=== PATIENT | male | born 1980 | race Hispanic/Latino ===

== ENCOUNTER → 2018-05-04 | Outpatient (CLI) | payer OTHER ==
--- NOTE | 2018-05-04 12:41 | NUR ---
Bariatric Preop diet education: Printed materials provided on Nutrition Guidelines for Bariatric surgery. Printed materials reviewed in detail. Pt has been instructed to begin clear liquid diet 1 wk before surgery and to follow dietary guidelines post surgery. Pt with multiple questions on diet guidelines, protein supplements and vitamin supplements. All questions answered by BROCK. [facility]OCK contact information given to pt for any nutritional questions or concerns pt may have. Addendum: 05/04/18 at [address] Amended: Links added.
== END | disposition home or self-care (01) ==
LOC: DTH 09:07
PROVIDERS: ATTEND Surgery
DX: E66.01 Morbid (severe) obesity due to excess calories (principal)
CPT/HCPCS: 97802

== ENCOUNTER 2018-06-12 11:15 | Observation (INO) | payer OTHER ==
[~2018-06-12] VITALS: Ht 188 cm; Wt 142.2 kg
[2018-06-12 17:07] LABS: HEMOGLOBIN A1C 7.8 % (4.0-6.0)
[2018-06-12 17:10] VITALS: BP 126/81
[2018-06-12] MEDS ORDERED: FERS325 PO (17:26)
[2018-06-12] MEDS ORDERED: ICOS1CAP PO (17:26)
[2018-06-12] MEDS ORDERED: TORS10TA18 PO (17:26)
[2018-06-12] MEDS ORDERED: LISI40TA4 PO (17:26)
[2018-06-12] MEDS ORDERED: INSU100I15 SQ (17:26)
[2018-06-12] MEDS ORDERED: INSU100I24 SQ (17:26)
[2018-06-12] MEDS ORDERED: EMPA10TA PO (17:26)
[2018-06-12] MEDS ORDERED: LIRA0.6P2 SQ (17:26)
[2018-06-12] MEDS ORDERED: METO50TA18 PO (17:26)
[2018-06-13] VITALS (20 sets, daily range): BP systolic 121–144; BP diastolic 78–97
[2018-06-13] MEDS ORDERED: SODIUM CHLORIDE 0.9% 1000ML 1,000 ML IV ONE (06:55)
[2018-06-13] MEDS ORDERED: SUCCINYLCHOLINE 200MG/10ML SYR ONE (06:58)
[2018-06-13] MEDS ORDERED: LIDOCAINE PF 2% 5ML ABBOJECT ONE (06:58)
[2018-06-13] MEDS ORDERED: PROPOFOL 10 MG/ML 20ML VIAL IV ONE (06:58)
[2018-06-13] MEDS ORDERED: ROCURONIUM 10MG/1ML SYR 10 MG/ML ML ONE (06:59)
[2018-06-13] MEDS ORDERED: FENTANYL CITRATE PF 50 MCG/1 ML 2ML VIAL ONE ×2 (06:59→09:34)
[2018-06-13] MEDS ORDERED: GENTAMICIN SULFATE 80 MG/2 ML VIAL ONE (07:04)
[2018-06-13] MEDS ORDERED: LIDOCAINE HCL-MPF 0.5% 50ML VIAL IJ ONE (07:05)
[2018-06-13] MEDS ORDERED: CLINDAMYCIN PHOSPHATE 150 MG/ML 6ML VIAL ONE (07:05)
[2018-06-13] MEDS ORDERED: HEPARIN SODIUM 10000 UNIT/ML 1ML VIAL IJ ONE (07:06)
[2018-06-13] MEDS ORDERED: LIDOCAINE HCL MDV 0.5% 50ML VIAL IJ ONE (07:06)
[2018-06-13] MEDS ORDERED: BUPIVACAINE/PF 0.5% 30ML VIAL ONE (07:13)
[2018-06-13] MEDS ORDERED: BUPIVACAINE/EPI/PF 0.5% 30ML VIAL IJ ONE (07:16)
--- NOTE | 2018-06-13 07:17 | NUR ---
skin left foot dressing dry and intact, pt states has ulcer treated daily at home Addendum: 06/13/18 at 0721 by BAY RDZ RN Amended: Links added.
[2018-06-13] MEDS: CYANOCOBALAMIN (VITAMIN B-12) 1000 MCG/ML 1ML VIAL SQ SCH ×2 (07:26→12:28)
[2018-06-13] MEDS: HEPARIN SODIUM 5000UNIT/ML 1ML VIAL SQ SCH ×3 (07:27→12:42)
[2018-06-13] MEDS: METOPROLOL TARTRATE 50 MG TAB PO SCH ×3 (07:31→21:57)
[2018-06-13] MEDS: CEFOXITIN SODIUM 2 GM VIAL ONE ×2 (07:31→10:30)
[2018-06-13] MEDS ORDERED: METHYLENE BLUE 10 MG/ML AMP ONE (07:38)
--- NOTE | 2018-06-13 07:44 | NUR ---
teds/scd in place. abdominal area clipped for sx
[2018-06-13] MEDS ORDERED: CEFOXITIN SODIUM 2 GM VIAL IVP PRN (08:00)
[2018-06-13] MEDS ORDERED: WATER FOR INJECTION,STERILE 20 ML VIAL IJ PRN (08:00)
[2018-06-13] MEDS ORDERED: MIDAZOLAM HCL 1 MG/ML 2ML VIAL ONE (08:26)
[2018-06-13] MEDS ORDERED: GLYCOPYRROLATE 1 MG/5 ML SYRINGE ONE (10:18)
[2018-06-13] MEDS ORDERED: CEFOXITIN SODIUM 2 GM VIAL ONE (10:18)
[2018-06-13] MEDS ORDERED: NEOSTIGMINE 5MG/5ML SYR IV ONE (10:18)
[2018-06-13] MEDS ORDERED: FENTANYL CITRATE PF 50 MCG/1 ML 5ML AMP IV ONE (10:32)
[2018-06-13] MEDS ORDERED: ONDANSETRON HCL 4 MG/2 ML VIAL ONE ×2 (10:35→11:35)
[2018-06-13] MEDS ORDERED: MEPERIDINE-PF 25 MG/ML SYG ONE (11:26)
--- NOTE | 2018-06-13 11:35 | NUR ---
1128 - DEMEROL 25MG GIVEN SIVP FOR C/O GENERALIZED ABDOMINAL PAIN 1135 - ZOFRAN 4MG GIVEN FOR C/O NAUSEA PT REPORTS SOME RELIEF FROM PAIN AND NAUSEA, WILL CONTINUE TO MONITOR. Addendum: 06/13/18 at 1213 by MINERVA CORDOBA RN RN Amended: Links added.
--- NOTE | 2018-06-13 12:04 | NUR ---
POST SURGERY PATIENT RECEIVED FROM PACU VIA HOSPITAL BED. HE HAS BEEN ORIENTED TO ROOM AND USE OF CALL LIGHT. HE HAS 4 LARGE BAND-AIDS TO ABDOMEN WHICH ARE CLEAN AND DRY. PATIENT APPEARS COMFORTABLE AT THIS TIME. BED IS IN LOWEST POSITION AND LOCKED WITH ALL PERSONAL BELONGINGS WITHIN REACH.
[2018-06-13] MEDS ORDERED: ACETAMINOPHEN-CODEINE 300/30MG TAB PO PRN (12:45)
[2018-06-13] MEDS ORDERED: GLUCAGON 1MG KIT 1 MG ML IM PRN (12:45)
[2018-06-13] MEDS ORDERED: METOCLOPRAMIDE 10 MG/2 ML VIAL IV PRN (12:45)
[2018-06-13] MEDS ORDERED: DiphenhydrAMINE HCL 50 MG/ML VIAL IVP PRN (12:45)
[2018-06-13] MEDS ORDERED: NALOXONE HCL 0.4 MG/1 ML ML IVP PRN (12:45)
[2018-06-13] MEDS ORDERED: ONDANSETRON HCL 4 MG/2 ML 8 MG in SODIUM CHLORIDE 0.9% 50 ML IVP PRN (12:45)
[2018-06-13] MEDS ORDERED: PROMETHAZINE HCL 25 MG/ML 1ML AMPULE IM PRN (12:45)
[2018-06-13] MEDS ORDERED: HYDROMORPHONE PCA 10MG/50 ML ( 0.2 MG/ML ) IV PRN (12:45)
[2018-06-13] MEDS ORDERED: DEXTROSE 50%-WATER 50 ML DISP.SYRIN IV PRN (12:45)
[2018-06-13] MEDS ORDERED: DIPHENHYDRAMINE HCL 25 MG CAPSULE PO PRN (12:45)
[2018-06-13] MEDS ORDERED: ONDANSETRON HCL 4 MG/2 ML VIAL IVP PRN (12:45)
[2018-06-13] MEDS ORDERED: PHARMACY COMMUNICATION MISC SCH (16:30)
[2018-06-13] MEDS ORDERED: INSULIN R PO SS1 SQ SCH (16:30)
--- NOTE | 2018-06-13 18:37 | NUR ---
CM IA DONE, AAOX3, ENG SPKING PT IND OF ADLS AND RETURNING TO [facility], LIVES W SPOUSE, KIDS AND MOM NO DME NO HH NO PROVIDER SERVICES
--- NOTE | 2018-06-13 19:20 | NUR ---
WALK PT IS SEEN WALKING IN THE HALLWAY, TOLERATING ACTIVITY WELL. REPORT RECEIVED FROM OUTGOING SHIFT.
--- NOTE | 2018-06-13 22:00 | NUR ---
MEDS PT CONTINUES TO TAKE CLEAR LIQUID DIET 30CC EVERY 15 MINS, TOLERATING WELL. DUE MEDS GIVEN, TOLERATED WELL. PT ON CARE TECHNICIAN DILAUDID ON DEMAND AND POST OP PAINS UNDER CONTROL. KEPT RESTED AND COMFORTABLE IN BED. IS RE-ITERATED AND IS ABLE TO DO 1500 VOLUME. WILL MONITOR PT.
[2018-06-13] MEDS ORDERED: INSULIN HUMULIN R 100 UNIT/ML 3ML SQ SCH (22:30)
[2018-06-14] VITALS: BP 160/94
[2018-06-14] MEDS: HEPARIN SODIUM 5000UNIT/ML 1ML VIAL SQ SCH ×2 (00:24→10:58)
--- NOTE | 2018-06-14 02:00 | NUR ---
ROUNDS PT FAIRLY ASLEEP WITH RESPIRATIONS EVEN AND UNLABORED. NO NOTED DISTRESS. KEPT UNDISTURBED FOR NOW. WILL CONTINUE TO MONITOR. CALL LIGHT WITHIN REACH. WILL MONITOR PT.
[2018-06-14 04:00] VITALS: BP 137/83
--- NOTE | 2018-06-14 05:52 | NUR ---
ROUNDS PT RESTING WELL. NO CONCERNS VERBALIZED. KEPT COMFORTABLE AND RESTED. FOR MORE CARE.
[2018-06-14] MEDS: INSULIN HUMULIN R 100 UNIT/ML 3ML SQ SCH ×2 (06:00)
[2018-06-14] MEDS ORDERED: INSULIN LISPRO 100 UNIT/ML 3ML SQ SCH (07:30)
[2018-06-14 08:00] VITALS: BP 135/85
[2018-06-14] MEDS ORDERED: FERROUS SULFATE 325 MG TABLET.DR PO SCH (09:00)
[2018-06-14] MEDS ORDERED: Icosapent Ethyl (Vascepa) 1 GM PO SCH (09:00)
[2018-06-14] MEDS ORDERED: TORSEMIDE 20 MG TAB PO SCH (09:00)
[2018-06-14] MEDS ORDERED: INSULIN DEGLUDEC 12 UNIT SQ SCH (09:00)
[2018-06-14] MEDS ORDERED: LISINOPRIL 40 MG TABLET PO SCH (09:00)
[2018-06-14] MEDS ORDERED: Liraglutide (Victoza 3-Pak) 1.8 MG SQ SCH (09:00)
--- NOTE | 2018-06-14 09:00 | NUR ---
DR.A SEXTON CALLED. PATIENT STATUS UPDATE GIVEN TO MD. NEW ORDERS TO DISCHARGE ONCE TOLERATING PO DIET AND AMBULATING. ORDERS RECEIVED AND CARRIED OUT. Addendum: 06/14/18 at 1903 by AURY ALARCON RN RN Amended: Links added.
[2018-06-14] MEDS: METOPROLOL TARTRATE 50 MG TAB PO SCH (10:57)
--- NOTE | 2018-06-14 11:30 | NUR ---
RD Post-OP Follow-up Patient Post-Op Bariatric Sleeve procedure. Patient with questions regarding diet. RD provided follow-up information and Nutrition meal plan packet. Patient verbalized understanding. Patient encouraged to ask questions as they arise. RD to follow-up. Thank you.
[2018-06-14 12:00] VITALS: BP 148/100
[2018-06-14 16:00] VITALS: BP 147/98
--- NOTE | 2018-06-14 17:20 | NUR ---
DISCHARGE PATIENT GIVEN DISCHARGE INSTRUCTIONS AND EDUCATION, INCLUDING FOLLOW UP APPOINTMENTS AND BARIATRIC DIET. NO NEW MEDICATIONS PRESCRIBED. PATIENT VERBALIZED UNDERSTANDING OF ALL EDUCATION GIVEN VIA TEACH BACK. NO QUESTIONS OR CONCERNS VOICED AT THIS TIME. IV DISCONTINUED, CATHETER INTACT. NO SIGNS OF DISTRESS NOTED UPON DISCHARGE. PATIENT LEFT VIA WHEELCHAIR WITH SPOUSE AT SIDE TO PRIVATE CAR. ALL BELONGINGS TAKEN WITH. Addendum: 06/14/18 at 1900 by AURY ALARCON RN RN Amended: Links added.
== END 2018-06-14 17:35 | disposition home or self-care (01) ==
LOC: EDSTATUS 11:15 → DAHIP 06-13 06:17 → INTOOBSV 06-13 06:17 → 4CH 06-13 11:42
PROVIDERS: ADMIT Surgery; ATTEND Surgery
DX: E66.01 Morbid (severe) obesity due to excess calories (principal); E11.9 Type 2 diabetes mellitus without complications; E78.5 Hyperlipidemia, unspecified; M19.90 Unspecified osteoarthritis, unspecified site; I11.9 Hypertensive heart disease without heart failure; E78.00 Pure hypercholesterolemia, unspecified; Z87.891 Personal history of nicotine dependence; Z79.899 Other long term (current) drug therapy
CPT/HCPCS: 36415; 43775; 82607; 82948 ×7; 83036; 84597; 86850; 86900; 86901; 86922; 88307; 96365; 96372 ×2; A4218; A4510; A4606; A4649 ×8; G0168; G0378 ×36; J0330; J0694 ×2; J1170; J1580; J1644 ×4; J1815; J2001; J2175; J2250; J2405 ×2; J2704; J2710; J3010 ×3; J3420; J3490 ×3; J7030 ×2; J7120; Q9968

== ENCOUNTER → 2018-10-31 | Outpatient (CLI) | payer OTHER ==
[~2018-10-31] MED LIST: AEC81 PO; ATOR10 PO; FERS325 PO; LISI40TA4 PO
== END | disposition home or self-care (01) ==
LOC: RAH 12:04
PROVIDERS: ATTEND Urology
DX: R31.29 Other microscopic hematuria (principal)
CPT/HCPCS: 76770

== ENCOUNTER 2018-11-24 22:40 | Inpatient (IN) | payer OTHER | END 2018-12-01 13:05 | disposition home or self-care (01) | LOC: EDH 22:40 → EDHIP 11-25 00:47 → 3CH 11-25 01:46 | PROC: 0Y6M0ZF Detachment at Right Foot, Partial 5th Ray, Open Approach (ICD-10-PCS; principal; 2018-11-26 20:45) | PROC: 0QBN0ZZ Excision of Right Metatarsal, Open Approach (ICD-10-PCS; 2018-11-26 20:45) | DX: E11.621 Type 2 diabetes mellitus with foot ulcer (principal); L03.115 Cellulitis of right lower limb; M86.9 Osteomyelitis, unspecified; E11.52 Type 2 diabetes mellitus with diabetic peripheral angiopathy with gangrene; N17.9 Acute kidney failure, unspecified; L97.519 Non-pressure chronic ulcer of other part of right foot with unspecified severity; I10 Essential (primary) hypertension; D64.9 Anemia, unspecified; E86.0 Dehydration; E11.69 Type 2 diabetes mellitus with other specified complication; Z68.35 Body mass index [BMI] 35.0-35.9, adult; N18.9 Chronic kidney disease, unspecified; E11.22 Type 2 diabetes mellitus with diabetic chronic kidney disease; I12.9 Hypertensive chronic kidney disease with stage 1 through stage 4 chronic kidney disease, or unspecified chronic kidney disease; E11.610 Type 2 diabetes mellitus with diabetic neuropathic arthropathy; E66.01 Morbid (severe) obesity due to excess calories; E11.21 Type 2 diabetes mellitus with diabetic nephropathy ==

== ENCOUNTER → 2020-04-27 | Outpatient (CLI) | payer OTHER | END | disposition home or self-care (01) | LOC: RAH 11:01 | PROVIDERS: ATTEND Internal Medicine | DX: M19.011 Primary osteoarthritis, right shoulder (principal) | CPT/HCPCS: 73030 ==

== ENCOUNTER → 2020-09-02 | Outpatient (CLI) | payer OTHER ==
[~2020-09-02] MED LIST changes: -LISI40TA4 PO; +LISI40TA9 PO
== END | disposition home or self-care (01) ==
LOC: RAH 09:44
PROVIDERS: ATTEND Internal Medicine
DX: N18.30 Chronic kidney disease, stage 3 unspecified (principal); N32.89 Other specified disorders of bladder
CPT/HCPCS: 76770

== ENCOUNTER 2021-04-12 09:56 | Inpatient (IN) | payer OTHER ==
[~2021-04-12] VITALS: Ht 188 cm; Wt 107.8 kg
[2021-04-12 10:47] LABS: HEMATOCRIT 27.3 % (42-54); MEAN CORPUSCULAR HEMOGLOBIN 26.9 pg (27.0-33.0); MEAN CORPUSCULAR HGB CONC 31.1 g/dL (32.0-36.0); MEAN CORPUSCULAR VOLUME 86.4 fL (79-99); RED BLOOD CELL COUNT(AUTO) 3.16 MIL/uL (4.50-6.20); RED CELL DISTRIBUTION WIDTH 13.7 % (11.0-15.5); WHITE BLOOD COUNT (AUTO) 6.4 K/uL (4.8-10.8)
[2021-04-12 11:08] LABS: ALBUMIN 3.4 g/dL (3.5-5.0); BILIRUBIN,TOTAL 0.3 mg/dL (0.2-1.0); CREATININE 5.5 mg/dL (0.5-1.5); POTASSIUM 5.1 mmol/L (3.5-5.1); TOTAL PROTEIN, SERUM 8.4 g/dL (6.0-8.3)
[2021-04-12] MEDS ORDERED: ONDANSETRON 4MG INJ IVP PRN (15:00)
[2021-04-12] MEDS ORDERED: ACETAMINOPHEN 325 MG TAB PO PRN (15:00)
[2021-04-12] MEDS ORDERED: LIDOCAINE HCL 1% MDV 50ML VIAL ONE (15:12)
[2021-04-12] MEDS ORDERED: HEPARIN 1,000 UNIT VIAL ONE (15:12)
[2021-04-12] MEDS: INSULIN HUMULIN R 100 UNIT/ML 3ML SQ SCH ×2 (16:30→21:00)
[2021-04-12 16:44] LABS: INR 1.07 (0.85-1.15); PROTHROMBIN TIME 11.6 SEC (9.6-11.6)
[2021-04-12] MEDS: HYDRALAZINE 20MG/ML VIAL IV PRN (16:47)
[2021-04-12] MEDS ORDERED: AMLODIPINE 5 MG TAB ONE (17:32)
[2021-04-12] MEDS ORDERED: AMLODIPINE 5 MG TAB PO ONE (18:00)
[2021-04-12 20:00] VITALS: BP 137/89
[2021-04-12 22:30] VITALS: BP 163/97
[2021-04-13] VITALS (18 sets, daily range): BP systolic 141–176; BP diastolic 82–109
[2021-04-13 05:15] LABS: HEMATOCRIT 25.2 % (42-54); LYMPHOCYTES % (AUTO) 32.8 % (21.0-51.0); MEAN CORPUSCULAR HEMOGLOBIN 26.4 pg (27.0-33.0); MEAN CORPUSCULAR VOLUME 85.1 fL (79-99); MONOCYTES % (AUTO) 8.9 % (3.0-13.0); NEUTROPHILS % (AUTO) 54.1 % (40.0-77.0); PLATELET COUNT (AUTO) 249 K/uL (130-400); RED BLOOD CELL COUNT(AUTO) 2.96 MIL/uL (4.50-6.20); RED CELL DISTRIBUTION WIDTH 13.8 % (11.0-15.5); WHITE BLOOD COUNT (AUTO) 6.1 K/uL (4.8-10.8)
[2021-04-13 05:30] LABS: CREATININE 5.6 mg/dL (0.5-1.5); PHOSPHORUS 5.1 mg/dL (2.5-4.9)
[2021-04-13 06:39] LABS: % IRON SATURATION 20.1 % (30-44)
[2021-04-13] MEDS: INSULIN HUMULIN R 100 UNIT/ML 3ML SQ SCH ×4 (07:30→21:00)
[2021-04-13 09:12] LABS: HEMATOCRIT 25.7 % (42-54)
[2021-04-13 09:25] LABS: ALBUMIN 3.3 g/dL (3.5-5.0); CREATININE 5.6 mg/dL (0.5-1.5)
[2021-04-13 09:30] LABS: HEMOGLOBIN A1C 6.1 % (4.0-6.0)
[2021-04-13] MEDS: AMLODIPINE 5 MG TAB PO SCH (09:55)
[2021-04-13] MEDS ORDERED: HEPARIN 1,000 UNIT VIAL ONE (14:10)
[2021-04-13] MEDS ORDERED: LIDOCAINE HCL 1% MDV 50ML VIAL ONE (14:10)
[2021-04-14] VITALS (18 sets, daily range): BP systolic 104–151; BP diastolic 68–100
[2021-04-14] MEDS ORDERED: HYDROCODONE/ACETAMINOPHEN 5/325 MG TAB ONE (00:13)
[2021-04-14] MEDS: HYDRALAZINE 20MG/ML VIAL IV PRN (00:16)
[2021-04-14] MEDS ORDERED: HYDROCODONE/ACETAMINOPHEN 5/325 MG TAB PO ONE (00:30)
[2021-04-14] MEDS: INSULIN HUMULIN R 100 UNIT/ML 3ML SQ SCH ×4 (07:30→21:00)
[2021-04-14] MEDS ORDERED: LISINOPRIL 40 MG TABLET PO SCH (09:30)
[2021-04-14] MEDS: AMLODIPINE 5 MG TAB PO SCH (09:53)
[2021-04-14] MEDS ORDERED: COMPOUND IV MISC 1 EACH IVSOLN MISC PRN (12:30)
[2021-04-14 13:12] LABS: HEPATITIS B CORE IGM Negative (Negative); HEPATITIS Bs ANTIGEN SCREEN P Negative (Negative)
[2021-04-14 13:12] LABS: HEPATITIS Bs ANTIGEN SCREEN P Negative (Negative)
[2021-04-14] MEDS: EPOETIN ALFA-EPBX (ESRD) 10,000 UNIT/ML VIAL SQ SCH (22:07)
[2021-04-15] VITALS (20 sets, daily range): BP systolic 98–147; BP diastolic 57–78
[2021-04-15 05:10] LABS: MEAN CORPUSCULAR HEMOGLOBIN 26.3 pg (27.0-33.0); MEAN CORPUSCULAR HGB CONC 31.1 g/dL (32.0-36.0); MEAN CORPUSCULAR VOLUME 84.6 fL (79-99); RED BLOOD CELL COUNT(AUTO) 3.19 MIL/uL (4.50-6.20); RED CELL DISTRIBUTION WIDTH 13.6 % (11.0-15.5); WHITE BLOOD COUNT (AUTO) 7.2 K/uL (4.8-10.8)
[2021-04-15 05:28] LABS: CREATININE 5.2 mg/dL (0.5-1.5); POTASSIUM 4.4 mmol/L (3.5-5.1)
[2021-04-15] MEDS: INSULIN HUMULIN R 100 UNIT/ML 3ML SQ SCH ×4 (07:30→21:00)
[2021-04-15] MEDS: AMLODIPINE 5 MG TAB PO SCH (09:00)
[2021-04-15] MEDS: LISINOPRIL 40 MG TABLET PO SCH (09:00)
[2021-04-15] MEDS: IRON SUCROSE COMPLEX 100 MG in 0.9%NACL 50ML 50 ML IV SCH (09:33)
[2021-04-15] MEDS ORDERED: 0.9%NACL 1000ML 1,000 ML IV ONE (12:27)
[2021-04-15] MEDS ORDERED: BUPIVACAINE/PF 0.5% 30ML VIAL ONE (12:50)
[2021-04-15] MEDS ORDERED: LIDOCAINE HCL 1% 20 ML VIAL ONE (12:50)
[2021-04-15] MEDS ORDERED: MIDAZOLAM HCL 1 MG/ML 2ML VIAL ONE (13:24)
[2021-04-15] MEDS ORDERED: PROPOFOL 1000 MG/100 ML 100 ML IV ONE (13:31)
[2021-04-15] MEDS ORDERED: EPHEDRINE SULFATE 50 MG/ML AMPULE ONE (13:55)
[2021-04-15] MEDS ORDERED: FENTANYL CITRATE PF 50 MCG/1 ML 2ML VIAL ONE (15:34)
[2021-04-15] MEDS ORDERED: HYDROMORPHONE 0.5 MG SYG (0.5MG/0.5ML) IVP PRN (19:00)
[2021-04-15] MEDS ORDERED: MORPHINE 2 MG SYG IVP PRN (19:00)
[2021-04-16] VITALS (23 sets, daily range): BP systolic 94–128; BP diastolic 62–79
[2021-04-16 05:18] LABS: MEAN CORPUSCULAR HEMOGLOBIN 26.9 pg (27.0-33.0); MEAN CORPUSCULAR HGB CONC 31.1 g/dL (32.0-36.0); MEAN CORPUSCULAR VOLUME 86.5 fL (79-99); RED BLOOD CELL COUNT(AUTO) 3.12 MIL/uL (4.50-6.20); RED CELL DISTRIBUTION WIDTH 13.8 % (11.0-15.5); WHITE BLOOD COUNT (AUTO) 9.4 K/uL (4.8-10.8)
[2021-04-16 05:29] LABS: CREATININE 6.8 mg/dL (0.5-1.5); CRP QUANTITATIVE 7.9 mg/L (0.00-9.0); POTASSIUM 4.8 mmol/L (3.5-5.1)
[2021-04-16] MEDS: INSULIN HUMULIN R 100 UNIT/ML 3ML SQ SCH ×4 (07:30→21:00)
[2021-04-16] MEDS: LISINOPRIL 40 MG TABLET PO SCH (09:00)
[2021-04-16 09:30] LABS: INR 1.08 (0.85-1.15); PROTHROMBIN TIME 11.7 SEC (9.6-11.6)
[2021-04-16 09:32] LABS: PARTIAL THROMBOPLASTIN TIME 29.6 SEC (26.3-35.5)
[2021-04-16] MEDS: IRON SUCROSE COMPLEX 100 MG in 0.9%NACL 50ML 50 ML IV SCH (16:50)
[2021-04-16] MEDS: EPOETIN ALFA-EPBX (ESRD) 10,000 UNIT/ML VIAL SQ SCH (21:34)
[2021-04-17 03:41] LABS: HEMATOCRIT 26.6 % (42-54); MEAN CORPUSCULAR HEMOGLOBIN 27.1 pg (27.0-33.0); MEAN CORPUSCULAR HGB CONC 31.2 g/dL (32.0-36.0); MEAN CORPUSCULAR VOLUME 86.9 fL (79-99); RED BLOOD CELL COUNT(AUTO) 3.06 MIL/uL (4.50-6.20); RED CELL DISTRIBUTION WIDTH 13.6 % (11.0-15.5); WHITE BLOOD COUNT (AUTO) 9.5 K/uL (4.8-10.8)
[2021-04-17 04:02] VITALS: BP 109/69
[2021-04-17] MEDS: INSULIN HUMULIN R 100 UNIT/ML 3ML SQ SCH ×4 (06:22→22:27)
[2021-04-17 08:00] VITALS: BP 118/64
[2021-04-17] MEDS: LISINOPRIL 40 MG TABLET PO SCH (09:00)
[2021-04-17] MEDS: IRON SUCROSE COMPLEX 100 MG in 0.9%NACL 50ML 50 ML IV SCH (09:20)
[2021-04-17 12:00] VITALS: BP 108/67
[2021-04-17 16:00] VITALS: BP 128/69
[2021-04-17 20:00] VITALS: BP 125/66
[2021-04-18] VITALS: BP 126/73
[2021-04-18 03:47] LABS: HEMATOCRIT 23.6 % (42-54); MEAN CORPUSCULAR HEMOGLOBIN 27.1 pg (27.0-33.0); MEAN CORPUSCULAR HGB CONC 30.9 g/dL (32.0-36.0); MEAN CORPUSCULAR VOLUME 87.7 fL (79-99); RED BLOOD CELL COUNT(AUTO) 2.69 MIL/uL (4.50-6.20); RED CELL DISTRIBUTION WIDTH 13.7 % (11.0-15.5); WHITE BLOOD COUNT (AUTO) 9.7 K/uL (4.8-10.8)
[2021-04-18 04:00] VITALS: BP 124/69
[2021-04-18] MEDS: INSULIN HUMULIN R 100 UNIT/ML 3ML SQ SCH ×4 (06:15→21:36)
[2021-04-18 08:00] VITALS: BP 121/77
[2021-04-18] MEDS: LISINOPRIL 40 MG TABLET PO SCH (10:07)
[2021-04-18] MEDS: IRON SUCROSE COMPLEX 100 MG in 0.9%NACL 50ML 50 ML IV SCH (10:08)
[2021-04-18 12:00] VITALS: BP 101/66
[2021-04-18 16:00] VITALS: BP 139/76
[2021-04-18 20:00] VITALS: BP 143/79
[2021-04-19] VITALS (21 sets, daily range): BP systolic 100–135; BP diastolic 68–81
[2021-04-19 03:31] LABS: HEMATOCRIT 23.4 % (42-54); MEAN CORPUSCULAR HEMOGLOBIN 27.4 pg (27.0-33.0); MEAN CORPUSCULAR HGB CONC 32.1 g/dL (32.0-36.0); MEAN CORPUSCULAR VOLUME 85.4 fL (79-99); RED BLOOD CELL COUNT(AUTO) 2.74 MIL/uL (4.50-6.20); RED CELL DISTRIBUTION WIDTH 13.5 % (11.0-15.5); WHITE BLOOD COUNT (AUTO) 9.6 K/uL (4.8-10.8)
[2021-04-19 03:40] LABS: INR 1.08 (0.85-1.15); PROTHROMBIN TIME 11.7 SEC (9.6-11.6)
[2021-04-19 03:42] LABS: PARTIAL THROMBOPLASTIN TIME 31.3 SEC (26.3-35.5)
[2021-04-19 03:43] LABS: POTASSIUM 4.5 mmol/L (3.5-5.1)
[2021-04-19 03:46] LABS: CREATININE 8.1 mg/dL (0.5-1.5)
[2021-04-19] MEDS: INSULIN HUMULIN R 100 UNIT/ML 3ML SQ SCH ×4 (06:59→21:00)
[2021-04-19] MEDS: LISINOPRIL 40 MG TABLET PO SCH (09:00)
[2021-04-19] MEDS: HEPARIN 5,000 UNIT VIAL IJ SCH (11:10)
[2021-04-19] MEDS: IRON SUCROSE COMPLEX 100 MG in 0.9%NACL 50ML 50 ML IV SCH (12:52)
[2021-04-19] MEDS ORDERED: CEFAZOLIN SODIUM 1 GM VIAL IVP PRN (14:00)
[2021-04-19 18:59] LABS: HEMATOCRIT 25.6 % (42-54)
[2021-04-19] MEDS: EPOETIN ALFA-EPBX (ESRD) 10,000 UNIT/ML VIAL SQ SCH (21:32)
[2021-04-20] VITALS (27 sets, daily range): BP systolic 98–135; BP diastolic 59–97
[2021-04-20 05:13] LABS: BASOPHILS % (AUTO) 0.7 % (0.0-5.0); EOSINOPHILS % (AUTO) 2.3 % (0.0-8.0); HEMATOCRIT 24.9 % (42-54); LYMPHOCYTES % (AUTO) 24.1 % (21.0-51.0); MEAN CORPUSCULAR HEMOGLOBIN 26.9 pg (27.0-33.0); MEAN CORPUSCULAR HGB CONC 30.9 g/dL (32.0-36.0); MEAN CORPUSCULAR VOLUME 87.1 fL (79-99); MONOCYTES % (AUTO) 10.4 % (3.0-13.0); NEUTROPHILS % (AUTO) 61.9 % (40.0-77.0); PLATELET COUNT (AUTO) 222 K/uL (130-400); RED BLOOD CELL COUNT(AUTO) 2.86 MIL/uL (4.50-6.20); RED CELL DISTRIBUTION WIDTH 13.5 % (11.0-15.5); WHITE BLOOD COUNT (AUTO) 9.1 K/uL (4.8-10.8)
[2021-04-20 05:35] LABS: CREATININE 7.6 mg/dL (0.5-1.5); CRP QUANTITATIVE 163.5 mg/L (0.00-9.0)
[2021-04-20 05:40] LABS: % IRON SATURATION 14.8 % (30-44)
[2021-04-20] MEDS: INSULIN HUMULIN R 100 UNIT/ML 3ML SQ SCH ×4 (06:05→20:48)
[2021-04-20 07:12] LABS: ERYTHROCYTE SEDIMENTATION RATE 148 MM/HR (0-15)
[2021-04-20] MEDS ORDERED: CEFEPIME HCL 2 GM VIAL IVP SCH (08:00)
[2021-04-20] MEDS: LISINOPRIL 20 MG TABLET PO SCH (09:00)
[2021-04-20] MEDS: IRON SUCROSE COMPLEX 100 MG in 0.9%NACL 50ML 50 ML IV SCH (11:02)
[2021-04-20] MEDS ORDERED: CEFAZOLIN SODIUM 1 GM VIAL ONE (14:00)
[2021-04-20] MEDS ORDERED: MIDAZOLAM HCL 1 MG/ML 2ML VIAL ONE (16:11)
[2021-04-20] MEDS ORDERED: PROPOFOL 10 MG/ML 20ML VIAL IV ONE (16:11)
[2021-04-20] MEDS ORDERED: ROCURONIUM 10MG/1ML SYR 10 MG/ML ML ONE (16:11)
[2021-04-20] MEDS ORDERED: LIDOCAINE PF 100MG/5ML (2%) SYRINGE 5ML ONE (16:11)
[2021-04-20] MEDS ORDERED: FENTANYL CITRATE PF 50 MCG/1 ML 2ML VIAL ONE ×3 (16:12→18:03)
[2021-04-20] MEDS ORDERED: ONDANSETRON 4MG INJ ONE (16:57)
[2021-04-20] MEDS ORDERED: PHENYLEPHRINE HCL 10 MG/ML 1ML VIAL IV ONE ×2 (17:12→17:14)
[2021-04-20] MEDS ORDERED: TRAMADOL HCL 50 MG TABLET PO PRN ×2 (18:30)
[2021-04-20] MEDS ORDERED: MEPERIDINE-PF 25 MG/ML SYG ONE (18:48)
[2021-04-20] MEDS: SULFAMETHOX-TMP DS 800/160 TAB PO SCH (20:16)
[2021-04-21] VITALS (18 sets, daily range): BP systolic 105–146; BP diastolic 64–88
[2021-04-21 05:04] LABS: BASOPHILS % (AUTO) 0.5 % (0.0-5.0); EOSINOPHILS % (AUTO) 2.5 % (0.0-8.0); HEMATOCRIT 24.9 % (42-54); LYMPHOCYTES % (AUTO) 24.5 % (21.0-51.0); MEAN CORPUSCULAR HEMOGLOBIN 26.1 pg (27.0-33.0); MEAN CORPUSCULAR HGB CONC 30.1 g/dL (32.0-36.0); MEAN CORPUSCULAR VOLUME 86.8 fL (79-99); MONOCYTES % (AUTO) 10.3 % (3.0-13.0); NEUTROPHILS % (AUTO) 61.1 % (40.0-77.0); PLATELET COUNT (AUTO) 236 K/uL (130-400); RED BLOOD CELL COUNT(AUTO) 2.87 MIL/uL (4.50-6.20); RED CELL DISTRIBUTION WIDTH 13.6 % (11.0-15.5); WHITE BLOOD COUNT (AUTO) 8.6 K/uL (4.8-10.8)
[2021-04-21 05:18] LABS: POTASSIUM 4.8 mmol/L (3.5-5.1)
[2021-04-21 05:25] LABS: CREATININE 8.6 mg/dL (0.5-1.5)
[2021-04-21] MEDS: INSULIN HUMULIN R 100 UNIT/ML 3ML SQ SCH ×2 (06:15→11:30)
[2021-04-21] MEDS: HEPARIN 5,000 UNIT VIAL IJ SCH (12:01)
[2021-04-21] MEDS ORDERED: LISI20TA24 PO (12:53)
[2021-04-21] MEDS ORDERED: Sulfamethox-Tmp Ds 800/160 Tab PO (12:53)
[2021-04-21] MEDS: IRON SUCROSE COMPLEX 100 MG in 0.9%NACL 50ML 50 ML IV SCH (12:56)
[2021-04-21] MEDS: SULFAMETHOX-TMP DS 800/160 TAB PO SCH (13:01)
[2021-04-21] MEDS: LISINOPRIL 20 MG TABLET PO SCH (13:01)
== END 2021-04-21 15:50 | disposition home health service (06) | DRG 673 ==
LOC: EDH 09:56 → EDHIP 14:30 → 4DH 22:31
PROVIDERS: ADMIT Internal Medicine; ATTEND Internal Medicine
PROC: 5A1D70Z Performance of Urinary Filtration, Intermittent, Less than 6 Hours Per Day (ICD-10-PCS; 2021-04-13)
PROC: 0JH63XZ Insertion of Tunneled Vascular Access Device into Chest Subcutaneous Tissue and Fascia, Percutaneous Approach (ICD-10-PCS; 2021-04-13)
PROC: 02H633Z Insertion of Infusion Device into Right Atrium, Percutaneous Approach (ICD-10-PCS; 2021-04-13)
PROC: B5181ZA Fluoroscopy of Superior Vena Cava using Low Osmolar Contrast, Guidance (ICD-10-PCS; 2021-04-13)
PROC: B548ZZA Ultrasonography of Superior Vena Cava, Guidance (ICD-10-PCS; 2021-04-13)
PROC: 5A1D70Z Performance of Urinary Filtration, Intermittent, Less than 6 Hours Per Day (ICD-10-PCS; 2021-04-14)
PROC: 0Y6N0ZB Detachment at Left Foot, Partial 2nd Ray, Open Approach (ICD-10-PCS; 2021-04-15)
PROC: 0Y6W0Z0 Detachment at Left 4th Toe, Complete, Open Approach (ICD-10-PCS; 2021-04-15)
PROC: 5A1D70Z Performance of Urinary Filtration, Intermittent, Less than 6 Hours Per Day (ICD-10-PCS; 2021-04-16)
PROC: 0JBQ0ZZ Excision of Right Foot Subcutaneous Tissue and Fascia, Open Approach (ICD-10-PCS; 2021-04-17)
PROC: 5A1D70Z Performance of Urinary Filtration, Intermittent, Less than 6 Hours Per Day (ICD-10-PCS; 2021-04-19)
PROC: 03180ZD Bypass Left Brachial Artery to Upper Arm Vein, Open Approach (ICD-10-PCS; principal; 2021-04-20 17:29)
PROC: 5A1D70Z Performance of Urinary Filtration, Intermittent, Less than 6 Hours Per Day (ICD-10-PCS; 2021-04-21)
DX: I12.0 Hypertensive chronic kidney disease with stage 5 chronic kidney disease or end stage renal disease (principal); N18.6 End stage renal disease; M86.8X7 Other osteomyelitis, ankle and foot; Z16.24 Resistance to multiple antibiotics; L97.529 Non-pressure chronic ulcer of other part of left foot with unspecified severity; L97.519 Non-pressure chronic ulcer of other part of right foot with unspecified severity; E11.22 Type 2 diabetes mellitus with diabetic chronic kidney disease; E11.621 Type 2 diabetes mellitus with foot ulcer; E11.69 Type 2 diabetes mellitus with other specified complication; R53.81 Other malaise; D50.9 Iron deficiency anemia, unspecified; Z20.822 Contact with and (suspected) exposure to COVID-19; E11.610 Type 2 diabetes mellitus with diabetic neuropathic arthropathy; E87.5 Hyperkalemia; I16.0 Hypertensive urgency; S93.125A Dislocation of metatarsophalangeal joint of left lesser toe(s), initial encounter; Y93.89 Activity, other specified; Y99.8 Other external cause status; Z99.2 Dependence on renal dialysis; Z98.84 Bariatric surgery status; Z89.421 Acquired absence of other right toe(s); Z89.422 Acquired absence of other left toe(s); Z83.3 Family history of diabetes mellitus; Z82.3 Family history of stroke; Z82.49 Family history of ischemic heart disease and other diseases of the circulatory system
CPT/HCPCS: 36415; 36558; 73630; 73718; 77001; 80048; 80053; 80061; 80074; 82040; 82565; 82728; 82948; 83036; 83540; 83550; 84100; 84145; 84443; 84520; 85014; 85018; 85025; 85027; 85610; 85651; 85730; 86140; 86701; 86704; 86706; 86850; 86900; 86901; 86923; 87070; 87076; 87077; 87186; 87205; 87340; 87390; 87635; 90935; 93005; 93971; C1750; G0378; J0360; J0690; J1644; J1756; J1815; J2001; J2175; J2250; J2370; J2405; J2704; J3010; J3490; J7030; J7040

== ENCOUNTER 2022-04-12 11:31 | Inpatient (IN) | payer OTHER ==
[~2022-04-12] VITALS: Ht 188 cm; Wt 105.7 kg
[~2022-04-12 11:31] MED LIST changes: +LISI20TA24 PO; -LISI40TA9 PO; +Sulfamethox-Tmp Ds 800/160 Tab PO
[2022-04-12] MEDS ORDERED: 0.9%NACL 1000ML 1,000 ML IV ONE ×2 (13:00)
[2022-04-12] MEDS ORDERED: ACETAMINOPHEN 500 MG TABLET PO ONE (13:00)
[2022-04-12] MEDS ORDERED: ZOSYN 3.375GM +NS 50ML IV ONE (13:00)
[2022-04-12 13:16] LABS: BASOPHILS % (AUTO) 0.5 % (0.0-5.0); EOSINOPHILS % (AUTO) 0.1 % (0.0-8.0); MEAN CORPUSCULAR HEMOGLOBIN 29.3 pg (27.0-33.0); MEAN CORPUSCULAR HGB CONC 32.4 g/dL (32.0-36.0); MEAN CORPUSCULAR VOLUME 90.5 fL (79-99); MONOCYTES % (AUTO) 10.5 % (3.0-13.0); NEUTROPHILS % (AUTO) 80.6 % (40.0-77.0); PLATELET COUNT (AUTO) 228 K/uL (130-400); WHITE BLOOD COUNT (AUTO) 12.3 K/uL (4.8-10.8)
[2022-04-12] MEDS ORDERED: 0.9% NACL 500ML IV.SOLN 500 ML IV ONE (13:30)
[2022-04-12 14:14] LABS: CREATININE 6.3 mg/dL (0.5-1.5); POTASSIUM 3.8 mmol/L (3.5-5.1)
[2022-04-12 14:18] LABS: ALBUMIN 4.1 g/dL (3.5-5.0); TOTAL PROTEIN, SERUM 9.4 g/dL (6.0-8.3)
[2022-04-12 14:23] LABS: ERYTHROCYTE SEDIMENTATION RATE 71 MM/HR (0-15)
[2022-04-12] MEDS ORDERED: VANCOMYCIN PROTOCOL PER PHARMACY IV PRN (16:30)
[2022-04-12] MEDS ORDERED: ACETAMINOPHEN 325 MG TAB PO PRN (16:30)
[2022-04-12] MEDS ORDERED: ONDANSETRON 4MG INJ IV PRN (16:30)
[2022-04-12] MEDS ORDERED: VANCOMYCIN 1G VIAL IVPB ONE (16:30)
[2022-04-12] MEDS ORDERED: VANCOMYCIN 1G/250ML KIT 250 ML IV ONE (16:36)
[2022-04-12] MEDS: HEPARIN 5,000 UNIT VIAL SQ SCH (16:54)
[2022-04-12] MEDS: VANCOMYCIN 1.5 GM/250 ML BAG 250 ML IV SCH (16:56)
[2022-04-12] MEDS ORDERED: HEPARIN 5,000 UNIT VIAL SQ SCH (17:00)
[2022-04-12] MEDS ORDERED: ZOSYN 3.375GM +NS 50ML IV SCH (17:00)
[2022-04-12] MEDS ORDERED: COMPOUND IV REFRIGERATED 1 EACH IVSOLN MISC PRN (17:00)
[2022-04-12] MEDS: FAMOTIDINE 20MG TAB PO SCH (18:18)
[2022-04-12] MEDS: ZOSYN 3.375GM+NS 50ML 50 ML IV SCH (21:04)
[2022-04-12] MEDS: INSULIN HUMULIN R 100 UNIT/ML 3ML SQ SCH (21:05)
[2022-04-12] MEDS: HYDROMORPHONE 0.5 MG SYG (0.5MG/0.5ML) IVP PRN (21:26)
[2022-04-13] VITALS (16 sets, daily range): BP systolic 114–154; BP diastolic 54–98
[2022-04-13] MEDS: HEPARIN 5,000 UNIT VIAL SQ SCH ×2 (04:39→17:28)
[2022-04-13 04:51] LABS: BASOPHILS % (AUTO) 0.5 % (0.0-5.0); EOSINOPHILS % (AUTO) 0.2 % (0.0-8.0); HEMATOCRIT 32.9 % (42-54); LYMPHOCYTES % (AUTO) 10.6 % (21.0-51.0); MEAN CORPUSCULAR HEMOGLOBIN 29.5 pg (27.0-33.0); MEAN CORPUSCULAR HGB CONC 33.1 g/dL (32.0-36.0); MEAN CORPUSCULAR VOLUME 89.2 fL (79-99); MONOCYTES % (AUTO) 12.9 % (3.0-13.0); NEUTROPHILS % (AUTO) 75.2 % (40.0-77.0); PLATELET COUNT (AUTO) 207 K/uL (130-400); RED BLOOD CELL COUNT(AUTO) 3.69 MIL/uL (4.50-6.20); RED CELL DISTRIBUTION WIDTH 17.2 % (11.0-15.5); WHITE BLOOD COUNT (AUTO) 12.4 K/uL (4.8-10.8)
[2022-04-13 05:10] LABS: ALBUMIN 3.2 g/dL (3.5-5.0); CREATININE 7.1 mg/dL (0.5-1.5); POTASSIUM 4.1 mmol/L (3.5-5.1); TOTAL PROTEIN, SERUM 8.2 g/dL (6.0-8.3)
[2022-04-13] MEDS: ACETAMINOPHEN 325 MG TAB PO PRN ×3 (05:27→23:52)
[2022-04-13] MEDS: HYDROMORPHONE 0.5 MG SYG (0.5MG/0.5ML) IVP PRN ×4 (05:34→23:53)
[2022-04-13 05:42] LABS: APPEARANCE,URINE CLOUDY (CLEAR); BILIRUBIN,URINE NEGATIVE (NEGATIVE); COLOR,URINE YELLOW (YELLOW); GLUCOSE, URINE (UA) 30 mg/dL (NEGATIVE); KETONES,URINE NEGATIVE (NEGATIVE); LEUKOCYTE ESTERASE ,URINE NEGATIVE Leu/uL (NEGATIVE); NITRATE,URINE NEGATIVE (NEGATIVE); OCCULT BLOOD,URINE MODERATE (NEGATIVE); PH,URINE 5.5 (5.0-8.0); PROTEIN,URINE 200 mg/dL (NEGATIVE); UROBILINOGEN,URINE 0.2 mg/dL (0.2-1.0)
[2022-04-13 05:47] LABS: BACTERIA,URINE RARE /HPF (None Seen); RBC,URINE 26-50 /HPF (0-1); SQUAMOUS EPITHELIAL CELL,UR RARE /HPF (0-2)
[2022-04-13] MEDS: INSULIN HUMULIN R 100 UNIT/ML 3ML SQ SCH ×4 (06:18→23:57)
[2022-04-13] MEDS: FAMOTIDINE 20MG TAB PO SCH (09:51)
[2022-04-13] MEDS: ZOSYN 3.375GM+NS 50ML 50 ML IV SCH ×2 (09:51→21:00)
[2022-04-14] VITALS (26 sets, daily range): BP systolic 99–150; BP diastolic 52–86
[2022-04-14] MEDS: ACETAMINOPHEN 325 MG TAB PO PRN ×2 (03:55→21:54)
[2022-04-14] MEDS: HEPARIN 5,000 UNIT VIAL SQ SCH ×2 (03:56→16:30)
[2022-04-14 04:34] LABS: HEPATITIS B SURFACE ANTIGEN Non-Reactive (Nonreactive)
[2022-04-14 05:27] LABS: BASOPHILS % (AUTO) 0.4 % (0.0-5.0); EOSINOPHILS % (AUTO) 0.2 % (0.0-8.0); HEMATOCRIT 31.7 % (42-54); LYMPHOCYTES % (AUTO) 12.3 % (21.0-51.0); MEAN CORPUSCULAR HEMOGLOBIN 29.4 pg (27.0-33.0); MEAN CORPUSCULAR HGB CONC 32.5 g/dL (32.0-36.0); MEAN CORPUSCULAR VOLUME 90.6 fL (79-99); MONOCYTES % (AUTO) 10.3 % (3.0-13.0); NEUTROPHILS % (AUTO) 76.4 % (40.0-77.0); PLATELET COUNT (AUTO) 217 K/uL (130-400); WHITE BLOOD COUNT (AUTO) 11.2 K/uL (4.8-10.8)
[2022-04-14 05:50] LABS: CREATININE 6.4 mg/dL (0.5-1.5); MAGNESIUM 2.2 mg/dL (1.80-2.40); PHOSPHORUS 5.1 mg/dL (2.5-4.9); POTASSIUM 3.3 mmol/L (3.5-5.1); TOTAL PROTEIN, SERUM 8.5 g/dL (6.0-8.3)
[2022-04-14 06:30] LABS: CRP QUANTITATIVE 419.4 mg/L (0.00-9.0)
[2022-04-14] MEDS: INSULIN HUMULIN R 100 UNIT/ML 3ML SQ SCH ×4 (07:30→21:55)
[2022-04-14] MEDS ORDERED: BUPIVACAINE/PF 0.25% 10ML VIAL IJ ONE (09:42)
[2022-04-14] MEDS ORDERED: LIDOCAINE HCL 1% 20 ML VIAL ONE ×2 (09:42→11:05)
[2022-04-14] MEDS: ZOSYN 3.375GM+NS 50ML 50 ML IV SCH ×2 (10:53→21:54)
[2022-04-14] MEDS: FAMOTIDINE 20MG TAB PO SCH (10:54)
[2022-04-14] MEDS ORDERED: BUPIVACAINE/PF 0.5% 10ML VIAL ONE (11:05)
[2022-04-14] MEDS: HYDROMORPHONE 0.5 MG SYG (0.5MG/0.5ML) IVP PRN (11:31)
[2022-04-14] MEDS ORDERED: 0.9%NACL 1000ML 1,000 ML IV ONE (12:30)
[2022-04-14] MEDS ORDERED: PHARMACY COMMUNICATION MISC SCH (12:30)
[2022-04-14] MEDS ORDERED: 0.9% NACL 500ML IV.SOLN 500 ML IV ONE (13:01)
[2022-04-14] MEDS ORDERED: PROPOFOL 10 MG/ML 20ML VIAL IV ONE (13:32)
[2022-04-14] MEDS ORDERED: GLYCOPYRROLATE 1 MG/5 ML SYRINGE ONE ×2 (13:32→15:41)
[2022-04-14] MEDS ORDERED: ROCURONIUM 10MG/1ML SYR 10 MG/ML ML ONE (13:32)
[2022-04-14] MEDS ORDERED: FENTANYL CITRATE PF 50 MCG/1 ML 2ML VIAL ONE (13:59)
[2022-04-14] MEDS ORDERED: NEOSTIGMINE 5MG/5ML SYR IV ONE (15:41)
[2022-04-14] MEDS: VANCOMYCIN 1.5 GM/250 ML BAG 250 ML IV SCH (17:55)
[2022-04-14] MEDS: GENTAMICIN 120 MG IN 100ML NS 100 ML IV SCH (18:55)
[2022-04-14] MEDS: HYDROMORPHONE 1 MG INJ IVP PRN (21:54)
[2022-04-15] VITALS (23 sets, daily range): BP systolic 92–134; BP diastolic 44–90
[2022-04-15] MEDS: HYDROMORPHONE 1 MG INJ IVP PRN ×6 (01:04→22:16)
[2022-04-15] MEDS: HEPARIN 5,000 UNIT VIAL SQ SCH ×2 (04:12→17:00)
[2022-04-15] MEDS: ACETAMINOPHEN 325 MG TAB PO PRN ×2 (04:18→21:00)
[2022-04-15 05:12] LABS: BASOPHILS % (AUTO) 0.5 % (0.0-5.0); EOSINOPHILS % (AUTO) 0.4 % (0.0-8.0); HEMATOCRIT 29.3 % (42-54); LYMPHOCYTES % (AUTO) 12.4 % (21.0-51.0); MEAN CORPUSCULAR HGB CONC 32.4 g/dL (32.0-36.0); MEAN CORPUSCULAR VOLUME 89.3 fL (79-99); MONOCYTES % (AUTO) 10.2 % (3.0-13.0); NEUTROPHILS % (AUTO) 76.2 % (40.0-77.0); PLATELET COUNT (AUTO) 241 K/uL (130-400); RED BLOOD CELL COUNT(AUTO) 3.28 MIL/uL (4.50-6.20); RED CELL DISTRIBUTION WIDTH 16.8 % (11.0-15.5); WHITE BLOOD COUNT (AUTO) 9.9 K/uL (4.8-10.8)
[2022-04-15 05:35] LABS: ALBUMIN 2.5 g/dL (3.5-5.0); POTASSIUM 3.9 mmol/L (3.5-5.1); TOTAL PROTEIN, SERUM 7.9 g/dL (6.0-8.3)
[2022-04-15 05:36] LABS: CREATININE 8.5 mg/dL (0.5-1.5)
[2022-04-15] MEDS: INSULIN HUMULIN R 100 UNIT/ML 3ML SQ SCH ×4 (06:08→20:57)
[2022-04-15] MEDS: FAMOTIDINE 20MG TAB PO SCH (08:56)
[2022-04-15] MEDS: ZOSYN 3.375GM+NS 50ML 50 ML IV SCH ×2 (08:56→20:53)
[2022-04-15] MEDS: EPOETIN ALFA-EPBX (NON-ESRD) 10,000 UNIT/ML VIAL SQ SCH (12:37)
[2022-04-15 17:35] LABS: PROTHROMBIN TIME 10.9 SEC (9.6-11.6)
[2022-04-15 17:36] LABS: PARTIAL THROMBOPLASTIN TIME 30.5 SEC (26.3-35.5)
[2022-04-15] MEDS: INSULIN GLARGINE 100 UNITS/ML 10 ML VIAL SQ SCH (20:58)
[2022-04-16 00:20] VITALS: BP 101/55
[2022-04-16 04:00] VITALS: BP 99/50
[2022-04-16] MEDS: HEPARIN 5,000 UNIT VIAL SQ SCH ×2 (04:19→17:04)
[2022-04-16] MEDS: HYDROMORPHONE 1 MG INJ IVP PRN ×3 (06:28→21:16)
[2022-04-16 06:31] LABS: BASOPHILS % (AUTO) 0.6 % (0.0-5.0); EOSINOPHILS % (AUTO) 1.7 % (0.0-8.0); HEMATOCRIT 29.9 % (42-54); LYMPHOCYTES % (AUTO) 19.4 % (21.0-51.0); MEAN CORPUSCULAR HEMOGLOBIN 29.3 pg (27.0-33.0); MEAN CORPUSCULAR HGB CONC 33.1 g/dL (32.0-36.0); MEAN CORPUSCULAR VOLUME 88.5 fL (79-99); MONOCYTES % (AUTO) 11.4 % (3.0-13.0); NEUTROPHILS % (AUTO) 66.4 % (40.0-77.0); PLATELET COUNT (AUTO) 275 K/uL (130-400); RED BLOOD CELL COUNT(AUTO) 3.38 MIL/uL (4.50-6.20); RED CELL DISTRIBUTION WIDTH 16.7 % (11.0-15.5); WHITE BLOOD COUNT (AUTO) 8.3 K/uL (4.8-10.8)
[2022-04-16] MEDS: INSULIN HUMULIN R 100 UNIT/ML 3ML SQ SCH ×4 (06:33→21:18)
[2022-04-16 07:12] LABS: ALBUMIN 2.7 g/dL (3.5-5.0); POTASSIUM 3.9 mmol/L (3.5-5.1); TOTAL PROTEIN, SERUM 8.7 g/dL (6.0-8.3)
[2022-04-16 07:56] LABS: CREATININE 8.1 mg/dL (0.5-1.5)
[2022-04-16 08:00] VITALS: BP 95/51
[2022-04-16] MEDS: FAMOTIDINE 20MG TAB PO SCH (08:36)
[2022-04-16] MEDS: ZOSYN 3.375GM+NS 50ML 50 ML IV SCH ×2 (08:36→21:15)
[2022-04-16] MEDS: GENTAMICIN 120 MG IN 100ML NS 100 ML IV SCH (08:37)
[2022-04-16 11:51] VITALS: BP 107/63
[2022-04-16 15:26] VITALS: BP 145/84
[2022-04-16] MEDS: VANCOMYCIN 1.5 GM/250 ML BAG 250 ML IV SCH (17:02)
[2022-04-16 20:00] VITALS: BP 158/88
[2022-04-16] MEDS: 0.9%NACL 10ML VIAL IV SCH (21:15)
[2022-04-16] MEDS: INSULIN GLARGINE 100 UNITS/ML 10 ML VIAL SQ SCH (21:17)
[2022-04-17] VITALS (7 sets, daily range): BP systolic 108–153; BP diastolic 64–86
[2022-04-17] MEDS: HEPARIN 5,000 UNIT VIAL SQ SCH ×2 (04:23→16:25)
[2022-04-17] MEDS: INSULIN HUMULIN R 100 UNIT/ML 3ML SQ SCH ×4 (05:06→21:09)
[2022-04-17] MEDS: HYDROMORPHONE 1 MG INJ IVP PRN ×3 (05:12→23:02)
[2022-04-17] MEDS: FAMOTIDINE 20MG TAB PO SCH (07:50)
[2022-04-17] MEDS: ZOSYN 3.375GM+NS 50ML 50 ML IV SCH ×2 (07:50→21:04)
[2022-04-17] MEDS: 0.9%NACL 10ML VIAL IV SCH ×2 (07:50→21:10)
[2022-04-17] MEDS: INSULIN GLARGINE 100 UNITS/ML 10 ML VIAL SQ SCH (21:07)
[2022-04-18] VITALS (17 sets, daily range): BP systolic 100–151; BP diastolic 53–94
[2022-04-18 04:50] LABS: BASOPHILS % (AUTO) 0.7 % (0.0-5.0); EOSINOPHILS % (AUTO) 2.9 % (0.0-8.0); HEMATOCRIT 26.1 % (42-54); LYMPHOCYTES % (AUTO) 23.7 % (21.0-51.0); MEAN CORPUSCULAR HEMOGLOBIN 28.9 pg (27.0-33.0); MEAN CORPUSCULAR VOLUME 87.6 fL (79-99); MONOCYTES % (AUTO) 8.9 % (3.0-13.0); NEUTROPHILS % (AUTO) 63.1 % (40.0-77.0); PLATELET COUNT (AUTO) 293 K/uL (130-400); RED BLOOD CELL COUNT(AUTO) 2.98 MIL/uL (4.50-6.20); RED CELL DISTRIBUTION WIDTH 16.2 % (11.0-15.5); WHITE BLOOD COUNT (AUTO) 7.6 K/uL (4.8-10.8)
[2022-04-18] MEDS: HEPARIN 5,000 UNIT VIAL SQ SCH ×2 (05:08→16:43)
[2022-04-18 05:23] LABS: ALBUMIN 2.3 g/dL (3.5-5.0); MAGNESIUM 2.7 mg/dL (1.80-2.40); POTASSIUM 3.4 mmol/L (3.5-5.1)
[2022-04-18 05:48] LABS: CRP QUANTITATIVE 230.5 mg/L (0.00-9.0)
[2022-04-18] MEDS: INSULIN HUMULIN R 100 UNIT/ML 3ML SQ SCH ×4 (06:14→21:00)
[2022-04-18] MEDS: 0.9%NACL 10ML VIAL IV SCH ×2 (09:20→23:02)
[2022-04-18] MEDS: FAMOTIDINE 20MG TAB PO SCH (09:20)
[2022-04-18] MEDS: ZOSYN 3.375GM+NS 50ML 50 ML IV SCH ×2 (09:20→23:00)
[2022-04-18] MEDS: GENTAMICIN 120 MG IN 100ML NS 100 ML IV SCH (09:23)
[2022-04-18] MEDS: EPOETIN ALFA-EPBX (NON-ESRD) 10,000 UNIT/ML VIAL SQ SCH (09:24)
[2022-04-18] MEDS ORDERED: GUAIFENESIN-DM 200/20 MG 10 ML PO SCH (09:30)
[2022-04-18] MEDS: HYDROMORPHONE 1 MG INJ IVP PRN ×3 (10:13→23:03)
[2022-04-18] MEDS ORDERED: VANCOMYCIN 1.25 GM/250 ML BAG 250 ML IV SCH (17:00)
[2022-04-18] MEDS: GUAIFENESIN-DM 200/20 MG 10 ML PO PRN ×2 (17:09→23:00)
[2022-04-18] MEDS: INSULIN GLARGINE 100 UNITS/ML 10 ML VIAL SQ SCH (23:01)
[2022-04-19] MEDS: HYDROMORPHONE 1 MG INJ IVP PRN ×3 (04:13→20:42)
[2022-04-19] MEDS: HEPARIN 5,000 UNIT VIAL SQ SCH ×2 (04:15→17:39)
[2022-04-19 04:29] VITALS: BP 91/54
[2022-04-19] MEDS: INSULIN HUMULIN R 100 UNIT/ML 3ML SQ SCH ×4 (05:46→20:32)
[2022-04-19 06:01] LABS: BASOPHILS % (AUTO) 0.7 % (0.0-5.0); EOSINOPHILS % (AUTO) 3.3 % (0.0-8.0); HEMATOCRIT 27.3 % (42-54); LYMPHOCYTES % (AUTO) 19.6 % (21.0-51.0); MEAN CORPUSCULAR HEMOGLOBIN 29.2 pg (27.0-33.0); MEAN CORPUSCULAR HGB CONC 34.4 g/dL (32.0-36.0); MEAN CORPUSCULAR VOLUME 84.8 fL (79-99); MONOCYTES % (AUTO) 8.4 % (3.0-13.0); NEUTROPHILS % (AUTO) 67.1 % (40.0-77.0); PLATELET COUNT (AUTO) 348 K/uL (130-400); RED BLOOD CELL COUNT(AUTO) 3.22 MIL/uL (4.50-6.20); RED CELL DISTRIBUTION WIDTH 16.3 % (11.0-15.5); WHITE BLOOD COUNT (AUTO) 8.2 K/uL (4.8-10.8)
[2022-04-19 06:16] LABS: ALBUMIN 2.5 g/dL (3.5-5.0); MAGNESIUM 2.6 mg/dL (1.80-2.40); POTASSIUM 3.6 mmol/L (3.5-5.1); TOTAL PROTEIN, SERUM 8.4 g/dL (6.0-8.3)
[2022-04-19 06:33] LABS: CREATININE 10.5 mg/dL (0.5-1.5)
[2022-04-19 08:00] VITALS: BP 147/69
[2022-04-19] MEDS: ZOSYN 3.375GM+NS 50ML 50 ML IV SCH (09:56)
[2022-04-19] MEDS: FAMOTIDINE 20MG TAB PO SCH (09:56)
[2022-04-19] MEDS: 0.9%NACL 10ML VIAL IV SCH ×2 (09:56→20:41)
[2022-04-19] MEDS: GUAIFENESIN-DM 200/20 MG 10 ML PO PRN ×2 (10:50→20:41)
[2022-04-19 11:59] VITALS: BP 120/71
[2022-04-19 16:00] VITALS: BP 122/58
[2022-04-19 20:29] VITALS: BP 102/60
[2022-04-19] MEDS: INSULIN GLARGINE 100 UNITS/ML 10 ML VIAL SQ SCH (20:50)
[2022-04-20] VITALS (22 sets, daily range): BP systolic 96–145; BP diastolic 51–90
[2022-04-20] MEDS ORDERED: GLUCAGON 1MG KIT 1 MG ML IM PRN (03:30)
[2022-04-20] MEDS ORDERED: DEXTROSE 50%-WATER 50 ML DISP.SYRIN IV PRN (03:30)
[2022-04-20 03:39] LABS: BASOPHILS % (AUTO) 0.6 % (0.0-5.0); EOSINOPHILS % (AUTO) 2.1 % (0.0-8.0); HEMATOCRIT 26.4 % (42-54); LYMPHOCYTES % (AUTO) 17.6 % (21.0-51.0); MEAN CORPUSCULAR HEMOGLOBIN 28.6 pg (27.0-33.0); MEAN CORPUSCULAR HGB CONC 33.7 g/dL (32.0-36.0); MEAN CORPUSCULAR VOLUME 84.9 fL (79-99); MONOCYTES % (AUTO) 7.6 % (3.0-13.0); PLATELET COUNT (AUTO) 390 K/uL (130-400); RED BLOOD CELL COUNT(AUTO) 3.11 MIL/uL (4.50-6.20); RED CELL DISTRIBUTION WIDTH 16.1 % (11.0-15.5); WHITE BLOOD COUNT (AUTO) 8.3 K/uL (4.8-10.8)
[2022-04-20] MEDS: HEPARIN 5,000 UNIT VIAL SQ SCH ×2 (03:44→16:02)
[2022-04-20] MEDS: HYDROMORPHONE 1 MG INJ IVP PRN ×2 (03:46→22:15)
[2022-04-20 04:00] LABS: ALBUMIN 2.4 g/dL (3.5-5.0); MAGNESIUM 2.4 mg/dL (1.80-2.40); TOTAL PROTEIN, SERUM 8.3 g/dL (6.0-8.3)
[2022-04-20 04:03] LABS: POTASSIUM 2.8 mmol/L (3.5-5.1)
[2022-04-20 04:04] LABS: CREATININE 11.9 mg/dL (0.5-1.5)
[2022-04-20] MEDS ORDERED: KCL 20 MEQ ERTAB PO ONE (05:00)
[2022-04-20] MEDS: INSULIN HUMULIN R 100 UNIT/ML 3ML SQ SCH ×4 (05:50→20:08)
[2022-04-20] MEDS: FAMOTIDINE 20MG TAB PO SCH ×2 (09:00→15:41)
[2022-04-20] MEDS: 0.9%NACL 10ML VIAL IV SCH ×2 (09:00→20:07)
[2022-04-20] MEDS: GENTAMICIN 120 MG IN 100ML NS 100 ML IV SCH ×2 (09:00→15:40)
[2022-04-20] MEDS: EPOETIN ALFA-EPBX (NON-ESRD) 10,000 UNIT/ML VIAL SQ SCH ×2 (09:30→15:40)
[2022-04-20] MEDS: ACETAMINOPHEN 325 MG TAB PO PRN (15:50)
[2022-04-20] MEDS: VANCOMYCIN 1.25 GM/250 ML BAG 250 ML IV SCH (16:25)
[2022-04-20] MEDS ORDERED: ALTEPLASE 2MG VIAL 2 MG/VIAL VIAL IVCATH SCH (19:30)
[2022-04-21 04:00] VITALS: BP 117/82
[2022-04-21] MEDS: HEPARIN 5,000 UNIT VIAL SQ SCH ×2 (04:09→16:39)
[2022-04-21] MEDS: INSULIN HUMULIN R 100 UNIT/ML 3ML SQ SCH ×3 (06:50→16:40)
[2022-04-21 07:00] VITALS: BP 97/55
[2022-04-21] MEDS: 0.9%NACL 10ML VIAL IV SCH (09:10)
[2022-04-21] MEDS: FAMOTIDINE 20MG TAB PO SCH (09:11)
[2022-04-21] MEDS: HYDROMORPHONE 1 MG INJ IVP PRN (09:29)
[2022-04-21 11:00] VITALS: BP 112/62
[2022-04-21 15:00] VITALS: BP 107/55
[2022-04-21] MEDS: VANCOMYCIN 1.25 GM/250 ML BAG 250 ML IV SCH (15:18)
[2022-04-21 20:00] VITALS: BP 109/69
== END 2022-04-21 21:33 | DRG 853 ==
LOC: EDH 11:31 → EDHIP 16:16 → 3AH 22:35
PROVIDERS: ADMIT Hospitalist; ATTEND Hospitalist
PROC: 5A1D70Z Performance of Urinary Filtration, Intermittent, Less than 6 Hours Per Day (ICD-10-PCS; 2022-04-13)
PROC: 0Y6V0Z0 Detachment at Right 4th Toe, Complete, Open Approach (ICD-10-PCS; 2022-04-14)
PROC: 0Y6T0Z0 Detachment at Right 3rd Toe, Complete, Open Approach (ICD-10-PCS; 2022-04-14)
PROC: 0QBN0ZZ Excision of Right Metatarsal, Open Approach (ICD-10-PCS; 2022-04-14)
PROC: 0LBV0ZZ Excision of Right Foot Tendon, Open Approach (ICD-10-PCS; 2022-04-14)
PROC: 0Y6R0Z0 Detachment at Right 2nd Toe, Complete, Open Approach (ICD-10-PCS; principal; 2022-04-14 13:33)
PROC: 5A1D70Z Performance of Urinary Filtration, Intermittent, Less than 6 Hours Per Day (ICD-10-PCS; 2022-04-15)
PROC: 5A1D70Z Performance of Urinary Filtration, Intermittent, Less than 6 Hours Per Day (ICD-10-PCS; 2022-04-18)
PROC: 5A1D70Z Performance of Urinary Filtration, Intermittent, Less than 6 Hours Per Day (ICD-10-PCS; 2022-04-20)
DX: A41.02 Sepsis due to Methicillin resistant Staphylococcus aureus (principal); N18.6 End stage renal disease; E87.1 Hypo-osmolality and hyponatremia; I12.0 Hypertensive chronic kidney disease with stage 5 chronic kidney disease or end stage renal disease; L02.415 Cutaneous abscess of right lower limb; I50.30 Unspecified diastolic (congestive) heart failure; M86.8X7 Other osteomyelitis, ankle and foot; L03.90 Cellulitis, unspecified; Z20.822 Contact with and (suspected) exposure to COVID-19; E11.22 Type 2 diabetes mellitus with diabetic chronic kidney disease; E11.621 Type 2 diabetes mellitus with foot ulcer; L97.519 Non-pressure chronic ulcer of other part of right foot with unspecified severity; E66.01 Morbid (severe) obesity due to excess calories; E11.69 Type 2 diabetes mellitus with other specified complication; F43.10 Post-traumatic stress disorder, unspecified; D64.9 Anemia, unspecified; E11.610 Type 2 diabetes mellitus with diabetic neuropathic arthropathy; E11.65 Type 2 diabetes mellitus with hyperglycemia; E78.00 Pure hypercholesterolemia, unspecified; L97.529 Non-pressure chronic ulcer of other part of left foot with unspecified severity; Z76.82 Awaiting organ transplant status; Z86.15 Personal history of latent tuberculosis infection; Z86.14 Personal history of Methicillin resistant Staphylococcus aureus infection; Z82.49 Family history of ischemic heart disease and other diseases of the circulatory system; Z99.2 Dependence on renal dialysis; Z83.3 Family history of diabetes mellitus; Z68.29 Body mass index [BMI] 29.0-29.9, adult
CPT/HCPCS: 36415; 73610; 73630; 73718; 73721; 78315; 80053; 80170; 80202; 81001; 82728; 82948; 83605; 83615; 83690; 83735; 84100; 84145; 85025; 85610; 85651; 85730; 86140; 86704; 86706; 87040; 87070; 87076; 87077; 87186; 87205; 87340; 87635; 87804; 90935; 93306; 93926; 96365; 96375; 97039; A9503; C1894; C9803; G0378; J1170; J1580; J1644; J1815; J2543; J2704; J2710; J2997; J3010; J3370; J3490; J7030; J7040

== ENCOUNTER 2022-08-13 21:05 | Emergency (ER) | payer OTHER ==
[~2022-08-13] VITALS: Ht 188 cm; Wt 108.9 kg
[~2022-08-13 21:05] MED LIST changes: +BUDE10.2 IH; +FLUT16H NASAL; +INS7030 SQ; -LISI20TA24 PO; +SUCR500T PO; -Sulfamethox-Tmp Ds 800/160 Tab PO; +[UNRECOGNIZED DRUG - OTHER] PO
[2022-08-13 21:55] LABS: BASOPHILS % (AUTO) 0.4 % (0.0-5.0); EOSINOPHILS % (AUTO) 0.2 % (0.0-8.0); HEMATOCRIT 39.6 % (42-54); LYMPHOCYTES % (AUTO) 14.9 % (21.0-51.0); MEAN CORPUSCULAR HEMOGLOBIN 28.5 pg (27.0-33.0); MEAN CORPUSCULAR HGB CONC 32.6 g/dL (32.0-36.0); MEAN CORPUSCULAR VOLUME 87.4 fL (79-99); MONOCYTES % (AUTO) 6.8 % (3.0-13.0); NEUTROPHILS % (AUTO) 77.5 % (40.0-77.0); PLATELET COUNT (AUTO) 247 K/uL (130-400); RED BLOOD CELL COUNT(AUTO) 4.53 MIL/uL (4.50-6.20); RED CELL DISTRIBUTION WIDTH 15.7 % (11.0-15.5); WHITE BLOOD COUNT (AUTO) 13.1 K/uL (4.8-10.8)
[2022-08-13] MEDS ORDERED: ACETAMINOPHEN 325 MG TAB ONE (22:10)
[2022-08-13 22:27] LABS: ALBUMIN 4.2 g/dL (3.5-5.0)
[2022-08-13] MEDS ORDERED: ACETAMINOPHEN 325 MG TAB PO ONE (22:30)
[2022-08-13 22:31] LABS: TOTAL PROTEIN, SERUM 9.1 g/dL (6.0-8.3)
[2022-08-13 22:38] LABS: CREATININE 8.5 mg/dL (0.5-1.5)
[2022-08-13 22:58] LABS: APPEARANCE,URINE CLEAR (CLEAR); BILIRUBIN,URINE NEGATIVE (NEGATIVE); COLOR,URINE YELLOW (YELLOW); GLUCOSE, URINE (UA) NEGATIVE (NEGATIVE); KETONES,URINE 5 mg/dL (NEGATIVE); LEUKOCYTE ESTERASE ,URINE NEGATIVE Leu/uL (NEGATIVE); NITRATE,URINE NEGATIVE (NEGATIVE); OCCULT BLOOD,URINE MODERATE (NEGATIVE); PROTEIN,URINE 100 mg/dL (NEGATIVE); UROBILINOGEN,URINE 0.2 mg/dL (0.2-1.0)
[2022-08-13 23:05] LABS: MUCUS,URINE Rare LPF (None Seen)
[2022-08-13 23:10] LABS: BACTERIA,URINE None Seen /HPF (None Seen)
[2022-08-14 01:33] VITALS: BP 107/65
== END 2022-08-14 02:13 | disposition home or self-care (01) ==
LOC: EDH 21:05
DX: B34.9 Viral infection, unspecified (principal); R50.9 Fever, unspecified; I12.0 Hypertensive chronic kidney disease with stage 5 chronic kidney disease or end stage renal disease; E11.22 Type 2 diabetes mellitus with diabetic chronic kidney disease; N18.6 End stage renal disease; Z20.822 Contact with and (suspected) exposure to COVID-19; Z79.82 Long term (current) use of aspirin; Z79.899 Other long term (current) drug therapy; Z98.890 Other specified postprocedural states
CPT/HCPCS: 99285; 87635; 80053; 85025; 87040 ×2; 87804 ×2; 83605 ×2; 81001; 36415 ×2; 93005; 71045; C9803

== ENCOUNTER → 2022-10-19 | Outpatient (CLI) | payer OTHER ==
[2022-10-19 12:33] LABS: CREATININE 3.6 mg/dL (0.5-1.5); POTASSIUM 3.4 mmol/L (3.5-5.1)
== END | disposition home or self-care (01) ==
LOC: LAB 10:10
PROVIDERS: ATTEND Student in an Organized Health Care Education/Training Program
DX: I35.8 Other nonrheumatic aortic valve disorders (principal)
CPT/HCPCS: 36415; 80048

== ENCOUNTER → 2022-10-31 | Outpatient (CLI) | payer OTHER ==
[~2022-10-31] MED LIST changes: +IOHEXOL 350 MG/ML 100ML INFUS..BTL IV ONE; +METOPROLOL TARTRATE 1 MG/ML 5ML VIAL IV ONE
== END | disposition home or self-care (01) ==
LOC: RAH 10:13
PROVIDERS: ATTEND Student in an Organized Health Care Education/Training Program
DX: R07.9 Chest pain, unspecified (principal); K44.9 Diaphragmatic hernia without obstruction or gangrene; M47.815 Spondylosis without myelopathy or radiculopathy, thoracolumbar region
CPT/HCPCS: 75574; J3490; Q9967

== ENCOUNTER 2022-11-07 19:16 | Emergency (ER) | payer OTHER ==
[~2022-11-07] VITALS: Ht 188 cm; Wt 110.7 kg
[~2022-11-07 19:16] MED LIST changes: -IOHEXOL 350 MG/ML 100ML INFUS..BTL IV ONE; -METOPROLOL TARTRATE 1 MG/ML 5ML VIAL IV ONE
[2022-11-08 01:22] VITALS: BP 124/74; PULSE 84; RESP 18; O2SAT 99
== END 2022-11-08 01:25 | disposition home or self-care (01) ==
LOC: EDH 19:16
DX: M79.602 Pain in left arm (principal); I12.9 Hypertensive chronic kidney disease with stage 1 through stage 4 chronic kidney disease, or unspecified chronic kidney disease; E11.22 Type 2 diabetes mellitus with diabetic chronic kidney disease; N18.9 Chronic kidney disease, unspecified; Z99.2 Dependence on renal dialysis; Z79.899 Other long term (current) drug therapy; Z90.89 Acquired absence of other organs
CPT/HCPCS: 93005; 93971

== ENCOUNTER 2022-12-20 10:59 | Day surgery (SDC) | payer OTHER ==
[2022-12-19 13:51] VITALS: BP 139/85; PULSE 90; RESP 18
[2022-12-19 13:59] LABS: BASOPHILS # (AUTO) 0.07 K/uL (0.00-0.20); BASOPHILS % (AUTO) 1.1 % (0.0-5.0); EOSINOPHILS # (AUTO) 0.14 K/uL (0.00-0.70); EOSINOPHILS % (AUTO) 2.1 % (0.0-8.0); HEMATOCRIT 37.2 % (42-54); IMMATURE GRANULOCYTE ABSOLUTE 0.02 K/uL (0-1); LYMPHOCYTES # (AUTO) 2.2 K/uL (1.0-4.8); LYMPHOCYTES % (AUTO) 33.6 % (21.0-51.0); MEAN CORPUSCULAR HEMOGLOBIN 29.1 pg (27.0-33.0); MEAN CORPUSCULAR HGB CONC 33.6 g/dL (32.0-36.0); MEAN CORPUSCULAR VOLUME 86.5 fL (79-99); MONOCYTES # (AUTO) 0.4 K/uL (0.1-1.0); MONOCYTES % (AUTO) 6.1 % (3.0-13.0); NEUTROPHILS # (AUTO) 3.8 K/uL (1.8-7.7); NEUTROPHILS % (AUTO) 56.8 % (40.0-77.0); PLATELET COUNT (AUTO) 256 K/uL (130-400); RED CELL DISTRIBUTION WIDTH 14.5 % (11.0-15.5); WHITE BLOOD COUNT (AUTO) 6.6 K/uL (4.8-10.8)
[2022-12-19 14:10] LABS: INR 0.96 (0.85-1.15); PROTHROMBIN TIME 11.2 SEC (9.6-11.6)
[2022-12-19 14:11] LABS: PARTIAL THROMBOPLASTIN TIME 29.4 SEC (26.3-35.5)
[2022-12-19 14:21] LABS: APPEARANCE,URINE CLEAR (CLEAR); BILIRUBIN,URINE NEGATIVE (NEGATIVE); COLOR,URINE LIGHT-YELLOW (YELLOW); GLUCOSE, URINE (UA) NEGATIVE (NEGATIVE); KETONES,URINE NEGATIVE (NEGATIVE); LEUKOCYTE ESTERASE ,URINE NEGATIVE Leu/uL (NEGATIVE); NITRATE,URINE NEGATIVE (NEGATIVE); PROTEIN,URINE 300 mg/dL (NEGATIVE); UROBILINOGEN,URINE 0.2 mg/dL (0.2-1.0)
[2022-12-19 14:23] LABS: CREATININE 3.4 mg/dL (0.5-1.5)
[2022-12-19 14:29] LABS: ADD UA MICROSCOPIC YES
[2022-12-19 14:31] LABS: BACTERIA,URINE RARE /HPF (None Seen); SQUAMOUS EPITHELIAL CELL,UR RARE /HPF (0-2); WBC,URINE 0-1 /HPF (0-1)
[2022-12-19 14:43] LABS: B-TYPE NATRIURETIC PEPTIDE 114 pg/mL (0-100)
[2022-12-20] VITALS (10 sets, daily range): BP systolic 105–175; BP diastolic 63–114; PULSE 77–90; RESP 13–16
[~2022-12-20] VITALS: Ht 188 cm; Wt 108.2 kg
[~2022-12-20 10:59] MED LIST changes: -FERS325 PO
[2022-12-20] MEDS ORDERED: 0.9%NACL 1000ML 1,000 ML IV ONE (11:44)
[2022-12-20] MEDS ORDERED: SEMA0.258 SQ (13:07)
[2022-12-20] MEDS ORDERED: LIDOCAINE HCL 400MG/20ML VIAL ONE (16:22)
[2022-12-20] MEDS ORDERED: MIDAZOLAM HCL 1 MG/ML 2ML VIAL ONE (16:22)
[2022-12-20] MEDS ORDERED: IOHEXOL 350 MG/ML 100ML INFUS..BTL IV ONE (16:22)
[2022-12-20] MEDS ORDERED: VERAPAMIL HCL 2.5 MG/ML VIAL ONE (16:22)
[2022-12-20] MEDS ORDERED: FENTANYL CITRATE PF 50 MCG/1 ML 2ML VIAL ONE (16:22)
[2022-12-20] MEDS ORDERED: HEPARIN 10,000 UNIT/10ML (1,000 UNIT/ML) VIAL ONE (16:22)
[2022-12-20] MEDS ORDERED: GLUCAGON 1MG KIT 1 MG ML IM PRN (17:30)
[2022-12-20] MEDS ORDERED: DEXTROSE 50%-WATER 50 ML DISP.SYRIN IV PRN (17:30)
== END 2022-12-20 20:03 | disposition home or self-care (01) ==
LOC: DAH 10:59
PROVIDERS: ATTEND Student in an Organized Health Care Education/Training Program
DX: I25.10 Atherosclerotic heart disease of native coronary artery without angina pectoris (principal); I12.0 Hypertensive chronic kidney disease with stage 5 chronic kidney disease or end stage renal disease; N18.6 End stage renal disease; E78.5 Hyperlipidemia, unspecified; I35.1 Nonrheumatic aortic (valve) insufficiency; Z79.4 Long term (current) use of insulin; Z79.82 Long term (current) use of aspirin; Z79.01 Long term (current) use of anticoagulants; Z79.899 Other long term (current) drug therapy; Z82.49 Family history of ischemic heart disease and other diseases of the circulatory system; Z99.2 Dependence on renal dialysis; Z98.890 Other specified postprocedural states; Z90.49 Acquired absence of other specified parts of digestive tract; Z83.3 Family history of diabetes mellitus
CPT/HCPCS: 80048; 83880; 85025; 85610; 85730; 81001; 36415; 71045; 93005; 93458; 82948 ×3; C1769; C1894; A4649; J3010; J3490 ×2; J7030; J1644 ×2; J2250; Q9967; A4215; A4222; A4221; A4663; A4216; A4606; Q9965; A4223 ×3; 99156; 99157

== ENCOUNTER → 2023-09-20 | Outpatient (CLI) | payer OTHER ==
[~2023-09-20] MED LIST changes: +AMOX-426 PO; +METH-811 PO; +SEMA0.258 SQ
== END | disposition home or self-care (01) ==
LOC: RAH 10:31
PROVIDERS: ATTEND Internal Medicine
DX: S91.101D Unspecified open wound of right great toe without damage to nail, subsequent encounter (principal); M19.071 Primary osteoarthritis, right ankle and foot; L03.90 Cellulitis, unspecified; M79.604 Pain in right leg; L03.115 Cellulitis of right lower limb; M79.89 Other specified soft tissue disorders; X58.XXXD Exposure to other specified factors, subsequent encounter
CPT/HCPCS: 73610; 73630

== ENCOUNTER 2024-03-13 20:37 | Inpatient (IN) | payer OTHER ==
[~2024-03-13] VITALS: Ht 188 cm; Wt 100.7 kg
[~2024-03-13 20:37] MED LIST changes: -AMOX-426 PO; -INS7030 SQ; -METH-811 PO
--- NOTE | 2024-03-13 21:01 | EKG ---
[facility] Test Date: 2024-03-13 Test Time: 20:55:27 Pat Name: BRODY SHI Department: [facility] Room: ED Gender: M Director Retirement: [id number] : 1980 Requested By: NASIR MORELAND Order Number: [id number] Reading MD: Ankur Levy Measurements Intervals [place] Rate: 114 P: 30 [place]: 142 QRS: 84 QRSD: 93 T: -7 QT: 333 QTc: 458 Interpretive Statements Sinus tachycardia Compared to ECG 09/22/2023 11:14:56 Sinus rhythm no longer present Electronically Signed On 03-14-2024 14:05:09 GAS SCRUBBER OPERATOR by Ankur Levy Please click the below link to view image of tracing.
[2024-03-13 21:23] LABS: BASOPHILS # (AUTO) 0.06 K/uL (0.00-0.20); BASOPHILS % (AUTO) 0.5 % (0.0-5.0); EOSINOPHILS # (AUTO) 0.05 K/uL (0.00-0.70); EOSINOPHILS % (AUTO) 0.4 % (0.0-8.0); HEMATOCRIT 35.2 % (42-54); IMMATURE GRANULOCYTE ABSOLUTE 0.05 K/uL (0-1); MEAN CORPUSCULAR HEMOGLOBIN 29.9 pg (27.0-33.0); MEAN CORPUSCULAR HGB CONC 32.1 g/dL (32.0-36.0); MEAN CORPUSCULAR VOLUME 93.1 fL (79-99); MONOCYTES # (AUTO) 1.1 K/uL (0.1-1.0); MONOCYTES % (AUTO) 9.3 % (3.0-13.0); NEUTROPHILS % (AUTO) 81.4 % (40.0-77.0); PLATELET COUNT (AUTO) 228 K/uL (130-400); RED BLOOD CELL COUNT(AUTO) 3.78 MIL/uL (4.50-6.20); WHITE BLOOD COUNT (AUTO) 12.3 K/uL (4.8-10.8)
--- NOTE | 2024-03-13 21:30 | NUR ---
ASSUMED PT CARE AT THIS TIME
--- NOTE | 2024-03-13 21:52 | HMCIMG ---
ANKLE 2VWS RT CLINICAL HISTORY: Cellulitis\osteomyelitis COMPARISON: 09/20/2023 TECHNIQUE: AP lateral and oblique images were obtained. FINDINGS: There is stable bony remodeling of the mid foot. There is no identified acute fracture subluxation dislocation. There is also osteotomy of the second through fifth digits. There is no obvious periosteal reaction or bony lysis to suggest osteomyelitis. IMPRESSION: There are no bony findings to suggest osteomyelitis
[2024-03-13 21:53] LABS: CREATININE 4.8 mg/dL (0.5-1.3); POTASSIUM 3.9 mmol/L (3.5-5.1)
--- NOTE | 2024-03-13 21:59 | HMCIMG ---
FOOT COMP 3+VWS RT CLINICAL HISTORY: Cellulitis rule out osteomyelitis COMPARISON: 09/20/2023 TECHNIQUE: AP lateral and oblique images were obtained. FINDINGS: There is extensive bony lysis of the first distal phalanx with soft tissue edema most consistent with underlying osteomyelitis. Again demonstrated is osteotomy of the second through fourth digits. IMPRESSION: First digit osteomyelitis
[2024-03-13] MEDS: acetaMINOPHEN 500 MG TABLET PO ONE (22:05)
[2024-03-13] MEDS: ZOSYN 3.375GM+NS 50ML 50 ML IVPB STA (22:05)
--- NOTE | 2024-03-13 22:20 | HP ---
History of Present Illness Reason for Visit: leg pain Referring MD: Dr. Ganga Blanc History of Present Illness Mr. Dorsey is a 43-year-old male that was seen and examined today on 03/14/2024. Patient is a good historian and personal health. Patient reports that he came to the emergency department with a chief complaint of right lower extremity pain. Onset was yesterday. Location is to right ankle and right foot. Duration is on and off. Character is described as burning. Symptoms are aggravated with walking and weight-bearing. There was no allev iating factors. Patient denies any associated shortness of breath or chest pain. Today in the emergency department WBCs 12.3, left shift neutrophils 81.4%, BUN 37, creatinine 4.8, glucose 287 mg/dL. Right foot x-ray shows 1st digit osteomyelitis. Emergency room physician recommended that patient be admitted with a diagnosis of right foot cellulitis. Additionally patient arrive d with a temperature of 100.8, heart rate 120, WBCs 12.3, suspected source of infection being right foot osteomyelitis meeting clinical sepsis criteria. Past Medical History Patient History: Cardiovascular disease FATHER Completed stroke BROTHER, Onset:Unknown Diabetes mellitus MOTHER, Onset:Unknown FATHER, Onset:Unknown BROTHER, Onset:Unknown Hypertension MOTHER, Onset:Unknown FATHER, Onset:Unknown BROTHER, Onset:Unknown Sudden BROTHER Unknown ADDITIONAL PAST MEDICAL HISTORY: [Diabetes mellitius type2, hypertension, ESRD on HD MWF (Dr. Tammi Valles) ] SOCIAL HISTORY: [Negative for smoking, alcohol use, drug use. Patient lives with his Julia Back. Patient is typically independent of his ADLs. Patient denies difficulty pain is bills. Patient has good access to health care through his insurance. 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 SURGICAL HISTORY: [Amputation of right foot 2nd, 3rd, 4th, 5th rays, amputation of left foot 2nd, 3rd, 4th, 5th ray, appendectomy, right hand tendon repair, right eye retinal surgery, gastric sleeve] Review of Systems General: No Fever, No Chills, No Night Sweats, No Fatigue, No Malaise, No Appetite, No Other HEENT: No Head Aches, No Visual Changes, No Eye Pain, No Ear Pain, No Dysphasia, No Sinus Congestion, No Post Nasal Drip, No Sore Throat, No Other Pulmonary: No Dyspnea, No Cough, No Pleuritic Chest Pain, No Other Cardiovascular: No: Chest Pain, Palpitations, Orthopnea, Paroxysmal Noc. Dyspnea, Edema, Lt Headedness, Other Gastrointestinal: No: Nausea, Vomiting, Abdominal Pain, Diarrhea, Constipation, Melena, Hematochezia, Other Genitourinary: No Dysuria, No Frequency, No Incontinence, No Hematuria, No Retention, No Other Musculoskeletal: leg pain; No: other, neck pain, shoulder pain, arm pain, back pain, hand pain, foot pain Skin: No Urticaria, No Rash, No Other Neurological: No: Weakness, Numbness, Incoordination, Change in speech, Confusion, Seizures, Other Allergies: Coded Allergies: No Known Allergies (Verified Allergy, Unknown, 06/12/18) Scheduled Aspirin (Aspirin 81 Mg Ectab), 81 MG PO DAILY, (Reported) Atorvastatin Calcium (Lipitor), 20 MG PO HS, (Reported) Budesonide/Formoterol Fumarate (Symbicort 160-4.5 Mcg Inhaler), 1 PUFF IH BID, (Reported) Fluticasone Propionate (Flonase Nasal [place]), 1 SPRAY NASAL DAILY, (Reported) Semaglutide (Ozempic), 0.25 MG SQ QWEEK, (Reported) Sucroferric Oxyhydroxide (Velphoro), 1,000 MG PO TIDMEALS, (Reported) [Nephrovite Rx], 1 TAB PO DAILY, (Reported) Exam Vital Signs Vital Signs Date Time Temp Pulse Resp B/P (MAP) Pulse Ox O2 Delivery O2 Flow Rate FiO2 03/13/24 22:07 100.9 112 18 135/76 99 Room Air* 0 21 General Appearance: Alert, Oriented X3, Cooperative, No acute distress HEENT: Atraumatic, EOMI, Mucous membr. moist/pink Respiratory: Clear to auscultation, Normal air movement, NL respiratory effort Cardiovascular: Regular rate, Regular rhythm, Normal S1, Normal S2 Abdominal: Normal bowel sounds, Soft, No tenderness Extremities: No edema, Other (Amputations to left foot 2nd, 3rd, 4th, 5th ray, amputations to right foot 2nd, 3rd, 4th, 5th ray) Skin: Other (Hyperpigmentation to right ankle, callus/wound present to right f oot 1st ray plantar aspect) Neuro: Normal speech, Strength at 5/5 X4 ext, Sensation intact, Cranial nerves 3-12 NL Psych/Mental Status: Mental status NL, Mood NL, Thoughts/Content NL Assessment/Plan ASSESSMENT: [ Sepsis, POA Osteomyelitis right foot 1st ray, POA Right ankle cellulitis, POA Leukocytosis, POA Uncontrolled Diabetes mellitius type2, POA ESRD on HD Right foot great toe plantar aspect wound Hypertension] PLAN: [ Admit patient to PCU as inpatient status. Place patient on telemetry monitoring. Sepsis, osteomyelitis, leukocytosis, cellulitis, right foot 1st ray wound: Patient will be followed by his squirt machine operator, Dr. Hanson Consult infectious disease service, Dr. Multani Empiric antibiotic therapy with vancomycin and Zosyn Check wound culture, follow up with the results Check blood culture, follow up with the results As-needed Tylenol for fever Check procalcitonin, follow up with the results Decided against fluid resuscitation due to patient's known history of ESRD, lactic acid was unremarkable Diabetes mellitus type 2: Check hemoglobin A1c in a.m. Glucometer checks a.c. and HS 1800 ADA diet Humulin R sliding scale 1. ESRD on HD: Consult patient's financial assistance advisor, Dr. Geovanny Valles for evaluation and recommendations Fluid restriction 1500 mL daily Weight patient daily Monitor intake and output Hypertension: Consider resuming home medications once they have been reconciled. For now, Hydralazine 10 mg IV every 4 hours for systolic blood pressure greater than 160 mmHg GI prophylaxis, Protonix 40 mg by mouth once daily. DVT prophylaxis, heparin 5000 units subcutaneously twice daily. ADVANCED CARE PLANNING 1. Which of the following were discussed? Hospice Care - Yes Therapeutic options - Yes Advance Directives - Yes- patient states he does not have any advance directives in place at this time, however his Julia Back can make decisions for him if he becomes unable. Other discussions - patient wishes to remain a full code at this time 2. Discussed with who? Patient 3. Voluntary nature of this service was explained to the patient? Yes 4. Amount of time spent - __ 16 minutes 5. Reviewed by Physician? (if this service was performed by NPP) Yes This document was generated in part using voice recognition software, occasional wrong word or sound alike substitutions may have occurred due to the inherent limitations of voice recognition software. Read the chart carefully and recognize using context, where the substitutions have occurred. Although every effort was made to edit the content, accessibility lift technician and typing errors may occur ATTESTATION BY PHYSICIAN I have seen and examined the patient. I reviewed the documentation, medical decision making, and treatment plan as noted by the mid-level provider above. I agree with the findings and plan of care. LISANDRA LAGOS [facility] Mar 13, 2024 22:20
[2024-03-13] MEDS: VANCOMYCIN 1G/250ML KIT 250 ML IV ONE (22:22)
[2024-03-13] MEDS ORDERED: ondanSETRON 4MG INJ IV PRN (23:00)
[2024-03-13] MEDS ORDERED: morPHINE 2 MG SYG IVP PRN (23:00)
[2024-03-13] MEDS ORDERED: hydrALAZine 20MG/ML VIAL IV PRN (23:00)
[2024-03-13] MEDS ORDERED: VANCOMYCIN PROTOCOL PER PHARMACY IV SCH (23:00)
--- NOTE | 2024-03-13 23:00 | NUR ---
REPORT GIVEN TO LISANDRA MARTINEZ
[2024-03-13 23:50] VITALS: O2SAT 96
[2024-03-14] VITALS (26 sets, daily range): BP systolic 100–145; BP diastolic 60–88; PULSE 77–105; RESP 17–20; TEMP 97.6–100.2; O2SAT 100
--- NOTE | 2024-03-14 00:32 | ERN ---
ED Note History of Present Illness Stated Complaint: SEPSIS, RIGHT FOOT CELLULITIS, RIGHT FOOT 1ST DIGI Chief Complaint: Fever Time Seen by MD: 20:42 Time Seen by Midlevel: 20:42 Dictation: The patient is a 43-year-old male with a history of ESRD Wednesdays, diabetes, appendectomy, multiple toe amputations who presents to the emergency department with complaints of right ankle pain and swelling, redness, chills and fever onset yesterday. Patient denies taking any current anti biotics. Reports sees Dr. Hanson materials planning analyst. No other complaints reported. Allergies: Coded Allergies: No Known Allergies (Verified Allergy, Unknown, 06/12/18) Home Meds Reported Medications Semaglutide (Ozempic) 0.25 Mg/0.368 Ml Pen.injctr, 0.25 MG SQ QWEEK 12/20/22 Sucroferric Oxyhydroxide (Velphoro) 500 Mg Tab.chew, 1000 MG PO TIDMEALS, TAB.CHEW 07/14/22 Fluticasone Propionate (Flonase Nasal [place]) 50 Mcg/[place], 1 SPRAY NASAL DAILY, SPRAY 07/14/22 [Nephrovite Rx] No Conflict Check, 1 TAB PO DAILY 07/14/22 Budesonide/Formoterol Fumarate (Symbicort 160-4.5 Mcg Inhaler) 10.2 Gm Hfa.aer.ad, 1 PUFF IH BID 07/14/22 Aspirin (ASPIRIN 81 MG ECTAB) 81 Mg Ectab, 81 MG PO DAILY, TAB.EC 08/08/18 Atorvastatin Calcium (LIPITOR) 20 Mg Tab, 20 MG PO HS, TAB 08/08/18 Past Medical History Past Medical History: Diabetes-Type II, Renal Failure Additional Past Medical Hx: OSTEOMYLITIS Surgical History: Appendectomy Surgical History Other: AMPUTATIONS BILATERAL TOES, GASTRIC SLEEVE RN Note Reviewed/Agreed w/PFSH: Yes Review of System Dictation Constitutional: Negative for weight loss positive for fever, chills Eyes: Negative for injury, pain,redness, and discharge ENT: Negative for injury,pain or swelling Cardiovascular: Negative for chest pain, palpitations, and edema Respiratory: Negative for shortness of breath, cough, and wheezing, Abdomen/GI: Negative for abdominal pain, nausea, vomiting, diarrhea, and constipation Back: Negative for injury and pain : Negative for injury, bleeding and discharge MS/Extremity: Negative for injury and deformity positive for right ankle pain and swelling Skin: Negative for rash, and discoloration, positive for right toe diabetic ulcer Neuro: Negative for headache, weakness, numbness, tingling, and seizure Psych: Negative for suicide ideation, homicidal ideation, and hallucinations Initial Vital Sign VS Vital Signs Date Time Temp Pulse Resp B/P (MAP) Pulse Ox O2 Delivery O2 Flow Rate FiO2 03/13/24 20:40 100.8 120 18 153/88 98 Room Air 0 03/13/24 22:07 21 Physical Exam Dictation Vital Signs reviewed General Appearance: Alert, oriented x 3, no acute distress, well developed, nourished. Head and Face: non-traumatic. Eyes: PERRL, pink conjunctivas, eyelid no trauma, anterior chamber with arcus senilis. Ears: Pinnas intact and no signs of trauma or erythema ear canals clear and no discharge TM no erythema Nose: No discharge, no bleeding. Oropharynx: Mouth normal, tongue pink. pharynx clear,no erythema, tonsils no exudates, no abscesses noted, mucous membrane moist Neck: Supple, non-tender, no thyromegaly, no masses, no JVD, no bruits Breast:Deferred Chest:No tenderness, no crepitus, no paradoxical movement, no retractions Lungs:Clear, well-ventilated, symmetric, no rales, no wheezing, no rhonchi, no stridor, good breath sounds bilaterally Heart: Regular rate, regular rhythm, no murmur, no gallops Vascular: no peripheral edema, Abdomen: Soft, positive bowel sounds, nondistended, no guarding, nontender, no rebound, no masses no hepatomegaly, no splenomegaly, no Quigley's sign, no hernias. Rectal: Deferred Genital: Deferred Neurological: Normal speech, motor function intact, sensory function intact Musculoskeletal: Neck nontender, full range of motion, back nontender, full range of motion, Extremities: nontender, full range of motion , right ankle swelling Skin: Color pink, dry, no turgor, no rash, no lacerations, no abrasions, no contusions. Small1 cm diabetic ulcer to right great toe, purulent drainage, erythema to right foot and ankle with warmth to touch Lymphatic: Deferred Results (Laboratory/Radiology) Laboratory/Radiology Laboratory Tests Test 03/13/24 21:06 White Blood Count 12.3 K/uL (4.8-10.8) H Red Blood Count 3.78 MIL/uL (4.50-6.20) L Hemoglobin 11.3 g/dL (14.0-18.0) L Hematocrit 35.2 % (42-54) L Mean Corpuscular Volume 93.1 fL (79-99) Mean Corpuscular Hemoglobin 29.9 pg (27.0-33.0) Mean Corpuscular Hemoglobin Concent 32.1 g/dL (32.0-36.0) Red Cell Distribution Width 14.0 % (11.0-15.5) Platelet Count 228 K/uL (130-400) Mean Platelet Volume 9.4 fL (7.5-10.5) Immature Granulocyte % (Auto) 0.4 % (0-1) Neutrophils (%) (Auto) 81.4 % (40.0-77.0) H Lymphocytes (%) (Auto) 8.0 % (21.0-51.0) L Monocytes (%) (Auto) 9.3 % (3.0-13.0) Eosinophils (%) (Auto) 0.4 % (0.0-8.0) Basophils (%) (Auto) 0.5 % (0.0-5.0) Neutrophils # (Auto) 10.0 K/uL (1.8-7.7) H Lymphocytes # (Auto) 1.0 K/uL (1.0-4.8) Monocytes # (Auto) 1.1 K/uL (0.1-1.0) H Eosinophils # (Auto) 0.05 K/uL (0.00-0.70) Basophils # (Auto) 0.06 K/uL (0.00-0.20) Absolute Immature Granulocyte (auto 0.05 K/uL (0-1) Nucleated Red Blood Cells 0.0 % (0.0-0.19) White Cell Morphology Comment See comments Erythrocyte Sedimentation Rate 56 MM/HR (0-15) H Sodium Level 137 mmol/L (136-145) Potassium Level 3.9 mmol/L (3.5-5.1) Chloride Level 98 mmol/L (101-111) L Carbon Dioxide Level 32 mmol/L (21-32) Blood Urea Nitrogen 37 mg/dL (7-18) H Creatinine 4.8 mg/dL (0.5-1.3) H Glomerular Filtration Rate Calc 15 mL/min (>90) Random Glucose 297 mg/dL (70-105) H Lactic Acid Level 1.5 mmol/L (0.8-2.5) Total Calcium 8.0 mg/dL (8.5-10.1) L Total Creatine Kinase 79 U/L (21-232) # Troponin I High Sensitivity 4 ng/L (4-75) B-Type Natriuretic Peptide 120 pg/mL (0-100) H Procalcitonin 0.97 ng/mL (0.05-0.5) H REASON: Cellulitis rule out osteomyelitis ORDERING PHYSICIAN: MATA BOLAÑOS MARKETING OPERATIONS ASSISTANT PROCEDURE: FT 3VW RT - FOOT COMP 3+VWS RT FOOT COMP 3+VWS RT CLINICAL HISTORY: Cellulitis rule out osteomyelitis COMPARISON: 09/20/2023 TECHNIQUE: AP lateral and oblique images were obtained. FINDINGS: There is extensive bony lysis of the first distal phalanx with soft tissue edema most consistent with underlying osteomyelitis. Again demonstrated is osteotomy of the second through fourth digits. IMPRESSION: First digit osteomyelitis REASON: Cellulitis rule out osteomyelitis ORDERING PHYSICIAN: MATA BOLAÑOS MARKETING OPERATIONS ASSISTANT PROCEDURE: [id number] - ANKLE 2VWS RT ANKLE 2VWS RT CLINICAL HISTORY: Cellulitis\osteomyelitis COMPARISON: 09/20/2023 TECHNIQUE: AP lateral and oblique images were obtained. FINDINGS: There is stable bony remodeling of the mid foot. There is no identified acute fracture subluxation dislocation. There is also osteotomy of the second through fifth digits. There is no obvious periosteal reaction or bony lysis to suggest osteomyelitis. IMPRESSION: There are no bony findings to suggest osteomyelitis Labs Reviewed?: Yes EKG: (+) rhythm (Sinus tachycardia), (+) AR (12) EKG Comment: EKG 03/13/20242054 ventricular rate 114, regular rate and rhythm, sinus tachycardia, no STEMI. ED Course ED Course Orders Procedure Category Date Status Time Iv Insertion CPOE 03/13/24 Transmitted 20:48 Pulse Ox(Continuous) RT 03/13/24 Transmitted 20:48 Vital Signs Per CPOE 03/13/24 Transmitted Routine 20:48 12 Lead Ekg Tracing- EKG 03/13/24 Complete Technical 20:48 Cbc With Differential LAB 03/13/24 Complete 20:48 Blood Cult ZHANNA 03/13/24 In Process 20:48 Culture Urine ZHANNA 03/13/24 Logged 20:48 Creatine Kinase, Total LAB 03/13/24 Complete 20:48 Troponin I High LAB 03/13/24 Complete Sensitivity 20:48 Lactic Acid LAB 03/13/24 Complete 20:48 Basic Metabolic Panel LAB 03/13/24 Complete 20:48 Erythrocyte LAB 03/13/24 Complete Sedimentation Rate 20:55 Procalcitonin LAB 03/13/24 Complete 20:55 Foot Comp 3+Vws Rt RAD 03/13/24 Resulted 20:55 Ankle 2vws Rt RAD 03/13/24 Resulted 20:55 Zosyn 3.375gm+Ns 50ml PHA 03/13/24 Complete (Zosyn 3.375gm+Ns 20:55 Vancomycin 1g/250ml PHA 03/13/24 Complete Kit (Vancomycin 1g/2 21:00 Aerobic Culture ZHANNA 03/13/24 In Process 20:55 Anaerobic Culture ZHANNA 03/13/24 In Process 20:55 Acetaminophen 500mg PHA 03/13/24 Complete Tab (Tylenol 500mg T 21:00 Admit Orders ADM 03/13/24 Transmitted 22:18 Oxygen By Nc/Pulse Ox CPOE 03/13/24 Transmitted 22:18 Telemetry Monitoring CPOE 03/13/24 Transmitted 22:18 Vital Signs(Adult CPOE 03/13/24 Transmitted Hospitalist) 22:18 Nurse To Enter Home CPOE 03/13/24 Transmitted Medication 22:18 Daily Weights CPOE 03/13/24 Transmitted 22:18 I&O Q Shift CPOE 03/13/24 Transmitted 22:18 Daily Fluid Intake CPOE 03/13/24 Transmitted Restriction 22:18 Condition: CPOE 03/13/24 Transmitted 22:18 Activity: Ad Mirta CPOE 03/13/24 Transmitted 22:18 B-Type Natriuretic LAB 03/13/24 Complete Peptide 22:19 Initiate LIBAN 03/13/24 In Process Hyperglycemia Protoco 22:36 Insulin Regular, PHA 03/14/24 In Process Human 3ml (Humulin R 07:30 Hemoglobin A1c LAB 03/14/24 In Process 04:00 Wound Mgt Consult CONPHYSVC 03/14/24 Transmitted Eval & Treat 08:00 Infectious Disease CONPHYSVC 03/14/24 Transmitted Consult 08:00 Consistent Carb DIET 03/14/24 Transmitted Breakfast Basic Metabolic Panel LAB 03/14/24 In Process 04:00 Cbc With Differential LAB 03/14/24 In Process 04:00 Phosphorus LAB 03/14/24 In Process 04:00 Magnesium LAB 03/14/24 In Process 04:00 Urinalysis Profile LAB 03/13/24 Logged 22:36 Nephrology Consult CONPHYSVC 03/14/24 Transmitted 08:00 Acetaminophen 325 Tab PHA 03/13/24 In Process (Tylenol 325mg Tab 23:00 Heparin 5,000 Unit PHA 03/14/24 In Process Vial (Heparin 5,000 U 09:00 Hydralazine 20mg Inj PHA 03/13/24 In Process (Apresoline 20mg In 23:00 Ondansetron 4mg Inj PHA 03/13/24 In Process (Zofran 4mg Inj) 23:00 Pantoprazole 40mg Tab PHA 03/14/24 In Process (Protonix 40mg Tab 09:00 Vancomycin Protocol PHA 03/13/24 In Process (Vancomycin Protocol 23:00 Zosyn 3.375gm+Ns 50ml PHA 03/14/24 In Process (Zosyn 3.375gm+Ns 08:30 Morphine 2mg Syg PHA 03/13/24 In Process (Morphine 2mg Syg) 23:00 Vancomycin 750mg PHA 03/15/24 In Process (Vancomycin 750mg) 16:00 Vancomycin Trough LAB 03/20/24 Verified 05:00 Current Medications Medications (Trade) Dose Ordered Sig/Leonel Route PRN Reason Start Time Stop Time Status Last Admin Dose Admin Acetaminophen (TYLenol 500MG TAB) 1,000 mg ONCE ONCE PO 03/13/24 21:00 03/13/24 21:10 DC 03/13/24 22:05 Piperacillin Sod/ Tazobactam Sod 50 ml @ 200 mls/hr STAT STAT IVPB 03/13/24 20:55 03/13/24 21:10 DC 03/13/24 22:05 Vancomycin HCl 250 ml @ 125 mls/hr ONCE ONCE IV 03/13/24 21:00 03/13/24 22:59 DC 03/13/24 22:22 Vital Signs Date Time Temp Pulse Resp B/P (MAP) Pulse Ox O2 Delivery O2 Flow Rate FiO2 03/13/24 22:07 100.9 112 18 135/76 99 Room Air* 0 21 03/13/24 22:05 100.9 03/13/24 20:40 100.8 120 18 153/88 98 Room Air 0 Medical Decision Making MDM MDM: The patient is a 43-year-old male with a history of ESRD Wednesdays, diabetes, appendectomy, multiple toe amputations who presents to the emergency department with complaints of right ankle pain and swelling, redness, chills and fever onset yesterday. Patient denies taking any current antibiotics. Reports sees Dr. Hanson materials planning analyst. No other complaints reported. CBC showed leukocytosis, normocytic anemia, chemistry showed mild hypochloremia, normal potassium, elevated blood sugar, a gap of seven, elevated procalcitonin, x-ray consistent with right toe osteomyelitis. Patient will be admitted for further management. Differential diagnosis: Sepsis, osteomyelitis, cellulitis, electrolyte imbalance Comorbidities: ESRD on dialysis, diabetes, appendectomy, diabetic ulcer Tests considered and not ordered secondary to shared decision making include: none Previous outside records reviewed: none Risk of complication and/or morbidity or mortality of patient management: The patient meets criteria for admission. Need for emergency major/minor surgery: No There are no social concerns with this patient. I independently interpreted the tests I ordered (labs, urinalysis, etc.). I discussed the case with the hospitalist for admission. Salty VILLAFANA who accepts admission , I discussed the case with the following specialists: none. Historian: pateint. I independently interpreted imaging studies and EKGs that I ordered (US, CT, XR, EKG, etc.). External chart review: none. Medical management and examination interpretation discussions were had by me with other qualified healthcare professionals as indicated for the patient's care. DX & DISP Disposition: Inpatient Decision to Admit Date: Mar 13, 2024 Decision to Admit Time: 22:18 Departure Impression: Primary Impression: Toe osteomyelitis, right Additional Impressions: Sepsis, ESRD on dialysis, Anemia, Cellulitis of right foot, Diabetic ulcer of toe, Uncontrolled diabetes mellitus with hyperglycemia, Elevated procalcitonin Condition: Stable Referrals: KATHERYN LOVELACE MD (PCP) I have reviewed the case, and I agree with, Diagnosis and Plan MATA BOLAÑOS MARKETING OPERATIONS ASSISTANT Mar 14, 2024 00:32
[2024-03-14 07:22] LABS: BASOPHILS # (AUTO) 0.05 K/uL (0.00-0.20); BASOPHILS % (AUTO) 0.4 % (0.0-5.0); EOSINOPHILS # (AUTO) 0.04 K/uL (0.00-0.70); EOSINOPHILS % (AUTO) 0.4 % (0.0-8.0); HEMATOCRIT 29.9 % (42-54); IMMATURE GRANULOCYTE ABSOLUTE 0.03 K/uL (0-1); LYMPHOCYTES # (AUTO) 1.5 K/uL (1.0-4.8); LYMPHOCYTES % (AUTO) 13.8 % (21.0-51.0); MEAN CORPUSCULAR HEMOGLOBIN 30.2 pg (27.0-33.0); MEAN CORPUSCULAR HGB CONC 33.4 g/dL (32.0-36.0); MEAN CORPUSCULAR VOLUME 90.3 fL (79-99); MONOCYTES # (AUTO) 1.3 K/uL (0.1-1.0); MONOCYTES % (AUTO) 11.6 % (3.0-13.0); NEUTROPHILS # (AUTO) 8.2 K/uL (1.8-7.7); NEUTROPHILS % (AUTO) 73.5 % (40.0-77.0); PLATELET COUNT (AUTO) 182 K/uL (130-400); RED BLOOD CELL COUNT(AUTO) 3.31 MIL/uL (4.50-6.20); RED CELL DISTRIBUTION WIDTH 14.1 % (11.0-15.5); WHITE BLOOD COUNT (AUTO) 11.1 K/uL (4.8-10.8)
--- NOTE | 2024-03-14 07:29 | CONS ---
HISTORY OF PRESENT ILLNESS: The patient is a 43-year-old diabetic Latin-[place] male well known to me from previous encounters. I previously performed a partial great toe amputation on the patient on the right. He presented today with an ulcer to the plantar aspect of the right great toe surgical site amputation stump with an ulcer, abscess, cellulitis, possible osteomyelitis. He presented with white count of 12.4. He has an H and H of 11.3 and 35.2, platelets 226, BUN 37, creatinine 4.8. He has end-stage renal disease, he currently receives hemodialysis. He has a T-max of 100.0 today. He is currently receiving IV vancomycin and currently receiving IV Zosyn. The patient had an x-ray, which shows soft tissue swelling to the amputation stump of his right great toe. He had removal of the distal phalanx. He has evidence of osteomyelitis to the distal tip of the proximal phalanx of that right great toe radiographically. He has an MRI that is pending. The patient has end-stage renal disease, hemodialysis Monday, Monday and Fridays. PAST SURGICAL HISTORY: Appendectomy by multiple bilateral foot amputation surgeries, gastric sleeve. ALLERGIES: He has no known drug allergies. REVIEW OF SYSTEMS: He is having chills and fevers, pain to the right foot, swelling to the right foot, drainage to the right foot amputation stump. PHYSICAL EXAMINATION: He has palpable pedal pulses, decreased protective sensation. Ulcer to the plantar aspect of the right great toe, tracks approximately 30 mm, there is expressible creamy yellow purulence. He has no wounds to the left foot. He has multiple amputations of his second through the fifth rays bilaterally. ASSESSMENT AND PLAN: Ulcer abscess, cellulitis, strong suspicion for osteomyelitis to the right great toe. PLAN: I will make the patient n.p.o. after breakfast today. I will order an MRI to evaluate the patient for osteomyelitis. I packed the wound open with single strip of iodoform Nu Gauze for drainage. I feel the patient may require a revisional amputation of that right foot. TID: [id number] RECEIPT: [id number]
[2024-03-14] MEDS: INSULIN humuLIN R 100 UNIT/ML 3ML SQ SCH (07:30)
[2024-03-14 07:37] LABS: CREATININE 5.6 mg/dL (0.5-1.3); MAGNESIUM 2.1 mg/dL (1.80-2.40); PHOSPHORUS 4.8 mg/dL (2.5-4.9); POTASSIUM 4.4 mmol/L (3.5-5.1)
[2024-03-14 07:45] LABS: HEMOGLOBIN A1C 5.6 % (4.0-6.0)
--- NOTE | 2024-03-14 08:53 | NUR ---
DR SMALL NEPHROLOGY CONSULT AT BEDSIDE
--- NOTE | 2024-03-14 09:04 | PN ---
[facility] PROGRESS NOTE Date of Service: Mar 14, 2024 Time of Service: 08:53 SUBJECTIVE: [ ] admission Date: 03/13/24 PCP: chief complaint: Right lower extremity pain: ER Workup: surgical site amputation stump with an ulcer, abscess, cellulitis, possible osteomyelitis. This is a 43-year-old male that presents in ED with chief complaints of right lower extremity pain. Was admitted on 02/21/2024 with surgical site amputation top with stump ulcer abscess cellulitis and osteomyelitis to the 1st digit as per x-ray. Dr. Hanson was consulted appreciate his input he order a MRI to evaluate the patient for osteomyelitis. Possible surgical intervention today. Patient may require a revisional amputation of the right foot. 03/14/24 patient is seen and examined earlier reviewed chart. Patient remains in ED patient's continues with pain but is now controlled with pain medication waiting for MRI results. Patient denied chest pain or shortness for breath REVIEW OF SYSTEMS CONSTITUTIONAL: Denies fevers, chills, or night sweats. No unintentional weight loss reported. NEUROLOGICAL: Denies headache, amaurosis fugax, motor weakness, sensory deficit, vertigo/spinning sensation, gait abnormalities, or tremors. ENT: No hearing loss, otalgia, otorrhea, rhinitis, rhinorrhea, hoarseness, or sore throat. CARDIOVASCULAR: Denies any exertional angina, dyspnea on exertion, orthopnea, paroxysmal nocturnal dyspnea, palpitations, life-threatening arrhythmias, claudication. PULMONARY: Denies any shortness of breath, cough, phlegm/sputum, hemoptysis, pleuritic chest pain. SLEEP: Denies morning headaches, daytime somnolence or napping. Denies difficulty falling asleep, staying asleep, waking from sleep. Denies knowledge of snoring. GASTROINTESTINAL: Denies any type of dysphagia to either liquids or solids. Denies nausea, vomiting, pyrosis, early satiety, abdominal pain, diarrhea, constipation, or changes in stool consistency or caliber. Denies coffee-ground emesis, hematemesis, hematochezia, or melanotic stools. GENITOURINARY: Denies frequency, urgency, nocturia, hematuria or incontinence (Storage/Irritative symptoms.) Low urinary stream, straining to void, urinary intermittency or hesitancy, splitting of the voiding stream, terminal dribbling. ENDOCRINOLOGIC: Denies polyuria, polydipsia, polyphagia or heat/cold intolerances. HEMATOLOGIC: Denies thrombophilia/previous clots, or coagulopathy/bleeding disorders. ONCOLOGIC: Denies personal history of malignancy. DERMATOLOGIC: Denies rashes or pruritus. PSYCHIATRIC: Denies any suicidal or homicidal ideation. Denies hallucinations. PHYSICAL EXAM GENERAL APPEARANCE: The patient is awake, alert, and oriented, in no acute cardiopulmonary distress. NEUROLOGICAL: Cranial nerves II-XII grossly intact. Motor is 5/5 in bilateral upper and lower extremities proximal to distal. No sensory deficits. HEENT: Face is symmetric. Pupils are equal and reactive. Extraocular movements are intact. NECK: Supple. No JVD. No thyromegaly. No submental, submandibular, pre- /postauricular, occipital or supraclavicular lymphadenopathy. CHEST: Normal chest expansion. No Telemetry. LUNGS: Absence of any rales, rhonchi or any wheezing. CARDIOVASCULAR: Regular. S1 and S2 normal. No appreciable rubs, murmurs or gallops. ABDOMEN: Soft, nontender, and nondistended. There is no rebound, voluntary guarding, or rigidity. : Deferred. No Herrera. EXTREMITIES: Non-edematous and not cyanotic. No clubbing. Good capillary refill. SKIN: No skin breakdown. Vital Signs (last 8hr) Date Time Temp Pulse Resp B/P (MAP) Pulse Ox O2 Delivery O2 Flow Rate FiO2 03/14/24 07:29 99.0 77 18 126/79 99 Room Air* 0 21 03/14/24 04:00 99.0 86 18 100/67 98 Room Air LABS: Laboratory: Test 03/14/24 07:33 03/14/24 07:13 03/13/24 21:06 Range/Units Whole Blood Glucose 118 H 70-110 MG/DL White Blood Count 11.1 H 4.8-10.8 K/uL Red Blood Count 3.31 L 4.50-6.20 MIL/uL Hemoglobin 10.0 L 14.0-18.0 g/dL Hematocrit 29.9 L 42-54 % Mean Corpuscular Volume 90.3 79-99 fL Mean Corpuscular Hemoglobin 30.2 27.0-33.0 pg Mean Corpuscular Hemoglobin Concent 33.4 32.0-36.0 g/dL Red Cell Distribution Width 14.1 11.0-15.5 % Platelet Count 182 130-400 K/uL Mean Platelet Volume 8.9 7.5-10.5 fL Immature Granulocyte % (Auto) 0.3 0-1 % Neutrophils (%) (Auto) 73.5 40.0-77.0 % Lymphocytes (%) (Auto) 13.8 L 21.0-51.0 % Monocytes (%) (Auto) 11.6 3.0-13.0 % Eosinophils (%) (Auto) 0.4 0.0-8.0 % Basophils (%) (Auto) 0.4 0.0-5.0 % Neutrophils # (Auto) 8.2 H 1.8-7.7 K/uL Lymphocytes # (Auto) 1.5 1.0-4.8 K/uL Monocytes # (Auto) 1.3 H 0.1-1.0 K/uL Eosinophils # (Auto) 0.04 0.00-0.70 K/uL Basophils # (Auto) 0.05 0.00-0.20 K/uL Absolute Immature Granulocyte (auto 0.03 0-1 K/uL Nucleated Red Blood Cells 0.0 0.0-0.19 % Sodium Level 140 136-145 mmol/L Potassium Level 4.4 3.5-5.1 mmol/L Chloride Level 102 101-111 mmol/L Carbon Dioxide Level 31 21-32 mmol/L Blood Urea Nitrogen 43 H 7-18 mg/dL Creatinine 5.6 H 0.5-1.3 mg/dL Glomerular Filtration Rate Calc 12 >90 mL/min Random Glucose 117 #H 70-105 mg/dL Hemoglobin A1c 5.6 4.0-6.0 % Estimated Average Glucose (eAG) 114 70-126 mg/dL Total Calcium 8.1 L 8.5-10.1 mg/dL Phosphorus Level 4.8 2.5-4.9 mg/dL Magnesium Level 2.10 1.80-2.40 mg/dL White Cell Morphology Comment See comments Erythrocyte Sedimentation Rate 56 H 0-15 MM/HR Lactic Acid Level 1.5 0.8-2.5 mmol/L Total Creatine Kinase 79 # 21-232 U/L Troponin I High Sensitivity 4 4-75 ng/L B-Type Natriuretic Peptide 120 H 0-100 pg/mL Procalcitonin 0.97 H 0.05-0.5 ng/mL Current Medications Medications (Trade) Dose Ordered Sig/Leonel Route PRN Reason Start Time Stop Time Status Last Admin Dose Admin Acetaminophen (TYLenol 325MG TAB) 650 mg Q6H PRN PO TEMPERATURE GREATER THAN 101.5 03/13/24 23:00 04/12/24 22:59 Heparin Sodium (Porcine) (HEParin 5,000 UNIT VIAL) 5,000 unit BID SQ 03/14/24 09:00 04/13/24 08:59 Hydralazine HCl (APRESOLine 20MG INJ) 10 mg Q6H PRN IV For:SBP above 160;DBP above 90 03/13/24 23:00 04/12/24 22:59 Insulin Human Regular (humuLIN R 100 UNIT/ML 3ML) INSULIN SLIDING SCAL... ACHS SQ 03/14/24 07:30 04/13/24 07:29 Morphine Sulfate (morPHINE 2MG SYG) 2 mg Q4H PRN IVP SEVERE PAIN (7-10) 03/13/24 23:00 03/20/24 22:59 Ondansetron HCl (zoFRAN 4MG INJ) 4 mg Q6H PRN IV NAUSEA/VOMITING 03/13/24 23:00 04/12/24 22:59 Pantoprazole Sodium (PROTonix 40MG TAB) 40 mg DAILY PO 03/14/24 09:00 04/13/24 08:59 Piperacillin Sod/ Tazobactam Sod 50 ml @ 200 mls/hr STAT STAT IVPB 03/13/24 20:55 03/13/24 21:10 DC 03/13/24 22:05 200 MLS/HR Piperacillin Sod/ Tazobactam Sod (Zosyn 3.375gm+NS 50ml) 3.375 gm Q12H IV 03/14/24 08:30 03/24/24 08:29 Vancomycin HCl (Vancomycin 750mg) 750 mg [id number][DIALYSIS] IVPB 03/15/24 16:00 03/25/24 15:59 Vancomycin HCl (Vancomycin Protocol) 1 each AD IV 03/13/24 23:00 03/27/24 22:59 DIAGNOSTICS / RADIOLOGY: [ ] ASSESSMENT: Sepsis POA Ulcer abscess, cellulitis, strong suspicion for osteomyelitis to the right great toe. POA DM uncontrolled type End-stage renal disease on hemodialysis Acute anemia on chronic renal failure Hypertension Severe protein calorie malnutrition. POA PLAN: [ ] admit to surgical floor remain in ED senior product consultant: Manufacturing Cost Estimator DR Hanson MRI pending r/o osteomyelitis ABT's; continue with [employer] [facility] will bring in ID for abt's stewardship NWB will cont with local wound care as directed by DR Hanson cont with 3x dialysis avoid NSAIDS strict I/O and daily weights. home medication pending to be reviewed by RN ATTESTATION BY PHYSICIAN I have seen and examined the patient. I reviewed the documentation, medical decision making, and treatment plan as noted by the resident provider above. I agree with the findings and plan of care. Abhilash Estes MD, ELIZABETH NP Mar 14, 2024 09:04
[2024-03-14] MEDS: ZOSYN 3.375GM +NS 50ML IV SCH (09:29)
[2024-03-14] MEDS: HEParin 5,000 UNIT VIAL SQ SCH (09:30)
[2024-03-14] MEDS: PANTOPrazole 40 MG TAB DR PO SCH (09:30)
--- NOTE | 2024-03-14 10:05 | NUR ---
DR AUGUSTE AT BEDSIDE WITH PT NO NEW ORDERS AT THIS TIME
--- NOTE | 2024-03-14 11:58 | HMCIMG ---
MR FOOT RIGHT WO REASON: right foot osteomyelitis COMPARISON: None TECHNIQUE: Routine MR imaging protocol was performed. FINDINGS: There is marked soft tissue swelling of the first toe. Gas bubbles in the soft tissues consistent with gas forming infection. There is a poorly defined a fluid collection in the swelling, surrounding the stump of the first proximal phalanx, the collection measures 1 cm in thickness and 2.5 cm anteroposterior. There is surgical absence of the distal phalanx of the first toe as well as the distal portion of the proximal phalanx. There is mildly increased signal intensity present diffusely through the remaining portion of the distal proximal phalanx of first toe, consistent with early osteomyelitis. There is been transmetatarsal dictation of the second through fifth toes. Metatarsophalangeal joints appear unremarkable. There is no osseous marrow edema to suggest vasculitis. There are no focal fluid collections proximal portion of the foot. IMPRESSION: 1. Severe soft tissue swelling of the first toe, there is focal fluid collection surrounding the tip of the proximal phalanx, this is consistent with abscess measuring 1 cm x 2.5 cm 2. Diffuse osseous marrow edema in the distal portion of the proximal phalanx of the first toe consistent with osteomyelitis.
--- NOTE | 2024-03-14 12:03 | NUR ---
Home health vs. SNF Pt lives with spouse Rosie Back [phone] and children. PCP is Ganga Blanc MD and also pt of Dr Hanson. Pt states he is disabled and has wheelchair, crutches, running water, and electricity. Addendum: 03/14/24 at 1219 by LOIDA PATTERSON RN CM Amended: Links added.
--- NOTE | 2024-03-14 12:54 | CONS ---
REFERRING PHYSICIAN: Reece Navarrete MD REASON FOR CONSULTATION: Nonhealing right foot, ESRD. HISTORY OF PRESENT ILLNESS: A 43-year-old male with a history of diabetes mellitus and hypertension. He has a history of known vascular disease, status post foot surgery in the past. The patient presented to the hospital with complaints of pain to the right foot. The patient's initial x-ray revealed possible osteomyelitis. The patient was seen by Podiatry. He is scheduled for MRI of the foot later today. He does receive dialysis on a Monday, Monday, Monday schedule. He is being seen for all the above. PAST MEDICAL HISTORY: Diabetes mellitus, hypertension, ESRD, vascular disease. PAST SURGICAL HISTORY: Foot surgery, AV access. SOCIAL HISTORY: He lives independently. There is no active tobacco use. FAMILY HISTORY: No renal disease in the family. ALLERGIES: There are no allergies. MEDICATIONS: Noted. REVIEW OF SYSTEMS: GENERAL: The patient is feeling weak and tired. HEENT: No change in vision. No change in hearing. CARDIOVASCULAR: There is no current chest pain or palpitations. PULMONARY: No shortness of breath. GASTROINTESTINAL: He is tolerating diet. MUSCULOSKELETAL: As described above. NEUROLOGIC: No seizures or focal deficits. PSYCHIATRIC: No history of hallucinations or psychosis. ENDOCRINE: Diabetes mellitus. No history of thyroid disease. HEME: History of anemia. No history of malignancy. PHYSICAL EXAMINATION: VITAL SIGNS: Blood pressure 126/79, pulse in the 70s, T-max is 100.9 degrees Fahrenheit. GENERAL: He is a chronically ill male, much older than appearing. HEENT: Head is atraumatic. Pupils equal, roving to light. Oropharynx is without exudate. Nares clear. NECK: There is no JVP. There is no thyromegaly, no mass. CARDIOVASCULAR: Regular. There is no S3, S4 gallop. LUNGS: Coarse with equal thoracic movement. ABDOMEN: Soft, nondistended, nontender. EXTREMITIES: Reveal no clubbing, no cyanosis. The wounds are all noted. NEUROLOGIC: He is awake. He is alert. He is oriented. SKIN: Reveals no rash or nodules. BACK: There is no CVA tenderness, no back deformities. LABORATORY DATA: Sodium 140, potassium 4.4, BUN 43, creatinine is 5.6. Hemoglobin 10, hematocrit 29, white count 11,000. The x-ray is consistent with osteomyelitis. IMPRESSION: * Osteomyelitis. * Vascular disease. * Diabetes mellitus. * Hypertension. * End-stage renal disease. PLAN: The patient will continue with the dialysis 3 times per week. The patient has been started on broad-spectrum IV antibiotics, which have been adjusted for his renal failure. The patient is scheduled for MRI later today. The patient is being seen by Podiatry. All labs can be repeated in the morning. The patient will continue with his phosphate binders while in the hospital as well as erythropoietin injection for the anemia. We will continue to follow closely and make further recommendations accordingly. TID: [id number] RECEIPT: [id number]
[2024-03-14] MEDS: metoCLOPRAmide 10 MG/2 ML VIAL IVP ONE (14:22)
[2024-03-14] MEDS ORDERED: proPOFol 10 MG/ML 20ML VIAL IV ONE ×2 (14:26→15:14)
[2024-03-14] MEDS ORDERED: MIDAZOLAM HCL 1 MG/ML 2ML VIAL ONE (14:26)
[2024-03-14] MEDS ORDERED: FENTanyl CITRate PF 50 MCG/1 ML 2ML VIAL ONE ×2 (14:26→14:50)
--- NOTE | 2024-03-14 14:28 | NUR ---
PT AOX4 TAKEN TO OR BY DAWNA MARTINEZ
[2024-03-14] MEDS ORDERED: LIDOCAINE HCL 1% 20 ML VIAL ONE (14:45)
[2024-03-14] MEDS ORDERED: BUPIvacaine/PF 0.5% 30ML VIAL ONE (14:45)
[2024-03-14] MEDS ORDERED: ondanSETRON 4MG INJ ONE (14:50)
[2024-03-14] MEDS: LIDOCAINE HCL 1% 20 ML VIAL MISC ONE (14:59)
--- NOTE | 2024-03-14 16:41 | OP ---
DATE OF PROCEDURE: 03/14/2024 SURGEON: Haris Hanson MD TOLL BRIDGE OPERATOR: None. PREOPERATIVE DIAGNOSES: Ulcer abscess, osteomyelitis, right foot first toe. POSTOPERATIVE DIAGNOSES: Ulcer abscess, osteomyelitis, right foot first toe. PROCEDURES: Debridement of skin, subcutaneous tissues, musculature and bone with transfer of the extensor hallucis longus tendon and flexor hallucis longus tendon. ANESTHESIA: Local with monitored anesthesia care and IV sedation. INJECTABLES: 30 mL 50:50 mix 1% lidocaine plain and 0.5% Marcaine plain. PATHOLOGY: Deep soft tissue aerobic and anaerobic culture, sensitivity and Gram stain. Deep soft tissue for aerobic and anaerobic culture, sensitivity and Gram stain. Bone for histopathology to rule out osteomyelitis from the proximal phalanx of the right great toe. MATERIALS: 2-0 Vicryl, 2-0 nylon, 2-0 Ethibond, Betadine Adaptic, Betadine 4 x 4's, dry 4 x 4's, ABDs, Kerlix, and Min. The patient tolerated the anesthesia and procedure well and left the operating room in stable condition. INDICATIONS FOR SURGERY: The patient is a very pleasant 43-year-old diabetic, Latin-Tristanian male, previously had a distal phalanx amputation of his right great toe. He presented with ulceration with abscess to the stump of the amputation stump of his distal phalanx of the right great toe. MRI showed osteomyelitis of distal half of the proximal phalanx and a consolidated abscess distally. At this point, it was deemed necessary to take the patient to surgery for debridement of skin, soft tissue and removal of infected tissue and removal of bone transfer the extensor hallucis longus tendon to flexor hallucis longus tendon of the right foot. DESCRIPTION OF PROCEDURE: The patient was brought into the operating room, placed on the operating room table in usual supine position. After induction of monitored anesthesia care, local block was given 30 mL 50:50 mix 1% lidocaine plain and 0.5% Marcaine plain. The patient was then prepped, draped and scrubbed in the usual sterile manner. The right foot was elevated. Tourniquet not inflated during the surgical procedure. A linear elliptical incision was made encompassing the plantar ulceration of the stump of the right great toe. The incision was deepened down through the skin and subcutaneous tissues. The elliptical skin wedge was removed. Liquefaction and hemorrhagic necrosis of the subcutaneous tissues were excised and sent for culture, sensitivity and Gram stain. The extensor tendon and the flexor tendon to the great toe were retracted proximally for later transfer. Using an oscillating saw, the distal two-thirds of the proximal phalanx were resected. Proximal wafer of bone was sent for histopathology to rule out osteomyelitis. Wound was copiously flushed with the Pulsavac irrigation. Hemostasis obtained with use of the Bovie and 2-0 Vicryl ties. The extensor hallucis longus tendon was reapproximated to the flexor hallucis longus tendon. They were trimmed, they were anastomosed. They were transferred using 2-0 Ethibond using a [place]-type stitch. The wound was again copiously flushed with the Pulsavac lavage, subcutaneous tissues were closed with 2-0 Vicryl horizontal mattress suture. Skin was closed with simple interrupted horizontal mattress and one running 6 cm interlocking 2-0 nylon stitch. A quarter-inch [place] drain was placed exiting distally and proximally for drainage. A dressing of Betadine Adaptic, Betadine 4 x 4's, dry 4 x 4's, ABDs, Kerlix and Min bandage was applied. The patient tolerated the anesthesia and procedure well and left the operating room in stable condition. TID: [id number] RECEIPT: [id number]
--- NOTE | 2024-03-14 17:40 | NUR ---
RECEIVED PATIENT FROM OPERATING ROOM. PATIENT IS ALERT, ORIENTED IN PERSON, TIME AND PLACE. NO SIGNS OF RESPIRATORY DISTRESS. BOWEL SOUNDS PRESENT IN ALL FOUR ABDOMINAL QUADRANTS. DORSALIS PEDIS PRESENT ON BOTH FEET, WEAK. RIGHT FOOT WRAPPED WITH KERLIX. DRESSING IS TO NOT BE CHANGED ; ONLY CHANGED BY DR. WADDELL. PATIENT VERBALIZED NO PAIN AT THE MOMENT. DISCUSSED PLAN OF CARE, PAIN MANAGEMENT, MEDICATIONS AND DIET RESTRICTIONS. PATIENT VERBALIZED UNDERSTANDING. PIV TO 18G TO RIGHT FOREARM. SALINE LOCK.
[2024-03-15] VITALS (21 sets, daily range): BP systolic 121–167; BP diastolic 74–98; PULSE 59–98; RESP 16–20; TEMP 97.9–100.5; O2SAT 100
--- NOTE | 2024-03-15 02:52 | CONS ---
INFECTIOUS DISEASE CONSULTATION NOTE DATE OF SERVICE: 03/14/2024 REQUESTING PHYSICIAN: Salty Zepeda NP REASON FOR CONSULTATION: Sepsis and right foot osteomyelitis. HISTORY OF PRESENT ILLNESS: The patient is a 43-year-old male with history of hypertension, obesity, dyslipidemia, ESRD, who presented to the hospital with fever, right foot pain, swelling and redness. The patient noticed increasing pain, redness to the right great toe. The patient's symptoms started two days prior to presentation. He came to the emergency room, and was found to have possible sepsis. The patient's temperature was 101. The patient was found with elevated procalcitonin and WBC of 11.1. X-ray of the right foot has been done showing right great toe osteomyelitis. The patient has been started on vancomycin and Zosyn. PAST MEDICAL HISTORY: * Hypertension. * Obesity. * Dyslipidemia. * End-stage renal disease. * Right foot osteomyelitis. * Left foot osteomyelitis. PAST SURGICAL HISTORY: * Right second, third, fourth and fifth toe amputation. * Left second, third, fourth and fifth toe amputation. * AV fistula surgery. * Appendectomy. * Gastric sleeve surgery. ____ ALLERGIES: * ZOSYN. * VANCOMYCIN. * TYLENOL. * PROTONIX. * INSULIN. SOCIAL HISTORY: Lives with . No alcohol, tobacco or illicit drug use. FAMILY HISTORY: Positive for diabetes mellitus. REVIEW OF SYSTEMS: CONSTITUTIONAL: Positive for fever and chills. No weight loss or night sweats. EYES: No eye pain. No photophobia or diplopia. HENT: No sore throat. No rhinorrhea or earache. NECK: No neck pain or neck swelling. RESPIRATORY: No cough. No hemoptysis or pleuritic pain. CARDIOVASCULAR: No chest pain. No palpitations or orthopnea. GASTROINTESTINAL: Denied nausea, vomiting or abdominal pain. GENITOURINARY: No dysuria, urgency or urinary frequency. CENTRAL NERVOUS SYSTEM: No headache, dyspnea or slurred speech. PSYCHIATRY: No depression. No suicidal ideation. MUSCULOSKELETAL: Positive for right great toe pain and ulcer. PHYSICAL EXAMINATION: GENERAL: Young male, awake. VITAL SIGNS: Temperature 99.0, pulse 77, respiratory rate 18, BP 126/79. EYES: No icterus. Pupils are equal and reactive. HENT: No oral thrush. Moist oral mucosa. NECK: Supple. No JVD or thyromegaly. LUNGS: Good air entry. No rales. No rhonchi. CARDIOVASCULAR: S1, S2 regular. No murmur heard. ABDOMEN: Obese. Soft. Nontender. Bowel sound is present. CENTRAL NERVOUS SYSTEM: Awake, alert, oriented x 3. No focal deficits. SKIN: No rashes. No itchiness. LYMPHATIC: There is right inguinal lymphadenopathy. BACK: No deformity. No pressure ulcer. EXTREMITIES: There is swelling with abscess involving the right great toe. There is purulent drainage. LABORATORY DATA: Sodium 137, potassium 4.7, BUN 53, creatinine 5.5. WBC 12.2, hemoglobin 9.8, platelet 153. Blood culture, no growth for one day. Procalcitonin was positive 0.97. RADIOLOGY: X-ray of the right foot with right great toe osteomyelitis. ASSESSMENT: A 43-year-old male presenting with fever. CURRENT PROBLEMS: * Sepsis. * Right great toe abscess and osteomyelitis. * Diabetic foot ulcer. * End-stage renal disease, on dialysis. * Leukocytosis. * Obesity. PLAN: * Continue wound care. * Continue pain management. * Continue Zosyn. * Continue vancomycin. * Continue DVT prophylaxis. * Continue dialysis. * Monitor electrolytes. * The patient will be followed up closely. Thank you for allowing me to participate in the care of this patient. TID: [id number] RECEIPT: [id number]
[2024-03-15] MEDS: acetaMINOPHEN 325 MG TAB PO PRN (03:59)
[2024-03-15 04:50] LABS: BASOPHILS # (AUTO) 0.05 K/uL (0.00-0.20); BASOPHILS % (AUTO) 0.6 % (0.0-5.0); EOSINOPHILS # (AUTO) 0.07 K/uL (0.00-0.70); EOSINOPHILS % (AUTO) 0.8 % (0.0-8.0); HEMATOCRIT 31.1 % (42-54); IMMATURE GRANULOCYTE ABSOLUTE 0.03 K/uL (0-1); LYMPHOCYTES # (AUTO) 1.4 K/uL (1.0-4.8); LYMPHOCYTES % (AUTO) 17.1 % (21.0-51.0); MEAN CORPUSCULAR HEMOGLOBIN 29.6 pg (27.0-33.0); MEAN CORPUSCULAR HGB CONC 32.2 g/dL (32.0-36.0); MONOCYTES # (AUTO) 0.8 K/uL (0.1-1.0); NEUTROPHILS # (AUTO) 6.1 K/uL (1.8-7.7); NEUTROPHILS % (AUTO) 72.1 % (40.0-77.0); PLATELET COUNT (AUTO) 196 K/uL (130-400); RED BLOOD CELL COUNT(AUTO) 3.38 MIL/uL (4.50-6.20); RED CELL DISTRIBUTION WIDTH 13.8 % (11.0-15.5); WHITE BLOOD COUNT (AUTO) 8.4 K/uL (4.8-10.8)
[2024-03-15 05:30] LABS: ALBUMIN 3.1 g/dL (3.5-5.0); BILIRUBIN,TOTAL 0.6 mg/dL (0.2-1.0); CREATININE 6.3 mg/dL (0.5-1.3); MAGNESIUM 2.2 mg/dL (1.80-2.40); POTASSIUM 4.3 mmol/L (3.5-5.1); TOTAL PROTEIN, SERUM 7.3 g/dL (6.0-8.3)
--- NOTE | 2024-03-15 06:55 | PN ---
SUBJECTIVE: The patient is a very pleasant 43-year-old diabetic, Latin-[place]icarag[place] male status post now 1 day revisional debridement of infected diabetic ulcer with osteomyelitis to the proximal phalanx of his right great toe with tendon repair. The patient is currently afebrile. White count 8.4, H and H 10 and 31.1, neutrophils 72.1, glucose 96, albumin 3.1. Wound cultures, blood cultures pending. The patient is without any complaints of pain. REVIEW OF SYSTEMS: CONSTITUTIONAL: No chills, no fevers, no night sweats, no nausea, no vomiting, no diarrhea. HEENT: No problems with his eyes, ears, nose or throat. CARDIOVASCULAR: Having no current chest pain. RESPIRATORY: No shortness of breath. GENITOURINARY: No dysuria. GASTROINTESTINAL: No dysphagia. ENDOCRINE: Diabetes. PSYCHIATRIC: Denied any depression. MUSCULOSKELETAL: Bunions and hammertoe deformities. INTEGUMENT: His incision site is well coapted to the first ray surgical site on the right. VITAL SIGNS: Show a T-max of 100.6, pulse 98, respiration 20, blood pressure 141/76. The patient is currently receiving IV vancomycin and IV Zosyn. OBJECTIVE: On examination today shows he has palpable pedal pulses. No ulcers on the left, incision site well coapted to the first ray surgical site on the right. ASSESSMENT: Status post debridement of skin, subcutaneous tissues, tendon, musculature, removal of portion of the proximal phalanx of the right great toe, tendon repair of the right foot. PLAN: We will continue with Betadine dressings, offloading measures, IV antibiotics. Await the results of his intraoperative culture sensitivities and bone pathology. TID: [id number] RECEIPT: [id number]
--- NOTE | 2024-03-15 09:11 | PN ---
DIALYSIS NOTE SUBJECTIVE: The patient is seen and evaluated on hemodialysis, prescription noted. OBJECTIVE: VITAL SIGNS: Blood pressure 135/74. CARDIOVASCULAR: Regular. LUNGS: Coarse. IMPRESSION: End-stage renal disease. PLAN: The patient is status post debridement of the wound. The patient remains on the IV antibiotics. The patient's workup is ongoing per Podiatry. TID: [id number] RECEIPT: [id number]
--- NOTE | 2024-03-15 09:45 | PN ---
[facility] PROGRESS NOTE Date of Service: Mar 15, 2024 Time of Service: 09:44 SUBJECTIVE: [ ] admission Date: 03/13/24 PCP: chief complaint: Right lower extremity pain: ER Workup: surgical site amputation stump with an ulcer, abscess, cellulitis, possible osteomyelitis. This is a 43-year-old male that presents in ED with chief complaints of right lower extremity pain. Was admitted on 02/21/2024 with surgical site amputation top with stump ulcer abscess cellulitis and osteomyelitis to the 1st digit as per x-ray. Dr. Hanson was consulted appreciate his input he order a MRI to evaluate the patient for osteomyelitis. Possible surgical intervention today. Patient may require a revisional amputation of the right foot. 03/14/24 patient is seen and examined earlier reviewed chart. Patient remains in ED patient's continues with pain but is now controlled with pain medication waiting for MRI results. Patient denied chest pain or shortness for breath 03/15/24 patient underwent I/D debridement yesterday per Dr Hanson, intraoperative cultures were collected. in process . REVIEW OF SYSTEMS CONSTITUTIONAL: Denies fevers, chills, or night sweats. No unintentional weight loss reported. NEUROLOGICAL: Denies headache, amaurosis fugax, motor weakness, sensory deficit, vertigo/spinning sensation, gait abnormalities, or tremors. ENT: No hearing loss, otalgia, otorrhea, rhinitis, rhinorrhea, hoarseness, or sore throat. CARDIOVASCULAR: Denies any exertional angina, dyspnea on exertion, orthopnea, paroxysmal nocturnal dyspnea, palpitations, life-threatening arrhythmias, claudication. PULMONARY: Denies any shortness of breath, cough, phlegm/sputum, hemoptysis, pleuritic chest pain. SLEEP: Denies morning headaches, daytime somnolence or napping. Denies difficulty falling asleep, staying asleep, waking from sleep. Denies knowledge of snoring. GASTROINTESTINAL: Denies any type of dysphagia to either liquids or solids. Denies nausea, vomiting, pyrosis, early satiety, abdominal pain, diarrhea, constipation, or changes in stool consistency or caliber. Denies coffee-ground emesis, hematemesis, hematochezia, or melanotic stools. GENITOURINARY: Denies frequency, urgency, nocturia, hematuria or incontinence (Storage/Irritative symptoms.) Low urinary stream, straining to void, urinary intermittency or hesitancy, splitting of the voiding stream, terminal dribbling. ENDOCRINOLOGIC: Denies polyuria, polydipsia, polyphagia or heat/cold intolerances. HEMATOLOGIC: Denies thrombophilia/previous clots, or coagulopathy/bleeding disorders. ONCOLOGIC: Denies personal history of malignancy. DERMATOLOGIC: Denies rashes or pruritus. PSYCHIATRIC: Denies any suicidal or homicidal ideation. Denies hallucinations. PHYSICAL EXAM GENERAL APPEARANCE: The patient is awake, alert, and oriented, in no acute cardiopulmonary distress. NEUROLOGICAL: Cranial nerves II-XII grossly intact. Motor is 5/5 in bilateral upper and lower extremities proximal to distal. No sensory deficits. HEENT: Face is symmetric. Pupils are equal and reactive. Extraocular movements are intact. NECK: Supple. No JVD. No thyromegaly. No submental, submandibular, pre-/pos tauricular, occipital or supraclavicular lymphadenopathy. CHEST: Normal chest expansion. No Telemetry. LUNGS: Absence of any rales, rhonchi or any wheezing. CARDIOVASCULAR: Regular. S1 and S2 normal. No appreciable rubs, murmurs or gallops. ABDOMEN: Soft, nontender, and nondistended. There is no rebound, voluntary guarding, or rigidity. : Deferred. No Herrera. EXTREMITIES: Non-edematous and not cyanotic. No clubbing. Good capillary refill. SKIN: No skin breakdown. Vital Signs (last 8hr) Date Time Temp Pulse Resp B/P (MAP) Pulse Ox O2 Delivery O2 Flow Rate FiO2 03/15/24 08:00 98.6 93 18 135/74 98 Room Air 03/15/24 04:00 100.6 98 20 141/76 96 Room Air LABS: Laboratory: Test 03/15/24 05:21 03/15/24 04:20 03/14/24 07:13 03/13/24 21:06 Range/Units Whole Blood Glucose 96 70-110 MG/DL White Blood Count 8.4 4.8-10.8 K/uL Red Blood Count 3.38 L 4.50-6.20 MIL/uL Hemoglobin 10.0 L 14.0-18.0 g/dL Hematocrit 31.1 L 42-54 % Mean Corpuscular Volume 92.0 79-99 fL Mean Corpuscular Hemoglobin 29.6 27.0-33.0 pg Mean Corpuscular Hemoglobin Concent 32.2 32.0-36.0 g/dL Red Cell Distribution Width 13.8 11.0-15.5 % Platelet Count 196 130-400 K/uL Mean Platelet Volume 9.5 7.5-10.5 fL Immature Granulocyte % (Auto) 0.4 0-1 % Neutrophils (%) (Auto) 72.1 40.0-77.0 % Lymphocytes (%) (Auto) 17.1 L 21.0-51.0 % Monocytes (%) (Auto) 9.0 3.0-13.0 % Eosinophils (%) (Auto) 0.8 0.0-8.0 % Basophils (%) (Auto) 0.6 0.0-5.0 % Neutrophils # (Auto) 6.1 1.8-7.7 K/uL Lymphocytes # (Auto) 1.4 1.0-4.8 K/uL Monocytes # (Auto) 0.8 0.1-1.0 K/uL Eosinophils # (Auto) 0.07 0.00-0.70 K/uL Basophils # (Auto) 0.05 0.00-0.20 K/uL Absolute Immature Granulocyte (auto 0.03 0-1 K/uL Nucleated Red Blood Cells 0.0 0.0-0.19 % Sodium Level 143 136-145 mmol/L Potassium Level 4.3 3.5-5.1 mmol/L Chloride Level 104 101-111 mmol/L Carbon Dioxide Level 27 21-32 mmol/L Blood Urea Nitrogen 56 H 7-18 mg/dL Creatinine 6.3 H 0.5-1.3 mg/dL Glomerular Filtration Rate Calc 11 >90 mL/min Random Glucose 99 70-105 mg/dL Total Calcium 8.3 L 8.5-10.1 mg/dL Magnesium Level 2.20 1.80-2.40 mg/dL Total Bilirubin 0.6 0.2-1.0 mg/dL Aspartate Amino Transf (AST/SGOT) 12 10-37 U/L Alanine Aminotransferase (ALT/SGPT) 17 12-78 U/L Alkaline Phosphatase 84 50-136 U/L Total Protein 7.3 6.0-8.3 g/dL Albumin 3.1 L 3.5-5.0 g/dL Hemoglobin A1c 5.6 4.0-6.0 % Estimated Average Glucose (eAG) 114 70-126 mg/dL Phosphorus Level 4.8 2.5-4.9 mg/dL White Cell Morphology Comment See comments Erythrocyte Sedimentation Rate 56 H 0-15 MM/HR Lactic Acid Level 1.5 0.8-2.5 mmol/L Total Creatine Kinase 79 # 21-232 U/L Troponin I High Sensitivity 4 4-75 ng/L B-Type Natriuretic Peptide 120 H 0-100 pg/mL Procalcitonin 0.97 H 0.05-0.5 ng/mL Current Medications Medications (Trade) Dose Ordered Sig/Leonel Route PRN Reason Start Time Stop Time Status Last Admin Dose Admin Acetaminophen (TYLenol 325MG TAB) 650 mg Q6H PRN PO TEMPERATURE GREATER THAN 101.5 03/13/24 23:00 04/12/24 22:59 03/15/24 03:59 650 MG Epoetin Gaudencio-epbx (Retacrit) 10,000 unit QMOWEFR[DIALYSIS] SQ 03/15/24 16:00 04/14/24 15:59 Heparin Sodium (Porcine) (HEParin 5,000 UNIT VIAL) 5,000 unit BID SQ 03/14/24 09:00 04/13/24 08:59 03/14/24 21:04 5,000 UNIT Hydralazine HCl (APRESOLine 20MG INJ) 10 mg Q6H PRN IV For:SBP above 160;DBP above 90 03/13/24 23:00 04/12/24 22:59 Insulin Human Regular (humuLIN R 100 UNIT/ML 3ML) INSULIN SLIDING SCAL... ACHS SQ 03/14/24 07:30 04/13/24 07:29 Morphine Sulfate (morPHINE 2MG SYG) 2 mg Q4H PRN IVP SEVERE PAIN (7-10) 03/13/24 23:00 03/20/24 22:59 Ondansetron HCl (zoFRAN 4MG INJ) 4 mg Q6H PRN IV NAUSEA/VOMITING 03/13/24 23:00 04/12/24 22:59 Pantoprazole Sodium (PROTonix 40MG TAB) 40 mg DAILY PO 03/14/24 09:00 04/13/24 08:59 03/14/24 09:30 40 MG Piperacillin Sod/ Tazobactam Sod 50 ml @ 200 mls/hr STAT STAT IVPB 03/13/24 20:55 03/13/24 21:10 DC 03/13/24 22:05 200 MLS/HR Piperacillin Sod/ Tazobactam Sod (Zosyn 3.375gm+NS 50ml) 3.375 gm Q12H IV 03/14/24 08:30 03/24/24 08:29 03/14/24 20:51 3.375 GM Sevelamer HCl (RENAgel 800 MG TAB) 800 mg TIDMEALS PO 03/15/24 12:00 04/14/24 11:59 Vancomycin HCl (Vancomycin 750mg) 750 mg QMOWEFR[DIALYSIS] IVPB 03/15/24 16:00 03/25/24 15:59 Vancomycin HCl (Vancomycin Protocol) 1 each AD IV 03/13/24 23:00 03/27/24 22:59 DIAGNOSTICS / RADIOLOGY: [ ] ASSESSMENT: Sepsis POA Ulcer abscess, cellulitis, strong suspicion for osteomyelitis to the right great toe. POA s/p Debridement of skin, subcutaneous tissues, musculature and bone with transfer of the extensor hallucis longus tendon and flexor hallucis longus tendon. First toe with Osteomyelitis evidence by MRI POA DM uncontrolled type End-stage renal disease on hemodialysis Acute anemia on chronic renal failure Hypertension Severe protein calorie malnutrition. POA PLAN: [ ] admit to surgical floor remain in ED assessment consultant: Health And Safety Instructor DR Hanson MRI pending r/o osteomyelitis ABT's; continue with Broad spectrum IV Vancoycmin and Zosyn ; ID following NWB will cont with local wound care as directed by DR Hanson cont with 3x dialysis avoid NSAIDS strict I/O and daily weights. ac/hs monitoring with SSri coverage goal to keep blood sugar < 200 supplements for wound healing.; Vitamin C, and Vitamin B complex home medication: need update by RN DVT/GI ppx all questions answered case discussed with attending DR Franklyn Strong. ATTESTATION BY PHYSICIAN I have seen and examined the patient. I reviewed the documentation, medical de cision making, and treatment plan as noted by the resident provider above. I agree with the findings and plan of care. Abhilash Estes MD, ELIZABETH NP Mar 15, 2024 09:44
[2024-03-15] MEDS: sevELAMer HCL 800 MG TABLET PO SCH (13:37)
[2024-03-15] MEDS: VANCOMYCIN 750MG VIAL IVPB SCH (17:09)
[2024-03-15] MEDS: 0.9%NACL 1000ML 1,000 ML IV SCH (20:35)
[2024-03-15] MEDS: ASCORBIC ACID 500 MG TAB PO SCH (21:09)
[2024-03-15] MEDS: EPOETIN ALFA-EPBX (NON-ESRD) 10,000 UNIT/ML VIAL SQ SCH (21:13)
--- NOTE | 2024-03-15 21:32 | PN ---
INFECTIOUS DISEASE PROGRESS NOTE Date of Service: Mar 15, 2024 SUBJECTIVE: This is a 43-year-old male patient who was seen and examined at bedside in room 427. Patient is awake, alert and oriented x3. Patient is status post debridement of skin and removal of portion of the right great toe proximal phalanx on 03/14/2024. Patient had a low-grade fever of 100.6 earlier this morning at 0400. The WBC has trended down to 8.4.. The preliminary wound cultures from the right great toe is growing Gram-positive cocci in clusters, Staphylococcus aureus. Patient continues on vancomycin and Zosyn IV. Patient is scheduled to be dialyzed today. We will continue to follow patient's care. PHYSICAL EXAM EYES: Anicteric. Pupils equal and reactive. HENT: No oral thrush seen, moist Oral mucosa NECK: Supple, no JVD or thyromegaly. LUNGS: Good air entry. No rales, no rhonchi. CARDIOVASCULAR: S1, S2 regular. No murmur heard. ABDOMEN: Soft, non tender, bowel sounds present, no organomegaly CENTRAL NERVOUS SYSTEM: Awake, alert, oriented x 3. No focal deficits. SKIN: No rashes, no swelling. Right 1st toe diabetic ulcer with abscess, status post debridement. LYMPHATICS: No peripheral lymphadenopathy MUSCULOSKELETAL: No joint swelling, erythema or tenderness. EXTREMITIES: No cyanosis or clubbing BACK: No deformity, no pressure ulcer. GENITOURINARY: No dysuria or hematuria Vital Sign (Last 12 Hours) 03/15/24 03/15/24 03/15/24 03/15/24 12:00 16:00 17:30 17:45 Temp 98.8 98.4 97.9 97.9 Pulse 89 59 95 89 Resp 16 18 16 16 B/P (MAP) 121/76 145/86 159/98 166/85 Pulse Ox 98 99 O2 Delivery Room Air Room Air Room Air Room Air 03/15/24 03/15/24 03/15/24 03/15/24 18:00 18:15 18:30 18:45 Pulse 87 89 89 87 Resp 16 16 16 16 B/P (MAP) 162/98 153/83 163/88 148/74 O2 Delivery Room Air Room Air Room Air Room Air 03/15/24 03/15/24 03/15/24 03/15/24 19:00 19:15 19:30 19:45 Pulse 91 87 84 88 Resp 16 16 16 16 B/P (MAP) 167/88 145/81 152/82 160/95 O2 Delivery Room Air Room Air Room Air Room Air 03/15/24 03/15/24 03/15/24 03/15/24 20:00 20:12 20:15 20:30 Temp 98.2 Pulse 86 87 86 88 Resp 16 20 16 16 B/P (MAP) 160/88 145/81 156/83 151/90 Pulse Ox 96 O2 Delivery Room Air Room Air Room Air Room Air 03/15/24 03/15/24 20:35 20:45 Temp 97.9 97.9 Pulse 80 82 Resp 16 16 B/P (MAP) 164/80 149/88 O2 Delivery Room Air Room Air LABS: Laboratory: Test 03/15/24 19:21 03/15/24 04:20 03/14/24 07:13 Range/Units Whole Blood Glucose 156 #H 70-110 MG/DL White Blood Count 8.4 4.8-10.8 K/uL Red Blood Count 3.38 L 4.50-6.20 MIL/uL Hemoglobin 10.0 L 14.0-18.0 g/dL Hematocrit 31.1 L 42-54 % Mean Corpuscular Volume 92.0 79-99 fL Mean Corpuscular Hemoglobin 29.6 27.0-33.0 pg Mean Corpuscular Hemoglobin Concent 32.2 32.0-36.0 g/dL Red Cell Distribution Width 13.8 11.0-15.5 % Platelet Count 196 130-400 K/uL Mean Platelet Volume 9.5 7.5-10.5 fL Immature Granulocyte % (Auto) 0.4 0-1 % Neutrophils (%) (Auto) 72.1 40.0-77.0 % Lymphocytes (%) (Auto) 17.1 L 21.0-51.0 % Monocytes (%) (Auto) 9.0 3.0-13.0 % Eosinophils (%) (Auto) 0.8 0.0-8.0 % Basophils (%) (Auto) 0.6 0.0-5.0 % Neutrophils # (Auto) 6.1 1.8-7.7 K/uL Lymphocytes # (Auto) 1.4 1.0-4.8 K/uL Monocytes # (Auto) 0.8 0.1-1.0 K/uL Eosinophils # (Auto) 0.07 0.00-0.70 K/uL Basophils # (Auto) 0.05 0.00-0.20 K/uL Absolute Immature Granulocyte (auto 0.03 0-1 K/uL Nucleated Red Blood Cells 0.0 0.0-0.19 % Sodium Level 143 136-145 mmol/L Potassium Level 4.3 3.5-5.1 mmol/L Chloride Level 104 101-111 mmol/L Carbon Dioxide Level 27 21-32 mmol/L Blood Urea Nitrogen 56 H 7-18 mg/dL Creatinine 6.3 H 0.5-1.3 mg/dL Glomerular Filtration Rate Calc 11 >90 mL/min Random Glucose 99 70-105 mg/dL Total Calcium 8.3 L 8.5-10.1 mg/dL Magnesium Level 2.20 1.80-2.40 mg/dL Total Bilirubin 0.6 0.2-1.0 mg/dL Aspartate Amino Transf (AST/SGOT) 12 10-37 U/L Alanine Aminotransferase (ALT/SGPT) 17 12-78 U/L Alkaline Phosphatase 84 50-136 U/L Total Protein 7.3 6.0-8.3 g/dL Albumin 3.1 L 3.5-5.0 g/dL Hemoglobin A1c 5.6 4.0-6.0 % Estimated Average Glucose (eAG) 114 70-126 mg/dL Phosphorus Level 4.8 2.5-4.9 mg/dL ASSESSMENT: Right 1st toe osteomyelitis, status post removal of portion of the right great toe proximal phalanx on 03/14/2024. Right 1st toe diabetic ulcer with abscess, status post debridement on 03/14/2024. . Right foot cellulitis. Leukocytosis. Diabetes mellitus. End-stage renal disease, dialysis. PLAN: Continue vancomycin per pharmacy protocol. Continue Zosyn IV. Continue GI prophylaxis. Continue pain management. Continue wound care. Continue dialysis as recommended by rn school. Continue monitoring glucose levels. We will follow up on the wound cultures. This case was reviewed and discussed with my supervising physician and the above assessment and plan was formulated and agreed upon. ATTESTATION BY PHYSICIAN I have seen and examined the patient. I reviewed the documentation, medical decision making, and treatment plan as noted by the mid-level provider above. I agree with the findings and plan of care. BUDDY AUGUSTE MD, MIRTA [facility] Mar 15, 2024 21:32
[2024-03-16] VITALS (7 sets, daily range): BP systolic 118–128; BP diastolic 76–84; PULSE 75–90; RESP 16–20; TEMP 97.9–98.8; O2SAT 98–100
--- NOTE | 2024-03-16 03:00 | NUR ---
DIALYSIS DONE, 3.3 LITER REMOVED, VITAL SIGNS STABLE, WILL CONT TO MONITOR
[2024-03-16 05:41] LABS: BASOPHILS # (AUTO) 0.05 K/uL (0.00-0.20); BASOPHILS % (AUTO) 0.7 % (0.0-5.0); EOSINOPHILS % (AUTO) 2.9 % (0.0-8.0); HEMATOCRIT 30.4 % (42-54); IMMATURE GRANULOCYTE ABSOLUTE 0.03 K/uL (0-1); LYMPHOCYTES % (AUTO) 28.1 % (21.0-51.0); MEAN CORPUSCULAR HEMOGLOBIN 29.6 pg (27.0-33.0); MEAN CORPUSCULAR HGB CONC 32.6 g/dL (32.0-36.0); MONOCYTES # (AUTO) 0.6 K/uL (0.1-1.0); MONOCYTES % (AUTO) 8.4 % (3.0-13.0); NEUTROPHILS # (AUTO) 4.1 K/uL (1.8-7.7); NEUTROPHILS % (AUTO) 59.5 % (40.0-77.0); PLATELET COUNT (AUTO) 217 K/uL (130-400); RED BLOOD CELL COUNT(AUTO) 3.34 MIL/uL (4.50-6.20); RED CELL DISTRIBUTION WIDTH 13.7 % (11.0-15.5); WHITE BLOOD COUNT (AUTO) 6.9 K/uL (4.8-10.8)
[2024-03-16 06:10] LABS: ALBUMIN 3.1 g/dL (3.5-5.0); BILIRUBIN,TOTAL 0.6 mg/dL (0.2-1.0); CREATININE 5.3 mg/dL (0.5-1.3); MAGNESIUM 2.1 mg/dL (1.80-2.40); POTASSIUM 3.9 mmol/L (3.5-5.1); TOTAL PROTEIN, SERUM 7.7 g/dL (6.0-8.3)
--- NOTE | 2024-03-16 08:17 | PN ---
[facility] PROGRESS NOTE Date of Service: Mar 16, 2024 Time of Service: 08:11 SUBJECTIVE: [ ] admission Date: 03/13/24 PCP: chief complaint: Right lower extremity pain: ER Workup: surgical site amputation stump with an ulcer, abscess, cellulitis, possible osteomyelitis. This is a 43-year-old male that presents in ED with chief complaints of right lower extremity pain. Was admitted on 02/21/2024 with surgical site amputation top with stump ulcer abscess cellulitis and osteomyelitis to the 1st digit as per x-ray. Dr. Hanson was consulted appreciate his input he order a MRI to evaluate the patient for osteomyelitis. Possible surgical intervention today. Patient may require a revisional amputation of the right foot. 03/14/24 patient is seen and examined earlier reviewed chart. Patient remains in ED patient's continues with pain but is now controlled with pain medication waiting for MRI results. Patient denied chest pain or shortness for breath 03/15/24 patient underwent I/D debridement yesterday per Dr Hanson, intraoperative cultures were collected. in process . 03/16/24 patient seen and examined , reviewed chart: wound cultures positive for MRSA and Providencia Rettgeri cont with IV antibiotis ID following afebrile. the patient reports no acute events overnight. REVIEW OF SYSTEMS CONSTITUTIONAL: Denies fevers, chills, or night sweats. No unintentional weight loss reported. NEUROLOGICAL: Denies headache, amaurosis fugax, motor weakness, sensory deficit, vertigo/spinning sensation, gait abnormalities, or tremors. ENT: No hearing loss, otalgia, otorrhea, rhinitis, rhinorrhea, hoarseness, or sore throat. CARDIOVASCULAR: Denies any exertional angina, dyspnea on exertion, orthopnea, paroxysmal nocturnal dyspnea, palpitations, life-threatening arrhythmias, claudication. PULMONARY: Denies any shortness of breath, cough, phlegm/sputum, hemoptysis, pleuritic chest pain. SLEEP: Denies morning headaches, daytime somnolence or napping. Denies difficulty falling asleep, staying asleep, waking from sleep. Denies knowledge of snoring. GASTROINTESTINAL: Denies any type of dysphagia to either liquids or solids. Denies nausea, vomiting, pyrosis, early satiety, abdominal pain, diarrhea, constipation, or changes in stool consistency or caliber. Denies coffee-ground emesis, hematemesis, hematochezia, or melanotic stools. GENITOURINARY: Denies frequency, urgency, nocturia, hematuria or incontinence (Storage/Irritative symptoms.) Low urinary stream, straining to void, urinary intermittency or hesitancy, splitting of the voiding stream, terminal dribbling. ENDOCRINOLOGIC: Denies polyuria, polydipsia, polyphagia or heat/cold intoleranc es. HEMATOLOGIC: Denies thrombophilia/previous clots, or coagulopathy/bleeding disorders. ONCOLOGIC: Denies personal history of malignancy. DERMATOLOGIC: Denies rashes or pruritus. PSYCHIATRIC: Denies any suicidal or homicidal ideation. Denies hallucinations. PHYSICAL EXAM GENERAL APPEARANCE: The patient is awake, alert, and oriented, in no acute cardiopulmonary distress. NEUROLOGICAL: Cranial nerves II-XII grossly intact. Motor is 5/5 in bilateral upper and lower extremities proximal to distal. No sensory deficits. HEENT: Face is symmetric. Pupils are equal and reactive. Extraocular movements are intact. NECK: Supple. No JVD. No thyromegaly. No submental, submandibular, pre- /postauricular, occipital or supraclavicular lymphadenopathy. CHEST: Normal chest expansion. No Telemetry. LUNGS: Absence of any rales, rhonchi or any wheezing. CARDIOVASCULAR: Regular. S1 and S2 normal. No appreciable rubs, murmurs or gallops. ABDOMEN: Soft, nontender, and nondistended. There is no rebound, voluntary guarding, or rigidity. : Deferred. No Herrera. EXTREMITIES: Non-edematous and not cyanotic. No clubbing. Good capillary refill. SKIN: No skin breakdown. Vital Signs (last 8hr) Date Time Temp Pulse Resp B/P (MAP) Pulse Ox O2 Delivery O2 Flow Rate FiO2 03/16/24 04:31 98.2 87 18 126/76 97 Room Air LABS: Laboratory: Test 03/16/24 05:58 03/16/24 05:01 Range/Units Whole Blood Glucose 96 70-110 MG/DL White Blood Count 6.9 4.8-10.8 K/uL Red Blood Count 3.34 L 4.50-6.20 MIL/uL Hemoglobin 9.9 L 14.0-18.0 g/dL Hematocrit 30.4 L 42-54 % Mean Corpuscular Volume 91.0 79-99 fL Mean Corpuscular Hemoglobin 29.6 27.0-33.0 pg Mean Corpuscular Hemoglobin Concent 32.6 32.0-36.0 g/dL Red Cell Distribution Width 13.7 11.0-15.5 % Platelet Count 217 130-400 K/uL Mean Platelet Volume 9.6 7.5-10.5 fL Immature Granulocyte % (Auto) 0.4 0-1 % Neutrophils (%) (Auto) 59.5 40.0-77.0 % Lymphocytes (%) (Auto) 28.1 21.0-51.0 % Monocytes (%) (Auto) 8.4 3.0-13.0 % Eosinophils (%) (Auto) 2.9 0.0-8.0 % Basophils (%) (Auto) 0.7 0.0-5.0 % Neutrophils # (Auto) 4.1 1.8-7.7 K/uL Lymphocytes # (Auto) 2.0 1.0-4.8 K/uL Monocytes # (Auto) 0.6 0.1-1.0 K/uL Eosinophils # (Auto) 0.20 0.00-0.70 K/uL Basophils # (Auto) 0.05 0.00-0.20 K/uL Absolute Immature Granulocyte (auto 0.03 0-1 K/uL Nucleated Red Blood Cells 0.0 0.0-0.19 % Sodium Level 140 136-145 mmol/L Potassium Level 3.9 3.5-5.1 mmol/L Chloride Level 100 L 101-111 mmol/L Carbon Dioxide Level 30 21-32 mmol/L Blood Urea Nitrogen 41 H 7-18 mg/dL Creatinine 5.3 H 0.5-1.3 mg/dL Glomerular Filtration Rate Calc 13 >90 mL/min Random Glucose 92 70-105 mg/dL Total Calcium 8.4 L 8.5-10.1 mg/dL Magnesium Level 2.10 1.80-2.40 mg/dL Total Bilirubin 0.6 0.2-1.0 mg/dL Aspartate Amino Transf (AST/SGOT) 14 10-37 U/L Alanine Aminotransferase (ALT/SGPT) 15 12-78 U/L Alkaline Phosphatase 82 50-136 U/L C-Reactive Protein, Quantitative 152.60 H 0.5-3.0 mg/L Total Protein 7.7 6.0-8.3 g/dL Albumin 3.1 L 3.5-5.0 g/dL Procalcitonin 5.39 H 0.05-0.5 ng/mL Current Medications Medications (Trade) Dose Ordered Sig/Leonel Route PRN Reason Start Time Stop Time Status Last Admin Dose Admin Acetaminophen (TYLenol 325MG TAB) 650 mg Q6H PRN PO TEMPERATURE GREATER THAN 101.5 03/13/24 23:00 04/12/24 22:59 03/15/24 03:59 650 MG Ascorbic Acid (Vitamin C 500mg Tab) 500 mg BID PO 03/15/24 21:00 04/14/24 20:59 03/15/24 21:09 500 MG Epoetin Gaudencio-epbx (Retacrit) 10,000 unit QMOWEFR[DIALYSIS] SQ 03/15/24 16:00 04/14/24 15:59 03/15/24 21:13 10,000 UNIT Heparin Sodium (Porcine) (HEParin 5,000 UNIT VIAL) 5,000 unit BID SQ 03/14/24 09:00 04/13/24 08:59 03/15/24 21:10 5,000 UNIT Hydralazine HCl (APRESOLine 20MG INJ) 10 mg Q6H PRN IV For:SBP above 160;DBP above 90 03/13/24 23:00 04/12/24 22:59 Insulin Human Regular (humuLIN R 100 UNIT/ML 3ML) INSULIN SLIDING SCAL... ACHS SQ 03/14/24 07:30 04/13/24 07:29 Morphine Sulfate (morPHINE 2MG SYG) 2 mg Q4H PRN IVP SEVERE PAIN (7-10) 03/13/24 23:00 03/20/24 22:59 Ondansetron HCl (zoFRAN 4MG INJ) 4 mg Q6H PRN IV NAUSEA/VOMITING 03/13/24 23:00 04/12/24 22:59 Pantoprazole Sodium (PROTonix 40MG TAB) 40 mg DAILY PO 03/14/24 09:00 04/13/24 08:59 03/15/24 09:57 40 MG Piperacillin Sod/ Tazobactam Sod 50 ml @ 200 mls/hr STAT STAT IVPB 03/13/24 20:55 03/13/24 21:10 DC 03/13/24 22:05 200 MLS/HR Piperacillin Sod/ Tazobactam Sod (Zosyn 3.375gm+NS 50ml) 3.375 gm Q12H IV 03/14/24 08:30 03/24/24 08:29 03/15/24 21:09 3.375 GM Sevelamer HCl (RENAgel 800 MG TAB) 800 mg TIDMEALS PO 03/15/24 12:00 04/14/24 11:59 03/15/24 17:09 800 MG Sodium Chloride 1,000 ml @ 0 mls/hr ONCE IV 03/15/24 18:30 03/16/24 18:29 03/15/24 20:35 1,000 MLS/HR Vancomycin HCl (Vancomycin 750mg) 750 mg QMOWEFR[DIALYSIS] IVPB 03/15/24 16:00 03/25/24 15:59 03/15/24 17:09 750 MG Vancomycin HCl (Vancomycin Protocol) 1 each AD IV 03/13/24 23:00 03/27/24 22:59 Vitamin B Complex (Vitamin B-12) 1,000 mcg DAILY PO 03/16/24 09:00 04/15/24 08:59 DIAGNOSTICS / RADIOLOGY: [ ] ASSESSMENT: Sepsis POA Ulcer abscess, cellulitis, strong suspicion for osteomyelitis to the right great toe. POA s/p Debridement of skin, subcutaneous tissues, musculature and bone with transfer of the extensor hallucis longus tendon and flexor hallucis longus tendon. First toe with Osteomyelitis evidence by MRI POA DM uncontrolled type End-stage renal disease on hemodialysis Acute anemia on chronic renal failure Hypertension Severe protein calorie malnutrition. POA PLAN: [ ] admit to surgical floor remain in ED decorating consultant: Furniture Mechanic DR Hanson MRI noted + for osteo ABT's; continue with Broad spectrum IV Vancomycin and Zosyn ; ID following dressing changes by DR Hanson ambulate with surgical shoe right foot full weig htbearing. cont with 3x dialysis education teacher following avoid NSAIDS strict I/O and daily weights. ac/hs monitoring with SSri coverage goal to keep blood sugar < 200 supplements for wound healing.; Vitamin C, and Vitamin B complex home medication: need update by RN DVT/GI ppx all questions answered case discussed with attending DR Bhadriraju S. ATTESTATION BY PHYSICIAN I have seen and examined the patient. I reviewed the documentation, medical decision making, and treatment plan as noted by the resident provider above. I agree with the findings and plan of care. Abhilash Estes MD, ELIZABETH NP Mar 16, 2024 08:17
[2024-03-16] MEDS: CYANOCOBALAMIN (VITAMIN B-12) 1,000 MCG TABLET PO SCH (08:22)
--- NOTE | 2024-03-16 08:47 | PN ---
SUBJECTIVE: The patient is a 43-year-old diabetic, male, seen on date of service 03/16/2024. Afebrile, 6.9, H and H 9.9 and 30.4, platelets 217, neutrophils 59.5. BUN 41, creatinine 5.3, albumin 3.1. The patient is currently receiving IV vancomycin and IV Zosyn. Blood cultures: No growth x 48 hours. Wound cultures: 1+ gram-negative rods, 1+ gram-positive cocci, Staph aureus. Bone pathology is pending. REVIEW OF SYSTEMS: CONSTITUTIONAL: No chills, no fevers, no night sweats, no nausea or vomiting, no diarrhea. HEENT: No problems with his eyes, ears, nose, or throat. CARDIOVASCULAR: Having no current chest pain. RESPIRATORY: No shortness of breath. GENITOURINARY: End-stage renal disease, currently receiving hemodialysis. GASTROINTESTINAL: No dysphagia. ENDOCRINE: Diabetes. PSYCHIATRIC: Denied any depression. MUSCULOSKELETAL: Bunions bilaterally, amputations of the second through the fifth rays bilaterally. EXTREMITIES: On examination today, he has palpable pedal pulses. He has an incision site that is well coapted to the first ray surgical site on the left, no ulcers on the right. ASSESSMENT: Status post debridement of skin, subcutaneous tissues, tendon, muscle. Removal of portion of the proximal phalanx of the right great toe, tendon repair to the right foot. PLAN: We will continue with Betadine dressings, offloading measures, IV antibiotics, awaiting the results of the intraoperative culture, sensitivities and bone pathology. TID: [id number] RECEIPT: [id number]
[2024-03-16 13:01] LABS: HEPATITIS B CORE AB TOTAL Non-Reactive (Nonreactive); HEPATITIS B SURFACE ANTIBODY Negative (Reactive); HEPATITIS B SURFACE ANTIGEN Non-Reactive (Nonreactive)
--- NOTE | 2024-03-16 14:46 | PN ---
INFECTIOUS DISEASE PROGRESS NOTE Date of Service: Mar 16, 2024 SUBJECTIVE: This is a 43-year-old male patient who was seen and examined at bedside in room 427. Patient is awake, alert and oriented x3. Patient is status post debridement of skin and removal of portion of the right great toe proximal phalanx on 03/14/2024. [place] drain in place and sutures intact. The aerobic wound cultures came back positive for Providencia rettgeri and Staphylococcus aureus. No fever for the past24 hours, temperature is 97.9. Patient continues on vancomycin and Zosyn IV. Patient was dialyzed yesterday and 3.3 L removed. We will continue to follow patient's care. PHYSICAL EXAM EYES: Anicteric. Pupils equal and reactive. HENT: No oral thrush seen, moist Oral mucosa NECK: Supple, no JVD or thyromegaly. LUNGS: Good air entry. No rales, no rhonchi. CARDIOVASCULAR: S1, S2 regular. No murmur heard. ABDOMEN: Soft, non tender, bowel sounds present, no organomegaly. CENTRAL NERVOUS SYSTEM: Awake, alert, oriented x 3. SKIN: No rashes, no swelling. Right 1st toe diabetic ulcer with abscess, status post debridement. 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 LYMPHATICS: No peripheral lymphadenopathy MUSCULOSKELETAL: No joint swelling, erythema or tenderness. EXTREMITIES: No cyanosis or clubbing. BACK: No deformity, no pressure ulcer. GENITOURINARY: No dysuria or hematuria. Vital Sign (Last 12 Hours) 03/16/24 03/16/24 03/16/24 04:31 08:11 12:00 Temp 98.2 98.8 97.9 Pulse 87 85 86 Resp 18 18 16 B/P (MAP) 126/76 120/80 119/78 Pulse Ox 97 98 98 O2 Delivery Room Air Room Air Room Air Intake & Output (last 24hrs) 03/15/24 03/15/24 03/16/24 15:00 23:00 07:00 Intake Total 300 ml Output Total 3300 ml Balance 300 ml -3300 ml LABS: Laboratory: Test 03/16/24 11:18 03/16/24 05:01 03/15/24 18:24 Range/Units Whole Blood Glucose 105 70-110 MG/DL White Blood Count 6.9 4.8-10.8 K/uL Red Blood Count 3.34 L 4.50-6.20 MIL/uL Hemoglobin 9.9 L 14.0-18.0 g/dL Hematocrit 30.4 L 42-54 % Mean Corpuscular Volume 91.0 79-99 fL Mean Corpuscular Hemoglobin 29.6 27.0-33.0 pg Mean Corpuscular Hemoglobin Concent 32.6 32.0-36.0 g/dL Red Cell Distribution Width 13.7 11.0-15.5 % Platelet Count 217 130-400 K/uL Mean Platelet Volume 9.6 7.5-10.5 fL Immature Granulocyte % (Auto) 0.4 0-1 % Neutrophils (%) (Auto) 59.5 40.0-77.0 % Lymphocytes (%) (Auto) 28.1 21.0-51.0 % Monocytes (%) (Auto) 8.4 3.0-13.0 % Eosinophils (%) (Auto) 2.9 0.0-8.0 % Basophils (%) (Auto) 0.7 0.0-5.0 % Neutrophils # (Auto) 4.1 1.8-7.7 K/uL Lymphocytes # (Auto) 2.0 1.0-4.8 K/uL Monocytes # (Auto) 0.6 0.1-1.0 K/uL Eosinophils # (Auto) 0.20 0.00-0.70 K/uL Basophils # (Auto) 0.05 0.00-0.20 K/uL Absolute Immature Granulocyte (auto 0.03 0-1 K/uL Nucleated Red Blood Cells 0.0 0.0-0.19 % Sodium Level 140 136-145 mmol/L Potassium Level 3.9 3.5-5.1 mmol/L Chloride Level 100 L 101-111 mmol/L Carbon Dioxide Level 30 21-32 mmol/L Blood Urea Nitrogen 41 H 7-18 mg/dL Creatinine 5.3 H 0.5-1.3 mg/dL Glomerular Filtration Rate Calc 13 >90 mL/min Random Glucose 92 70-105 mg/dL Total Calcium 8.4 L 8.5-10.1 mg/dL Magnesium Level 2.10 1.80-2.40 mg/dL Total Bilirubin 0.6 0.2-1.0 mg/dL Aspartate Amino Transf (AST/SGOT) 14 10-37 U/L Alanine Aminotransferase (ALT/SGPT) 15 12-78 U/L Alkaline Phosphatase 82 50-136 U/L C-Reactive Protein, Quantitative 152.60 H 0.5-3.0 mg/L Total Protein 7.7 6.0-8.3 g/dL Albumin 3.1 L 3.5-5.0 g/dL Procalcitonin 5.39 H 0.05-0.5 ng/mL Hepatitis B Surface Antigen. Non-Reactive Nonreactive Hepatitis B Surface Antibody. Negative L Reactive Hepatitis B Core Total Antibody. Non-Reactive Nonreactive ASSESSMENT: Right 1st toe diabetic ulcer with osteomyelitis, status post debridement and removal of portion of the right great toe proximal phalanx on 03/14/2024. Right 1st toe diabetic ulcer infection with Providencia rettgeri and Staphylococcus aureus. Right foot cellulitis. Leukocytosis. Diabetes mellitus. End-stage renal disease, dialysis. PLAN: Continue vancomycin per pharmacy protocol. Continue Zosyn IV. Continue GI prophylaxis. Continue pain management. Continue wound care. Continue dialysis as recommended by safety deposit supervisor. Continue monitoring glucose levels. We will follow up on the wound cultures. This case was reviewed and discussed with my supervising physician and the above assessment and plan was formulated and agreed upon. ATTESTATION BY PHYSICIAN I have seen and examined the patient. I reviewed the documentation, medical decision making, and treatment plan as noted by the mid-level provider above. I agree with the findings and plan of care. BUDDY AUGUSTE MD, MIRTA L [facility] Mar 16, 2024 14:46
--- NOTE | 2024-03-16 14:48 | PN ---
FOLLOWUP NOTE SUBJECTIVE: A 43-year-old male who has diabetes mellitus and hypertension. The patient with a history of known vascular disease. The patient admitted to the hospital, nonhealing wound to the foot. The patient did undergo debridement of the foot with Podiatry. The patient remains on broad-spectrum IV antibiotics and the patient is being seen as a followup visit for all of the above. REVIEW OF SYSTEMS: GENERAL: He is feeling somewhat improved. HEENT: No change in vision. No change in hearing. CARDIOVASCULAR: There is no current chest pain or palpitations. PULMONARY: No shortness of breath. GASTROINTESTINAL: He is tolerating diet. MUSCULOSKELETAL: As described above. PHYSICAL EXAMINATION: VITAL SIGNS: Blood pressure 120/80, pulse 80s. GENERAL: He is a chronically ill male, older than appearing. HEENT: Head is atraumatic. Pupils are equal, roving to light. Oropharynx is without exudate. Nares are clear. NECK: There is no JVP. There is no thyromegaly, no mass. CARDIOVASCULAR: Regular. There is no S3, S4 gallop. LUNGS: Coarse with equal thoracic movement. ABDOMEN: Soft, nondistended, nontender. EXTREMITIES: There is no clubbing, no cyanosis. NEUROLOGICAL: He is awake. He is alert. LABORATORY DATA: Sodium 140, potassium 3.9, BUN 41, creatinine is 5. Hemoglobin 9.9, hematocrit 30. IMPRESSION: 1. Nonhealing wound, status post debridement. 2. Diabetes mellitus. 3. Hypertension. 4. End-stage renal disease. PLAN: The patient remains on the broad-spectrum IV antibiotics. The patient continues with erythropoietin injections for the anemia. He remains on his phosphate binders. We are waiting final culture results. Once the patient is discharged, the patient will follow up at the dialysis unit. TID: [id number] RECEIPT: [id number]
[2024-03-17] VITALS: BP 132/83; PULSE 85; RESP 16; TEMP 98.4
[2024-03-17 04:00] VITALS: BP 117/69; PULSE 84; RESP 16; TEMP 98.3
[2024-03-17 05:51] LABS: BASOPHILS # (AUTO) 0.07 K/uL (0.00-0.20); EOSINOPHILS # (AUTO) 0.27 K/uL (0.00-0.70); HEMATOCRIT 32.8 % (42-54); IMMATURE GRANULOCYTE ABSOLUTE 0.03 K/uL (0-1); LYMPHOCYTES # (AUTO) 2.2 K/uL (1.0-4.8); LYMPHOCYTES % (AUTO) 32.9 % (21.0-51.0); MEAN CORPUSCULAR HEMOGLOBIN 29.7 pg (27.0-33.0); MEAN CORPUSCULAR HGB CONC 32.3 g/dL (32.0-36.0); MEAN CORPUSCULAR VOLUME 91.9 fL (79-99); MONOCYTES # (AUTO) 0.6 K/uL (0.1-1.0); MONOCYTES % (AUTO) 9.3 % (3.0-13.0); NEUTROPHILS # (AUTO) 3.5 K/uL (1.8-7.7); NEUTROPHILS % (AUTO) 52.4 % (40.0-77.0); PLATELET COUNT (AUTO) 268 K/uL (130-400); RED BLOOD CELL COUNT(AUTO) 3.57 MIL/uL (4.50-6.20); RED CELL DISTRIBUTION WIDTH 13.4 % (11.0-15.5); WHITE BLOOD COUNT (AUTO) 6.7 K/uL (4.8-10.8)
[2024-03-17 06:37] LABS: ALBUMIN 3.1 g/dL (3.5-5.0); BILIRUBIN,TOTAL 0.5 mg/dL (0.2-1.0); CREATININE 6.7 mg/dL (0.5-1.3); MAGNESIUM 2.4 mg/dL (1.80-2.40); POTASSIUM 5.2 mmol/L (3.5-5.1)
[2024-03-17 06:58] LABS: TOTAL PROTEIN, SERUM 7.8 g/dL (6.0-8.3)
[2024-03-17 08:00] VITALS: BP 126/80; PULSE 81; RESP 16; TEMP 97.9; O2SAT 98
[2024-03-17 12:00] VITALS: BP 137/86; PULSE 89; RESP 18; TEMP 98.4
--- NOTE | 2024-03-17 12:38 | PN ---
SUBJECTIVE: A 43-year-old male with a history of diabetes mellitus and hypertension. The patient with a history of underlying vascular disease, initially presented with underlying abscess of the foot. The patient did undergo I and D of the wound and the patient is being seen for all of the above. He remains on his dialysis 3 times per week. The patient is being seen as a followup visit. REVIEW OF SYSTEMS: GENERAL: The patient is feeling weak and tired. HEENT: No change in vision. No change in hearing. CARDIOVASCULAR: There is no current chest pain or palpitations. PULMONARY: There is no shortness of breath. GASTROINTESTINAL: The patient is tolerating diet. MUSCULOSKELETAL: As described above. PHYSICAL EXAMINATION: VITAL SIGNS: Blood pressure is 126/80, pulse in the 80s. GENERAL: Chronically ill male, much older than appearing. HEENT: Head is atraumatic. Pupils equal, roving to light. Oropharynx is without exudate. Nares clear. NECK: There is no JVP. There is no thyromegaly, no mass. CARDIOVASCULAR: Regular. There is no S3, S4 gallop. LUNGS: Coarse with equal thoracic movement. ABDOMEN: Soft, nondistended, nontender. EXTREMITIES: The wounds are all noted. NEUROLOGIC: He is awake. He is alert. LABORATORY DATA: Hemoglobin 10, hematocrit 32, white cell count 6000. IMPRESSION: * Nonhealing wounds, status post debridement. * Diabetes mellitus. * Hypertension. * End-stage renal disease. PLAN: The patient will continue with the dialysis on a Monday, Monday, Monday schedule. The patient remains on the IV antibiotics. We will continue to monitor the chemistry closely. Once the patient is discharged, the patient will follow up at the dialysis unit. TID: [id number] RECEIPT: [id number]
[2024-03-17 13:21] LABS: INR 0.97 (0.85-1.15); PROTHROMBIN TIME 10.9 SEC (9.6-11.6)
[2024-03-17 13:22] LABS: PARTIAL THROMBOPLASTIN TIME 27.3 SEC (26.3-35.5)
--- NOTE | 2024-03-17 14:22 | PN ---
INFECTIOUS DISEASE PROGRESS NOTE Date of Service: Mar 17, 2024 SUBJECTIVE: This is a 43-year-old male patient who was seen and examined at bedside in room 427. Patient is awake, alert and oriented x3. Patient is status post debridement of skin and removal of portion of the right great toe proximal phalanx on 03/14/2024. We will place PICC line and have case monitor evaluate for referral to [facility] for outpatient IV antibiotic. No fever, temperature 97.9. Patient continues on vancomycin and Zosyn IV. We will continue to follow patient's care. PHYSICAL EXAM EYES: Anicteric. Pupils equal and reactive. HENT: No oral thrush seen, moist Oral mucosa NECK: Supple, no JVD or thyromegaly. LUNGS: Good air entry. No rales, no rhonchi. CARDIOVASCULAR: S1, S2 regular. No murmur heard. ABDOMEN: Soft, non tender, bowel sounds present, no organomegaly. CENTRAL NERVOUS SYSTEM: Awake, alert, oriented x 3. SKIN: No rashes, no swelling. Right 1st toe diabetic ulcer with abscess, status post debridement. 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 LYMPHATICS: No peripheral lymphadenopathy MUSCULOSKELETAL: No joint swelling, erythema or tenderness. EXTREMITIES: No cyanosis or clubbing. BACK: No deformity, no pressure ulcer. GENITOURINARY: No dysuria or hematuria. Vital Sign (Last 12 Hours) 03/17/24 03/17/24 03/17/24 04:00 08:00 12:00 Temp 98.2 97.9 98.4 Pulse 84 81 89 Resp 16 16 18 B/P (MAP) 117/69 126/80 137/86 Pulse Ox 94 98 98 O2 Delivery Room Air Nasal Cannula Room Air FiO2 21 Intake & Output (last 24hrs) 03/16/24 03/16/24 03/17/24 15:00 23:00 07:00 Intake Total 800 ml 50.0 ml Output Total 400 ml Balance 400 ml 50.0 ml LABS: Laboratory: Test 03/17/24 12:55 03/17/24 12:24 03/17/24 04:44 03/16/24 05:01 Range/Units Prothrombin Time 10.9 9.6-11.6 SEC Prothromb Time International Ratio 0.97 0.85-1.15 Activated Partial Thromboplast Time 27.3 26.3-35.5 SEC Whole Blood Glucose 164 #H 70-110 MG/DL White Blood Count 6.7 4.8-10.8 K/uL Red Blood Count 3.57 L 4.50-6.20 MIL/uL Hemoglobin 10.6 L 14.0-18.0 g/dL Hematocrit 32.8 L 42-54 % Mean Corpuscular Volume 91.9 79-99 fL Mean Corpuscular Hemoglobin 29.7 27.0-33.0 pg Mean Corpuscular Hemoglobin Concent 32.3 32.0-36.0 g/dL Red Cell Distribution Width 13.4 11.0-15.5 % Platelet Count 268 130-400 K/uL Mean Platelet Volume 9.6 7.5-10.5 fL Immature Granulocyte % (Auto) 0.4 0-1 % Neutrophils (%) (Auto) 52.4 40.0-77.0 % Lymphocytes (%) (Auto) 32.9 21.0-51.0 % Monocytes (%) (Auto) 9.3 3.0-13.0 % Eosinophils (%) (Auto) 4.0 0.0-8.0 % Basophils (%) (Auto) 1.0 0.0-5.0 % Neutrophils # (Auto) 3.5 1.8-7.7 K/uL Lymphocytes # (Auto) 2.2 1.0-4.8 K/uL Monocytes # (Auto) 0.6 0.1-1.0 K/uL Eosinophils # (Auto) 0.27 0.00-0.70 K/uL Basophils # (Auto) 0.07 0.00-0.20 K/uL Absolute Immature Granulocyte (auto 0.03 0-1 K/uL Nucleated Red Blood Cells 0.0 0.0-0.19 % Sodium Level 138 136-145 mmol/L Potassium Level 5.2 H 3.5-5.1 mmol/L Chloride Level 101 101-111 mmol/L Carbon Dioxide Level 30 21-32 mmol/L Blood Urea Nitrogen 58 H 7-18 mg/dL Creatinine 6.7 H 0.5-1.3 mg/dL Glomerular Filtration Rate Calc 10 >90 mL/min Random Glucose 87 70-105 mg/dL Total Calcium 9.0 8.5-10.1 mg/dL Magnesium Level 2.40 1.80-2.40 mg/dL Total Bilirubin 0.5 0.2-1.0 mg/dL Aspartate Amino Transf (AST/SGOT) 12 10-37 U/L Alanine Aminotransferase (ALT/SGPT) 16 12-78 U/L Alkaline Phosphatase 79 50-136 U/L Total Protein 7.8 6.0-8.3 g/dL Albumin 3.1 L 3.5-5.0 g/dL C-Reactive Protein, Quantitative 152.60 H 0.5-3.0 mg/L Procalcitonin 5.39 H 0.05-0.5 ng/mL Test 03/15/24 18:24 Range/Units Hepatitis B Surface Antigen. Non-Reactive Nonreactive Hepatitis B Surface Antibody. Negative L Reactive Hepatitis B Core Total Antibody. Non-Reactive Nonreactive ASSESSMENT: Right 1st toe diabetic ulcer with osteomyelitis, status post debridement and removal of portion of the right great toe proximal phalanx on 03/14/2024. Right 1st toe diabetic ulcer infection with Providencia rettgeri and Staphylococcus aureus. Right foot cellulitis. Leukocytosis. Diabetes mellitus. End-stage renal disease, dialysis. PLAN: Place PICC line. Case management to evaluate for referral to [facility] for outpatient IV antibiotic. Continue vancomycin per pharmacy protocol. Continue Zosyn IV. Continue GI prophylaxis. Continue pain management. Continue wound care. Continue dialysis as recommended by director of special events. Continue monitoring glucose levels. This case was reviewed and discussed with my supervising physician and the above assessment and plan was formulated and agreed upon. ATTESTATION BY PHYSICIAN I have seen and examined the patient. I reviewed the documentation, medical decision making, and treatment plan as noted by the mid-level provider above. I agree with the findings and plan of care. BUDDY AUGUSTE MD, MIRTA L DBA Mar 17, 2024 14:22
--- NOTE | 2024-03-17 15:00 | NUR ---
PATIENT INFORMED OF NEW PICC LINE ORDERS PATIENT IN AGREEMENT.
--- NOTE | 2024-03-17 15:46 | PN ---
[facility] PROGRESS NOTE Date of Service: Mar 17, 2024 Time of Service: 15:45 SUBJECTIVE: [ ] admission Date: 03/13/24 PCP: chief complaint: Right lower extremity pain: ER Workup: surgical site amputation stump with an ulcer, abscess, cellulitis, possible osteomyelitis. This is a 43-year-old male that presents in ED with chief complaints of right lower extremity pain. Was admitted on 02/21/2024 with surgical site amputation top with stump ulcer abscess cellulitis and osteomyelitis to the 1st digit as per x-ray. Dr. Hanson was consulted appreciate his input he order a MRI to evaluate the patient for osteomyelitis. Possible surgical intervention today. Patient may require a revisional amputation of the right foot. 03/14/24 patient is seen and examined earlier reviewed chart. Patient remains in ED patient's continues with pain but is now controlled with pain medication waiting for MRI results. Patient denied chest pain or shortness for breath 03/15/24 patient underwent I/D debridement yesterday per Dr Hanson, intraoperative cultures were collected. in process . 03/16/24 patient seen and examined , reviewed chart: wound cultures positive for MRSA and Providencia Rettgeri cont with IV antibiotis ID following afebrile. the patient reports no acute events overnight. 03/17/24 patient was seen earlier; patient waiting for PICC line will need alf IV antibiotics: outpatient abt's REVIEW OF SYSTEMS CONSTITUTIONAL: Denies fevers, chills, or night sweats. No unintentional weight loss reported. NEUROLOGICAL: Denies headache, amaurosis fugax, motor weakness, sensory deficit, vertigo/spinning sensation, gait abnormalities, or tremors. ENT: No hearing loss, otalgia, otorrhea, rhinitis, rhinorrhea, hoarseness, or sore throat. CARDIOVASCULAR: Denies any exertional angina, dyspnea on exertion, orthopnea, paroxysmal nocturnal dyspnea, palpitations, life-threatening arrhythmias, cl audication. PULMONARY: Denies any shortness of breath, cough, phlegm/sputum, hemoptysis, pleuritic chest pain. SLEEP: Denies morning headaches, daytime somnolence or napping. Denies difficulty falling asleep, staying asleep, waking from sleep. Denies knowledge of snoring. GASTROINTESTINAL: Denies any type of dysphagia to either liquids or solids. Denies nausea, vomiting, pyrosis, early satiety, abdominal pain, diarrhea, const ipation, or changes in stool consistency or caliber. Denies coffee-ground emesis, hematemesis, hematochezia, or melanotic stools. GENITOURINARY: Denies frequency, urgency, nocturia, hematuria or incontinence (Storage/Irritative symptoms.) Low urinary stream, straining to void, urinary intermittency or hesitancy, splitting of the voiding stream, terminal dribbling. ENDOCRINOLOGIC: Denies polyuria, polydipsia, polyphagia or heat/cold intolerances. HEMATOLOGIC: Denies thrombophilia/previous clots, or coagulopathy/bleeding disorders. ONCOLOGIC: Denies personal history of malignancy. DERMATOLOGIC: Denies rashes or pruritus. PSYCHIATRIC: Denies any suicidal or homicidal ideation. Denies hallucinations. PHYSICAL EXAM GENERAL APPEARANCE: The patient is awake, alert, and oriented, in no acute cardiopulmonary distress. NEUROLOGICAL: Cranial nerves II-XII grossly intact. Motor is 5/5 in bilateral upper and lower extremities proximal to distal. No sensory deficits. HEENT: Face is symmetric. Pupils are equal and reactive. Extraocular movements are intact. NECK: Supple. No JVD. No thyromegaly. No submental, submandibular, pre- /postauricular, occipital or supraclavicular lymphadenopathy. CHEST: Normal chest expansion. No Telemetry. LUNGS: Absence of any rales, rhonchi or any wheezing. CARDIOVASCULAR: Regular. S1 and S2 normal. No appreciable rubs, murmurs or gallops. ABDOMEN: Soft, nontender, and nondistended. There is no rebound, voluntary guarding, or rigidity. : Deferred. No Herrera. EXTREMITIES: Non-edematous and not cyanotic. No clubbing. Good capillary refill. SKIN: No skin breakdown. Vital Signs (last 8hr) Date Time Temp Pulse Resp B/P (MAP) Pulse Ox O2 Delivery O2 Flow Rate FiO2 03/17/24 12:00 98.4 89 18 137/86 98 Room Air 03/17/24 08:00 97.9 81 16 126/80 98 Nasal Cannula LABS: Laboratory: Test 03/17/24 12:55 03/17/24 12:24 03/17/24 04:44 03/16/24 05:01 Range/Units Prothrombin Time 10.9 9.6-11.6 SEC Prothromb Time International Ratio 0.97 0.85-1.15 Activated Partial Thromboplast Time 27.3 26.3-35.5 SEC Whole Blood Glucose 164 #H 70-110 MG/DL White Blood Count 6.7 4.8-10.8 K/uL Red Blood Count 3.57 L 4.50-6.20 MIL/uL Hemoglobin 10.6 L 14.0-18.0 g/dL Hematocrit 32.8 L 42-54 % Mean Corpuscular Volume 91.9 79-99 fL Mean Corpuscular Hemoglobin 29.7 27.0-33.0 pg Mean Corpuscular Hemoglobin Concent 32.3 32.0-36.0 g/dL Red Cell Distribution Width 13.4 11.0-15.5 % Platelet Count 268 130-400 K/uL Mean Platelet Volume 9.6 7.5-10.5 fL Immature Granulocyte % (Auto) 0.4 0-1 % Neutrophils (%) (Auto) 52.4 40.0-77.0 % Lymphocytes (%) (Auto) 32.9 21.0-51.0 % Monocytes (%) (Auto) 9.3 3.0-13.0 % Eosinophils (%) (Auto) 4.0 0.0-8.0 % Basophils (%) (Auto) 1.0 0.0-5.0 % Neutrophils # (Auto) 3.5 1.8-7.7 K/uL Lymphocytes # (Auto) 2.2 1.0-4.8 K/uL Monocytes # (Auto) 0.6 0.1-1.0 K/uL Eosinophils # (Auto) 0.27 0.00-0.70 K/uL Basophils # (Auto) 0.07 0.00-0.20 K/uL Absolute Immature Granulocyte (auto 0.03 0-1 K/uL Nucleated Red Blood Cells 0.0 0.0-0.19 % Sodium Level 138 136-145 mmol/L Potassium Level 5.2 H 3.5-5.1 mmol/L Chloride Level 101 101-111 mmol/L Carbon Dioxide Level 30 21-32 mmol/L Blood Urea Nitrogen 58 H 7-18 mg/dL Creatinine 6.7 H 0.5-1.3 mg/dL Glomerular Filtration Rate Calc 10 >90 mL/min Random Glucose 87 70-105 mg/dL Total Calcium 9.0 8.5-10.1 mg/dL Magnesium Level 2.40 1.80-2.40 mg/dL Total Bilirubin 0.5 0.2-1.0 mg/dL Aspartate Amino Transf (AST/SGOT) 12 10-37 U/L Alanine Aminotransferase (ALT/SGPT) 16 12-78 U/L Alkaline Phosphatase 79 50-136 U/L Total Protein 7.8 6.0-8.3 g/dL Albumin 3.1 L 3.5-5.0 g/dL C-Reactive Protein, Quantitative 152.60 H 0.5-3.0 mg/L Procalcitonin 5.39 H 0.05-0.5 ng/mL Test 03/15/24 18:24 Range/Units Hepatitis B Surface Antigen. Non-Reactive Nonreactive Hepatitis B Surface Antibody. Negative L Reactive Hepatitis B Core Total Antibody. Non-Reactive Nonreactive Current Medications Medications (Trade) Dose Ordered Sig/Leonel Route PRN Reason Start Time Stop Time Status Last Admin Dose Admin Acetaminophen (TYLenol 325MG TAB) 650 mg Q6H PRN PO TEMPERATURE GREATER THAN 101.5 03/13/24 23:00 04/12/24 22:59 03/15/24 03:59 650 MG Ascorbic Acid (Vitamin C 500mg Tab) 500 mg BID PO 03/15/24 21:00 04/14/24 20:59 03/17/24 08:24 500 MG Epoetin Gaudencio-epbx (Retacrit) 10,000 unit QMOWEFR[DIALYSIS] SQ 03/15/24 16:00 04/14/24 15:59 03/15/24 21:13 10,000 UNIT Heparin Sodium (Porcine) (HEParin 5,000 UNIT VIAL) 5,000 unit BID SQ 03/14/24 09:00 04/13/24 08:59 03/17/24 08:25 5,000 UNIT Hydralazine HCl (APRESOLine 20MG INJ) 10 mg Q6H PRN IV For:SBP above 160;DBP above 90 03/13/24 23:00 04/12/24 22:59 Insulin Human Regular (humuLIN R 100 UNIT/ML 3ML) INSULIN SLIDING SCAL... ACHS SQ 03/14/24 07:30 04/13/24 07:29 Morphine Sulfate (morPHINE 2MG SYG) 2 mg Q4H PRN IVP SEVERE PAIN (7-10) 03/13/24 23:00 03/20/24 22:59 Ondansetron HCl (zoFRAN 4MG INJ) 4 mg Q6H PRN IV NAUSEA/VOMITING 03/13/24 23:00 04/12/24 22:59 Pantoprazole Sodium (PROTonix 40MG TAB) 40 mg DAILY PO 03/14/24 09:00 04/13/24 08:59 03/17/24 08:24 40 MG Piperacillin Sod/ Tazobactam Sod 50 ml @ 200 mls/hr STAT STAT IVPB 03/13/24 20:55 03/13/24 21:10 DC 03/13/24 22:05 200 MLS/HR Piperacillin Sod/ Tazobactam Sod (Zosyn 3.375gm+NS 50ml) 3.375 gm Q12H IV 03/14/24 08:30 03/24/24 08:29 03/17/24 08:24 3.375 GM Sevelamer HCl (RENAgel 800 MG TAB) 800 mg TIDMEALS PO 03/15/24 12:00 04/14/24 11:59 03/17/24 12:32 800 MG Sodium Chloride 1,000 ml @ 0 mls/hr ONCE IV 03/15/24 18:30 03/16/24 18:29 DC 03/15/24 20:35 1,000 MLS/HR Vancomycin HCl (Vancomycin 750mg) 750 mg QMOWEFR[DIALYSIS] IVPB 03/15/24 16:00 03/25/24 15:59 03/15/24 17:09 750 MG Vancomycin HCl (Vancomycin Protocol) 1 each AD IV 03/13/24 23:00 03/27/24 22:59 Vitamin B Complex (Vitamin B-12) 1,000 mcg DAILY PO 03/16/24 09:00 04/15/24 08:59 03/17/24 08:24 1,000 MCG DIAGNOSTICS / RADIOLOGY: [ ] ASSESSMENT: Sepsis POA Ulcer abscess, cellulitis, strong suspicion for osteomyelitis to the right great toe. POA s/p Debridement of skin, subcutaneous tissues, musculature and bone with transfer of the extensor hallucis longus tendon and flexor hallucis longus tendon. First toe with Osteomyelitis evidence by MRI POA DM uncontrolled type End-stage renal disease on hemodialysis Acute anemia on chronic renal failure Hypertension Severe protein calorie malnutrition. 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 ac/hs monitoring with SSri coverage goal to keep blood sugar < 200 supplements for wound healing.; Vitamin C, and Vitamin B complex home medication: need update by RN DVT/GI ppx Picc line case management; discharged planning all questions answered case discussed with attending DR Estes ATTESTATION BY PHYSICIAN I have seen and examined the patient. I reviewed the documentation, medical decision making, and treatment plan as noted by the mid-level provider above. I agree with the findings and plan of care. Yissel Estes MD, ELIZABETH NP Mar 17, 2024 15:46
[2024-03-17 16:00] VITALS: BP 136/73; PULSE 85; RESP 18; TEMP 98.6
[2024-03-17 20:00] VITALS: BP 152/82; PULSE 88; RESP 18; TEMP 97.6; O2SAT 99
[2024-03-18] VITALS (21 sets, daily range): BP systolic 125–173; BP diastolic 57–98; PULSE 78–98; RESP 16–20; TEMP 97.2–98.7; O2SAT 100
--- NOTE | 2024-03-18 04:34 | NUR ---
PICC LINE INSERTION 5FR 2 LUMEN PICC LINE INSERTED TO RIGHT UPPER ARM BASILIC VEIN USING STERILE TECHNIQUE. ULTRASOUND GUIDED USING MST. INTERNAL CATHETER LENGTH: 42CM. EXTERNAL CATHETER LENGTH: 0CM. (+) VPS BULLSEYE AND CHEST XRAY OBTAINED. PLEASE REPORT RESULTS TO MD FOR ORDERS TO OKAY TO USE PICC LINE PICC LINE CARE: -PERFORM HAND HYGIENE, WEAR GLOVES, SCRUB THE HUB FOR 15 SECONDS BEFORE EVERY ACCESS. -FLUSH BOTH LUMENS WITH 10ML NS FLUSH EVERY 12 HOURS IF LINE IS NOT IN USE AND CLAMP AFTER EVERY ACCESS -CHANGE DRESSING, STATLOCK, AND PORT CAPS USING STERILE TECHNIQUE EVERY 7 DAYS AND PRN IF SOILED OR PEELING OFF.
--- NOTE | 2024-03-18 06:09 | PN ---
SUBJECTIVE: The patient is a very pleasant 43-year-old diabetic, Latin-Croatian male, followed up for a revisional debridement of the proximal phalanx of his left great toe. The patient has cultures, Staph aureus. The Staph aureus is non-MRSA. The patient remains afebrile and his white count is within normal and his blood cultures are showing no growth x 3 days. He has currently been receiving the IV vancomycin and the IV Zosyn.patient concerned of new ulcer bottom left great toe REVIEW OF SYSTEMS: CONSTITUTIONAL: No chills. No fever. No night sweats. No nausea, vomiting. No diarrhea. HEENT: No problems with his eyes, ears, nose or throat. CARDIOVASCULAR: Having no current chest pain. RESPIRATORY: No shortness of breath. GENITOURINARY: No dysuria. GASTROINTESTINAL: No dysphagia. GENITOURINARY: He has end-stage renal disease, currently receiving hemodialysis. PSYCHIATRIC: Denied any depression. MUSCULOSKELETAL: Bunions and hammertoes, amputation of the second through fifth rays bilaterally. INTEGUMENT: He has palpable pedal pulses. Incision site well coapted to the first ray surgical site on the left. ulcer plantar left grea toe 8x5x1 mm ASSESSMENT: Status post debridement of skin, subcutaneous tissue, tendon, muscle and removal of portion of the proximal phalanx, right great toe with tendon repair on the right, cultures Staph aureus and Prevotella rettgeri. ulcer left great toe without signs of infection prsent PLAN: We will continue with Betadine dressings. Continue with antibiotics per Infectious Disease. Continue to offload estevez feet with wheelchair. From my standpoint, the patient will be discharged, follow up as an outpatient when okay with other services..medihoney dressings daily to left great toe ulcer TID: [id number] RECE[facility]: [id number] [facility]
--- NOTE | 2024-03-18 06:16 | PN ---
SUBJECTIVE: The patient is a very pleasant 43-year-old diabetic, Latin-Ecuad[place] male who is remaining afebrile with a T-max of 98.1; pulse 82, respirations 17, blood pressure 162/72. White count 6.7 and H and H 10.6 and 32.8. Blood sugar 90. The patient is currently receiving IV vancomycin and IV Zosyn. The patient has had cultures, Staph aureus and Providencia Rettgeri. Blood cultures, no growth 4 days. The patient is being scheduled for outpatient IV antibiotics per infectious disease. The patient is currently waiting for a PICC line placement. REVIEW OF SYSTEMS: CONSTITUTIONAL: No chills, no fevers, no night sweats, no nausea, vomiting, no diarrhea. HEENT: No problems with his eyes, ears, nose or throat. CARDIOVASCULAR: The patient is having no current chest pain. GENITOURINARY: No dysuria. GASTROINTESTINAL: No dysphagia. ENDOCRINE: Diabetes. PSYCHIATRIC: No depression. MUSCULOSKELETAL: Bunions and hammertoe deformities. Amputation of the second through fifth rays bilaterally. INTEGUMENT: He has an incision site that is well coapted to the first ray on the left. He has developed a new ulcer to the plantar aspect of the right great toe. It is now 5 mm x 8 mm x 1 mm. ASSESSMENT: New onset ulcer to the plantar aspect of the right great toe. Incision site well coapted to the left great toe. ASSESSMENT: Status post debridement of the subcutaneous tissues, tendon, muscle and removal of portion of the proximal phalanx of the right great toe with tendon repair of the right foot, ulceration to the plantar aspect of the left great toe, 8 mm x 5 mm x 1 mm. PLAN: We will continue with Betadine dressings on the right. We will start the patient on Medihoney dressings to the left great toe. The patient will be nonweightbearing status. Awaiting PICC line placement for outpatient antibiotic therapy. TID: [id number] RECEIPT: [id number]
--- NOTE | 2024-03-18 06:23 | PN ---
SUBJECTIVE: The patient is a very pleasant 43-year-old diabetic, Latin-Indian male, seen on date of service 03/17/2024. He has a concern of new ulcer he has developed now to the plantar aspect of the left great toe, I performed debridement of skin, subcutaneous tissues and bone of the proximal phalanx of the right great toe with tendon repair and primary wound closure. His cultures have grown back Providencia Rettgeri and Staph aureus, receiving vancomycin and Zosyn. Plan is outpatient IV antibiotics with infectious disease. REVIEW OF SYSTEMS: CONSTITUTIONAL: No chills, no fevers, no night sweats, no nausea, vomiting, no diarrhea. HEENT: No problems with eyes, ears, nose or throat. CARDIOVASCULAR: Having no current chest pain. RESPIRATORY: No shortness of breath. GENITOURINARY: End-stage renal disease, currently receiving hemodialysis on Monday, Monday, Monday. GASTROINTESTINAL: No dysphagia. ENDOCRINE: Diabetes. PSYCHIATRIC: Denies any depression. MUSCULOSKELETAL: He has no bunions. He has no hammertoes to his feet. Amputation of the second through fifth rays bilaterally. INTEGUMENT: He has an incision site coapted well to the surgical site, right first ray. He has an ulcer to plantar aspect left great toe, 8 mm x 5 mm x 1 mm. ASSESSMENT: Ulcer sub-hallux on the left, 8 x 5 x 1 mm without clinical signs of infection. Incision site well coapted to the right first ray surgical site. PLAN: Betadine dressings on the right, Medihoney dressings on the left, offloading measures, IV antibiotics, currently the vancomycin and the Zosyn. Awaiting PICC line placement for IV antibiotic therapy as an outpatient. TID: [id number] RECEIPT: [id number]
--- NOTE | 2024-03-18 08:42 | PN ---
[facility] PROGRESS NOTE Date of Service: Mar 18, 2024 Time of Service: 08:40 SUBJECTIVE: [ ] admission Date: 03/13/24 PCP: chief complaint: Right lower extremity pain: ER Workup: surgical site amputation stump with an ulcer, abscess, cellulitis, possible osteomyelitis. This is a 43-year-old male that presents in ED with chief complaints of right lower extremity pain. Was admitted on 02/21/2024 with surgical site amputation top with stump ulcer abscess cellulitis and osteomyelitis to the 1st digit as per x-ray. Dr. Hanson was consulted appreciate his input he order a MRI to evaluate the patient for osteomyelitis. Possible surgical intervention today. Patient may require a revisional amputation of the right foot. 03/14/24 patient is seen and examined earlier reviewed chart. Patient remains in ED patient's continues with pain but is now controlled with pain medication waiting for MRI results. Patient denied chest pain or shortness for breath 03/15/24 patient underwent I/D debridement yesterday per Dr Hanson, intraoperative cultures were collected. in process . 03/16/24 patient seen and examined , reviewed chart: wound cultures positive for MRSA and Providencia Rettgeri cont with IV antibiotis ID following afebrile. the patient reports no acute events overnight. 03/17/24 patient was seen earlier; patient waiting for PICC line will need long-term IV antibiotics: outpatient abt's 03/18/24 patient seen and examined with DR Arrington: reviewed chart. Picc line was placed today earlier, case management to [facility] will need long-term IV therapy as directed by ID. The patient offers no new complaints. REVIEW OF SYSTEMS CONSTITUTIONAL: Denies fevers, chills, or night sweats. No unintentional weight loss reported. NEUROLOGICAL: Denies headache, amaurosis fugax, motor weakness, sensory deficit, vertigo/spinning sensation, gait abnormalities, or tremors. ENT: No hearing loss, otalgia, otorrhea, rhinitis, rhinorrhea, hoarseness, or sore throat. CARDIOVASCULAR: Denies any exertional angina, dyspnea on exertion, orthopnea, paroxysmal nocturnal dyspnea, palpitations, life-threatening arrhythmias, claudi cation. PULMONARY: Denies any shortness of breath, cough, phlegm/sputum, hemoptysis, pleuritic chest pain. SLEEP: Denies morning headaches, daytime somnolence or napping. Denies difficulty falling asleep, staying asleep, waking from sleep. Denies knowledge of snoring. GASTROINTESTINAL: Denies any type of dysphagia to either liquids or solids. Denies nausea, vomiting, pyrosis, early satiety, abdominal pain, diarrhea, constipation, or changes in stool consistency or caliber. Denies coffee-ground emesis, hematemesis, hematochezia, or melanotic stools. GENITOURINARY: Denies frequency, urgency, nocturia, hematuria or incontinence (Storage/Irritative symptoms.) Low urinary stream, straining to void, urinary intermittency or hesitancy, splitting of the voiding stream, terminal dribbling. ENDOCRINOLOGIC: Denies polyuria, polydipsia, polyphagia or heat/cold intolerances. HEMATOLOGIC: Denies thrombophilia/previous clots, or coagulopathy/bleeding disorders. ONCOLOGIC: Denies personal history of malignancy. DERMATOLOGIC: Denies rashes or pruritus. PSYCHIATRIC: Denies any suicidal or homicidal ideation. Denies hallucinations. PHYSICAL EXAM GENERAL APPEARANCE: The patient is awake, alert, and oriented, in no acute cardiopulmonary distress. NEUROLOGICAL: Cranial nerves II-XII grossly intact. Motor is 5/5 in bilateral upper and lower extremities proximal to distal. No sensory deficits. HEENT: Face is symmetric. Pupils are equal and reactive. Extraocular movements are intact. NECK: Supple. No JVD. No thyromegaly. No submental, submandibular, pre- /postauricular, occipital or supraclavicular lymphadenopathy. CHEST: Normal chest expansion. No Telemetry. LUNGS: Absence of any rales, rhonchi or any wheezing. CARDIOVASCULAR: Regular. S1 and S2 normal. No appreciable rubs, murmurs or gallops. ABDOMEN: Soft, nontender, and nondistended. There is no rebound, voluntary guarding, or rigidity. : Deferred. No Herrera. EXTREMITIES: Non-edematous and not cyanotic. No clubbing. Good capillary refill. SKIN: No skin breakdown. Vital Signs (last 8hr) Date Time Temp Pulse Resp B/P (MAP) Pulse Ox O2 Delivery O2 Flow Rate FiO2 03/18/24 04:00 98.1 82 17 162/72 99 Room Air 21 LABS: Laboratory: Test 03/18/24 05:18 03/17/24 12:55 03/17/24 04:44 Range/Units Whole Blood Glucose 90 # 70-110 MG/DL Prothrombin Time 10.9 9.6-11.6 SEC Prothromb Time International Ratio 0.97 0.85-1.15 Activated Partial Thromboplast Time 27.3 26.3-35.5 SEC White Blood Count 6.7 4.8-10.8 K/uL Red Blood Count 3.57 L 4.50-6.20 MIL/uL Hemoglobin 10.6 L 14.0-18.0 g/dL Hematocrit 32.8 L 42-54 % Mean Corpuscular Volume 91.9 79-99 fL Mean Corpuscular Hemoglobin 29.7 27.0-33.0 pg Mean Corpuscular Hemoglobin Concent 32.3 32.0-36.0 g/dL Red Cell Distribution Width 13.4 11.0-15.5 % Platelet Count 268 130-400 K/uL Mean Platelet Volume 9.6 7.5-10.5 fL Immature Granulocyte % (Auto) 0.4 0-1 % Neutrophils (%) (Auto) 52.4 40.0-77.0 % Lymphocytes (%) (Auto) 32.9 21.0-51.0 % Monocytes (%) (Auto) 9.3 3.0-13.0 % Eosinophils (%) (Auto) 4.0 0.0-8.0 % Basophils (%) (Auto) 1.0 0.0-5.0 % Neutrophils # (Auto) 3.5 1.8-7.7 K/uL Lymphocytes # (Auto) 2.2 1.0-4.8 K/uL Monocytes # (Auto) 0.6 0.1-1.0 K/uL Eosinophils # (Auto) 0.27 0.00-0.70 K/uL Basophils # (Auto) 0.07 0.00-0.20 K/uL Absolute Immature Granulocyte (auto 0.03 0-1 K/uL Nucleated Red Blood Cells 0.0 0.0-0.19 % Sodium Level 138 136-145 mmol/L Potassium Level 5.2 H 3.5-5.1 mmol/L Chloride Level 101 101-111 mmol/L Carbon Dioxide Level 30 21-32 mmol/L Blood Urea Nitrogen 58 H 7-18 mg/dL Creatinine 6.7 H 0.5-1.3 mg/dL Glomerular Filtration Rate Calc 10 >90 mL/min Random Glucose 87 70-105 mg/dL Total Calcium 9.0 8.5-10.1 mg/dL Magnesium Level 2.40 1.80-2.40 mg/dL Total Bilirubin 0.5 0.2-1.0 mg/dL Aspartate Amino Transf (AST/SGOT) 12 10-37 U/L Alanine Aminotransferase (ALT/SGPT) 16 12-78 U/L Alkaline Phosphatase 79 50-136 U/L Total Protein 7.8 6.0-8.3 g/dL Albumin 3.1 L 3.5-5.0 g/dL Current Medications Medications (Trade) Dose Ordered Sig/Leonel Route PRN Reason Start Time Stop Time Status Last Admin Dose Admin Acetaminophen (TYLenol 325MG TAB) 650 mg Q6H PRN PO TEMPERATURE GREATER THAN 101.5 03/13/24 23:00 04/12/24 22:59 03/15/24 03:59 650 MG Ascorbic Acid (Vitamin C 500mg Tab) 500 mg BID PO 03/15/24 21:00 04/14/24 20:59 03/17/24 20:28 500 MG Epoetin Gaudencio-epbx (Retacrit) 10,000 unit QMOWEFR[DIALYSIS] SQ 03/15/24 16:00 04/14/24 15:59 03/15/24 21:13 10,000 UNIT Heparin Sodium (Porcine) (HEParin 5,000 UNIT VIAL) 5,000 unit BID SQ 03/14/24 09:00 04/13/24 08:59 03/17/24 20:28 5,000 UNIT Hydralazine HCl (APRESOLine 20MG INJ) 10 mg Q6H PRN IV For:SBP above 160;DBP above 90 03/13/24 23:00 04/12/24 22:59 Insulin Human Regular (humuLIN R 100 UNIT/ML 3ML) INSULIN SLIDING SCAL... ACHS SQ 03/14/24 07:30 04/13/24 07:29 03/17/24 20:26 4 UNIT Morphine Sulfate (morPHINE 2MG SYG) 2 mg Q4H PRN IVP SEVERE PAIN (7-10) 03/13/24 23:00 03/20/24 22:59 Ondansetron HCl (zoFRAN 4MG INJ) 4 mg Q6H PRN IV NAUSEA/VOMITING 03/13/24 23:00 04/12/24 22:59 Pantoprazole Sodium (PROTonix 40MG TAB) 40 mg DAILY PO 03/14/24 09:00 04/13/24 08:59 03/17/24 08:24 40 MG Piperacillin Sod/ Tazobactam Sod 50 ml @ 200 mls/hr STAT STAT IVPB 03/13/24 20:55 03/13/24 21:10 DC 03/13/24 22:05 200 MLS/HR Piperacillin Sod/ Tazobactam Sod (Zosyn 3.375gm+NS 50ml) 3.375 gm Q12H IV 03/14/24 08:30 03/24/24 08:29 03/17/24 20:24 3.375 GM Sevelamer HCl (RENAgel 800 MG TAB) 800 mg TIDMEALS PO 03/15/24 12:00 04/14/24 11:59 03/17/24 17:29 800 MG Sodium Chloride 1,000 ml @ 0 mls/hr ONCE IV 03/15/24 18:30 03/16/24 18:29 DC 03/15/24 20:35 1,000 MLS/HR Vancomycin HCl (Vancomycin 750mg) 750 mg QMOWEFR[DIALYSIS] IVPB 03/15/24 16:00 03/25/24 15:59 03/15/24 17:09 750 MG Vancomycin HCl (Vancomycin Protocol) 1 each AD IV 03/13/24 23:00 03/27/24 22:59 Vitamin B Complex (Vitamin B-12) 1,000 mcg DAILY PO 03/16/24 09:00 04/15/24 08:59 03/17/24 08:24 1,000 MCG DIAGNOSTICS / RADIOLOGY: [ ] ASSESSMENT: Sepsis POA Ulcer abscess, cellulitis, strong suspicion for osteomyelitis to the right great toe. POA s/p Debridement of skin, subcutaneous tissues, musculature and bone with transfer of the extensor hallucis longus tendon and flexor hallucis longus tendon. First toe with Osteomyelitis evidence by MRI POA DM uncontrolled type End-stage renal disease on hemodialysis Acute anemia on chronic renal failure Hypertension Severe protein calorie malnutrition. POA PLAN: [ ] admit to surgical floor remain in ED internal control consultant: Dental Appliance Mechanic DR Hanson MRI noted + for osteo ABT's; continue with Broad spectrum IV Vancomycin and Zosyn ; ID following dressing changes by DR Hanson ambulate with surgical shoe right foot full weightbearing. cont with 3x dialysis loan services professional following avoid NSAIDS strict I/O and daily weights. ac/hs monitoring with SSri coverage goal to keep blood sugar < 200 supplements for wound healing.; Vitamin C, and Vitamin B complex home medication: need update by RN DVT/GI ppx Picc line placed for parking lot spotter IV antibiotics case management; discharged planning all questions answered case discussed with attending DR Arrington ATTESTATION BY PHYSICIAN I have seen and examined the patient. I reviewed the documentation, medical decision making, and treatment plan as noted by the mid-level provider above. I agree with the findings and plan of care. BERNIE ARRINGTON MD, ELIZABETH NP Mar 18, 2024 08:42
--- NOTE | 2024-03-18 09:08 | HMCIMG ---
CHEST 1VW HISTORY: PICC line placement COMPARISON: 09/27/2023 FINDINGS: A frontal projection of the chest was obtained. No acute pulmonary infiltrates is seen. The heart is normal in size. Right venous catheter is seen with distal tip in the superior vena cava. No evidence of aortic calcification is seen. IMPRESSION: 1. No acute pulmonary infiltrate is seen.
[2024-03-18] MEDS: 0.9%NACL 1000ML 1,000 ML IV SCH (09:33)
--- NOTE | 2024-03-18 12:32 | PN ---
DIALYSIS NOTE SUBJECTIVE: The patient is seen and evaluated, on hemodialysis, prescription noted. OBJECTIVE: VITAL SIGNS: Blood pressure 125/88. CARDIOVASCULAR: Regular. LUNGS: Coarse. IMPRESSION: End-stage renal disease. PLAN: The patient is status post PICC line placement. The patient is being set up for outpatient IV antibiotics. Once the patient is discharged, the patient can follow up at the dialysis unit. TID: [id number] RECEIPT: [id number]
[2024-03-18] MEDS: ZOSYN 3.375GM +NS 50ML IV SCH (13:01)
--- NOTE | 2024-03-18 13:23 | NUR ---
CM NOTE MET WITH PT AND DISCUSSED orders for [facility] infusion unit, and pt states he is familiar with them and is in agreement for referral . has someone who can take him and also he can drive himself. referral sent to [facility]. states prefers around 915am or so. pt goes to dialysis earlier shift. pending approval.
--- NOTE | 2024-03-18 17:01 | NUR ---
cm note spoke to mil at [facility] and states pt is approved for [place] and has appt for 03/19/24 at 11am. updated primary nurse. and updated pt and gave appt info and adress. verbalizes understanding.
--- NOTE | 2024-03-18 20:25 | NUR ---
DISCHARGE PATIENT AWAKE AND ALERT X4. VOICES ALL NEEDS. IN GOOD SPIRITS. PICC LINE PATENT, DRESSING DRY AND INTACT. PATIENT LEFT VIA WHEELCHAIR TO PRIVATE CAR. NO COMPLAINTS OF PAIN VOICED. NO SIGNS OF DISTRESS NOTED UPON DISCHARGE. ALL BELONGINGS TAKEN WITH. Addendum: 03/18/24 at 2124 by AURY ALARCON RN RN Amended: Links added.
--- NOTE | 2024-03-18 21:51 | PN ---
INFECTIOUS DISEASE PROGRESS NOTE Date of Service: Mar 18, 2024 SUBJECTIVE: This is a 43-year-old male patient who was seen and examined at bedside in room 427. Patient is awake, alert and oriented x3. Patient is status post debridement of skin and removal of portion of the right great toe proximal phalanx on 03/14/2024. PICC line has been placed. Patient is pending approval to [facility] for outpatient IV antibiotic and we will discharge once approved. No fever, temperature 97.2. Patient continues on vancomycin and Zosyn IV. PHYSICAL EXAM EYES: Anicteric. Pupils equal and reactive. HENT: No oral thrush seen, moist Oral mucosa NECK: Supple, no JVD or thyromegaly. LUNGS: Good air entry. No rales, no rhonchi. CARDIOVASCULAR: S1, S2 regular. No murmur heard. ABDOMEN: Soft, non tender, bowel sounds present, no organomegaly. CENTRAL NERVOUS SYSTEM: Awake, alert, oriented x 3. SKIN: No rashes, no swelling. Right 1st toe diabetic ulcer with abscess, status post debridement. 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 LYMPHATICS: No peripheral lymphadenopathy MUSCULOSKELETAL: No joint swelling, erythema or tenderness. EXTREMITIES: No cyanosis or clubbing. BACK: No deformity, no pressure ulcer. GENITOURINARY: No dysuria or hematuria. Vital Sign (Last 12 Hours) 03/18/24 03/18/24 03/18/24 03/18/24 10:00 10:15 10:30 10:45 Pulse 78 91 81 81 Resp 16 16 16 16 B/P (MAP) 154/89 173/75 153/88 153/86 O2 Delivery Room Air Room Air Room Air Room Air 03/18/24 03/18/24 03/18/24 03/18/24 11:00 11:15 11:30 11:45 Pulse 82 92 89 94 Resp 16 16 16 16 B/P (MAP) 148/89 125/88 156/89 139/82 O2 Delivery Room Air Room Air Room Air Room Air 03/18/24 03/18/24 03/18/24 03/18/24 11:57 12:00 12:15 12:30 Temp 98.4 97.2 97.2 Pulse 92 96 98 95 Resp 20 16 16 16 B/P (MAP) 125/88 143/98 126/85 162/97 Pulse Ox 100 O2 Delivery Room Air Room Air Room Air Room Air FiO2 21 03/18/24 15:35 Temp 98.4 Pulse 93 Resp 20 B/P (MAP) 151/83 Pulse Ox 100 O2 Delivery Room Air FiO2 21 Intake & Output (last 24hrs) 03/17/24 03/17/24 03/18/24 15:00 23:00 07:00 Intake Total 50.0 ml Balance 50.0 ml LABS: Laboratory: Test 03/18/24 16:39 03/17/24 12:55 03/17/24 04:44 Range/Units Whole Blood Glucose 147 H 70-110 MG/DL Prothrombin Time 10.9 9.6-11.6 SEC Prothromb Time International Ratio 0.97 0.85-1.15 Activated Partial Thromboplast Time 27.3 26.3-35.5 SEC White Blood Count 6.7 4.8-10.8 K/uL Red Blood Count 3.57 L 4.50-6.20 MIL/uL Hemoglobin 10.6 L 14.0-18.0 g/dL Hematocrit 32.8 L 42-54 % Mean Corpuscular Volume 91.9 79-99 fL Mean Corpuscular Hemoglobin 29.7 27.0-33.0 pg Mean Corpuscular Hemoglobin Concent 32.3 32.0-36.0 g/dL Red Cell Distribution Width 13.4 11.0-15.5 % Platelet Count 268 130-400 K/uL Mean Platelet Volume 9.6 7.5-10.5 fL Immature Granulocyte % (Auto) 0.4 0-1 % Neutrophils (%) (Auto) 52.4 40.0-77.0 % Lymphocytes (%) (Auto) 32.9 21.0-51.0 % Monocytes (%) (Auto) 9.3 3.0-13.0 % Eosinophils (%) (Auto) 4.0 0.0-8.0 % Basophils (%) (Auto) 1.0 0.0-5.0 % Neutrophils # (Auto) 3.5 1.8-7.7 K/uL Lymphocytes # (Auto) 2.2 1.0-4.8 K/uL Monocytes # (Auto) 0.6 0.1-1.0 K/uL Eosinophils # (Auto) 0.27 0.00-0.70 K/uL Basophils # (Auto) 0.07 0.00-0.20 K/uL Absolute Immature Granulocyte (auto 0.03 0-1 K/uL Nucleated Red Blood Cells 0.0 0.0-0.19 % Sodium Level 138 136-145 mmol/L Potassium Level 5.2 H 3.5-5.1 mmol/L Chloride Level 101 101-111 mmol/L Carbon Dioxide Level 30 21-32 mmol/L Blood Urea Nitrogen 58 H 7-18 mg/dL Creatinine 6.7 H 0.5-1.3 mg/dL Glomerular Filtration Rate Calc 10 >90 mL/min Random Glucose 87 70-105 mg/dL Total Calcium 9.0 8.5-10.1 mg/dL Magnesium Level 2.40 1.80-2.40 mg/dL Total Bilirubin 0.5 0.2-1.0 mg/dL Aspartate Amino Transf (AST/SGOT) 12 10-37 U/L Alanine Aminotransferase (ALT/SGPT) 16 12-78 U/L Alkaline Phosphatase 79 50-136 U/L Total Protein 7.8 6.0-8.3 g/dL Albumin 3.1 L 3.5-5.0 g/dL ASSESSMENT: Right 1st toe diabetic ulcer with osteomyelitis, status post debridement and removal of portion of the right great toe proximal phalanx on 03/14/2024. Right 1st toe diabetic ulcer infection with Providencia rettgeri and Staphylococcus aureus. Right foot cellulitis. Leukocytosis. Diabetes mellitus. End-stage renal disease, dialysis. PLAN: PICC line was placed. Patient has been referred to [facility] for outpatient IV antibiotic and we will discharge once approved. Continue vancomycin per pharmacy protocol. Continue Zosyn IV. This case was reviewed and discussed with my supervising physician and the above assessment and plan was formulated and agreed upon. ATTESTATION BY PHYSICIAN I have seen and examined the patient. I reviewed the documentation, medical deci pino making, and treatment plan as noted by the mid-level provider above. I agree with the findings and plan of care. BUDDY AUGUSTE MD, [facility] Mar 18, 2024 21:51
--- NOTE | 2024-03-19 07:58 | DS ---
Discharge Summary Hospital Course Summary: Late Entry date of service 03/18/2024 Java User Interface Developer(s): This is a 43-year-old male that presents in ED with chief complaints of right lower extremity pain. Was admitted on 02/21/2024 with surgical site amputation top with stump ulcer abscess cellulitis and osteomyelitis to the 1st digit as per x-ray. Dr. Hanson was consulted appreciate his input he order a MRI to evaluate the patient for osteomyelitis. Possible surgical intervention today. Patient may require a revisional amputation of the right foot. During the course of stay patient was followed by operations business partner underwent surgery Debridement of skin, subcutaneous tissues, musculature and bone with transfer of the extensor hallucis longus tendon and flexor hallucis longus tendon. Patient has osteomyelitis infectious Disease was consulted patient will need long-term IV antibiotics. Patient will be receiving his antibiotics out patient [facility] as directed by ID. Patient will follow-up with Dr. Hanson one-week for wound care. He will continue with dialysis3 times a week U/S renal gum remover's we will continue to follow outpatient setting. Procedure(s): DATE OF PROCEDURE: 03/14/2024 SURGEON: Haris Hanson MD FRETTED INSTRUMENT REPAIRER: None. PREOPERATIVE DIAGNOSES: Ulcer abscess, osteomyelitis, right foot first toe. POSTOPERATIVE DIAGNOSES: Ulcer abscess, osteomyelitis, right foot first toe. PROCEDURES: Debridement of skin, subcutaneous tissues, musculature and bone with transfer of the extensor hallucis longus tendon and flexor hallucis longus tendon. ANESTHESIA: Local with monitored anesthesia care and IV sedation. INJECTABLES: 30 mL 50:50 mix 1% lidocaine plain and 0.5% Marcaine plain. PATHOLOGY: Deep soft tissue aerobic and anaerobic culture, sensitivity and Gram stain. Deep soft tissue for aerobic and anaerobic culture, sensitivity and Gram stain. Bone for histopathology to rule out osteomyelitis from the proximal phalanx of the right great toe. MATERIALS: 2-0 Vicryl, 2-0 nylon, 2-0 Ethibond, Betadine Adaptic, Betadine 4 x 4's, dry 4 x 4's, ABDs, Kerlix, and Min. The patient tolerated the anesthesia and procedure well and left the operating room in stable condition. INDICATIONS FOR SURGERY: The patient is a very pleasant 43-year-old diabetic, Latin-Albanian male, previously had a distal phalanx amputation of his right great toe. He presented with ulceration with abscess to the stump of the amputation stump of his distal phalanx of the right great toe. MRI showed osteomyelitis of distal half of the proximal phalanx and a consolidated abscess distally. At this point, it was deemed necessary to take the patient to surgery for debridement of skin, soft tissue and removal of infected tissue and removal of bone transfer the extensor hallucis longus tendon to flexor hallucis longus tendon of the right foot. DESCRIPTION OF PROCEDURE: The patient was brought into the operating room, placed on the operating room table in usual supine position. After induction of monitored anesthesia care, local block was given 30 mL 50:50 mix 1% lidocaine plain and 0.5% Marcaine plain. The patient was then prepped, draped and scrubbed in the usual sterile manner. The right foot was elevated. Tourniquet not inflated during the surgical procedure. A linear elliptical incision was made encompassing the plantar ulceration of the stump of the right great toe. The incision was deepened down through the skin and subcutaneous tissues. The elliptical skin wedge was removed. Liquefaction and hemorrhagic necrosis of the subcutaneous tissues were excised and sent for culture, sensitivity and Gram stain. The extensor tendon and the flexor tendon to the great toe were retracted proximally for later transfer. Using an oscillating saw, the distal two-thirds of the proximal phalanx were resected. Proximal wafer of bone was sent for histopathology to rule out osteomyelitis. Wound was copiously flushed with the Pulsavac irrigation. Hemostasis obtained with use of the Bovie and 2-0 Vicryl ties. The extensor hallucis longus tendon was reapproximated to the flexor hallucis longus tendon. They were trimmed, they were anastomosed. They were transferred using 2-0 Ethibond using a Dover-type stitch. The wound was again copiously flushed with the Pulsavac lavage, subcutaneous tissues were closed with 2-0 Vicryl horizontal mattress suture. Skin was closed with simple interrupted horizontal mattress and one running 6 cm interlocking 2-0 nylon stitch. A quarter-inch Saxon drain was placed exiting distally and proximally for drainage. A dressing of Betadine Adaptic, Betadine 4 x 4's, dry 4 x 4's, ABDs, Kerlix and Min bandage was applied. The patient tolerated the anesthesia and procedure well and left the operating room in stable condition. TID: [id number] RECEIPT: [id number] Electronically Signed by: HARIS HANSON DPM105/17/23 [id number] Electronically Co-Signed by: Assessment/Plan: discharged dx Sepsis POA Ulcer abscess, cellulitis, strong suspicion for osteomyelitis to the right great toe. POA s/p Debridement of skin, subcutaneous tissues, musculature and bone with transfer of the extensor hallucis longus tendon and flexor hallucis longus tendon. First toe with Osteomyelitis evidence by MRI POA DM uncontrolled type End-stage renal disease on hemodialysis Acute anemia on chronic renal failure Hypertension Severe protein calorie malnutrition. POA PLAN: [ ] ADMISSION DATE: 03/13/24 DISCHARGE DATE: 03/18/24 DISPOSITION: HOME: [facility] [place] CONDITION: stable CONSULTANT ELECTRONICS(S): Care Specialist, Infectious Disease FOLLOW UP APPOINTMENT(S): Dr Hanson 1 wk PCP: Dr Yin 2-3 days PROCEDURES: Debridement of skin, subcutaneous tissues, musculature and bone w ith transfer of the extensor hallucis longus tendon and flexor hallucis longus tendon. IMAGING (S) report attached to summary : MICROBIOLOGY: report attached to summary; ACTIVITY: ab claudia ambulate with surgical shoe right foot full weightbearing. HOME MEDICATIONS reviewed remain the same CHANGES ON HOME MEDICATIONS none NEW MEDICATIONS antibiotics IV as directed TEACHING: PICC Line Care; Emergency instructions: The patient was instructed to present to the nearest Emergency Department or call 911 should their symptoms return or worsen. Home Medications: Reported Medications Semaglutide (Ozempic) 0.25 Mg/0.368 Ml Pen.injctr, 0.25 MG SQ QWEEK 12/20/22 Sucroferric Oxyhydroxide (Velphoro) 500 Mg Tab.chew, 1000 MG PO TIDMEALS, TAB.CHEW 07/14/22 Fluticasone Propionate (Flonase Nasal [place]) 50 Mcg/[place], 1 SPRAY NASAL DAILY, SPRAY 07/14/22 [Nephrovite Rx] No Conflict Check, 1 TAB PO DAILY 07/14/22 Budesonide/Formoterol Fumarate (Symbicort 160-4.5 Mcg Inhaler) 10.2 Gm Hfa.aer.ad, 1 PUFF IH BID 07/14/22 Aspirin (ASPIRIN 81 MG ECTAB) 81 Mg Ectab, 81 MG PO DAILY, TAB.EC 08/08/18 Atorvastatin Calcium (LIPITOR) 20 Mg Tab, 20 MG PO HS, TAB 08/08/18 Continued Medications: Aspirin (Aspirin 81 Mg Ectab) 81 Mg Ectab 81 MG PO DAILY, TAB.EC Atorvastatin Calcium (Lipitor) 20 Mg Tab 20 MG PO HS, TAB Budesonide/Formoterol Fumarate (Symbicort 160-4.5 Mcg Inhaler) 10.2 Gm Hfa.aer.ad 1 PUFF IH BID Fluticasone Propionate (Flonase Nasal [place]) 50 Mcg/[place] 1 SPRAY NASAL DAILY, SPRAY [Nephrovite Rx] () 1 TAB PO DAILY Semaglutide (Ozempic) 0.25 Mg/0.368 Ml Pen.injctr 0.25 MG SQ QWEEK Sucroferric Oxyhydroxide (Velphoro) 500 Mg Tab.chew 1000 MG PO TIDMEALS, TAB.CHEW Time spent arranging discharge: 31-60 minutes ATTESTATION BY PHYSICIAN I have seen and examined the patient. I reviewed the documentation, medical decision making, and treatment plan as noted by the mid-level provider above. I agree with the findings and plan of care. BERNIE ARRINGTON MD, ELIZABETH NP Mar 19, 2024 07:58
== END 2024-03-18 20:28 | disposition home or self-care (01) | DRG 853 ==
LOC: EDH 20:37 → EDHIP 22:18 → 4DH 03-14 17:40
PROVIDERS: ADMIT Internal Medicine; ATTEND Internal Medicine
PROC: 0QBQ0ZZ Excision of Right Toe Phalanx, Open Approach (ICD-10-PCS; principal; 2024-03-14 14:55)
PROC: 02HV33Z Insertion of Infusion Device into Superior Vena Cava, Percutaneous Approach (ICD-10-PCS; 2024-03-18)
DX: A41.9 Sepsis, unspecified organism (principal); E43 Unspecified severe protein-calorie malnutrition; N18.6 End stage renal disease; M86.9 Osteomyelitis, unspecified; L02.611 Cutaneous abscess of right foot; I12.0 Hypertensive chronic kidney disease with stage 5 chronic kidney disease or end stage renal disease; L03.115 Cellulitis of right lower limb; L97.518 Non-pressure chronic ulcer of other part of right foot with other specified severity; T87.43 Infection of amputation stump, right lower extremity; E11.69 Type 2 diabetes mellitus with other specified complication; E11.22 Type 2 diabetes mellitus with diabetic chronic kidney disease; E11.621 Type 2 diabetes mellitus with foot ulcer; E66.9 Obesity, unspecified; D63.1 Anemia in chronic kidney disease; E78.5 Hyperlipidemia, unspecified; B96.89 Other specified bacterial agents as the cause of diseases classified elsewhere; B95.62 Methicillin resistant Staphylococcus aureus infection as the cause of diseases classified elsewhere; I25.10 Atherosclerotic heart disease of native coronary artery without angina pectoris; E87.8 Other disorders of electrolyte and fluid balance, not elsewhere classified; E11.65 Type 2 diabetes mellitus with hyperglycemia; Z99.2 Dependence on renal dialysis; Z68.28 Body mass index [BMI] 28.0-28.9, adult; Z86.73 Personal history of transient ischemic attack (TIA), and cerebral infarction without residual deficits; Z83.3 Family history of diabetes mellitus; Z79.82 Long term (current) use of aspirin; Z79.51 Long term (current) use of inhaled steroids; Z51.5 Encounter for palliative care; Z79.899 Other long term (current) drug therapy
CPT/HCPCS: 36415; 71045; 73600; 73630; 73718; 80048; 80053; 82550; 82948; 83036; 83605; 83735; 83880; 84100; 84145; 84484; 85025; 85610; 85651; 85730; 86140; 86704; 86706; 87040; 87070; 87076; 87086; 87186; 87205; 87340; 90935; 93005; 96372; 96375; 99285; G0378; J1644; J1815; J2250; J2405; J2543; J2704; J2765; J3010; J3370; A4216; A4649; A6445; J0665; J3490; Q5106

== ENCOUNTER 2024-05-21 13:56 | Inpatient (IN) | payer OTHER ==
[~2024-05-21] VITALS: Ht 185.4 cm; Wt 95.2 kg
[2024-05-21 14:42] LABS: BASOPHILS # (AUTO) 0.05 K/uL (0.00-0.20); BASOPHILS % (AUTO) 0.4 % (0.0-5.0); HEMATOCRIT 37.5 % (42-54); IMMATURE GRANULOCYTE ABSOLUTE 0.04 K/uL (0-1); LYMPHOCYTES # (AUTO) 1.1 K/uL (1.0-4.8); LYMPHOCYTES % (AUTO) 8.7 % (21.0-51.0); MEAN CORPUSCULAR HGB CONC 33.1 g/dL (32.0-36.0); MEAN CORPUSCULAR VOLUME 90.6 fL (79-99); MONOCYTES # (AUTO) 1.1 K/uL (0.1-1.0); MONOCYTES % (AUTO) 8.9 % (3.0-13.0); NEUTROPHILS # (AUTO) 10.2 K/uL (1.8-7.7); NEUTROPHILS % (AUTO) 81.7 % (40.0-77.0); PLATELET COUNT (AUTO) 259 K/uL (130-400); RED BLOOD CELL COUNT(AUTO) 4.14 MIL/uL (4.50-6.20); RED CELL DISTRIBUTION WIDTH 14.6 % (11.0-15.5); WHITE BLOOD COUNT (AUTO) 12.5 K/uL (4.8-10.8)
--- NOTE | 2024-05-21 14:57 | EKG ---
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
[2024-05-21 15:11] LABS: POTASSIUM 4.3 mmol/L (3.5-5.1)
[2024-05-21 15:32] LABS: BILIRUBIN,DIRECT 0.1 mg/dL (0.0-0.3); BILIRUBIN,TOTAL 0.8 mg/dL (0.2-1.0)
[2024-05-21 15:33] LABS: ALBUMIN 3.9 g/dL (3.5-5.0); TOTAL PROTEIN, SERUM 8.6 g/dL (6.0-8.3)
[2024-05-21 15:39] LABS: APPEARANCE,URINE CLEAR (CLEAR); BILIRUBIN,URINE NEGATIVE (NEGATIVE); COLOR,URINE LIGHT-YELLOW (YELLOW); GLUCOSE, URINE (UA) NEGATIVE (NEGATIVE); KETONES,URINE NEGATIVE (NEGATIVE); LEUKOCYTE ESTERASE ,URINE NEGATIVE Leu/uL (NEGATIVE); NITRATE,URINE NEGATIVE (NEGATIVE); OCCULT BLOOD,URINE SMALL (NEGATIVE); PROTEIN,URINE 600 mg/dL (NEGATIVE); UROBILINOGEN,URINE 0.2 mg/dL (0.2-1.0)
[2024-05-21 15:53] LABS: ADD UA MICROSCOPIC YES
[2024-05-21 15:59] LABS: WBC,URINE 0-1 /HPF (0-1)
--- NOTE | 2024-05-21 16:06 | NUR ---
PLACED IN [facility] NOW.
--- NOTE | 2024-05-21 16:09 | HMCIMG ---
CHEST 1VW REASON: fever COMPARISON: 03/18/2024 FINDINGS: Single view of the chest was obtained. Lungs are clear. Heart size is normal. There is no pulmonary vascular congestion. Mediastinum and bony thorax appear unremarkable. IMPRESSION: 1. Normal single view chest x-ray.
--- NOTE | 2024-05-21 16:10 | HMCIMG ---
FOOT COMP 3+VWS LT REASON: fever TECHNIQUE: 3 views were obtained. FINDINGS: There is been previous septation of the first toe at the level of the distal aspect of the proximal metatarsal. There is been transmetatarsal amputation of the second through fifth toes. There is marked soft tissue swelling of the first toe. There is no x-ray evidence of osteomyelitis in the remaining proximal phalanx. IMPRESSION: 1. Previous septations. 2. Soft tissue swelling first toe, no x-ray evidence of osteomyelitis.
--- NOTE | 2024-05-21 16:36 | ERN ---
ED Note History of Present Illness Stated Complaint: FEVER,MULTIPLE COMPLAINTS Chief Complaint: Wound Check Dictation: 44-year-old male with a history of DM and ESRD on dialysis presents to the ED for evaluation of worsening left foot wound. Patient reports fever, chills, but denies any other associated symptoms at this time. Patient states his wound is being treated by and just finished a round of antibiotics, but states symptoms have been worsening. Allergies: Coded Allergies: No Known Allergies (Verified Allergy, Unknown, 06/12/18) Home Meds Reported Medications Semaglutide (Ozempic) 0.25 Mg/0.368 Ml Pen.injctr, 0.25 MG SQ QWEEK 12/20/22 Sucroferric Oxyhydroxide (Velphoro) 500 Mg Tab.chew, 1000 MG PO TIDMEALS, T AB.CHEW 07/14/22 Fluticasone Propionate (Flonase Nasal [place]) 50 Mcg/[place], 1 SPRAY NASAL DAILY, SPRAY 07/14/22 [Nephrovite Rx] No Conflict Check, 1 TAB PO DAILY 07/14/22 Budesonide/Formoterol Fumarate (Symbicort 160-4.5 Mcg Inhaler) 10.2 Gm Hfa.aer.ad, 1 PUFF IH BID 07/14/22 Aspirin (ASPIRIN 81 MG ECTAB) 81 Mg Ectab, 81 MG PO DAILY, TAB.EC 08/08/18 Atorvastatin Calcium (LIPITOR) 20 Mg Tab, 20 MG PO HS, TAB 08/08/18 Past Medical History Past Medical History: Diabetes-Type II, Renal Failure Additional Past Medical Hx: OSTEOMYLITIS Surgical History: Appendectomy, None Surgical History Other: MULTIPLE TOE AMPUTATION, RIGHT EYE, Review of System Dictation Constitutional: Positive for fever and chills Eyes: Negative for injury, pain,redness, and discharge ENT: Negative for injury,pain or swelling Cardiovascular: Negative for chest pain, palpitations, and edema Respiratory: Negative for shortness of breath, cough, and wheezing, Abdomen/GI: Negative for abdominal pain, nausea, vomiting, diarrhea, and constipation Back: Negative for injury and pain : Negative for injury, bleeding and discharge MS/Extremity: Positive for left foot wound Negative for injury and deformity Skin: Negative for rash, and discoloration Neuro: Negative for headache, weakness, numbness, tingling, and seizure Psych: Negative for suicide ideation, homicidal ideation, and hallucinations Initial Vital Sign VS Vital Signs Date Time Temp Pulse Resp B/P (MAP) Pulse Ox O2 Delivery O2 Flow Rate FiO2 05/21/24 14:07 101.5 133 20 154/88 98 Room Air 0 05/21/24 17:23 21 Physical Exam Dictation General: awake, alert, NAD Head/Face: Normocephalic, atraumatic Eyes: PERRL, EOMI, vision at baseline ENT: oral cavity clear, TMs clear, no signs of infection Neck: Trachea midline, supple, no nuchal rigidity Cardiovascular: Tachycardic No MRGs, no JVD Respiratory: CTAB, no respiratory distress, No rales or wheezes Abdomen: Soft, non-tender, non-distended, normal bowel sounds, no guarding or rebound. Skin: Warm, dry, normal turgor, no rash MS/Extremity: Pulses equal, transmetatarsal amputation of the left foot 2nd through the 5th toes, great toe swelling and erythema Neuro: COAx4, GCS 15, strength 5/5, CN 2-12 intact, normal cerebellar exam, norm al gait, Psych: Normal behavior, mood, and affect normal Results (Laboratory/Radiology) Laboratory/Radiology Laboratory Tests Test 05/21/24 13:13 05/21/24 14:29 Urine Color LIGHT-YELLOW (YELLOW) Urine Appearance CLEAR (CLEAR) Urine pH 8.0 (5.0-8.0) Urine Specific [place] 1.011 (1.001-1.031) Urine Protein 600 mg/dL (NEGATIVE) H Urine Glucose (UA) NEGATIVE mg/dL (NEGATIVE) Urine Ketones NEGATIVE mg/dL (NEGATIVE) Urine Occult Blood SMALL (NEGATIVE) H Urine Nitrate NEGATIVE (NEGATIVE) Urine Bilirubin NEGATIVE mg/dL (NEGATIVE) Urine Urobilinogen 0.2 mg/dL (0.2-1.0) Urine Leukocyte Esterase NEGATIVE Myra/uL Urine RBC 11-25 /HPF (0-1) H Urine WBC 0-1 /HPF (0-1) Urine Bacteria None /HPF (None Seen) Total Bilirubin 0.8 mg/dL (0.2-1.0) Direct Bilirubin 0.1 mg/dL (0.0-0.3) Aspartate Amino Transf (AST/SGOT) 48 U/L (10-37) H Alanine Aminotransferase (ALT/SGPT) 83 U/L (12-78) H Alkaline Phosphatase 144 U/L (50-136) H Total Protein 8.6 g/dL (6.0-8.3) H Albumin 3.9 g/dL (3.5-5.0) White Blood Count 12.5 K/uL (4.8-10.8) H Red Blood Count 4.14 MIL/uL (4.50-6.20) L Hemoglobin 12.4 g/dL (14.0-18.0) L Hematocrit 37.5 % (42-54) L Mean Corpuscular Volume 90.6 fL (79-99) Mean Corpuscular Hemoglobin 30.0 pg (27.0-33.0) Mean Corpuscular Hemoglobin Concent 33.1 g/dL (32.0-36.0) Red Cell Distribution Width 14.6 % (11.0-15.5) Platelet Count 259 K/uL (130-400) Mean Platelet Volume 8.8 fL (7.5-10.5) Immature Granulocyte % (Auto) 0.3 % (0-1) Neutrophils (%) (Auto) 81.7 % (40.0-77.0) H Lymphocytes (%) (Auto) 8.7 % (21.0-51.0) L Monocytes (%) (Auto) 8.9 % (3.0-13.0) Eosinophils (%) (Auto) 0.0 % (0.0-8.0) Basophils (%) (Auto) 0.4 % (0.0-5.0) Neutrophils # (Auto) 10.2 K/uL (1.8-7.7) H Lymphocytes # (Auto) 1.1 K/uL (1.0-4.8) Monocytes # (Auto) 1.1 K/uL (0.1-1.0) H Eosinophils # (Auto) 0.00 K/uL (0.00-0.70) Basophils # (Auto) 0.05 K/uL (0.00-0.20) Absolute Immature Granulocyte (auto 0.04 K/uL (0-1) Nucleated Red Blood Cells 0.0 % (0.0-0.19) White Cell Morphology Comment See comments Sodium Level 137 mmol/L (136-145) Potassium Level 4.3 mmol/L (3.5-5.1) Chloride Level 100 mmol/L (101-111) L Carbon Dioxide Level 30 mmol/L (21-32) Blood Urea Nitrogen 39 mg/dL (7-18) H Creatinine 6.0 mg/dL (0.5-1.3) H Glomerular Filtration Rate Calc 11 mL/min (>90) Random Glucose 132 mg/dL (70-105) H Lactic Acid Level 2.0 mmol/L (0.8-2.5) Total Calcium 8.3 mg/dL (8.5-10.1) L Total Creatine Kinase 57 U/L (21-232) # Troponin I High Sensitivity 6 ng/L (4-75) Labs Reviewed?: Yes EKG Comment: EKG 05/21/2024 time 2:15 p.m. ventricular rate 129, MA 146, QRS D 91, QT 294. Sinus tachycardia, low voltage extremity leads. No STEMI X-RAY Comment: REASON: fever ORDERING PHYSICIAN: MARIVEL BARBA MD PROCEDURE: FT 3VW LT - FOOT COMP 3+VWS LT FOOT COMP 3+VWS LT REASON: fever TECHNIQUE: 3 views were obtained. FINDINGS: There is been previous septation of the first toe at the level of the distal aspect of the proximal metatarsal. There is been transmetatarsal amputation of the second through fifth toes. There is marked soft tissue swelling of the first toe. There is no x-ray evidence of osteomyelitis in the remaining proximal phalanx. IMPRESSION: 1. Previous septations. 2. Soft tissue swelling first toe, no x-ray evidence of osteomyelitis. DICTATED BY: VIRGINIA HARTMAN MD DATE: 05/21/24 1607 ED Course ED Course Orders Procedure Category Date Status Time Iv Insertion CPOE 05/21/24 Transmitted 14:06 Pulse Ox(Continuous) RT 05/21/24 Transmitted 14:06 Vital Signs Per CPOE 05/21/24 Transmitted Routine 14:06 12 Lead Ekg Tracing- EKG 05/21/24 Complete Technical 14:06 Cbc With Differential LAB 05/21/24 Complete 14:06 Blood Cult ZHANNA 05/21/24 In Process 14:06 Urinalysis Profile LAB 05/21/24 Complete 14:06 Culture Urine ZHANNA 05/21/24 In Process 14:06 Creatine Kinase, Total LAB 05/21/24 Complete 14:06 Troponin I High LAB 05/21/24 Complete Sensitivity 14:06 Lactic Acid LAB 05/21/24 Complete 14:06 Basic Metabolic Panel LAB 05/21/24 Complete 14:06 12 Lead Ekg Tracing- EKG 05/21/24 Logged Technical 14:57 Hepatic Function Panel LAB 05/21/24 Complete 14:57 Chest 1vw RAD 05/21/24 Resulted 14:57 Foot Comp 3+Vws Lt RAD 05/21/24 Resulted 14:57 Zosyn 3.375gm+Ns 50ml PHA 05/21/24 Complete (Zosyn 3.375gm+Ns 15:00 Acetaminophen 325 Tab PHA 05/21/24 Complete (Tylenol 325mg Tab 17:30 Current Medications Medications (Trade) Dose Ordered Sig/Leonel Route PRN Reason Start Time Stop Time Status Last Admin Dose Admin Acetaminophen (TYLenol 325MG TAB) 650 mg ONCE ONCE PO 05/21/24 17:30 05/21/24 17:31 DC 05/21/24 17:23 Piperacillin Sod/ Tazobactam Sod (Zosyn 3.375gm+NS 50ml) 3.375 gm ONCE ONCE IV 05/21/24 15:00 05/21/24 15:01 DC 05/21/24 17:01 Vital Signs Date Time Temp Pulse Resp B/P (MAP) Pulse Ox O2 Delivery O2 Flow Rate FiO2 05/21/24 17:23 129 16 125/70 98 Room Air* 0 21 05/21/24 14:07 101.5 133 20 154/88 98 Room Air 0 Medical Decision Making MDM MDM: Differential diagnosis: Osteomyelitis, left foot cellulitis, ESRD 1816- Hospitalist consult, accepts patient for admission Rationale: Tests considered and ordered secondary to shared decision making include: labs, ECG and radiology Risk of complication and/or morbidity or mortality of patient management: None Medications-Per medication reconciliation Need for hospitalization: Patient does meet criteria for hospitalization. Need for emergency major/minor surgery: No There are no social concerns with this patient. Patient's prior external medical records from other ER visits were reviewed by me as indicated. Prior testing and results from previous visits were reviewed. Prior tests were taken into account with medical decision making and resource utilization, independent historian/historians were used to obtain complete medical history. I independently interpreted the test that were performed, results were reviewed by me and considered findings on radiology if ordered. Medical management and examination interpretation discussions were had by me with other qualified healthcare professionals as indicated for the patient's care. DX & DISP Disposition: Inpatient Decision to Admit Date: May 21, 2024 Decision to Admit Time: 18:19 Departure Impression: Primary Impression: Cellulitis of left foot Additional Impressions: Osteomyelitis, ESRD (end stage renal disease) Condition: Stable Referrals: KATHERYN LOVELACE MD (PCP) MARIVEL BARBA MD May 21, 2024 16:36
[2024-05-21] MEDS: ZOSYN 3.375GM +NS 50ML IV ONE (17:01)
[2024-05-21] MEDS: acetaMINOPHEN 325 MG TAB PO ONE (17:23)
--- NOTE | 2024-05-21 18:34 | HP ---
History of Present Illness Reason for Visit: wound Referring MD: Dr. Ganga Blanc History of Present Illness Mr. Dorsey is a 44-year-old male that was seen and examined today on 05/21/2024. Patient is a good historian of personal health Today in the emergency department WBCs 12.5, left shift neutrophils 81.7%, BUN 39, creatinine 6.0, GFR 11, lactic acid 2.0, urinalysis unremarkable, chest x- ray unremarkable, left foot x-ray shows previous septations, soft tissue swelling. Emergency room physician recommended that patient be admitted with a diagnosis of left foot cellulitis. Additionally patient arrived with a temperature of 101.5, heart rate 133, an identified source of infection being left foot meeting clinical sepsis criteria. Past Medical History Patient History: Cardiovascular disease FATHER Completed stroke BROTHER, Onset:Unknown Diabetes mellitus MOTHER, Onset:Unknown FATHER, Onset:Unknown BROTHER, Onset:Unknown Hypertension MOTHER, Onset:Unknown FATHER, Onset:Unknown BROTHER, Onset:Unknown Sudden BROTHER Unknown ADDITIONAL PAST MEDICAL HISTORY: [Diabetes mellitius type2, hypertension, ESRD on HD MWF (Dr. Tammi Valles) ] SOCIAL HISTORY: [Negative for smoking, alcohol use, drug use. Patient lives with his Julia Back. Patient is typically independent of his ADLs. Patient denies difficulty pain is bills. Patient has good access to [facility] care through his insurance. 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 SURGICAL HISTORY: [Amputation of right foot 2nd, 3rd, 4th, 5th rays, amputation of left foot 2nd, 3rd, 4th, 5th ray, appendectomy, right hand tendon repair, right eye retinal surgery, gastric sleeve] Review of Systems General: No Fever, No Chills, No Night Sweats, No Fatigue, No Malaise, No Appetite, No Other HEENT: No Head Aches, No Visual Changes, No Eye Pain, No Ear Pain, No Dysphasia, No Sinus Congestion, No Post Nasal Drip, No Sore Throat, No Other Pulmonary: No Dyspnea, No Cough, No Pleuritic Chest Pain, No Other Cardiovascular: No: Chest Pain, Palpitations, Orthopnea, Paroxysmal Noc. Dyspnea, Edema, Lt Headedness, Other Gastrointestinal: No: Nausea, Vomiting, Abdominal Pain, Diarrhea, Constipation, Melena, Hematochezia, Other Genitourinary: No Dysuria, No Frequency, No Incontinence, No Hematuria, No Retention, No Other Musculoskeletal: foot pain; No: other, neck pain, shoulder pain, arm pain, back pain, hand pain, leg pain Skin: No Urticaria, No Rash, No Other Neurological: No: Weakness, Numbness, Incoordination, Change in speech, Confusion, Seizures, Other Allergies: Coded Allergies: No Known Allergies (Verified Allergy, Unknown, 06/12/18) Scheduled Aspirin (Aspirin 81 Mg Ectab), 81 MG PO DAILY, (Reported) Atorvastatin Calcium (Lipitor), 20 MG PO HS, (Reported) Budesonide/Formoterol Fumarate (Symbicort 160-4.5 Mcg Inhaler), 1 PUFF IH BID, (Reported) Fluticasone Propionate (Flonase Nasal D[place]ott), 1 SPRAY NASAL DAILY, (Reported) Semaglutide (Ozempic), 0.25 MG SQ QWEEK, (Reported) Sucroferric Oxyhydroxide (Velphoro), 1,000 MG PO TIDMEALS, (Reported) [Nephrovite Rx], 1 TAB PO DAILY, (Reported) Exam Vital Signs Vital Signs Date Time Temp Pulse Resp B/P (MAP) Pulse Ox O2 Delivery O2 Flow Rate FiO2 05/21/24 17:23 129 16 125/70 98 Room Air* 0 21 05/21/24 14:07 101.5 General Appearance: Alert, Oriented X3, Cooperative, No acute distress HEENT: Atraumatic, EOMI Respiratory: Clear to auscultation, Normal air movement, NL respiratory effort Cardiovascular: Regular rate, Regular rhythm, Normal S1, Normal S2 Abdominal: Normal bowel sounds, Soft, No tenderness Extremities: No edema, Other Skin: Other (Left foot 1st ray plantar aspect wound) Neuro: Normal gait, Normal speech, Strength at 5/5 X4 ext, Sensation intact, Cranial nerves 3-12 NL Psych/Mental Status: Mental status NL, Mood NL, Thoughts/Content NL Assessment/Plan ASSESSMENT: [ Sepsis, POA Cellulitis left foot, POA Left foot wound, POA Leukocytosis Hyperlactatemia Diabetes mellitius type2 Hypertension ESRD on HD] PLAN: [ Admit patient to medical floor as inpatient status. Consult Podiatry Service, Dr. Hanson for evaluation and recommendations Consult patient's elevator constructor supervisor, Dr. Valles Consult infectious disease service, Dr. Multani for evaluation and recommendations Check BNP if less than 500 consider administering fluid resuscitation lactated Ringer's 30 mL/kg over over 6 hours, stop for any shortness of breath, jugular vein distnetion, or pedal edema Empiric antibiotic therapy with vancomycin and Zosyn Obtain wound cultures from left foot, follow up with the results Check procalcitonin, follow up with the results Repeat lactic acid in a.m. Check blood culture, follow up with the results Check hemoglobin A1c in a.m. Glucometer checks a.c. and HS 1800 ADA diet Humulin R sliding scale Monitor intake and output every shift Weight patient daily 1500 mL daily fluid restriction Renally dose all medications when possible Avoid nephrotoxic agents when possible Consider resuming home medications once they are reconciled For now, Hydralazine 10 mg IV every 4 hours for systolic blood pressure greater than 160 mmHg GI prophylaxis, Protonix DVT prophylaxis, heparin ADVANCED CARE PLANNING 1. Which of the following were discussed? Hospice Care - Yes Therapeutic options - Yes Advance Directives - Yes- patient states he does not have any advance directives in place at this time, however his Julia Back can make decisions for him if he becomes unable. Other discussions - patient wishes to remain a full code at this time 2. Discussed with who? Patient 3. Voluntary nature of this service was explained to the patient? Yes 4. Amount of time spent - __ 19 minutes 5. Reviewed by Physician? (if this service was performed by NPP) Yes This document was generated in part using voice recognition software, occasional wrong word or sound alike substitutions may have occurred due to the inherent limitations of voice recognition software. Read the chart carefully and recognize using context, where the substitutions have occurred. Although every effort was made to edit the content, web developer programmer and typing errors may occur ATTESTATION BY PHYSICIAN I have seen and examined the patient. I reviewed the documentation, medical decision making, and treatment plan as noted by the mid-level provider above. I agree with the findings and plan of care. LISANDRA LAGOS [facility] May 21, 2024 18:34
--- NOTE | 2024-05-21 18:38 | NUR ---
TRANSFERRED TO ER 04
[2024-05-21] MEDS ORDERED: acetaMINOPHEN 325 MG TAB PO PRN (19:30)
[2024-05-21] MEDS ORDERED: VANCOMYCIN PROTOCOL PER PHARMACY IV SCH (19:30)
[2024-05-21] MEDS ORDERED: ondanSETRON 4MG INJ IV PRN (19:30)
[2024-05-21] MEDS ORDERED: morPHINE 4 MG SYG IVP PRN (19:30)
[2024-05-21] MEDS: INSULIN humuLIN R 100 UNIT/ML 3ML SQ SCH (21:00)
[2024-05-21] MEDS: VANCOMYCIN 1.75 GM/250 ML BAG 250 ML IV ONE (22:15)
[2024-05-21] MEDS: HEParin 5,000 UNIT VIAL SQ SCH (22:16)
[2024-05-21 23:00] VITALS: BP 150/86; PULSE 95; RESP 18; TEMP 98.8
[2024-05-22] VITALS (22 sets, daily range): BP systolic 120–141; BP diastolic 73–85; PULSE 88–95; RESP 12–18; TEMP 97.9–99.2; O2SAT 98
[2024-05-22] MEDS: ZOSYN 3.375GM +NS 50ML IV SCH (05:13)
[2024-05-22 05:17] LABS: BASOPHILS # (AUTO) 0.05 K/uL (0.00-0.20); BASOPHILS % (AUTO) 0.4 % (0.0-5.0); EOSINOPHILS # (AUTO) 0.01 K/uL (0.00-0.70); EOSINOPHILS % (AUTO) 0.1 % (0.0-8.0); HEMATOCRIT 31.9 % (42-54); IMMATURE GRANULOCYTE ABSOLUTE 0.04 K/uL (0-1); LYMPHOCYTES % (AUTO) 16.9 % (21.0-51.0); MEAN CORPUSCULAR HEMOGLOBIN 29.6 pg (27.0-33.0); MEAN CORPUSCULAR HGB CONC 32.6 g/dL (32.0-36.0); MEAN CORPUSCULAR VOLUME 90.9 fL (79-99); MONOCYTES # (AUTO) 1.3 K/uL (0.1-1.0); MONOCYTES % (AUTO) 11.1 % (3.0-13.0); NEUTROPHILS # (AUTO) 8.2 K/uL (1.8-7.7); NEUTROPHILS % (AUTO) 71.2 % (40.0-77.0); PLATELET COUNT (AUTO) 206 K/uL (130-400); RED BLOOD CELL COUNT(AUTO) 3.51 MIL/uL (4.50-6.20); RED CELL DISTRIBUTION WIDTH 14.6 % (11.0-15.5); WHITE BLOOD COUNT (AUTO) 11.6 K/uL (4.8-10.8)
[2024-05-22 05:28] LABS: ALBUMIN 3.1 g/dL (3.5-5.0); BILIRUBIN,TOTAL 0.7 mg/dL (0.2-1.0); CREATININE 6.7 mg/dL (0.5-1.3); MAGNESIUM 2.2 mg/dL (1.80-2.40); PHOSPHORUS 4.5 mg/dL (2.5-4.9); POTASSIUM 4.4 mmol/L (3.5-5.1); TOTAL PROTEIN, SERUM 7.3 g/dL (6.0-8.3)
[2024-05-22 05:41] LABS: HEMOGLOBIN A1C 6.3 % (4.0-6.0)
--- NOTE | 2024-05-22 07:50 | CONS ---
HISTORY OF PRESENT ILLNESS: The patient is a very pleasant 44-year-old diabetic, Latin-Lith[place] male who I was asked to see regarding an ulceration to the left great toe. The patient is well known to me. He has had previous amputations of the partial second through fifth rays bilaterally. He has also had great toe amputations of bilateral feet. He presented with a concern of fevers, generalized body weakness, lethargy. He has presented with white count of 12.5, it is decreased now to 11.6. He is on IV Zosyn. He is scheduled for hemodialysis today. He receives hemodialysis Monday, Monday, and Fridays. He was admitted with sepsis. He was started on Zosyn. He had blood cultures. I took wound cultures today at bedside. He has a family history of cardiovascular disease, stroke, hypertension, sudden . He has diabetes type 2, hypertension, end-stage renal disease, receives hemodialysis Monday, Monday and Monday with Dr. Valles and Dr. Dodd. SOCIAL HISTORY: The patient does not smoke, drink or use any drugs. He is , has 5 children, all boys. PAST SURGICAL HISTORY: He had surgery for foot amputations of second through fifth rays, both great toes have been amputated. He has had appendectomy, right hand tendon repair, right eye retinal surgery, gastric sleeve. CURRENT REVIEW OF SYSTEMS: CONSTITUTIONAL: He relates subjective chills as of yesterday, they have resolved as of today. He relates fevers, no chills, no night sweats, no nausea, vomiting, no diarrhea. HEENT: No problems with eyes, ears, nose or throat. He has had a surgery for his right eye. GENITOURINARY: End-stage renal disease, currently receiving hemodialysis. GASTROINTESTINAL: No dysphagia. ENDOCRINE: Diabetes. PSYCHIATRIC: Denied any depression. MUSCULOSKELETAL: He has amputation of second through fifth rays. He has amputation of both great toes, partial. INTEGUMENT: He has an ulcer to the plantar aspect of the left great toe. Mild edema to the left great toe. He has no ulcers to the right foot. PHYSICAL EXAMINATION: Palpable pedal pulses, absent protective sensation to his feet bilaterally. Well-healed surgery sites on the right second through fifth ray and right great toe amputation site on the left. He has well-healed surgical sites second through fifth rays. He has a well-healed first toe amputation. He has an ulcer to plantar aspect of left great toe, it is 10 mm x 10 mm x 1-2 mm. There is serosanguineous drainage. No purulences. There is edema to the left great toe. There is mild erythema to the left great toe. His ankle joint range of motion is within normal limits. First metatarsophalangeal joint neck range of motion is decreased bilaterally. DIAGNOSTIC DATA: X-rays reviewed showed soft tissue swelling first ray area of the left foot. No osseous destructive changes. No gas in the soft tissue. ASSESSMENT: Sepsis, leukocytosis, cellulitis, left foot wound, end-stage renal disease, currently receiving hemodialysis; hypertension, diabetes. PLAN: I cultured the wound today and applied a Betadine ointment dressings to the left great toe. The patient will continue with IV vancomycin and IV Zosyn. I will order an MRI of the left foot to evaluate the patient for first toe osteomyelitis. He will remain nonweightbearing status. We will continue to follow the patient closely while in-house. TID: [id number] RECEIPT: [id number]
--- NOTE | 2024-05-22 08:13 | CONS ---
REASON FOR CONSULTATION: Renal failure. HISTORY OF PRESENT ILLNESS: The patient has foot wound. This patient has Monday, Monday and Monday dialysis. The patient came with left foot wound with septation. The patient has left foot cellulitis, possible osteomyelitis and sepsis with elevated WBC count and slightly elevated lactic acid. He has a history of noncompliance. He has a history of diabetes, hyperlipidemia, hypertension, anemia and multiple other comorbidities. No other associated finding. No other aggravating or relieving factors. We have been consulted for patient with renal failure and other comorbidities present. PAST MEDICAL HISTORY: Hypertension, diabetes, end-stage renal disease, anemia, hyperlipidemia, foot osteomyelitis. PAST SURGICAL HISTORY: Toe amputations, AV fistula, appendicectomy, gastric sleeve. ALLERGIES: The patient has no known drug allergies. MEDICATIONS: Noted. REVIEW OF SYSTEMS: CONSTITUTIONAL: Has low-grade fever. No chills or rigors. HEENT: With no headache, oral ulcers, sore throat or difficulty swallowing. RESPIRATORY: Has no cough, expectoration, hemoptysis or pleuritic pain. CARDIOVASCULAR: Has shortness of breath. No orthopnea or PND. GASTROINTESTINAL: Negative for nausea, vomiting or diarrhea reported. GENITOURINARY: Negative for dysuria or hematuria. DERMATOLOGICAL: No rashes, pruritus or skin lesion. ENDOCRINE: No polyuria, polydipsia or polyphagia. PSYCHIATRIC: Negative for anxiety, depression or hallucination. LYMPHATIC AND HEMATOPOIETIC: No bleeding tendencies noted in lymph node areas. NEUROLOGIC: No seizure or syncope. All the other systemic review is unchanged. MUSCULOSKELETAL: With no joint swelling, redness or inflammation of any joint. PHYSICAL EXAMINATION: GENERAL: Pale, no other distress or deformities, lying in bed. VITAL SIGNS: Blood pressure is 118/70, pulse is 123, respiratory rate is 16, temperature up to 101.5. HEENT: Head is atraumatic, normocephalic. Pupils are round and reactive. Sclerae are anicteric. Conjunctivae not pale. Oral mucosa is not dry. NECK: Supple. No masses or bruits. Thyroid is palpable. Neck has no bruits. CHEST: Shows equal thoracic percussion note being resonant in all areas. CARDIAC: Regular rhythm, no rub, no S3, S4. No parasternal heave. ABDOMEN: With no guarding or tenderness. Bowel sounds are normoactive. No free fluid. EXTREMITIES: With no edema. No cyanosis or clubbing. BACK: No tenderness or back deformities. NEUROLOGIC: The patient is awake, alert, nonfocal. No cranial nerve palsies. LABORATORY DATA: We have reviewed his labs with a white cell count high up to 12,500; hemoglobin 12.4. Imaging studies are reviewed. BUN is 39, creatinine 6. The patient has pending cultures. Imaging studies reviewed in the x-ray, foot x-ray shows septation. Chest x-ray slightly increased marking, personally reviewed the both. Old records reviewed. PROBLEMS: * This patient is septic from left foot wound. * The patient has underlying type 2 diabetes. * Underlying peripheral vascular disease. * Underlying hypertension. * Underlying mild anemia. * Multiple allergies reported. * Elevated lactic acid level. Wounds in the foot, diabetes, hypertension, anemia, end-stage renal disease, on dialysis. PLAN: * The patient is critically ill, being admitted. * Will need IV antibiotics. * The patient can be given IV Dilaudid for pain 0.5 q. 6 hours. * Patient will get dialysis on schedule. * Follow up by Podiatry. * Dilaudid can be given 0.5 IV q. 6 hours. * The patient will have blood pressure maintained, Levophed may be needed if blood pressure drops. * The patient will get broad-spectrum antibiotic per sensitivity to be modified. * The patient will get Zosyn. The patient will get vancomycin and Zosyn, can be given DVT and GI prophylaxis, one Nephro-Denzel daily. All the labs and x-rays were personally reviewed. We have ordered the followup labs and x-rays. We have discussed with other team physicians. Previous external records were reviewed in detail. We have reviewed the dialysis records and we have discussed with other team physician. We will continue monitoring. The patient's condition is critical and guarded. I thank you for this patient and for letting me to participate in the care of this patient. TID: [id number] RECEIPT: [id number]
--- NOTE | 2024-05-22 10:26 | HMCIMG ---
MR FOOT LEFT WO REASON: left great toe osteomyelitis COMPARISON: X-ray of 05/21/2024 TECHNIQUE: Routine imaging protocol was performed in the sagittal, axial and coronal plane with T1, proton density, T2 and gradient recalled sequences. FINDINGS: There is been amputation of the distal phalanx of first toe. There is a large fluid collection in the deep soft tissues of the first toe, distal to and inferior to the remaining proximal phalanx, findings are compatible with abscess. This collection measures 4 cm proximal to distal inferior to the proximal phalanx. The collection extends to 3 cm superior to inferior. There is normal osseous marrow signal in the remaining proximal phalanx, there is no evidence of osteomyelitis. There is been transmetatarsal amputation of the remaining toes, the metatarsal remnants appear unremarkable. There are no other focal fluid collections. IMPRESSION: 1. Large fluid collection in the deep soft tissues of the first toe consistent with abscess as described above. 2. No evidence of osteomyelitis in the proximal phalanx of the left first toe, the distal phalanx is surgically absent.
[2024-05-22] MEDS ORDERED: morPHINE 2 MG SYG IVP PRN (12:00)
[2024-05-22] MEDS: 0.9%NACL 1000ML 1,000 ML IV SCH (12:00)
--- NOTE | 2024-05-22 12:31 | PN ---
[facility] PROGRESS NOTE Date of Service: May 22, 2024 Time of Service: 12:[address] Rodas SUBJECTIVE: [ 05/21 Mr. Dorsey is a 44-year-old male that was seen and examined today on 05/21/2024. Patient is a good historian of personal health Today in the emergency department WBCs 12.5, left shift neutrophils 81.7%, BUN 39, creatinine 6.0, GFR 11, lactic acid 2.0, urinalysis unremarkable, chest x- ray unremarkable, left foot x-ray shows previous septations, soft tissue swelling. Emergency room physician recommended that patient be admitted with a diagnosis of left foot cellulitis. Additionally patient arrived with a temper ature of 101.5, heart rate 133, an identified source of infection being left foot meeting clinical sepsis criteria. 05/22 patient was seen by nurse practitioner and physician during rounding in room 317. Patient was evaluated by Dr. Hanson and was culture the wound today and applied Betadine ointment dressing to the left great toe. Patient we will continue to be on vancomycin and Zosyn. Patient also underwent MRI of the left foot as requested by Dr. Hanson for possible osteomyelitis and results showed large fluid collection abscess 1st toe but no osteomyelitis. Patient was also evaluated by pulp and paper tester for ESRD on dialysis. We are pending further recommendations regarding antibiotics from ID.] REVIEW OF SYSTEMS CONSTITUTIONAL: Denies fevers, chills, or night sweats. No unintentional weight loss reported. NEUROLOGICAL: Denies headache, amaurosis fugax, motor weakness, sensory deficit, vertigo/spinning sensation, gait abnormalities, or tremors. ENT: No hearing loss, otalgia, otorrhea, rhinitis, rhinorrhea, hoarseness, or sore throat. CARDIOVASCULAR: Denies any exertional angina, dyspnea on exertion, orthopnea, paroxysmal nocturnal dyspnea, palpitations, life-threatening arrhythmias, claudication. PULMONARY: Denies any shortness of breath, cough, phlegm/sputum, hemoptysis, pleuritic chest pain. SLEEP: Denies morning headaches, daytime somnolence or napping. Denies difficulty falling asleep, staying asleep, waking from sleep. Denies knowledge of snoring. GASTROINTESTINAL: Denies any type of dysphagia to either liquids or solids. Denies nausea, vomiting, pyrosis, early satiety, abdominal pain, diarrhea, constipation, or changes in stool consistency or caliber. Denies coffee-ground emesis, hematemesis, hematochezia, or melanotic stools. GENITOURINARY: Denies frequency, urgency, nocturia, hematuria or incontinence (Storage/Irritative symptoms.) Low urinary stream, straining to void, urinary intermittency or hesitancy, splitting of the voiding stream, terminal dribbling. ENDOCRINOLOGIC: Denies polyuria, polydipsia, polyphagia or heat/cold intolerances. HEMATOLOGIC: Denies thrombophilia/previous clots, or coagulopathy/bleeding disorders. ONCOLOGIC: Denies personal history of malignancy. DERMATOLOGIC: Denies rashes or pruritus. Left great toe wound PSYCHIATRIC: Denies any suicidal or homicidal ideation. Denies hallucinations. PHYSICAL EXAM GENERAL APPEARANCE: The patient is awake, alert, and oriented, in no acute cardiopulmonary distress. NEUROLOGICAL: Cranial nerves II-XII grossly intact. Motor is 5/5 in bilateral upper and lower extremities proximal to distal. No sensory deficits. HEENT: Face is symmetric. Pupils are equal and reactive. Extraocular movements are intact. NECK: Supple. No JVD. No thyromegaly. No submental, submandibular, pre- /postauricular, occipital or supraclavicular lymphadenopathy. CHEST: Normal chest expansion. No Telemetry. LUNGS: Absence of any rales, rhonchi or any wheezing. CARDIOVASCULAR: Regular. S1 and S2 normal. No appreciable rubs, murmurs or gallops. ABDOMEN: Soft, nontender, and nondistended. There is no rebound, voluntary guarding, or rigidity. : Deferred. No Herrera. EXTREMITIES: Non-edematous and not cyanotic. No clubbing. Good capillary refill. Left great toe wound SKIN: No skin breakdown. Vital Signs (last 8hr) Date Time Temp Pulse Resp B/P (MAP) Pulse Ox O2 Delivery O2 Flow Rate FiO2 05/22/24 12:00 98.2 88 18 122/76 97 Room Air 21 05/22/24 08:09 98 Room Air* 0 21 05/22/24 08:00 99.0 92 18 127/74 98 Room Air LABS: Laboratory: Test 05/22/24 11:15 05/22/24 04:59 05/21/24 14:29 05/21/24 13:13 Range/Units Whole Blood Glucose 101 70-110 MG/DL White Blood Count 11.6 H 4.8-10.8 K/uL Red Blood Count 3.51 L 4.50-6.20 MIL/uL Hemoglobin 10.4 L 14.0-18.0 g/dL Hematocrit 31.9 L 42-54 % Mean Corpuscular Volume 90.9 79-99 fL Mean Corpuscular Hemoglobin 29.6 27.0-33.0 pg Mean Corpuscular Hemoglobin Concent 32.6 32.0-36.0 g/dL Red Cell Distribution Width 14.6 11.0-15.5 % Platelet Count 206 130-400 K/uL Mean Platelet Volume 8.8 7.5-10.5 fL Immature Granulocyte % (Auto) 0.3 0-1 % Neutrophils (%) (Auto) 71.2 40.0-77.0 % Lymphocytes (%) (Auto) 16.9 L 21.0-51.0 % Monocytes (%) (Auto) 11.1 3.0-13.0 % Eosinophils (%) (Auto) 0.1 0.0-8.0 % Basophils (%) (Auto) 0.4 0.0-5.0 % Neutrophils # (Auto) 8.2 H 1.8-7.7 K/uL Lymphocytes # (Auto) 2.0 1.0-4.8 K/uL Monocytes # (Auto) 1.3 H 0.1-1.0 K/uL Eosinophils # (Auto) 0.01 0.00-0.70 K/uL Basophils # (Auto) 0.05 0.00-0.20 K/uL Absolute Immature Granulocyte (auto 0.04 0-1 K/uL Nucleated Red Blood Cells 0.0 0.0-0.19 % Sodium Level 139 136-145 mmol/L Potassium Level 4.4 3.5-5.1 mmol/L Chloride Level 102 101-111 mmol/L Carbon Dioxide Level 31 21-32 mmol/L Blood Urea Nitrogen 55 H 7-18 mg/dL Creatinine 6.7 H 0.5-1.3 mg/dL Glomerular Filtration Rate Calc 10 >90 mL/min Random Glucose 99 70-105 mg/dL Hemoglobin A1c 6.3 H 4.0-6.0 % Estimated Average Glucose (eAG) 134 H 70-126 mg/dL Lactic Acid Level 1.1 0.8-2.5 mmol/L Total Calcium 8.1 L 8.5-10.1 mg/dL Phosphorus Level 4.5 2.5-4.9 mg/dL Magnesium Level 2.20 1.80-2.40 mg/dL Total Bilirubin 0.7 0.2-1.0 mg/dL Aspartate Amino Transf (AST/SGOT) 29 10-37 U/L Alanine Aminotransferase (ALT/SGPT) 58 # 12-78 U/L Alkaline Phosphatase 105 # 50-136 U/L Total Protein 7.3 6.0-8.3 g/dL Albumin 3.1 #L 3.5-5.0 g/dL White Cell Morphology Comment See comments Total Creatine Kinase 57 # 21-232 U/L Troponin I High Sensitivity 6 4-75 ng/L B-Type Natriuretic Peptide 74 0-100 pg/mL Procalcitonin 0.89 H 0.05-0.5 ng/mL Urine Color LIGHT-YELLOW YELLOW Urine Appearance CLEAR CLEAR Urine pH 8.0 5.0-8.0 Urine Specific [place] 1.011 1.001-1.031 Urine Protein 600 H NEGATIVE mg/dL Urine Glucose (UA) NEGATIVE NEGATIVE mg/dL Urine Ketones NEGATIVE NEGATIVE mg/dL Urine Occult Blood SMALL H NEGATIVE Urine Nitrate NEGATIVE NEGATIVE Urine Bilirubin NEGATIVE NEGATIVE mg/dL Urine Urobilinogen 0.2 0.2-1.0 mg/dL Urine Leukocyte Esterase NEGATIVE NEGATIVE Myra/uL Urine RBC 11-25 H 0-1 /HPF Urine WBC 0-1 0-1 /HPF Urine Bacteria None None Seen /HPF Direct Bilirubin 0.1 0.0-0.3 mg/dL Current Medications Medications (Trade) Dose Ordered Sig/Leonel Route PRN Reason Start Time Stop Time Status Last Admin Dose Admin Acetaminophen (TYLenol 325MG TAB) 650 mg Q6H PRN PO TEMPERATURE GREATER THAN 101.5 05/21/24 19:30 06/20/24 19:29 Heparin Sodium (Porcine) (HEParin 5,000 UNIT VIAL) 5,000 unit BID SQ 05/21/24 21:00 06/20/24 20:59 05/22/24 08:09 5,000 UNIT Hydralazine HCl (APRESOLine 20MG INJ) 10 mg Q6H PRN IV For:SBP above 160;DBP above 90 05/21/24 19:30 06/20/24 19:29 Insulin Human Regular (humuLIN R 100 UNIT/ML 3ML) INSULIN SLIDING SCAL... ACHS SQ 05/21/24 21:00 06/20/24 20:59 Morphine Sulfate (morPHINE 2MG SYG) 2 mg Q4H PRN IVP SEVERE PAIN (7-10) 05/22/24 12:00 05/28/24 19:29 Morphine Sulfate (morPHINE 4MG SYG) 2 mg Q4H PRN IVP SEVERE PAIN (7-10) 05/21/24 19:30 05/22/24 11:55 DC Ondansetron HCl (zoFRAN 4MG INJ) 4 mg Q6H PRN IV NAUSEA/VOMITING 05/21/24 19:30 06/20/24 19:29 Piperacillin Sod/ Tazobactam Sod (Zosyn 3.375gm+NS 50ml) 3.375 gm Q12H IV 05/22/24 05:00 06/01/24 04:59 05/22/24 05:13 3.375 GM Sodium Chloride 1,000 ml @ 0 mls/hr ONCE IV 05/22/24 12:00 06/21/24 11:59 Vancomycin HCl (Vancomycin 750mg) 750 mg QMOWEFR[DIALYSIS] IVPB 05/22/24 16:00 06/01/24 15:59 Vancomycin HCl (Vancomycin Protocol) 1 each AD IV 05/21/24 19:30 06/04/24 19:29 DIAGNOSTICS / RADIOLOGY: [ ] ASSESSMENT: [ Acute Sepsis, POA Cellulitis left foot, POA Left foot open wound, POA Leukocytosis POA Uncontrolled diabetes mellitus type 2 with hyperglycemia A1c 6.3 POA Uncontrolled hypertension POA CKD, ESRD on HD Multifactorial anemia POA] PLAN: [ Pending further recommendations/plan of Dr. Hanson ESRD dialysis continues per pulp and paper tester IV antibiotics per ID. Continue vancomycin and Zosyn at this moment. Heparin prophylaxis MRI left foot large fluid collection abscess 1st toe no osteomyelitis Foot x-ray soft tissue swelling possible osteomyelitis Urine culture pending Wound culture pending Blood culture pending ] ATTESTATION BY PHYSICIAN I have seen and examined the patient. I reviewed the documentation, medical decision making, and treatment plan as noted by the mid-level provider above. I agree with the findings and plan of care. Geovanny Rodas IV, MD, KATARZYNA B APRN May 22, 2024 12:30
--- NOTE | 2024-05-22 13:30 | NUR ---
DCP Pt awake, alert, oriented x3 lives with spouse Rosie Back [phone]. Pt has a cane, wheelchair, and receives HD at [facility] [address] shift[address] Hanson for wound care and in the past has had home health with [facility]. Pt also previously was at [facility] for IV Abx, Veranda, and out patient IV with [facility]. For DC plan pt would like to go home with [facility] if needed. Addendum: 05/22/24 at 1335 by LOIDA PATTERSON RN CM Amended: Links added.
[2024-05-22] MEDS: VANCOMYCIN 750MG VIAL IVPB SCH (16:24)
--- NOTE | 2024-05-22 19:48 | NUR ---
CARDIOLOGY CONSULT SPOKE WITH DR. LIM REGARDING NEW CONSULT FOR PATIENT. PER MD, WILL SEE PATIENT FIRST THING IN THE MORNING. PENDING VISIT FROM DR. LIM.
--- NOTE | 2024-05-22 19:54 | NUR ---
RECEIVED CALL FROM CT REGARDING ORDER FOR CT ABDOMEN WITH RUNOFF. PER CT, ORDER SHOULD BE DISCONTINUED UNTIL DR. LIM CAN CONFIRM THAT THE ORDER IS NECESSARY. WILL DISCONTINUE CT ORDER AND WILL WAIT FOR DR. LIM TO CLARIFY IN AM.
--- NOTE | 2024-05-22 20:03 | PN ---
DIALYSIS NOTE SUBJECTIVE: The patient was seen and evaluated on hemodialysis, prescription noted. OBJECTIVE: VITAL SIGNS: Blood pressure 127/74. CARDIOVASCULAR: Regular. LUNGS: Coarse. IMPRESSION: End-stage renal disease. PLAN: The patient will continue with maximal ultrafiltration as blood pressure allows. TID: [id number] RECEIPT: [id number]
[2024-05-23] VITALS (23 sets, daily range): BP systolic 104–157; BP diastolic 61–91; PULSE 80–93; RESP 15–20; TEMP 98–98.4; O2SAT 97
--- NOTE | 2024-05-23 03:25 | CONS ---
INFECTIOUS DISEASE CONSULTATION DATE OF SERVICE: 05/22/2024 REQUESTING PHYSICIAN: Salty Zepeda NP REASON FOR CONSULTATION: Sepsis and left foot abscess. HISTORY OF PRESENT ILLNESS: A 44-year-old male with ESRD, hypertension, diabetes mellitus, who presented to the hospital with fever and left great toe swelling. His symptoms started suddenly with high-grade fever. No history of trauma or fall. T-max in the Emergency Room was 101.5. The patient had MRI done, which showed large fluid collection to the right great toe distal phalanx area. Blood culture so far shows no growth. The patient has been started on vancomycin and Zosyn. The patient actually was in my clinic about a week ago ____ antibiotic for the right foot osteomyelitis. PAST MEDICAL HISTORY: * Hypertension. * Obesity. * Dyslipidemia. * ESRD, on dialysis. * Right foot osteomyelitis. * Left foot osteomyelitis. * Diabetes mellitus. PAST SURGICAL HISTORY: * Right second, third, fourth and fifth toe amputation. * Left second, third, fourth and fifth toe amputation. * AV fistula surgery. * Appendectomy. * Gastric sleeve surgery. ALLERGIES: No known drug allergy. CURRENT MEDICATIONS: Reviewed. SOCIAL HISTORY: No alcohol, tobacco or illicit drug use. FAMILY HISTORY: Positive for diabetes mellitus. REVIEW OF SYSTEMS: CONSTITUTIONAL: Positive for fever, no weight loss or night sweats. EYES: No eye pain, no photophobia or diplopia. HENT: No sore throat, no rhinorrhea or earache. NECK: No neck pain, no neck swelling. RESPIRATORY: No cough, no hemoptysis or pleuritic pain. CARDIOVASCULAR: No chest pain, no palpitation or orthopnea. GASTROINTESTINAL: Denied nausea, vomiting, or abdominal pain. GENITOURINARY: The patient is on dialysis. CENTRAL NERVOUS SYSTEM: No headache, dizziness, or slurred. PSYCHIATRY: No depression. No suicidal ideation. EXTREMITIES: Positive for left great toe swelling. PHYSICAL EXAMINATION: VITAL SIGNS: Temperature 98.2, pulse 60, respiratory rate 18, BP 122/76. EYES: No icterus. Pupils are equal and reactive. HENT: No oral thrush seen. Moist oral mucosa. NECK: Supple, no JVD or thyromegaly. LUNGS: Good air entry. No rales, no rhonchi. CARDIOVASCULAR: S1, S2 regular. No murmur heard. ABDOMEN: Obese, soft, nontender. Bowel sounds are present. CENTRAL NERVOUS SYSTEM: Awake, alert, oriented x 3. No focal deficits. SKIN: No rashes, no itchiness. LYMPHATIC: There is bilateral inguinal lymphadenopathy. BACK: No deformity, no pressure ulcer. EXTREMITIES: Ulcer involving plantar aspect of the left great toe joints involving the distal phalanx of the left great toe. LABORATORY DATA: Sodium 139, potassium 4.4, BUN 55, creatinine 6.7. WBC 11.0, hemoglobin 10.4, platelets 206. Blood culture, no growth for one day. RADIOLOGY: MRI of the left foot shows fluid collection involving the left great toe. ASSESSMENT: A 44-year-old male presenting with fever and chills. Current problems include: * Sepsis. * Left great toe abscess. * Diabetic foot ulcer. * End-stage renal disease, on dialysis. * Morbid obesity. * Debility. PLAN: * Continue vancomycin. * Continue Zosyn. * Continue wound care. * Continue pain management. * The patient will need surgical intervention, incision and drainage of abscess. * Continue nutritional support. * Monitor electrolytes. * The patient will follow up closely. Thank you for allowing me to participate in the care of this patient. TID: [id number] RECEIPT: [id number]
[2024-05-23 04:25] LABS: HEPATITIS B CORE AB TOTAL Non-Reactive (Nonreactive); HEPATITIS B SURFACE ANTIBODY Negative (Reactive); HEPATITIS B SURFACE ANTIGEN Non-Reactive (Nonreactive); HEPATITIS C ANTIBODY Non-Reactive (Nonreactive)
[2024-05-23 05:44] LABS: BASOPHILS # (AUTO) 0.05 K/uL (0.00-0.20); BASOPHILS % (AUTO) 0.6 % (0.0-5.0); EOSINOPHILS # (AUTO) 0.08 K/uL (0.00-0.70); EOSINOPHILS % (AUTO) 0.9 % (0.0-8.0); HEMATOCRIT 33.6 % (42-54); IMMATURE GRANULOCYTE ABSOLUTE 0.03 K/uL (0-1); LYMPHOCYTES # (AUTO) 1.7 K/uL (1.0-4.8); LYMPHOCYTES % (AUTO) 18.9 % (21.0-51.0); MEAN CORPUSCULAR HEMOGLOBIN 29.8 pg (27.0-33.0); MEAN CORPUSCULAR HGB CONC 32.7 g/dL (32.0-36.0); MEAN CORPUSCULAR VOLUME 91.1 fL (79-99); MONOCYTES # (AUTO) 0.9 K/uL (0.1-1.0); MONOCYTES % (AUTO) 9.8 % (3.0-13.0); NEUTROPHILS # (AUTO) 6.1 K/uL (1.8-7.7); NEUTROPHILS % (AUTO) 69.5 % (40.0-77.0); PLATELET COUNT (AUTO) 223 K/uL (130-400); RED BLOOD CELL COUNT(AUTO) 3.69 MIL/uL (4.50-6.20); RED CELL DISTRIBUTION WIDTH 14.5 % (11.0-15.5); WHITE BLOOD COUNT (AUTO) 8.8 K/uL (4.8-10.8)
[2024-05-23 06:10] LABS: BILIRUBIN,TOTAL 0.6 mg/dL (0.2-1.0); CREATININE 5.8 mg/dL (0.5-1.3); MAGNESIUM 2.2 mg/dL (1.80-2.40); PHOSPHORUS 5.5 mg/dL (2.5-4.9); POTASSIUM 4.1 mmol/L (3.5-5.1); TOTAL PROTEIN, SERUM 7.7 g/dL (6.0-8.3)
--- NOTE | 2024-05-23 06:43 | PN ---
SUBJECTIVE: The patient is a very pleasant 44-year-old diabetic, [place] male followed up for an infected diabetic ulcer to his left first ray area. He is currently afebrile at 98.2, pulse 89, respirations 20, blood pressure 117/76. He has a white count that is 8.8. He has an H and H of 11 and 33.6. The patient had an MRI of the left foot. Results of the MRI were negative for osteomyelitis. There was noted to be a large fluid collection deep soft tissue of the first toe consistent with abscess, it measuring 4 x 3 cm. There was no evidence of osteomyelitis to the remaining proximal phalanx of the left first ray and the distal phalanx was noted to be surgically absent from a previous surgical intervention. The patient is currently receiving IV vancomycin and IV Zosyn. He has end-stage renal disease, currently receives hemodialysis Monday, Monday, and Fridays. He has a hemoglobin A1c of 6.3. REVIEW OF SYSTEMS: CONSTITUTIONAL: No chills, no fevers, no night sweats, no nausea, vomiting, no diarrhea. Pain to the left great toe. HEENT: No problems with his eyes, ears, nose or throat. CARDIOVASCULAR: No chest pain. RESPIRATORY: No shortness of breath. GENITOURINARY: End-stage renal disease, receives hemodialysis Monday, Monday and Monday. PSYCHIATRIC: Denied any depression. MUSCULOSKELETAL: He has had previous ray amputations 2 through 5 bilaterally. INTEGUMENT: He has an ulceration to the plantar aspect of the left great toe, it is measuring approximately 12 x 12 x 1-2 mm. There is no expressible purulence. There is edema, erythema, and cellulitis to the toe. PHYSICAL EXAMINATION: His examination today shows palpable pedal pulses, absent protective sensation. Healed first partial toe amputation on the right, ulcer to the plantar amputation stump of the great toe on the left, edema, erythema, and cellulitis. ASSESSMENT: Infected left great toe amputation stump with MRI suggesting abscess. The patient is receiving vancomycin and Zosyn. The patient is currently afebrile and his white count is within normal limits. PLAN: I discussed the condition with the patient. My Plan is to take the patient to surgery today for debridement of an infected ulcer, abscess to the right great toe. We consented the patient for cutting the skin, soft tissue and bone with removal of infected tissue to the left great toe with local anesthesia with monitored anesthesia care. The patient had the opportunity to ask questions, all questions were answered. No guarantees for healing were given. Plan on doing surgery today. We will make him n.p.o. starting now. We will get a serum potassium level on this patient. I will discuss timing of the surgery with the surgical department. I reviewed the surgery with the patient, the risks, benefits, and the postoperative course. The patient will be n.p.o. starting now. TID: [id number] RECEIPT: [id number]
--- NOTE | 2024-05-23 08:23 | CONS ---
[facility] CARDIOLOGY CONSULTATION NOTE Date Patient Seen: May 23, 2024 Time of Visit: 08:10 Reason for Consultation: [PAD ] History of Present Illness: [ 44-year-old male with a past medical history of hypertension, ESRD on HD ( M-W-F) , diabetic foot ulcer s/p bilateral TMA, hyperlipidemia, h/o subacute endocarditis (s/p IV abx) who presented to [facility] for LLE great toe ulcer. . The patient came with left foot wound which he states began aprox 1 week prior. Pt was admitted where MRI revealed soft tissue abscess with no evidence of osteomyelitis. Pt was being assessed in Cardiology clinic and was pending Abd Aortogram with b/l LE run off. He was now admitted with left foot cellulitis and was started on broad spectrum IV abx. Cardiology was consulted to assess for PAD. Past Medical History: [Refer to chart ] Past Surgical History: [Refer to HPI ] Family History: [Refer to HPI ] Social History: [Refer to HPI ] Habits: [Never] smoker. [Denies] alcohol consumption. [Denies] illicit drug use Review of Systems: A review of 12 point systems was negative set per HPI . Physical Examination: GENERAL: [No acute distress.] HEAD: [Normal with no signs of head trauma.] EYES: [PERRLA, EOMI, conjunctiva and sclera normal.] ENT: [Hearing grossly intact, normal oropharynx.] NECK: [Supple without JVD. There is no tenderness, lymphadenopathy, or masses. No thyromegaly. Normal carotid upstrokes without bruits.] LUNGS: [Clear breath sounds bilaterally. No wheezes, or rhonchi.] HEART: [Normal rate and rhythm. Normal S1 and S2 without murmurs, gallop or rub.] VASC: [Peripheral pulses diminished in the LE bilaterally.] ABD: [Bowel sounds normal, soft, nontender, no masses, no organomegaly. No audible bruits.] : [Not examined] LYMPH: [No lymphadenopathy noted.] EXT: [He has an ulceration to the plantar aspect of the left great toe, it is measuring approximately 12 x 12 x 1-2 mm. ] SKIN: [No rashes or lesions noted.] NEURO: [Awake, alert, and oriented x3. No focal sensory or strength deficits noted.] Vital Signs (last 8hr) Date Time Temp Pulse Resp B/P (MAP) Pulse Ox O2 Delivery O2 Flow Rate FiO2 05/23/24 03:33 98.2 89 20 117/76 98 Room Air Laboratory: [ ] Hematology Labs: Test 05/23/24 05:26 05/21/24 14:29 Range/Units White Blood Count 8.8 4.8-10.8 K/uL Red Blood Count 3.69 L 4.50-6.20 MIL/uL Hemoglobin 11.0 L 14.0-18.0 g/dL Hematocrit 33.6 L 42-54 % Mean Corpuscular Volume 91.1 79-99 fL Mean Corpuscular Hemoglobin 29.8 27.0-33.0 pg Mean Corpuscular Hemoglobin Concent 32.7 32.0-36.0 g/dL Red Cell Distribution Width 14.5 11.0-15.5 % Platelet Count 223 130-400 K/uL Mean Platelet Volume 9.0 7.5-10.5 fL Immature Granulocyte % (Auto) 0.3 0-1 % Neutrophils (%) (Auto) 69.5 40.0-77.0 % Lymphocytes (%) (Auto) 18.9 L 21.0-51.0 % Monocytes (%) (Auto) 9.8 3.0-13.0 % Eosinophils (%) (Auto) 0.9 0.0-8.0 % Basophils (%) (Auto) 0.6 0.0-5.0 % Neutrophils # (Auto) 6.1 1.8-7.7 K/uL Lymphocytes # (Auto) 1.7 1.0-4.8 K/uL Monocytes # (Auto) 0.9 0.1-1.0 K/uL Eosinophils # (Auto) 0.08 0.00-0.70 K/uL Basophils # (Auto) 0.05 0.00-0.20 K/uL Absolute Immature Granulocyte (auto 0.03 0-1 K/uL Nucleated Red Blood Cells 0.0 0.0-0.19 % White Cell Morphology Comment See comments Chemistry Labs: Test 05/23/24 06:35 05/23/24 05:26 05/22/24 19:18 05/22/24 04:59 Range/Units Potassium Level 4.2 3.5-5.1 mmol/L Sodium Level 139 136-145 mmol/L Chloride Level 100 L 101-111 mmol/L Carbon Dioxide Level 28 21-32 mmol/L Blood Urea Nitrogen 51 H 7-18 mg/dL Creatinine 5.8 H 0.5-1.3 mg/dL Glomerular Filtration Rate Calc 12 >90 mL/min Random Glucose 107 H 70-105 mg/dL Total Calcium 8.6 8.5-10.1 mg/dL Phosphorus Level 5.5 H 2.5-4.9 mg/dL Magnesium Level 2.20 1.80-2.40 mg/dL Total Bilirubin 0.6 0.2-1.0 mg/dL Aspartate Amino Transf (AST/SGOT) 30 10-37 U/L Alanine Aminotransferase (ALT/SGPT) 47 12-78 U/L Alkaline Phosphatase 103 50-136 U/L Total Protein 7.7 6.0-8.3 g/dL Albumin 3.0 L 3.5-5.0 g/dL Whole Blood Glucose 132 H 70-110 MG/DL Hemoglobin A1c 6.3 H 4.0-6.0 % Estimated Average Glucose (eAG) 134 H 70-126 mg/dL Lactic Acid Level 1.1 0.8-2.5 mmol/L Test 05/21/24 14:29 05/21/24 13:13 Range/Units Total Creatine Kinase 57 # 21-232 U/L Troponin I High Sensitivity 6 4-75 ng/L B-Type Natriuretic Peptide 74 0-100 pg/mL Procalcitonin 0.89 H 0.05-0.5 ng/mL Direct Bilirubin 0.1 0.0-0.3 mg/dL Diagnostics / Radiology: [Copy/Paste Echos/Imaging Report here] Assessment: [Left foot wound , possible osteomyelitis and sepsis Type 2 Diabetes mellitus PAD Hypertension ] Plan: [# PAD The patient was endorsing ongoing claudication suspicious for PAD] He presented to ED with left toe ulcer and sepsis and was started on broad spectrum IV abx and Podiatry has been following Foot MRI Large fluid collection in the deep soft tissues of the first toe consistent with abscess as described above. No evidence of osteomyelitis in the proximal phalanx of the left first toe We will order Abdominal CT with lower extremity runoff to further assess his anatomy. Continue IV antibiotics and wound care. Pt is pending possible I&D Thank you for this consult cardiology will continue to follow along Sameer Conroy MD ATTESTATION BY PHYSICIAN I have seen and examined the patient, reviewed the above documentation, participated in medical decision making, made necessary modifications, and agree with the treatment plan as documented by my mid-level provider above. MD RAPHAEL Waite JAMES R MD May 23, 2024 08:23
--- NOTE | 2024-05-23 09:30 | NUR ---
CT ON HOLD WAITING ON UPDATE FROM NURSE. VERIFY ORDERS, CONSENT, DIALYSIS DATE NEEDED, GFR 12
--- NOTE | 2024-05-23 11:30 | NUR ---
BLOOD GLUCOSE 97. NO INSULIN COVERAGE NEEDED AT THIS TIME.
--- NOTE | 2024-05-23 12:38 | PN ---
[facility] PROGRESS NOTE Date of Service: May 23, 2024 Time of Service: 12:[address] Rodas SUBJECTIVE: [ 05/21 Mr. Dorsey is a 44-year-old male that was seen and examined today on 05/21/2024. Patient is a good historian of personal health Today in the emergency department WBCs 12.5, left shift neutrophils 81.7%, BUN 39, creatinine 6.0, GFR 11, lactic acid 2.0, urinalysis unremarkable, chest x- ray unremarkable, left foot x-ray shows previous septations, soft tissue swelling. Emergency room physician recommended that patient be admitted with a diagnosis of left foot cellulitis. Additionally patient arrived with a temper ature of 101.5, heart rate 133, an identified source of infection being left foot meeting clinical sepsis criteria. 05/22 patient was seen by nurse practitioner and physician during rounding in room 317. Patient was evaluated by Dr. Hanson and was culture the wound today and applied Betadine ointment dressing to the left great toe. Patient we will continue to be on vancomycin and Zosyn. Patient also underwent MRI of the left foot as requested by Dr. Hanson for possible osteomyelitis and results showed large fluid collection abscess 1st toe but no osteomyelitis. Patient was also evaluated by process improvement consultant for ESRD on dialysis. We are pending further recommendations regarding antibiotics from ID. 05/23 patient was seen by nurse practitioner physician during rounding in room 317. Patient is pending debridement of infected ulcer, removal of the abscess and possible scraping of the bone by Dr. Bello today 05/23/2024. Patient was also evaluated by the endoscopy technician and is pending CT abdomen runoff. Final urine culture negative. Wound culture is growing Streptococcus Pyogenes group A. I aerobic and anaerobic culture still is preliminary. We are still pending final blood culture. Patient continues to be on vancomycin and Zosyn at this moment. We will continue to monitor patient. A.m. labs.] REVIEW OF SYSTEMS CONSTITUTIONAL: Denies fevers, chills, or night sweats. No unintentional weight loss reported. NEUROLOGICAL: Denies headache, amaurosis fugax, motor weakness, sensory deficit, vertigo/spinning sensation, gait abnormalities, or tremors. ENT: No hearing loss, otalgia, otorrhea, rhinitis, rhinorrhea, hoarseness, or sore throat. CARDIOVASCULAR: Denies any exertional angina, dyspnea on exertion, orthopnea, paroxysmal nocturnal dyspnea, palpitations, life-threatening arrhythmias, claudication. PULMONARY: Denies any shortness of breath, cough, phlegm/sputum, hemoptysis, pleuritic chest pain. SLEEP: Denies morning headaches, daytime somnolence or napping. Denies difficulty falling asleep, staying asleep, waking from sleep. Denies knowledge of snoring. GASTROINTESTINAL: Denies any type of dysphagia to either liquids or solids. Denies nausea, vomiting, pyrosis, early satiety, abdominal pain, diarrhea, constipation, or changes in stool consistency or caliber. Denies coffee-ground emesis, hematemesis, hematochezia, or melanotic stools. GENITOURINARY: Denies frequency, urgency, nocturia, hematuria or incontinence (Storage/Irritative symptoms.) Low urinary stream, straining to void, urinary intermittency or hesitancy, splitting of the voiding stream, terminal dribbling. ENDOCRINOLOGIC: Denies polyuria, polydipsia, polyphagia or heat/cold intolerances. HEMATOLOGIC: Denies thrombophilia/previous clots, or coagulopathy/bleeding disorders. ONCOLOGIC: Denies personal history of malignancy. DERMATOLOGIC: Denies rashes or pruritus. Left great toe wound PSYCHIATRIC: Denies any suicidal or homicidal ideation. Denies hallucinations. PHYSICAL EXAM GENERAL APPEARANCE: The patient is awake, alert, and oriented, in no acute cardiopulmonary distress. NEUROLOGICAL: Cranial nerves II-XII grossly intact. Motor is 5/5 in bilateral upper and lower extremities proximal to distal. No sensory deficits. HEENT: Face is symmetric. Pupils are equal and reactive. Extraocular movements are intact. NECK: Supple. No JVD. No thyromegaly. No submental, submandibular, pre- /postauricular, occipital or supraclavicular lymphadenopathy. CHEST: Normal chest expansion. No Telemetry. LUNGS: Absence of any rales, rhonchi or any wheezing. CARDIOVASCULAR: Regular. S1 and S2 normal. No appreciable rubs, murmurs or gallops. ABDOMEN: Soft, nontender, and nondistended. There is no rebound, voluntary guarding, or rigidity. : Deferred. No Herrera. EXTREMITIES: Non-edematous and not cyanotic. No clubbing. Good capillary refill. Left great toe wound SKIN: No skin breakdown. Vital Signs (last 8hr) Date Time Temp Pulse Resp B/P (MAP) Pulse Ox O2 Delivery O2 Flow Rate FiO2 05/23/24 12:00 98.2 87 18 131/79 99 Room Air 21 05/23/24 08:00 98.2 89 18 122/75 98 Room Air 21 LABS: Laboratory: Test 05/23/24 10:56 05/23/24 06:35 05/23/24 05:26 05/22/24 14:24 Range/Units Whole Blood Glucose 97 70-110 MG/DL Potassium Level 4.2 3.5-5.1 mmol/L White Blood Count 8.8 4.8-10.8 K/uL Red Blood Count 3.69 L 4.50-6.20 MIL/uL Hemoglobin 11.0 L 14.0-18.0 g/dL Hematocrit 33.6 L 42-54 % Mean Corpuscular Volume 91.1 79-99 fL Mean Corpuscular Hemoglobin 29.8 27.0-33.0 pg Mean Corpuscular Hemoglobin Concent 32.7 32.0-36.0 g/dL Red Cell Distribution Width 14.5 11.0-15.5 % Platelet Count 223 130-400 K/uL Mean Platelet Volume 9.0 7.5-10.5 fL Immature Granulocyte % (Auto) 0.3 0-1 % Neutrophils (%) (Auto) 69.5 40.0-77.0 % Lymphocytes (%) (Auto) 18.9 L 21.0-51.0 % Monocytes (%) (Auto) 9.8 3.0-13.0 % Eosinophils (%) (Auto) 0.9 0.0-8.0 % Basophils (%) (Auto) 0.6 0.0-5.0 % Neutrophils # (Auto) 6.1 1.8-7.7 K/uL Lymphocytes # (Auto) 1.7 1.0-4.8 K/uL Monocytes # (Auto) 0.9 0.1-1.0 K/uL Eosinophils # (Auto) 0.08 0.00-0.70 K/uL Basophils # (Auto) 0.05 0.00-0.20 K/uL Absolute Immature Granulocyte (auto 0.03 0-1 K/uL Nucleated Red Blood Cells 0.0 0.0-0.19 % Sodium Level 139 136-145 mmol/L Chloride Level 100 L 101-111 mmol/L Carbon Dioxide Level 28 21-32 mmol/L Blood Urea Nitrogen 51 H 7-18 mg/dL Creatinine 5.8 H 0.5-1.3 mg/dL Glomerular Filtration Rate Calc 12 >90 mL/min Random Glucose 107 H 70-105 mg/dL Total Calcium 8.6 8.5-10.1 mg/dL Phosphorus Level 5.5 H 2.5-4.9 mg/dL Magnesium Level 2.20 1.80-2.40 mg/dL Total Bilirubin 0.6 0.2-1.0 mg/dL Aspartate Amino Transf (AST/SGOT) 30 10-37 U/L Alanine Aminotransferase (ALT/SGPT) 47 12-78 U/L Alkaline Phosphatase 103 50-136 U/L Total Protein 7.7 6.0-8.3 g/dL Albumin 3.0 L 3.5-5.0 g/dL Hepatitis B Surface Antigen. Non-Reactive Nonreactive Hepatitis B Surface Antibody. Negative L Reactive Hepatitis B Core Total Antibody. Non-Reactive Nonreactive Hepatitis C Antibody Non-Reactive Nonreactive Test 05/22/24 04:59 05/21/24 14:29 05/21/24 13:13 Range/Units Hemoglobin A1c 6.3 H 4.0-6.0 % Estimated Average Glucose (eAG) 134 H 70-126 mg/dL Lactic Acid Level 1.1 0.8-2.5 mmol/L White Cell Morphology Comment See comments Total Creatine Kinase 57 # 21-232 U/L Troponin I High Sensitivity 6 4-75 ng/L B-Type Natriuretic Peptide 74 0-100 pg/mL Procalcitonin 0.89 H 0.05-0.5 ng/mL Urine Color LIGHT-YELLOW YELLOW Urine Appearance CLEAR CLEAR Urine pH 8.0 5.0-8.0 Urine Specific [place] 1.011 1.001-1.031 Urine Protein 600 H NEGATIVE mg/dL Urine Glucose (UA) NEGATIVE NEGATIVE mg/dL Urine Ketones NEGATIVE NEGATIVE mg/dL Urine Occult Blood SMALL H NEGATIVE Urine Nitrate NEGATIVE NEGATIVE Urine Bilirubin NEGATIVE NEGATIVE mg/dL Urine Urobilinogen 0.2 0.2-1.0 mg/dL Urine Leukocyte Esterase NEGATIVE NEGATIVE Myra/uL Urine RBC 11-25 H 0-1 /HPF Urine WBC 0-1 0-1 /HPF Urine Bacteria None None Seen /HPF Direct Bilirubin 0.1 0.0-0.3 mg/dL Current Medications Medications (Trade) Dose Ordered Sig/Leonel Route PRN Reason Start Time Stop Time Status Last Admin Dose Admin Acetaminophen (TYLenol 325MG TAB) 650 mg Q6H PRN PO TEMPERATURE GREATER THAN 101.5 05/21/24 19:30 06/20/24 19:29 Heparin Sodium (Porcine) (HEParin 5,000 UNIT VIAL) 5,000 unit BID SQ 05/21/24 21:00 06/20/24 20:59 05/22/24 20:49 5,000 UNIT Home Med (Home Medication) Sucroferric Oxyhydroxide (Velpho... TIDMEALS PO 05/23/24 17:00 06/22/24 16:59 Hydralazine HCl (APRESOLine 20MG INJ) 10 mg Q6H PRN IV For:SBP above 160;DBP above 90 05/21/24 19:30 06/20/24 19:29 Insulin Human Regular (humuLIN R 100 UNIT/ML 3ML) INSULIN SLIDING SCAL... ACHS SQ 05/21/24 21:00 06/20/24 20:59 Morphine Sulfate (morPHINE 2MG SYG) 2 mg Q4H PRN IVP SEVERE PAIN (7-10) 05/22/24 12:00 05/28/24 19:29 Morphine Sulfate (morPHINE 4MG SYG) 2 mg Q4H PRN IVP SEVERE PAIN (7-10) 05/21/24 19:30 05/22/24 11:55 DC Ondansetron HCl (zoFRAN 4MG INJ) 4 mg Q6H PRN IV NAUSEA/VOMITING 05/21/24 19:30 06/20/24 19:29 Piperacillin Sod/ Tazobactam Sod (Zosyn 3.375gm+NS 50ml) 3.375 gm Q12H IV 05/22/24 05:00 06/01/24 04:59 05/23/24 05:06 3.375 GM Sodium Chloride 1,000 ml @ 0 mls/hr ONCE IV 05/22/24 12:00 06/21/24 11:59 Vancomycin HCl (Vancomycin 750mg) 750 mg QMOWEFR[DIALYSIS] IVPB 05/22/24 16:00 06/01/24 15:59 05/22/24 16:24 750 MG Vancomycin HCl (Vancomycin Protocol) 1 each AD IV 05/21/24 19:30 06/04/24 19:29 DIAGNOSTICS / RADIOLOGY: [ ] ASSESSMENT: [ Acute Sepsis, POA Cellulitis left foot, POA Left foot open wound, POA Wound culture Streptococcus Pyogenes Group A Leukocytosis POA Uncontrolled diabetes mellitus type 2 with hyperglycemia A1c 6.3 POA Uncontrolled hypertension POA CKD, ESRD on HD Multifactorial anemia POA] PLAN: [Patient pending debridement of infected ulcer, removal of abscess, scribing bone by Dr. Hanson today 05/23/2024 ESRD dialysis continues per process improvement consultant IV antibiotics per ID. Continue vancomycin and Zosyn at this moment. Heparin prophylaxis MRI left foot large fluid collection abscess 1st toe no osteomyelitis Foot x-ray soft tissue swelling possible osteomyelitis Urine culture pending Wound culture Streptococcus Pyogenes Group A Blood culture pending ] ATTESTATION BY PHYSICIAN I have seen and examined the patient. I reviewed the documentation, medical decision making, and treatment plan as noted by the mid-level provider above. I agree with the findings and plan of care. Geovanny Rodas IV, MD, KATARZYNA B CREDIT ASSOCIATE May 23, 2024 12:38
[2024-05-23] MEDS ORDERED: proPOFol 10 MG/ML 20ML VIAL IV ONE ×2 (12:55→14:50)
[2024-05-23] MEDS ORDERED: FENTanyl CITRate PF 50 MCG/1 ML 2ML VIAL ONE (12:55)
[2024-05-23] MEDS ORDERED: MIDAZOLAM HCL 1 MG/ML 2ML VIAL ONE (12:55)
[2024-05-23] MEDS ORDERED: BUPIvacaine/PF 0.5% 30ML VIAL ONE (14:39)
[2024-05-23] MEDS ORDERED: LIDOCAINE HCL 400MG/20ML VIAL ONE (14:39)
[2024-05-23] MEDS: BUPIvacaine/PF 0.5% 30ML VIAL INJ ONE (14:43)
--- NOTE | 2024-05-23 16:15 | NUR ---
Post op Patient back in room from PACU, no complaints of pain or s/sx distress. Advanced diet and orders entered per Dr. Hanson for pt and diet.
--- NOTE | 2024-05-23 16:20 | NUR ---
MRS. GIL SNUFF BOX FINISHER NURSE ASSESSED PATIENT POST SURGERY DUE TO ME BEING ATTENDING A RAPID RESPONSE. PATIENT ALERT, ORIENTED IN PERSON, TIME AND PLACE. NO SIGNS OF RESPIRATORY DISTRESS NOTED. VITAL SIGNS BETWEEN NORMAL STANDARD PARAMETERS. POST OP VITAL SIGNS TAKEN AND MONITORED PER HOSPITAL REGULATIONS AND PROTOCOL.
--- NOTE | 2024-05-23 16:30 | NUR ---
BLOOD GLUCOSE 80. NO INSULIN COVERAGE NEEDED AT THIS TIME.
[2024-05-23] MEDS: Sucroferric Oxyhydroxide (Velphoro) 1,000 MG PO SCH (17:00)
--- NOTE | 2024-05-23 17:00 | NUR ---
Assumed care of patient. Patient aox4, on post op vital sign monitoring. No complaints of pain. No s/sx distress.
--- NOTE | 2024-05-23 17:02 | OP ---
DATE OF PROCEDURE: 05/23/2024 SURGEON: Haris Hanson MD MANAGER POWER: None. PREOPERATIVE DIAGNOSES: Infected diabetic left great toe ulcer with abscess. MRI negative for osteomyelitis. POSTOPERATIVE DIAGNOSES: Infected diabetic left great toe ulcer with abscess. MRI negative for osteomyelitis. PROCEDURE: Debridement of skin, subcutaneous tissues, and tendon, left foot plantar great toe. ANESTHESIA: Local with monitored anesthesia care and intravenous sedation. INJECTABLES: 30 mL of 50:50 mix of 1% lidocaine plain and 0.5% Marcaine plain. CULTURES: Deep soft tissue, aerobic and anaerobic culture, sensitivity and Gram stain. MATERIALS: Quarter-inch Jay drain, Betadine Adaptic, Betadine 4 x 4's, dry 4 x 4's, ABDs, Kerlix, and Min. DISPOSITION: The patient tolerated anesthesia and procedure well and left the operating room in stable condition. Capillary refill intact to bilateral great toes. INDICATIONS FOR SURGERY: The patient is a very pleasant 44-year-old diabetic, male who has presented with an ulcer, abscess, cellulitis to the left great toe, previously had an amputation of digits 2 through 5 bilaterally that have healed. The patient had an MRI, which is positive for abscess and negative for osteomyelitis to the left great toe. At this point, it was deemed necessary to take the patient to Surgery for incision, drainage, and debridement of infected tissue, skin, subcutaneous tissues, tendon to the left foot. DESCRIPTION OF PROCEDURE: The patient was brought into the operating room, placed on the operating room table in usual supine position. After induction of monitored anesthesia care, local block was given with 30 mL of 50:50 mix of 1% lidocaine plain and 0.5% Marcaine plain. The patient was then prepped, draped, and scrubbed in the usual sterile manner. Left foot was evaluated. There were found to be 2 plantar ulcerations to the toe; one 12 x 12 x 1 mm and one adjacent 3 x 3 x 1 mm. A linear oblique elliptical incision was made in the plantar aspect of the left great toe 6 cm in length encompassing the plantar ulceration. The incision was deepened down to skin and subcutaneous tissues. There was noted to be extensive liquefaction as well as hemorrhagic necrosis of the subcutaneous tissues in the area, and then with the use of a 15 scalpel, a forceps, and a rongeur, I performed a sharp excisional debridement. I debrided slough and fibrin, necrotic fibrin, dysvascular-appearing skin and subcutaneous tissue, and tendon in an area that measured 6 x 2 cm for a total area of sharp excisional debridement of 12 cm2. I debrided skin, subcutaneous tissues, tendon down to and including the level of the tendon, plantar aspect of the left great toe. It was an extensive sharp debridement with a 15 scalpel blade, forceps, and a rongeur. Wound margins were inspected and there was found to be no exposed bone. No further liquefaction or hemorrhagic necrosis of the subcutaneous tissues. Wound was copiously flushed with the Pulsavac lavage. Hemostasis obtained with use of the Bovie. Wound closed with 2-0 nylon horizontal running continuous stitch, and the subcutaneous tissues were closed with 2-0 Vicryl horizontal mattress sutures. A dressing of Betadine Adaptic, Betadine 4 x 4's, dry 4 x 4's, ABDs, Kerlix, and an Min bandage was applied. A 15 cm [place] drain was placed in the incision site for drainage. The patient left the operating room in stable condition, tolerated the anesthesia and procedure well, had no complications. TID: [id number] RECEIPT: [id number]
--- NOTE | 2024-05-23 22:52 | PN ---
INFECTIOUS DISEASE PROGRESS NOTE Date of Service: May 23, 2024 SUBJECTIVE: Patient was seen and examined at bedside in room 317. Patient is awake, alert and oriented x 3. No fever this morning, temperature is 98.2 and the WBC trended down to 8.8. During rounding today patient was scheduled for an I&D of the left foot ulcer with abscess. The left foot wound cultures growing Streptococcus pyogenes group A. We will continue vancomycin and Zosyn. Patient was dialyzed yesterday and 1.9 L was removed. We will continue to monitor patient. PHYSICAL EXAM EYES: Anicteric. Pupils equal and reactive. HENT: No oral thrush seen, moist Oral mucosa NECK: Supple, no JVD or thyromegaly. LUNGS: Good air entry. No rales, no rhonchi. CARDIOVASCULAR: S1, S2 regular. No murmur heard. ABDOMEN: Soft, non tender, bowel sounds present, no organomegaly CENTRAL NERVOUS SYSTEM: Awake, alert, oriented x 3. No focal deficits. SKIN: No rashes, no swelling. LYMPHATICS: No peripheral lymphadenopathy MUSCULOSKELETAL: No joint swelling, erythema or tenderness. EXTREMITIES: No cyanosis or clubbing BACK: No deformity, no pressure ulcer. GENITOURINARY: No dysuria or hematuria Vital Sign (Last 12 Hours) 05/23/24 05/23/24 05/23/24 05/23/24 12:00 15:35 15:40 15:45 Temp 98.2 98.1 Pulse 87 91 90 89 Resp 18 15 20 16 B/P (MAP) 131/79 104/71 106/74 117/73 Pulse Ox 99 95 96 96 O2 Delivery Room Air Room Air Room Air Room Air FiO2 21 05/23/24 05/23/24 05/23/24 05/23/24 15:50 15:55 16:00 16:05 Temp 98.4 Pulse 86 88 84 85 Resp 18 20 16 15 B/P (MAP) 116/72 119/77 119/77 119/77 Pulse Ox 96 95 96 96 O2 Delivery Room Air Room Air Room Air Room Air 05/23/24 05/23/24 05/23/24 05/23/24 16:11 16:26 16:41 16:56 Temp 98.1 Pulse 87 80 85 86 Resp 18 B/P (MAP) 120/65 131/61 130/78 141/91 Pulse Ox 93 90 98 96 O2 Delivery Room Air Room Air Room Air Room Air FiO2 21 21 21 21 05/23/24 05/23/24 05/23/24 05/23/24 17:11 17:41 18:11 19:11 Temp 98.2 Pulse 86 86 83 92 Resp 16 B/P (MAP) 132/72 141/91 157/80 132/63 Pulse Ox 99 98 97 97 O2 Delivery Room Air Room Air Room Air Room Air FiO2 21 21 05/23/24 20:29 Pulse Ox 97 O2 Delivery Room Air* O2 Flow Rate 0 FiO2 21 Intake & Output (last 24hrs) 05/22/24 05/22/24 05/23/24 15:00 23:00 07:00 Intake Total 1500 ml 340 ml Output Total 1900 ml Balance -400 ml 340 ml LABS: Laboratory: Test 05/23/24 19:10 05/23/24 06:35 05/23/24 05:26 05/22/24 14:24 Range/Units Whole Blood Glucose 161 #H 70-110 MG/DL Potassium Level 4.2 3.5-5.1 mmol/L White Blood Count 8.8 4.8-10.8 K/uL Red Blood Count 3.69 L 4.50-6.20 MIL/uL Hemoglobin 11.0 L 14.0-18.0 g/dL Hematocrit 33.6 L 42-54 % Mean Corpuscular Volume 91.1 79-99 fL Mean Corpuscular Hemoglobin 29.8 27.0-33.0 pg Mean Corpuscular Hemoglobin Concent 32.7 32.0-36.0 g/dL Red Cell Distribution Width 14.5 11.0-15.5 % Platelet Count 223 130-400 K/uL Mean Platelet Volume 9.0 7.5-10.5 fL Immature Granulocyte % (Auto) 0.3 0-1 % Neutrophils (%) (Auto) 69.5 40.0-77.0 % Lymphocytes (%) (Auto) 18.9 L 21.0-51.0 % Monocytes (%) (Auto) 9.8 3.0-13.0 % Eosinophils (%) (Auto) 0.9 0.0-8.0 % Basophils (%) (Auto) 0.6 0.0-5.0 % Neutrophils # (Auto) 6.1 1.8-7.7 K/uL Lymphocytes # (Auto) 1.7 1.0-4.8 K/uL Monocytes # (Auto) 0.9 0.1-1.0 K/uL Eosinophils # (Auto) 0.08 0.00-0.70 K/uL Basophils # (Auto) 0.05 0.00-0.20 K/uL Absolute Immature Granulocyte (auto 0.03 0-1 K/uL Nucleated Red Blood Cells 0.0 0.0-0.19 % Sodium Level 139 136-145 mmol/L Chloride Level 100 L 101-111 mmol/L Carbon Dioxide Level 28 21-32 mmol/L Blood Urea Nitrogen 51 H 7-18 mg/dL Creatinine 5.8 H 0.5-1.3 mg/dL Glomerular Filtration Rate Calc 12 >90 mL/min Random Glucose 107 H 70-105 mg/dL Total Calcium 8.6 8.5-10.1 mg/dL Phosphorus Level 5.5 H 2.5-4.9 mg/dL Magnesium Level 2.20 1.80-2.40 mg/dL Total Bilirubin 0.6 0.2-1.0 mg/dL Aspartate Amino Transf (AST/SGOT) 30 10-37 U/L Alanine Aminotransferase (ALT/SGPT) 47 12-78 U/L Alkaline Phosphatase 103 50-136 U/L Total Protein 7.7 6.0-8.3 g/dL Albumin 3.0 L 3.5-5.0 g/dL Hepatitis B Surface Antigen. Non-Reactive Nonreactive Hepatitis B Surface Antibody. Negative L Reactive Hepatitis B Core Total Antibody. Non-Reactive Nonreactive Hepatitis C Antibody Non-Reactive Nonreactive Test 05/22/24 04:59 Range/Units Hemoglobin A1c 6.3 H 4.0-6.0 % Estimated Average Glucose (eAG) 134 H 70-126 mg/dL Lactic Acid Level 1.1 0.8-2.5 mmol/L DIAGNOSTICS / RADIOLOGY: PATIENT: BRODY SHI MR#: [id number] : 1980 SEX: M AGE: 44 LOCATION: 3C ORDER [id number] STATUS: ADM IN REPORT#: [id number] SERVICE [id number] REASON: left great toe osteomyelitis ORDERING PHYSICIAN: YASHIRA WADDELL DPM PROCEDURE: FT LT WO - MR FOOT LEFT WO MR FOOT LEFT WO REASON: left great toe osteomyelitis COMPARISON: X-ray of 05/21/2024 TECHNIQUE: Routine imaging protocol was performed in the sagittal, axial and coronal plane with T1, proton density, T2 and gradient recalled sequences. FINDINGS: There is been amputation of the distal phalanx of first toe. There is a large fluid collection in the deep soft tissues of the first toe, distal to and inferior to the remaining proximal phalanx, findings are compatible with abscess. This collection measures 4 cm proximal to distal inferior to the proximal phalanx. The collection extends to 3 cm superior to inferior. There is normal osseous marrow signal in the remaining proximal phalanx, there is no evidence of osteomyelitis. There is been transmetatarsal amputation of the remaining toes, the metatarsal remnants appear unremarkable. There are no other focal fluid collections. IMPRESSION: 1. Large fluid collection in the deep soft tissues of the first toe consistent with abscess as described above. 2. No evidence of osteomyelitis in the proximal phalanx of the left first toe, the distal phalanx is surgically absent. DICTATED BY: VIRGINIA HARTMAN MD DATE: 05/22/24 1018 ASSESSMENT: Left great toe abscess. Diabetic foot ulcer. Sepsis. End-stage renal disease, on dialysis. Diabetes mellitus. PLAN: Continue vancomycin per pharmacy protocol. Continue Zosyn IV. Continue monitoring glucose levels. Continue pain management. Patient has been evaluated by [employer] and is scheduled for an I&D for today. We will follow up on the culture results. This case was reviewed and discussed with my supervising physician and the above assessment and plan was formulated and agreed upon. ATTESTATION BY PHYSICIAN I have seen and examined the patient. I reviewed the documentation, medical decision making, and treatment plan as noted by the mid-level provider above. I agree with the findings and plan of care. BUDDY AUGUSTE MD, MIRTA L MEMBERSHIP ADVISOR May 23, 2024 22:52
[2024-05-24] VITALS (21 sets, daily range): BP systolic 116–156; BP diastolic 61–92; PULSE 84–98; RESP 12–20; TEMP 97.4–98.4; O2SAT 98–100
[2024-05-24 05:02] LABS: BASOPHILS # (AUTO) 0.05 K/uL (0.00-0.20); BASOPHILS % (AUTO) 0.7 % (0.0-5.0); EOSINOPHILS % (AUTO) 1.5 % (0.0-8.0); HEMATOCRIT 32.2 % (42-54); IMMATURE GRANULOCYTE ABSOLUTE 0.01 K/uL (0-1); LYMPHOCYTES # (AUTO) 1.7 K/uL (1.0-4.8); LYMPHOCYTES % (AUTO) 25.2 % (21.0-51.0); MEAN CORPUSCULAR HEMOGLOBIN 29.6 pg (27.0-33.0); MEAN CORPUSCULAR HGB CONC 32.9 g/dL (32.0-36.0); MEAN CORPUSCULAR VOLUME 89.9 fL (79-99); MONOCYTES # (AUTO) 0.6 K/uL (0.1-1.0); MONOCYTES % (AUTO) 8.6 % (3.0-13.0); NEUTROPHILS # (AUTO) 4.3 K/uL (1.8-7.7); NEUTROPHILS % (AUTO) 63.9 % (40.0-77.0); PLATELET COUNT (AUTO) 236 K/uL (130-400); RED BLOOD CELL COUNT(AUTO) 3.58 MIL/uL (4.50-6.20); RED CELL DISTRIBUTION WIDTH 14.2 % (11.0-15.5); WHITE BLOOD COUNT (AUTO) 6.8 K/uL (4.8-10.8)
[2024-05-24 05:27] LABS: BILIRUBIN,TOTAL 0.5 mg/dL (0.2-1.0); CREATININE 7.3 mg/dL (0.5-1.3); MAGNESIUM 2.4 mg/dL (1.80-2.40); POTASSIUM 4.5 mmol/L (3.5-5.1); TOTAL PROTEIN, SERUM 7.6 g/dL (6.0-8.3); VANCOMYCIN LEVEL 20.9 mcg/mL (20.0-30.0)
--- NOTE | 2024-05-24 07:27 | PN ---
SUBJECTIVE: The patient is a very pleasant 44-year-old diabetic, [place] male who is followed up for a diabetic ulcer with abscess plantar first ray foot on the left. He is status post now 1-day extensive incision and drainage, debridement of infected ulcer. He is without complaints of pain. He is remaining afebrile. His white count 6.8, H and H 10.6 and 32.2. Results of his MRI were negative for osteomyelitis. T-max 98.1, pulse 89, respiration 20, blood pressure 129/83. The patient has end-stage renal disease, receives hemodialysis Mondays, Wednesdays and Fridays with Dr. Valles. REVIEW OF SYSTEMS: CONSTITUTIONAL: Has no chills, no fevers, no night sweats, no nausea, vomiting, no diarrhea. HEENT: No problems with eyes, ears, nose, or throat. CARDIOVASCULAR: ___no chest pain. GENITOURINARY: End-stage renal disease, currently receiving hemodialysis. GASTROINTESTINAL: No dysphagia. PSYCHIATRIC: Denied any depression. MUSCULOSKELETAL: Amputation of second through fifth rays to his feet bilaterally. INTEGUMENT: His incision site is well coapted to the plantar aspect of the first ray on the left. OBJECTIVE: His examination today, palpable pedal pulses. Feet are warm. Absent protective sensation. A 6-cm linear incision to plantar aspect of the left great toe, well coapted with sutures. Drain in place. ASSESSMENT: Status post incision and drainage and debridement of infected diabetic ulcer with abscess and cellulitis. No osteomyelitis per the MRI. The patient is receiving vancomycin and Zosyn. The patient's cultures have grown back Streptococcus pyogenes group A. PLAN: Betadine dressings to the left foot wound. Ambulate with use of the CAM walking boot. Antibiotics per Infectious Disease. Follow the patient closely while in-house. TID: [id number] RECEIPT: [id number] [facility]
--- NOTE | 2024-05-24 08:17 | PN ---
[facility] CARDIOLOGY PROGRESS NOTE Date Patient Seen: May 24, 2024 Time of Visit: 08:11 Problem List: Left foot wound , possible osteomyelitis and sepsis Type 2 Diabetes mellitus PAD Hypertension] Interval History: [Yesterday the patient underwent debridement of skin, subcutaneous tissues, and tendon, left foot plantar great toe, yesterday by Dr Hanson. Pending abdominal CT with lower extremity runoff, ] Physical Examination: GENERAL: [No acute distress.] HEAD: [Normal with no signs of head trauma.] EYES: [PERRLA, EOMI, conjunctiva and sclera normal.] ENT: [Hearing grossly intact, normal oropharynx.] NECK: [Supple without JVD. There is no tenderness, lymphadenopathy, or masses. No thyromegaly. Normal carotid upstrokes without bruits.] LUNGS: [Clear breath sounds bilaterally. No wheezes, or rhonchi.] HEART: [Normal rate and rhythm. Normal S1 and S2 without murmurs, gallop or rub.] VASC: [Peripheral pulses diminished in the LE bilaterally.] ABD: [Bowel sounds normal, soft, nontender, no masses, no organomegaly. No audible bruits.] : [Not examined] LYMPH: [No lymphadenopathy noted.] EXT: [He has an ulceration to the plantar aspect of the left great toe, it is measuring approximately 12 x 12 x 1-2 mm. ] SKIN: [No rashes or lesions noted.] NEURO: [Awake, alert, and oriented x3. No focal sensory or strength deficits noted.] Laboratory: [ ] Hematology Labs: Test 05/24/24 04:55 Range/Units White Blood Count 6.8 4.8-10.8 K/uL Red Blood Count 3.58 L 4.50-6.20 MIL/uL Hemoglobin 10.6 L 14.0-18.0 g/dL Hematocrit 32.2 L 42-54 % Mean Corpuscular Volume 89.9 79-99 fL Mean Corpuscular Hemoglobin 29.6 27.0-33.0 pg Mean Corpuscular Hemoglobin Concent 32.9 32.0-36.0 g/dL Red Cell Distribution Width 14.2 11.0-15.5 % Platelet Count 236 130-400 K/uL Mean Platelet Volume 9.1 7.5-10.5 fL Immature Granulocyte % (Auto) 0.1 0-1 % Neutrophils (%) (Auto) 63.9 40.0-77.0 % Lymphocytes (%) (Auto) 25.2 21.0-51.0 % Monocytes (%) (Auto) 8.6 3.0-13.0 % Eosinophils (%) (Auto) 1.5 0.0-8.0 % Basophils (%) (Auto) 0.7 0.0-5.0 % Neutrophils # (Auto) 4.3 1.8-7.7 K/uL Lymphocytes # (Auto) 1.7 1.0-4.8 K/uL Monocytes # (Auto) 0.6 0.1-1.0 K/uL Eosinophils # (Auto) 0.10 0.00-0.70 K/uL Basophils # (Auto) 0.05 0.00-0.20 K/uL Absolute Immature Granulocyte (auto 0.01 0-1 K/uL Nucleated Red Blood Cells 0.0 0.0-0.19 % Chemistry Labs: Test 05/24/24 05:02 05/24/24 04:55 05/23/24 05:26 Range/Units Whole Blood Glucose 96 70-110 MG/DL Sodium Level 141 136-145 mmol/L Potassium Level 4.5 3.5-5.1 mmol/L Chloride Level 100 L 101-111 mmol/L Carbon Dioxide Level 30 21-32 mmol/L Blood Urea Nitrogen 73 #H 7-18 mg/dL Creatinine 7.3 H 0.5-1.3 mg/dL Glomerular Filtration Rate Calc 9 >90 mL/min Random Glucose 94 70-105 mg/dL Total Calcium 8.3 L 8.5-10.1 mg/dL Magnesium Level 2.40 1.80-2.40 mg/dL Total Bilirubin 0.5 0.2-1.0 mg/dL Aspartate Amino Transf (AST/SGOT) 23 10-37 U/L Alanine Aminotransferase (ALT/SGPT) 46 12-78 U/L Alkaline Phosphatase 91 50-136 U/L Total Protein 7.6 6.0-8.3 g/dL Albumin 3.0 L 3.5-5.0 g/dL Phosphorus Level 5.5 H 2.5-4.9 mg/dL Diagnostics / Radiology: [Copy/Paste Echos/Imaging Report here] Impression and Plan: [Left foot wound , possible osteomyelitis and sepsis Type 2 Diabetes mellitus PAD Hypertension ] Plan: [# PAD The patient was endorsing ongoing claudication suspicious for PAD] He presented to ED with left toe ulcer and sepsis and was started on broad spectrum IV abx and Podiatry has been following Foot MRI Large fluid collection in the deep soft tissues of the first toe consistent with abscess as described above. No evidence of osteomyelitis in the proximal phalanx of the left first toe the patient underwent debridement of skin, subcutaneous tissues, and tendon, left foot plantar great toe, yesterday by Dr Hanson. Pending abdominal CT with lower extremity runoff, Continue IV antibiotics and wound care. Thank you for this consult cardiology will continue to follow along formal recommendations pending Abd CT Sameer Conroy MD ATTESTATION BY PHYSICIAN I have seen and examined the patient, reviewed the above documentation, participated in medical decision making, made necessary modifications, and agree with the treatment plan as documented by my mid-level provider above. MD RAPHAEL Waite JAMES R MD May 24, 2024 08:16
[2024-05-24] MEDS ORDERED: GABA-529 PO (08:28)
[2024-05-24] MEDS ORDERED: FOLI0.8C PO (08:28)
[2024-05-24] MEDS ORDERED: IOHEXOL-350 75 ML VIAL IV ONE (08:48)
[2024-05-24] MEDS: EPOETIN ALFA-EPBX (NON-ESRD) 10,000 UNIT/ML VIAL SQ ONE (10:04)
--- NOTE | 2024-05-24 10:18 | NUR ---
HOME MEDS HOME MEDICATIONS UPDATED. HOME MEDICATION TAKEN TO PHARMACY.
--- NOTE | 2024-05-24 12:10 | HMCIMG ---
CT ANGIO ABD AORTA W RUNOFF REASON: PREVIOULSY SCHEDULED OUTPATIENT COMPARISON: None TECHNIQUE: Axial images are obtained from lung bases through the feet before and during bolus IV contrast infusion. Contrast volume was 100 cc Omnipaque 350. 2-D and 3-D multiplanar obstruction images were performed. FINDINGS: Vascular images show normal appearance of the abdominal aorta. Renal and mesenteric artery origins are widely patent. There are a few minimal aortic plaque present distally. Common and external iliac arteries appear normal. Runoff arteriogram shows normal-appearing superficial femoral and popliteal arteries on both sides. There is three-vessel runoff to the ankles on both sides. There is posterior tibial and dorsalis pedis runoff to the feet on both sides. There is no evidence of significant arterial inflow occlusion. Nonvascular images show normal-appearing liver. Spleen, kidneys, pancreas and gallbladder appear normal. Bowel loops are unremarkable. There is no free air or fluid. There are no focal fluid collections. Aorta and retroperitoneum appear normal as do pelvic soft tissue structures. The anterior abdominal wall is intact. IMPRESSION: 1. Normal CT angiogram of the aorta and lower extremities.
--- NOTE | 2024-05-24 12:29 | PN ---
[facility] PROGRESS NOTE Date of Service: May 24, 2024 Time of Service: 12:[address] Rodas SUBJECTIVE: [ 05/21 Mr. Dorsey is a 44-year-old male that was seen and examined today on 05/21/2024. Patient is a good historian of personal health Today in the emergency department WBCs 12.5, left shift neutrophils 81.7%, BUN 39, creatinine 6.0, GFR 11, lactic acid 2.0, urinalysis unremarkable, chest x- ray unremarkable, left foot x-ray shows previous septations, soft tissue swelling. Emergency room physician recommended that patient be admitted with a diagnosis of left foot cellulitis. Additionally patient arrived with a tempera ture of 101.5, heart rate 133, an identified source of infection being left foot meeting clinical sepsis criteria. 05/22 patient was seen by nurse practitioner and physician during rounding in room 317. Patient was evaluated by Dr. Hanson and was culture the wound today and applied Betadine ointment dressing to the left great toe. Patient we will continue to be on vancomycin and Zosyn. Patient also underwent MRI of the left foot as requested by Dr. Hanson for possible osteomyelitis and results showed large fluid collection abscess 1st toe but no osteomyelitis. Patient was also evaluated by data solutions architect for ESRD on dialysis. We are pending further recommendations regarding antibiotics from ID. 05/23 patient was seen by nurse practitioner physician during rounding in room 317. Patient is pending debridement of infected ulcer, removal of the abscess and possible scraping of the bone by Dr. Bello today 05/23/2024. Patient was also evaluated by the nurse school and is pending CT abdomen runoff. Final urine culture negative. Wound culture is growing Streptococcus Pyogenes group A. I aerobic and anaerobic culture still is preliminary. We are still pending final blood culture. Patient continues to be on vancomycin and Zosyn at this moment. We will continue to monitor patient. A.m. labs. 05/24 patient was seen by nurse practitioner and physician during rounding in ro om 317. CTA abdominal aorta with a run of it is negative. As per Dr. Hanson Betadine dressing to the left foot wound to be applied ambulate with the use of Cam walking boot. Urine culture final is negative. Wound culture is growing Enterococcus cloacae , Streptococcus Pyogenes group A. As per Infectious Disease doctor continue vancomycin and Zosyn at this moment. We are pending final culture of the left foot aerobic and final culture of anaerobic wound. Pending further recommendations of p.o. antibiotics outpatient. Dialysis as scheduled. In the meantime we will continue to monitor patient. A.m. labs] REVIEW OF SYSTEMS CONSTITUTIONAL: Denies fevers, chills, or night sweats. No unintentional weight loss reported. NEUROLOGICAL: Denies headache, amaurosis fugax, motor weakness, sensory deficit, vertigo/spinning sensation, gait abnormalities, or tremors. ENT: No hearing loss, otalgia, otorrhea, rhinitis, rhinorrhea, hoarseness, or sore throat. CARDIOVASCULAR: Denies any exertional angina, dyspnea on exertion, orthopnea, paroxysmal nocturnal dyspnea, palpitations, life-threatening arrhythmias, claudication. PULMONARY: Denies any shortness of breath, cough, phlegm/sputum, hemoptysis, pleuritic chest pain. SLEEP: Denies morning headaches, daytime somnolence or napping. Denies difficulty falling asleep, staying asleep, waking from sleep. Denies knowledge of snoring. GASTROINTESTINAL: Denies any type of dysphagia to either liquids or solids. Denies nausea, vomiting, pyrosis, early satiety, abdominal pain, diarrhea, constipation, or changes in stool consistency or caliber. Denies coffee-ground emesis, hematemesis, hematochezia, or melanotic stools. GENITOURINARY: Denies frequency, urgency, nocturia, hematuria or incontinence (Storage/Irritative symptoms.) Low urinary stream, straining to void, urinary intermittency or hesitancy, splitting of the voiding stream, terminal dribbling. ENDOCRINOLOGIC: Denies polyuria, polydipsia, polyphagia or heat/cold intolerances. HEMATOLOGIC: Denies thrombophilia/previous clots, or coagulopathy/bleeding disorders. ONCOLOGIC: Denies personal history of malignancy. DERMATOLOGIC: Denies rashes or pruritus. Left great toe wound PSYCHIATRIC: Denies any suicidal or homicidal ideation. Denies hallucinations. PHYSICAL EXAM GENERAL APPEARANCE: The patient is awake, alert, and oriented, in no acute cardiopulmonary distress. NEUROLOGICAL: Cranial nerves II-XII grossly intact. Motor is 5/5 in bilateral upper and lower extremities proximal to distal. No sensory deficits. HEENT: Face is symmetric. Pupils are equal and reactive. Extraocular movements are intact. NECK: Supple. No JVD. No thyromegaly. No submental, submandibular, pre- /postauricular, occipital or supraclavicular lymphadenopathy. CHEST: Normal chest expansion. No Telemetry. LUNGS: Absence of any rales, rhonchi or any wheezing. CARDIOVASCULAR: Regular. S1 and S2 normal. No appreciable rubs, murmurs or gallops. ABDOMEN: Soft, nontender, and nondistended. There is no rebound, voluntary guarding, or rigidity. : Deferred. No Herrera. EXTREMITIES: Non-edematous and not cyanotic. No clubbing. Good capillary refill. Left great toe wound SKIN: No skin breakdown. Vital Signs (last 8hr) Date Time Temp Pulse Resp B/P (MAP) Pulse Ox O2 Delivery O2 Flow Rate FiO2 05/24/24 08:00 98.1 84 18 136/82 Room Air LABS: Laboratory: Test 05/24/24 05:02 05/24/24 04:55 05/23/24 05:26 05/22/24 14:24 Range/Units Whole Blood Glucose 96 70-110 MG/DL White Blood Count 6.8 4.8-10.8 K/uL Red Blood Count 3.58 L 4.50-6.20 MIL/uL Hemoglobin 10.6 L 14.0-18.0 g/dL Hematocrit 32.2 L 42-54 % Mean Corpuscular Volume 89.9 79-99 fL Mean Corpuscular Hemoglobin 29.6 27.0-33.0 pg Mean Corpuscular Hemoglobin Concent 32.9 32.0-36.0 g/dL Red Cell Distribution Width 14.2 11.0-15.5 % Platelet Count 236 130-400 K/uL Mean Platelet Volume 9.1 7.5-10.5 fL Immature Granulocyte % (Auto) 0.1 0-1 % Neutrophils (%) (Auto) 63.9 40.0-77.0 % Lymphocytes (%) (Auto) 25.2 21.0-51.0 % Monocytes (%) (Auto) 8.6 3.0-13.0 % Eosinophils (%) (Auto) 1.5 0.0-8.0 % Basophils (%) (Auto) 0.7 0.0-5.0 % Neutrophils # (Auto) 4.3 1.8-7.7 K/uL Lymphocytes # (Auto) 1.7 1.0-4.8 K/uL Monocytes # (Auto) 0.6 0.1-1.0 K/uL Eosinophils # (Auto) 0.10 0.00-0.70 K/uL Basophils # (Auto) 0.05 0.00-0.20 K/uL Absolute Immature Granulocyte (auto 0.01 0-1 K/uL Nucleated Red Blood Cells 0.0 0.0-0.19 % Sodium Level 141 136-145 mmol/L Potassium Level 4.5 3.5-5.1 mmol/L Chloride Level 100 L 101-111 mmol/L Carbon Dioxide Level 30 21-32 mmol/L Blood Urea Nitrogen 73 #H 7-18 mg/dL Creatinine 7.3 H 0.5-1.3 mg/dL Glomerular Filtration Rate Calc 9 >90 mL/min Random Glucose 94 70-105 mg/dL Total Calcium 8.3 L 8.5-10.1 mg/dL Magnesium Level 2.40 1.80-2.40 mg/dL Total Bilirubin 0.5 0.2-1.0 mg/dL Aspartate Amino Transf (AST/SGOT) 23 10-37 U/L Alanine Aminotransferase (ALT/SGPT) 46 12-78 U/L Alkaline Phosphatase 91 50-136 U/L Total Protein 7.6 6.0-8.3 g/dL Albumin 3.0 L 3.5-5.0 g/dL Vancomycin Level 20.9 20.0-30.0 mcg/mL Phosphorus Level 5.5 H 2.5-4.9 mg/dL Hepatitis B Surface Antigen. Non-Reactive Nonreactive Hepatitis B Surface Antibody. Negative L Reactive Hepatitis B Core Total Antibody. Non-Reactive Nonreactive Hepatitis C Antibody Non-Reactive Nonreactive Current Medications Medications (Trade) Dose Ordered Sig/Leonel Route PRN Reason Start Time Stop Time Status Last Admin Dose Admin Acetaminophen (TYLenol 325MG TAB) 650 mg Q6H PRN PO TEMPERATURE GREATER THAN 101.5 05/21/24 19:30 06/20/24 19:29 Heparin Sodium (Porcine) (HEParin 5,000 UNIT VIAL) 5,000 unit BID SQ 05/21/24 21:00 06/20/24 20:59 05/24/24 08:35 5,000 UNIT Home Med (Home Medication) Sucroferric Oxyhydroxide (Velpho... TIDMEALS PO 05/23/24 17:00 06/22/24 16:59 Hydralazine HCl (APRESOLine 20MG INJ) 10 mg Q6H PRN IV For:SBP above 160;DBP above 90 05/21/24 19:30 06/20/24 19:29 Insulin Human Regular (humuLIN R 100 UNIT/ML 3ML) INSULIN SLIDING SCAL... ACHS SQ 05/21/24 21:00 06/20/24 20:59 Morphine Sulfate (morPHINE 2MG SYG) 2 mg Q4H PRN IVP SEVERE PAIN (7-10) 05/22/24 12:00 05/28/24 19:29 Morphine Sulfate (morPHINE 4MG SYG) 2 mg Q4H PRN IVP SEVERE PAIN (7-10) 05/21/24 19:30 05/22/24 11:55 DC Ondansetron HCl (zoFRAN 4MG INJ) 4 mg Q6H PRN IV NAUSEA/VOMITING 05/21/24 19:30 06/20/24 19:29 Piperacillin Sod/ Tazobactam Sod (Zosyn 3.375gm+NS 50ml) 3.375 gm Q12H IV 05/22/24 05:00 06/01/24 04:59 05/24/24 04:49 3.375 GM Sodium Chloride 1,000 ml @ 0 mls/hr ONCE IV 05/22/24 12:00 06/21/24 11:59 Vancomycin HCl (Vancomycin 750mg) 750 mg QMOWEFR[DIALYSIS] IVPB 05/22/24 16:00 06/01/24 15:59 05/22/24 16:24 750 MG Vancomycin HCl (Vancomycin Protocol) 1 each AD IV 05/21/24 19:30 06/04/24 19:29 DIAGNOSTICS / RADIOLOGY: [ ] ASSESSMENT: [ Acute Sepsis, POA Cellulitis left foot, POA Left foot open wound, POA Wound culture is growing Enterococcus cloacae , Streptococcus Pyogenes group A Leukocytosis POA Uncontrolled diabetes mellitus type 2 with hyperglycemia A1c 6.3 POA Uncontrolled hypertension POA CKD, ESRD on HD Multifactorial anemia POA] PLAN: [s/p debridement of infected ulcer, removal of abscess, scribing bone by Dr. Hanson 05/23/2024 CT abdomen/aorta runoff negative ESRD dialysis continues per data solutions architect IV antibiotics per ID. Continue vancomycin and Zosyn at this moment. Heparin prophylaxis MRI left foot large fluid collection abscess 1st toe no osteomyelitis Foot x-ray soft tissue swelling possible osteomyelitis Urine culture final negative Wound culture is growing Enterococcus cloacae , Streptococcus Pyogenes group A Blood culture pending ] ATTESTATION BY PHYSICIAN I have seen and examined the patient. I reviewed the documentation, medical decision making, and treatment plan as noted by the mid-level provider above. I agree with the findings and plan of care. Geovanny Rodas IV, MD, KATARZYNA B OPERATIONS ACCOUNTANT May 24, 2024 12:29
--- NOTE | 2024-05-24 14:27 | PN ---
INFECTIOUS DISEASE PROGRESS NOTE Date of Service: May 24, 2024 SUBJECTIVE: Patient was seen and examined at bedside in room 317. Patient is awake, alert and oriented x 3. Patient is status post I&D of the left foot ulcer with abscess day # 1. We will follow up on the intraoperative culture results. We will place a PICC line. Patient is afebrile, temperature is 98.1 and a WBC of 6.8. We will continue on vancomycin and Zosyn. We will continue to monitor patient. PHYSICAL EXAM EYES: Anicteric. Pupils equal and reactive. HENT: No oral thrush seen, moist Oral mucosa NECK: Supple, no JVD or thyromegaly. LUNGS: Good air entry. No rales, no rhonchi. CARDIOVASCULAR: S1, S2 regular. No murmur heard. ABDOMEN: Soft, non tender, bowel sounds present, no organomegaly CENTRAL NERVOUS SYSTEM: Awake, alert, oriented x 3. No focal deficits. SKIN: No rashes, no swelling. LYMPHATICS: No peripheral lymphadenopathy MUSCULOSKELETAL: No joint swelling, erythema or tenderness. EXTREMITIES: No cyanosis or clubbing BACK: No deformity, no pressure ulcer. GENITOURINARY: No dysuria or hematuria Vital Sign (Last 12 Hours) 05/24/24 05/24/24 05/24/24 03:21 08:00 12:00 Temp 98.1 98.1 97.9 Pulse 89 84 84 Resp 20 18 18 B/P (MAP) 129/83 136/82 140/83 Pulse Ox 99 98 O2 Delivery Room Air Room Air Room Air Intake & Output (last 24hrs) 05/23/24 05/23/24 05/24/24 15:00 23:00 07:00 Intake Total 250 ml 250 ml Balance 250 ml 250 ml LABS: Laboratory: Test 05/24/24 05:02 05/24/24 04:55 05/23/24 05:26 05/22/24 14:24 Range/Units Whole Blood Glucose 96 70-110 MG/DL White Blood Count 6.8 4.8-10.8 K/uL Red Blood Count 3.58 L 4.50-6.20 MIL/uL Hemoglobin 10.6 L 14.0-18.0 g/dL Hematocrit 32.2 L 42-54 % Mean Corpuscular Volume 89.9 79-99 fL Mean Corpuscular Hemoglobin 29.6 27.0-33.0 pg Mean Corpuscular Hemoglobin Concent 32.9 32.0-36.0 g/dL Red Cell Distribution Width 14.2 11.0-15.5 % Platelet Count 236 130-400 K/uL Mean Platelet Volume 9.1 7.5-10.5 fL Immature Granulocyte % (Auto) 0.1 0-1 % Neutrophils (%) (Auto) 63.9 40.0-77.0 % Lymphocytes (%) (Auto) 25.2 21.0-51.0 % Monocytes (%) (Auto) 8.6 3.0-13.0 % Eosinophils (%) (Auto) 1.5 0.0-8.0 % Basophils (%) (Auto) 0.7 0.0-5.0 % Neutrophils # (Auto) 4.3 1.8-7.7 K/uL Lymphocytes # (Auto) 1.7 1.0-4.8 K/uL Monocytes # (Auto) 0.6 0.1-1.0 K/uL Eosinophils # (Auto) 0.10 0.00-0.70 K/uL Basophils # (Auto) 0.05 0.00-0.20 K/uL Absolute Immature Granulocyte (auto 0.01 0-1 K/uL Nucleated Red Blood Cells 0.0 0.0-0.19 % Sodium Level 141 136-145 mmol/L Potassium Level 4.5 3.5-5.1 mmol/L Chloride Level 100 L 101-111 mmol/L Carbon Dioxide Level 30 21-32 mmol/L Blood Urea Nitrogen 73 #H 7-18 mg/dL Creatinine 7.3 H 0.5-1.3 mg/dL Glomerular Filtration Rate Calc 9 >90 mL/min Random Glucose 94 70-105 mg/dL Total Calcium 8.3 L 8.5-10.1 mg/dL Magnesium Level 2.40 1.80-2.40 mg/dL Total Bilirubin 0.5 0.2-1.0 mg/dL Aspartate Amino Transf (AST/SGOT) 23 10-37 U/L Alanine Aminotransferase (ALT/SGPT) 46 12-78 U/L Alkaline Phosphatase 91 50-136 U/L Total Protein 7.6 6.0-8.3 g/dL Albumin 3.0 L 3.5-5.0 g/dL Vancomycin Level 20.9 20.0-30.0 mcg/mL Phosphorus Level 5.5 H 2.5-4.9 mg/dL Hepatitis B Surface Antigen. Non-Reactive Nonreactive Hepatitis B Surface Antibody. Negative L Reactive Hepatitis B Core Total Antibody. Non-Reactive Nonreactive Hepatitis C Antibody Non-Reactive Nonreactive ASSESSMENT: Left great toe ulcer with abscess, status post I&D. Sepsis. End-stage renal disease, on dialysis. Diabetes mellitus. PLAN: Continue vancomycin per pharmacy protocol. Continue Zosyn IV. We will follow up on the intraoperative culture results. Wound care as recommended by door liner. Continue pain management. Continue monitoring glucose levels. Place PICC line. This case was reviewed and discussed with my supervising physician and the above assessment and plan was formulated and agreed upon. ATTESTATION BY PHYSICIAN I have seen and examined the patient. I reviewed the documentation, medical decision making, and treatment plan as noted by the mid-level provider above. I agree with the findings and plan of care. BUDDY AUGUSTE MD, MIRTA L ELEMENTARY SECRETARY May 24, 2024 14:27
[2024-05-24 16:05] LABS: INR 0.98 (0.85-1.15); PROTHROMBIN TIME 10.4 SEC (9.6-11.6)
--- NOTE | 2024-05-24 20:45 | NUR ---
MEDS SHIFT ASSESSMENT DONE, PLEASE REFER TO CHART. DUE MEDS ADMINISTERED, TOLERATED WELL. PROVIDED PM SNACKS TO TAKE. KEPT RESTED AND COMFORTABLE IN BED. CALL LIGHT WITHIN REACH.
--- NOTE | 2024-05-24 21:21 | HMCIMG ---
CHEST 1VW CLINICAL HISTORY: verify PICC placement COMPARISON: 05/21/2024 TECHNIQUE: Single view of the chest was obtained. FINDINGS: Lungs are clear. The cardiac size and mediastinum are unremarkable. The bony structures are within normal limits. The PICC line tip extends into the proximal superior vena cava where it is minimally coiled back on itself. IMPRESSION: PICC tip coiled back on itself in the proximal superior vena cava.
--- NOTE | 2024-05-24 21:33 | NUR ---
PAGED CHEST X-RAY RESULTS IN. PAGED TEACHING ASSISTANT SWINE NUTRITIONIST FOR HOSPITALIST TO REVIEW RESULTS VIA ANSWERING SERVICE. AWAITING CALL BACK.
--- NOTE | 2024-05-24 21:59 | NUR ---
RE-PAGED NO CALL BACK FROM DIRECTOR CRITICAL CARE DOUBLE END TRIMMER. RE-PAGED VIA ANSWERING SERVICE. AWAITING CALL BACK.
--- NOTE | 2024-05-24 22:20 | NUR ---
SOFTWARE FIRMWARE ENGINEER SOFTWARE FIRMWARE ENGINEER LISANDRA LAGOS CALLED BACK AND ORDERS RECEIVED, PLEASE REFER TO CPOE.
[2024-05-25] VITALS (8 sets, daily range): BP systolic 122–181; BP diastolic 59–84; PULSE 85–94; RESP 20; TEMP 97.7–98.2; O2SAT 98–99
[2024-05-25 05:36] LABS: BASOPHILS # (AUTO) 0.06 K/uL (0.00-0.20); BASOPHILS % (AUTO) 0.9 % (0.0-5.0); EOSINOPHILS # (AUTO) 0.16 K/uL (0.00-0.70); EOSINOPHILS % (AUTO) 2.4 % (0.0-8.0); HEMATOCRIT 34.2 % (42-54); IMMATURE GRANULOCYTE ABSOLUTE 0.02 K/uL (0-1); LYMPHOCYTES # (AUTO) 1.8 K/uL (1.0-4.8); LYMPHOCYTES % (AUTO) 26.8 % (21.0-51.0); MEAN CORPUSCULAR HEMOGLOBIN 29.5 pg (27.0-33.0); MEAN CORPUSCULAR HGB CONC 32.7 g/dL (32.0-36.0); MONOCYTES # (AUTO) 0.6 K/uL (0.1-1.0); MONOCYTES % (AUTO) 8.2 % (3.0-13.0); NEUTROPHILS # (AUTO) 4.2 K/uL (1.8-7.7); NEUTROPHILS % (AUTO) 61.4 % (40.0-77.0); PLATELET COUNT (AUTO) 276 K/uL (130-400); RED CELL DISTRIBUTION WIDTH 14.1 % (11.0-15.5); WHITE BLOOD COUNT (AUTO) 6.8 K/uL (4.8-10.8)
[2024-05-25 05:45] LABS: BILIRUBIN,TOTAL 0.5 mg/dL (0.2-1.0); CREATININE 6.3 mg/dL (0.5-1.3); MAGNESIUM 2.3 mg/dL (1.80-2.40)
--- NOTE | 2024-05-25 06:25 | NUR ---
ROUNDS PT SLEPT AT INTERVALS DURING THE SHIFT. NO DISTRESS NOTED. KEPT RESTED AND COMFORTABLE IN BED. CALL LIGHT WITHIN REACH. FOR MORE CARE.
[2024-05-25] MEDS: hydrALAZine 20MG/ML VIAL IV PRN (08:26)
--- NOTE | 2024-05-25 10:39 | PN ---
SUBJECTIVE: The patient very pleasant 44-year-old diabetic, Latin-E[place]ian male status post incision and drainage and debridement of left foot first ray ulcer, abscess. He has had cultures that have grown back streptococcus pyogenes group A and enterobacter cloacae. The patient has blood cultures that have shown no growth x 3 days. He is currently receiving IV vancomycin, IV Zosyn. He has remained afebrile at 98.1, pulse 92, respiration 20, blood pressure 181/76. The patient has a white count of 6.8, H and H 11.2 and 34.2, platelets 276, neutrophils 61.4. BUN and creatinine 57 and 6.3, potassium 4.0, glucose 94, albumin 3.0. REVIEW OF SYSTEMS: CONSTITUTIONAL: No chills, no fevers, no night sweats, no nausea, no vomiting, no diarrhea. HEENT: No problems with his eyes, ears, nose or throat. CARDIOVASCULAR: Having no current chest pain. RESPIRATORY: No shortness of breath. GENITOURINARY: No dysuria. GASTROINTESTINAL: No dysphagia. ENDOCRINE: Diabetes. PSYCHIATRIC: Denied any depression. MUSCULOSKELETAL: Bilateral second through fifth ray amputations. INTEGUMENT: Incision site is coapted to the plantar aspect of the left great toe. GENITOURINARY: No dysuria. GASTROINTESTINAL: No dysphagia. OBJECTIVE: Examination today shows he has palpable pedal pulses. Feet are warm. Absent protective sensation, 6 cm linear incision plantar aspect of the left great toe. Sutures in place. Drain in place. ASSESSMENT: Status post incision and drainage and debridement of infected diabetic ulcer with abscess and cellulitis, no osteomyelitis per the MRI. The patient has a PICC line in place. Currently receiving vancomycin and Zosyn. Cultures have grown back strep pyogenes group A and enterobacter cloacae. We are awaiting final surgical cultures and sensitivities. PLAN: Betadine dressings to the left foot, offloading measures with use of a walker. Antibiotics per Infectious Disease, currently with vancomycin and Zosyn. Discharge planning for this patient. We will continue to follow him closely while in-house. TID: [id number] RECEIPT: [id number]
--- NOTE | 2024-05-25 13:21 | PN ---
[facility] PROGRESS NOTE Date of Service: May 25, 2024 Time of Service: 13:[address] Rodas SUBJECTIVE: [ 05/21 Mr. Dorsey is a 44-year-old male that was seen and examined today on 05/21/2024. Patient is a good historian of personal health Today in the emergency department WBCs 12.5, left shift neutrophils 81.7%, BUN 39, creatinine 6.0, GFR 11, lactic acid 2.0, urinalysis unremarkable, chest x- ray unremarkable, left foot x-ray shows previous septations, soft tissue swelling. Emergency room physician recommended that patient be admitted with a diagnosis of left foot cellulitis. Additionally patient arrived with a tempera ture of 101.5, heart rate 133, an identified source of infection being left foot meeting clinical sepsis criteria. 05/22 patient was seen by nurse practitioner and physician during rounding in room 317. Patient was evaluated by Dr. Hanson and was culture the wound today and applied Betadine ointment dressing to the left great toe. Patient we will continue to be on vancomycin and Zosyn. Patient also underwent MRI of the left foot as requested by Dr. Hanson for possible osteomyelitis and results showed large fluid collection abscess 1st toe but no osteomyelitis. Patient was also evaluated by calender roll press operator for ESRD on dialysis. We are pending further recommendations regarding antibiotics from ID. 05/23 patient was seen by nurse practitioner physician during rounding in room 317. Patient is pending debridement of infected ulcer, removal of the abscess and possible scraping of the bone by Dr. Bello today 05/23/2024. Patient was also evaluated by the director organizational and is pending CT abdomen runoff. Final urine culture negative. Wound culture is growing Streptococcus Pyogenes group A. I aerobic and anaerobic culture still is preliminary. We are still pending final blood culture. Patient continues to be on vancomycin and Zosyn at this moment. We will continue to monitor patient. A.m. labs. 05/24 patient was seen by nurse practitioner and physician during rounding in ro om 317. CTA abdominal aorta with a run of it is negative. As per Dr. Hanson Betadine dressing to the left foot wound to be applied ambulate with the use of Cam walking boot. Urine culture final is negative. Wound culture is growing Enterococcus cloacae , Streptococcus Pyogenes group A. As per Infectious Disease doctor continue vancomycin and Zosyn at this moment. We are pending final culture of the left foot aerobic and final culture of anaerobic wound. Pending further recommendations of p.o. antibiotics outpatient. Dialysis as scheduled. In the meantime we will continue to monitor patient. A.m. labs 05/25 patient was seen by nurse practitioner physician during rounding in room 321. Patient's PICC line was placed but unfortunately not in the correct position. The end of the PICC is quiet. RN was instructed to contact the PICC line nurse who inserted to remove with an insert again. We are still pending final foot culture. Per ID continue vancomycin Zosyn at this moment. Patient required IV antibiotics outpatient. Case management was consulted for good emma versus sniff. We will continue to monitor patient in the meantime. A.m. labs.] REVIEW OF SYSTEMS CONSTITUTIONAL: Denies fevers, chills, or night sweats. No unintentional weight loss reported. NEUROLOGICAL: Denies headache, amaurosis fugax, motor weakness, sensory deficit, vertigo/spinning sensation, gait abnormalities, or tremors. ENT: No hearing loss, otalgia, otorrhea, rhinitis, rhinorrhea, hoarseness, or sore throat. CARDIOVASCULAR: Denies any exertional angina, dyspnea on exertion, orthopnea, paroxysmal nocturnal dyspnea, palpitations, life-threatening arrhythmias, cl audication. PULMONARY: Denies any shortness of breath, cough, phlegm/sputum, hemoptysis, pleuritic chest pain. SLEEP: Denies morning headaches, daytime somnolence or napping. Denies difficulty falling asleep, staying asleep, waking from sleep. Denies knowledge of snoring. GASTROINTESTINAL: Denies any type of dysphagia to either liquids or solids. Denies nausea, vomiting, pyrosis, early satiety, abdominal pain, diarrhea, const ipation, or changes in stool consistency or caliber. Denies coffee-ground emesis, hematemesis, hematochezia, or melanotic stools. GENITOURINARY: Denies frequency, urgency, nocturia, hematuria or incontinence (Storage/Irritative symptoms.) Low urinary stream, straining to void, urinary intermittency or hesitancy, splitting of the voiding stream, terminal dribbling. ENDOCRINOLOGIC: Denies polyuria, polydipsia, polyphagia or heat/cold intolerances. HEMATOLOGIC: Denies thrombophilia/previous clots, or coagulopathy/bleeding disorders. ONCOLOGIC: Denies personal history of malignancy. DERMATOLOGIC: Denies rashes or pruritus. Left great toe wound PSYCHIATRIC: Denies any suicidal or homicidal ideation. Denies hallucinations. PHYSICAL EXAM GENERAL APPEARANCE: The patient is awake, alert, and oriented, in no acute cardiopulmonary distress. NEUROLOGICAL: Cranial nerves II-XII grossly intact. Motor is 5/5 in bilateral upper and lower extremities proximal to distal. No sensory deficits. HEENT: Face is symmetric. Pupils are equal and reactive. Extraocular movements are intact. NECK: Supple. No JVD. No thyromegaly. No submental, submandibular, pre- /postauricular, occipital or supraclavicular lymphadenopathy. CHEST: Normal chest expansion. No Telemetry. LUNGS: Absence of any rales, rhonchi or any wheezing. CARDIOVASCULAR: Regular. S1 and S2 normal. No appreciable rubs, murmurs or gallops. ABDOMEN: Soft, nontender, and nondistended. There is no rebound, voluntary guarding, or rigidity. : Deferred. No Herrera. EXTREMITIES: Non-edematous and not cyanotic. No clubbing. Good capillary refill. Left great toe wound SKIN: No skin breakdown. Vital Signs (last 8hr) Date Time Temp Pulse Resp B/P (MAP) Pulse Ox O2 Delivery O2 Flow Rate FiO2 05/25/24 11:59 97.9 92 20 179/74 100 Room Air 05/25/24 08:00 98.1 92 20 181/76 98 Room Air LABS: Laboratory: Test 05/25/24 11:12 05/25/24 05:04 05/24/24 15:19 05/24/24 04:55 Range/Units Whole Blood Glucose 112 H 70-110 MG/DL White Blood Count 6.8 4.8-10.8 K/uL Red Blood Count 3.80 L 4.50-6.20 MIL/uL Hemoglobin 11.2 L 14.0-18.0 g/dL Hematocrit 34.2 L 42-54 % Mean Corpuscular Volume 90.0 79-99 fL Mean Corpuscular Hemoglobin 29.5 27.0-33.0 pg Mean Corpuscular Hemoglobin Concent 32.7 32.0-36.0 g/dL Red Cell Distribution Width 14.1 11.0-15.5 % Platelet Count 276 130-400 K/uL Mean Platelet Volume 9.4 7.5-10.5 fL Immature Granulocyte % (Auto) 0.3 0-1 % Neutrophils (%) (Auto) 61.4 40.0-77.0 % Lymphocytes (%) (Auto) 26.8 21.0-51.0 % Monocytes (%) (Auto) 8.2 3.0-13.0 % Eosinophils (%) (Auto) 2.4 0.0-8.0 % Basophils (%) (Auto) 0.9 0.0-5.0 % Neutrophils # (Auto) 4.2 1.8-7.7 K/uL Lymphocytes # (Auto) 1.8 1.0-4.8 K/uL Monocytes # (Auto) 0.6 0.1-1.0 K/uL Eosinophils # (Auto) 0.16 0.00-0.70 K/uL Basophils # (Auto) 0.06 0.00-0.20 K/uL Absolute Immature Granulocyte (auto 0.02 0-1 K/uL Nucleated Red Blood Cells 0.0 0.0-0.19 % Sodium Level 136 136-145 mmol/L Potassium Level 4.0 3.5-5.1 mmol/L Chloride Level 96 L 101-111 mmol/L Carbon Dioxide Level 31 21-32 mmol/L Blood Urea Nitrogen 57 H 7-18 mg/dL Creatinine 6.3 H 0.5-1.3 mg/dL Glomerular Filtration Rate Calc 11 >90 mL/min Random Glucose 98 70-105 mg/dL Total Calcium 8.6 8.5-10.1 mg/dL Magnesium Level 2.30 1.80-2.40 mg/dL Total Bilirubin 0.5 0.2-1.0 mg/dL Aspartate Amino Transf (AST/SGOT) 21 10-37 U/L Alanine Aminotransferase (ALT/SGPT) 40 12-78 U/L Alkaline Phosphatase 102 50-136 U/L Total Protein 8.0 6.0-8.3 g/dL Albumin 3.0 L 3.5-5.0 g/dL Prothrombin Time 10.4 9.6-11.6 SEC Prothromb Time International Ratio 0.98 0.85-1.15 Vancomycin Level 20.9 20.0-30.0 mcg/mL Current Medications Medications (Trade) Dose Ordered Sig/Leonel Route PRN Reason Start Time Stop Time Status Last Admin Dose Admin Acetaminophen (TYLenol 325MG TAB) 650 mg Q6H PRN PO TEMPERATURE GREATER THAN 101.5 05/21/24 19:30 06/20/24 19:29 Heparin Sodium (Porcine) (HEParin 5,000 UNIT VIAL) 5,000 unit BID SQ 05/21/24 21:00 06/20/24 20:59 05/25/24 08:27 5,000 UNIT Home Med (Home Medication) Sucroferric Oxyhydroxide (Velpho... TIDMEALS PO 05/23/24 17:00 06/22/24 16:59 05/25/24 13:08 2 EACH Hydralazine HCl (APRESOLine 20MG INJ) 10 mg Q6H PRN IV For:SBP above 160;DBP above 90 05/21/24 19:30 06/20/24 19:29 05/25/24 08:26 10 MG Insulin Human Regular (humuLIN R 100 UNIT/ML 3ML) INSULIN SLIDING SCAL... ACHS SQ 05/21/24 21:00 06/20/24 20:59 05/24/24 20:42 4 UNIT Morphine Sulfate (morPHINE 2MG SYG) 2 mg Q4H PRN IVP SEVERE PAIN (7-10) 05/22/24 12:00 05/28/24 19:29 Morphine Sulfate (morPHINE 4MG SYG) 2 mg Q4H PRN IVP SEVERE PAIN (7-10) 05/21/24 19:30 05/22/24 11:55 DC Ondansetron HCl (zoFRAN 4MG INJ) 4 mg Q6H PRN IV NAUSEA/VOMITING 05/21/24 19:30 06/20/24 19:29 Piperacillin Sod/ Tazobactam Sod (Zosyn 3.375gm+NS 50ml) 3.375 gm Q12H IV 05/22/24 05:00 06/01/24 04:59 05/25/24 04:29 3.375 GM Sodium Chloride 1,000 ml @ 0 mls/hr ONCE IV 05/22/24 12:00 06/21/24 11:59 05/24/24 16:50 100 MLS/HR Vancomycin HCl (Vancomycin 750mg) 750 mg QMOWEFR[DIALYSIS] IVPB 05/22/24 16:00 06/01/24 15:59 05/24/24 17:36 750 MG Vancomycin HCl (Vancomycin Protocol) 1 each AD IV 05/21/24 19:30 06/04/24 19:29 DIAGNOSTICS / RADIOLOGY: [ ] ASSESSMENT: [ Acute Sepsis, POA Cellulitis left foot, POA Left foot open wound, POA Wound culture is growing Enterococcus cloacae , Streptococcus Pyogenes group A Leukocytosis POA Uncontrolled diabetes mellitus type 2 with hyperglycemia A1c 6.3 POA Uncontrolled hypertension POA CKD, ESRD on HD Multifactorial anemia POA] PLAN: [s/p debridement of infected ulcer, removal of abscess, scribing bone by Dr. Hanson 05/23/2024 CT abdomen/aorta runoff negative ESRD dialysis continues per calender roll press operator IV antibiotics per ID. Continue vancomycin and Zosyn at this moment. Heparin prophylaxis MRI left foot large fluid collection abscess 1st toe no osteomyelitis Foot x-ray soft tissue swelling possible osteomyelitis Urine culture final negative Wound culture is growing Enterococcus cloacae , Streptococcus Pyogenes group A, aerobic culture still pending anaerobic culture still pending as well Blood culture pending, negative x3 days] ATTESTATION BY PHYSICIAN I have seen and examined the patient. I reviewed the documentation, medical decision making, and treatment plan as noted by the mid-level provider above. I agree with the findings and plan of care. Geovanny Rodas IV, MD, KATARZYNA B APRN May 25, 2024 13:21
--- NOTE | 2024-05-25 14:27 | HMCIMG ---
CHEST 1VW HISTORY: PICC line placement COMPARISON: 05/24/2024 FINDINGS: A frontal projection of the chest was obtained. No acute pulmonary infiltrates is seen. The heart is borderline enlarged. Prominent interstitial markings are seen. PICC line is seen entering the right with distal tip in the plane of the atriocaval junction. No evidence of aortic calcification is seen. IMPRESSION: 1. Prominent interstitial markings.
--- NOTE | 2024-05-25 15:06 | PN ---
NEPHROLOGY PROGRESS NOTE Date/Time Patient Seen: May 25, 2024 Reason for Consultation: 14:54 SUBJECTIVE: This is a 44-year-old male with a past medical history of end-stage renal disease on hemodialysis Monday, diabetes mellitus two, hypertension. He presented to the emergency room with complaints of left foot cellulitis. Has been tolerating dialysis without difficulty Dialysis planned for Monday. S/p debridement of skin, subcutaneous tissues, and tendon, left foot plantar great toe on 05/23/24 CTA was normal. He continues to be followed by Cardiology Wound cultures were positive He continues on antibiotics. Blood cultures has been negative He was seen in the medical floor, in no acute distress No family at the bedside Prognosis remains guarded REVIEW OF SYSTEMS: GENERAL: Negative for any nausea, vomiting, fevers, chills, or weight loss. NEUROLOGIC: Negative for any blurry vision, blind spots, double vision, facial asymmetry, dysphagia, dysarthria, hemiparesis, hemisensory deficits, vertigo, ataxia. HEENT: Negative for any head trauma, neck trauma, neck stiffness, photophobia, phonophobia, sinusitis, rhinitis. CARDIAC: Negative for any chest pain, dyspnea on exertion, paroxysmal nocturnal dyspnea, peripheral edema. PULMONARY: Negative for any shortness of breath, wheezing, COPD, or TB exposure. GASTROINTESTINAL: Negative for any abdominal pain, nausea, vomiting, bright red blood per rectum, melena. GENITOURINARY: Negative for any dysuria, hematuria, incontinence. INTEGUMENTARY: Negative for any rashes, cuts, insect bites. RHEUMATOLOGIC: Negative for any joint pains, photosensitive rashes, history of vasculitis or kidney problems. HEMATOLOGIC: Negative for any abnormal bruising, frequent infections or bleeding. Vital Signs (last 8hr) Date Time Temp Pulse Resp B/P (MAP) Pulse Ox O2 Delivery O2 Flow Rate FiO2 05/25/24 11:59 97.9 92 20 179/74 100 Room Air 05/25/24 08:00 98.1 92 20 181/76 98 Room Air PHYSICAL EXAM: GENERAL: Alert and oriented x 3. No acute distress. Well-nourished. EYES: EOMI. Anicteric. HENT: Moist mucous membranes. No scleral icterus. No cervical lymphadenopathy. LUNGS: Clear to auscultation bilaterally. No accessory muscle use. CARDIOVASCULAR: Regular rate and rhythm. No murmur. No JVD. ABDOMEN: Soft, non-tender and non-distended. No palpable masses. EXTREMITIES: No edema. Non-tender. SKIN: No rashes or lesions. Warm. NEUROLOGIC: No focal neurological deficits. CN II-XII grossly intact, but not individually tested. PSYCHIATRIC: Cooperative. Appropriate mood and affect. Current Medications Medications (Trade) Dose Ordered Sig/Leonel Route PRN Reason Start Time Stop Time Status Last Admin Dose Admin Acetaminophen (TYLenol 325MG TAB) 650 mg Q6H PRN PO TEMPERATURE GREATER THAN 101.5 05/21/24 19:30 06/20/24 19:29 Heparin Sodium (Porcine) (HEParin 5,000 UNIT VIAL) 5,000 unit BID SQ 05/21/24 21:00 06/20/24 20:59 05/25/24 08:27 5,000 UNIT Home Med (Home Medication) Sucroferric Oxyhydroxide (Velpho... TIDMEALS PO 05/23/24 17:00 06/22/24 16:59 05/25/24 13:08 2 EACH Hydralazine HCl (APRESOLine 20MG INJ) 10 mg Q6H PRN IV For:SBP above 160;DBP above 90 05/21/24 19:30 06/20/24 19:29 05/25/24 08:26 10 MG Insulin Human Regular (humuLIN R 100 UNIT/ML 3ML) INSULIN SLIDING SCAL... ACHS SQ 05/21/24 21:00 06/20/24 20:59 05/24/24 20:42 4 UNIT Morphine Sulfate (morPHINE 2MG SYG) 2 mg Q4H PRN IVP SEVERE PAIN (7-10) 05/22/24 12:00 05/28/24 19:29 Morphine Sulfate (morPHINE 4MG SYG) 2 mg Q4H PRN IVP SEVERE PAIN (7-10) 05/21/24 19:30 05/22/24 11:55 DC Ondansetron HCl (zoFRAN 4MG INJ) 4 mg Q6H PRN IV NAUSEA/VOMITING 05/21/24 19:30 06/20/24 19:29 Piperacillin Sod/ Tazobactam Sod (Zosyn 3.375gm+NS 50ml) 3.375 gm Q12H IV 05/22/24 05:00 06/01/24 04:59 05/25/24 04:29 3.375 GM Sodium Chloride 1,000 ml @ 0 mls/hr ONCE IV 05/22/24 12:00 06/21/24 11:59 05/24/24 16:50 100 MLS/HR Vancomycin HCl (Vancomycin 750mg) 750 mg QMOWEFR[DIALYSIS] IVPB 05/22/24 16:00 06/01/24 15:59 05/24/24 17:36 750 MG Vancomycin HCl (Vancomycin Protocol) 1 each AD IV 05/21/24 19:30 06/04/24 19:29 LABORATORY: [ ] Hematology Labs: Test 05/25/24 05:04 Range/Units White Blood Count 6.8 4.8-10.8 K/uL Red Blood Count 3.80 L 4.50-6.20 MIL/uL Hemoglobin 11.2 L 14.0-18.0 g/dL Hematocrit 34.2 L 42-54 % Mean Corpuscular Volume 90.0 79-99 fL Mean Corpuscular Hemoglobin 29.5 27.0-33.0 pg Mean Corpuscular Hemoglobin Concent 32.7 32.0-36.0 g/dL Red Cell Distribution Width 14.1 11.0-15.5 % Platelet Count 276 130-400 K/uL Mean Platelet Volume 9.4 7.5-10.5 fL Immature Granulocyte % (Auto) 0.3 0-1 % Neutrophils (%) (Auto) 61.4 40.0-77.0 % Lymphocytes (%) (Auto) 26.8 21.0-51.0 % Monocytes (%) (Auto) 8.2 3.0-13.0 % Eosinophils (%) (Auto) 2.4 0.0-8.0 % Basophils (%) (Auto) 0.9 0.0-5.0 % Neutrophils # (Auto) 4.2 1.8-7.7 K/uL Lymphocytes # (Auto) 1.8 1.0-4.8 K/uL Monocytes # (Auto) 0.6 0.1-1.0 K/uL Eosinophils # (Auto) 0.16 0.00-0.70 K/uL Basophils # (Auto) 0.06 0.00-0.20 K/uL Absolute Immature Granulocyte (auto 0.02 0-1 K/uL Nucleated Red Blood Cells 0.0 0.0-0.19 % Chemistry Labs: Test 05/25/24 11:12 05/25/24 05:04 Range/Units Whole Blood Glucose 112 H 70-110 MG/DL Sodium Level 136 136-145 mmol/L Potassium Level 4.0 3.5-5.1 mmol/L Chloride Level 96 L 101-111 mmol/L Carbon Dioxide Level 31 21-32 mmol/L Blood Urea Nitrogen 57 H 7-18 mg/dL Creatinine 6.3 H 0.5-1.3 mg/dL Glomerular Filtration Rate Calc 11 >90 mL/min Random Glucose 98 70-105 mg/dL Total Calcium 8.6 8.5-10.1 mg/dL Magnesium Level 2.30 1.80-2.40 mg/dL Total Bilirubin 0.5 0.2-1.0 mg/dL Aspartate Amino Transf (AST/SGOT) 21 10-37 U/L Alanine Aminotransferase (ALT/SGPT) 40 12-78 U/L Alkaline Phosphatase 102 50-136 U/L Total Protein 8.0 6.0-8.3 g/dL Albumin 3.0 L 3.5-5.0 g/dL Coagulation Labs: Test 05/24/24 15:19 Range/Units Prothrombin Time 10.4 9.6-11.6 SEC Prothromb Time International Ratio 0.98 0.85-1.15 DIAGNOSTICS / RADIOLOGY: REASON: verify picc placement, post adjustment ORDERING PHYSICIAN: VAISHALI WHELAN APRN PROCEDURE: CXR1VW - CHEST 1VW CHEST 1VW HISTORY: PICC line placement COMPARISON: 05/24/2024 FINDINGS: A frontal projection of the chest was obtained. No acute pulmonary infiltrates is seen. The heart is borderline enlarged. Prominent interstitial markings are seen. PICC line is seen entering the right with distal tip in the plane of the atriocaval junction. No evidence of aortic calcification is seen. IMPRESSION: 1. Prominent interstitial markings. DICTATED BY: KOBE SMITH MD DATE: 05/25/24 1423 REASON: verify PICC placement ORDERING PHYSICIAN: BUDDY AUGUSTE MD PROCEDURE: CXR1VW - CHEST 1VW CHEST 1VW CLINICAL HISTORY: verify PICC placement COMPARISON: 05/21/2024 TECHNIQUE: Single view of the chest was obtained. FINDINGS: Lungs are clear. The cardiac size and mediastinum are unremarkable. The bony structures are within normal limits. The PICC line tip extends into the proximal superior vena cava where it is minimally coiled back on itself. IMPRESSION: PICC tip coiled back on itself in the proximal superior vena cava. DICTATED BY: SARITA SOLIZ DO DATE: 05/24/242108 REASON: PREVIOULSY SCHEDULED OUTPATIENT ORDERING PHYSICIAN: OSWALD LIM MD PROCEDURE: CTA ABDAOR - CT ANGIO ABD AORTA W RUNOFF CT ANGIO ABD AORTA W RUNOFF REASON: PREVIOULSY SCHEDULED OUTPATIENT COMPARISON: None TECHNIQUE: Axial images are obtained from lung bases through the feet before and during bolus IV contrast infusion. Contrast volume was 100 cc Omnipaque 350. 2-D and 3-D multiplanar obstruction images were performed. FINDINGS: Vascular images show normal appearance of the abdominal aorta. Renal and mesenteric artery origins are widely patent. There are a few minimal aortic plaque present distally. Common and external iliac arteries appear normal. Runoff arteriogram shows normal-appearing superficial femoral and popliteal arteries on both sides. There is three-vessel runoff to the ankles on both sides. There is posterior tibial and dorsalis pedis runoff to the feet on both sides. There is no evidence of significant arterial inflow occlusion. Nonvascular images show normal-appearing liver. Spleen, kidneys, pancreas and gallbladder appear normal. Bowel loops are unremarkable. There is no free air or fluid. There are no focal fluid collections. Aorta and retroperitoneum appear normal as do pelvic soft tissue structures. The anterior abdominal wall is intact. IMPRESSION: 1. Normal CT angiogram of the aorta and lower extremities. DICTATED BY: VIRGINIA HARTMAN MD DATE: 05/24/24 1205 REASON: left great toe osteomyelitis ORDERING PHYSICIAN: YASHIRA WADDELL DPM PROCEDURE: FT LT WO - MR FOOT LEFT WO MR FOOT LEFT WO REASON: left great toe osteomyelitis COMPARISON: X-ray of 05/21/2024 TECHNIQUE: Routine imaging protocol was performed in the sagittal, axial and coronal plane with T1, proton density, T2 and gradient recalled sequences. FINDINGS: There is been amputation of the distal phalanx of first toe. There is a large fluid collection in the deep soft tissues of the first toe, distal to and inferior to the remaining proximal phalanx, findings are compatible with abscess. This collection measures 4 cm proximal to distal inferior to the proximal phalanx. The collection extends to 3 cm superior to inferior. There is normal osseous marrow signal in the remaining proximal phalanx, there is no evidence of osteomyelitis. There is been transmetatarsal amputation of the remaining toes, the metatarsal remnants appear unremarkable. There are no other focal fluid collections. IMPRESSION: 1. Large fluid collection in the deep soft tissues of the first toe consistent with abscess as described above. 2. No evidence of osteomyelitis in the proximal phalanx of the left first toe, the distal phalanx is surgically absent. DICTATED BY: VIRGINIA HARTMAN MD DATE: 05/22/24 1018 REASON: fever ORDERING PHYSICIAN: MARIVEL BARBA MD PROCEDURE: FT 3VW LT - FOOT COMP 3+VWS LT FOOT COMP 3+VWS LT REASON: fever TECHNIQUE: 3 views were obtained. FINDINGS: There is been previous septation of the first toe at the level of the distal aspect of the proximal metatarsal. There is been transmetatarsal amputation of the second through fifth toes. There is marked soft tissue swelling of the first toe. There is no x-ray evidence of osteomyelitis in the remaining proximal phalanx. IMPRESSION: 1. Previous septations. 2. Soft tissue swelling first toe, no x-ray evidence of osteomyelitis. DICTATED BY: VIRGINIA HARTMAN MD DATE: 05/21/24 1607 REASON: fever ORDERING PHYSICIAN: MARIVEL BARBA MD PROCEDURE: CXR1VW - CHEST 1VW CHEST 1VW REASON: fever COMPARISON: 03/18/2024 FINDINGS: Single view of the chest was obtained. Lungs are clear. Heart size is normal. There is no pulmonary vascular congestion. Mediastinum and bony thorax appear unremarkable. IMPRESSION: 1. Normal single view chest x-ray. DICTATED BY: VIRGINIA HARTMAN MD DATE: 05/21/24 1607 ASSESSMENT: End-stage renal disease Acute Sepsis Cellulitis left foot Left foot open wound Wound culture is growing Enterococcus cloacae , Streptococcus Pyogenes group A Leukocytosis Uncontrolled diabetes mellitus type 2 Uncontrolled hypertension Multifactorial anemia PLAN: Labs and Diagnostics/ Radiology personally reviewed and interpreted by myself and supervising physician We have reviewed dialysis and external records in detail Continue dialysis schedule Monday Follow up Podiatry and Cardiology recommendations Continue with the Epogen as needed on dialysis days 1.5 L fluid restriction Continue to monitor H&H Epogen on dialysis days, as needed Continue with frequent monitoring of renal function, anemia, and electrolytes Order CBC, BMP, and electrolytes in the morning May use Dilaudid 0.5 mg IV every 6 hours as needed for severe pain Monitor blood pressure adjust medication doses as needed Maintain normotensive state Strict intake, output, and daily weight should be monitored Please renally adjust medications. Avoid nephrotoxics and nonsteroidal drugs. We will continue to monitor the patient closely We have discussed with the other team physicians in detail about the care plan ATTESTATION BY PHYSICIAN I have seen and examined the patient. I reviewed the documentation, medical decision making, and treatment plan as noted by the mid-level provider above. I agree with the findings and plan of care. SHERRI CARRERA MD, [facility] May 25, 2024 15:06
--- NOTE | 2024-05-25 20:10 | NUR ---
MEDS SHIFT ASSESSMENT DONE, PLEASE REFER TO CHART. DUE MEDS ADMINISTERED, TOLERATED WELL. BOTH PORTS OF PICC LINE FLUSHES WELL WITH GOOD BLOOD RETURN. KEPT RESTED AND COMFORTABLE IN BED. CALL LIGHT WITHIN REACH.
--- NOTE | 2024-05-25 21:02 | PN ---
INFECTIOUS DISEASE FOLLOWUP NOTE DATE OF SERVICE: 05/25/2024 SUBJECTIVE: The patient is seen and examined at bedside. The patient has no fever, no chills. No nausea, no vomiting, no abdominal pain. No bleeding tendency. Pain to the left foot is well controlled. Denies depression. No suicidal ideation. No slurred speech, no limb weakness. Appetite is good. PHYSICAL EXAMINATION: VITAL SIGNS: Temperature today 98.5. EYES: No icterus. Pupils equal and reactive. HENT: No oral lesions seen. Moist oral mucosa. NECK: Supple, no JVD or thyromegaly. LUNGS: Good air entry. No rales, no rhonchi. CARDIOVASCULAR: S1, S2 regular. No murmur heard. ABDOMEN: Full, soft, nontender. Bowel sounds present. CENTRAL NERVOUS SYSTEM: Awake, alert, oriented x 3. No focal deficits. SKIN: No rashes, no itchiness. LYMPHATIC: There is inguinal lymphadenopathy. BACK: No deformity, no pressure ulcer. EXTREMITIES: Ulcer involving the left great toe, status post debridement. ASSESSMENT: A 44-year-old male admitted with fever and chills. Current problems include: * Sepsis. * Diabetic foot ulcer. * Left great toe abscess, status post incision and drainage. * Polymicrobic infection. * Obesity. * End-stage renal disease, on dialysis. PLAN: * Continue Zosyn. * Continue vancomycin. * Continue wound care. * Continue pain management. * Continue antidiabetic. * Monitor electrolytes. * The patient will follow up clinically. TID: [id number] RECEIPT: [id number] [facility]
[2024-05-26] VITALS (7 sets, daily range): BP systolic 127–168; BP diastolic 69–91; PULSE 81–89; RESP 16–20; TEMP 97.6–98.1; O2SAT 97–99
--- NOTE | 2024-05-26 05:15 | NUR ---
DRAW AWAKENED PT FOR BLOOD DRAW. BOTH PORTS FLUSHES WELL WITH GOOD BLOOD RETURN. SPECIMEN COLLECTED THEN SENT TO LAB. KEPT COMFORTABLE IN BED. FOR MORE CARE.
[2024-05-26 05:24] LABS: BASOPHILS # (AUTO) 0.08 K/uL (0.00-0.20); BASOPHILS % (AUTO) 1.4 % (0.0-5.0); EOSINOPHILS # (AUTO) 0.16 K/uL (0.00-0.70); EOSINOPHILS % (AUTO) 2.7 % (0.0-8.0); HEMATOCRIT 31.8 % (42-54); IMMATURE GRANULOCYTE ABSOLUTE 0.02 K/uL (0-1); LYMPHOCYTES % (AUTO) 34.3 % (21.0-51.0); MEAN CORPUSCULAR HEMOGLOBIN 29.7 pg (27.0-33.0); MEAN CORPUSCULAR HGB CONC 33.3 g/dL (32.0-36.0); MEAN CORPUSCULAR VOLUME 89.1 fL (79-99); MONOCYTES # (AUTO) 0.4 K/uL (0.1-1.0); MONOCYTES % (AUTO) 7.5 % (3.0-13.0); NEUTROPHILS # (AUTO) 3.2 K/uL (1.8-7.7); NEUTROPHILS % (AUTO) 53.8 % (40.0-77.0); PLATELET COUNT (AUTO) 251 K/uL (130-400); RED BLOOD CELL COUNT(AUTO) 3.57 MIL/uL (4.50-6.20); RED CELL DISTRIBUTION WIDTH 13.8 % (11.0-15.5); WHITE BLOOD COUNT (AUTO) 5.9 K/uL (4.8-10.8)
[2024-05-26 06:00] LABS: ALBUMIN 2.9 g/dL (3.5-5.0); BILIRUBIN,TOTAL 0.5 mg/dL (0.2-1.0); CREATININE 7.9 mg/dL (0.5-1.3); MAGNESIUM 2.5 mg/dL (1.80-2.40); POTASSIUM 4.4 mmol/L (3.5-5.1); TOTAL PROTEIN, SERUM 7.7 g/dL (6.0-8.3)
--- NOTE | 2024-05-26 09:17 | PN ---
SUBJECTIVE: The patient is a very pleasant, 44-year-old, diabetic, Latin-S[place]i male, seen on date of service 05/26/2024. He is afebrile at 98.1, pulse 87, respirations 16, and blood pressure 132/76. He has a white count that is 5.9, H and H 10.6 and 31.8, and platelets 251. His final wound cultures from his surgery have grown back Enterobacter cloacae. His nonsurgical wound cultures have grown back Streptococcus Group B and Enterobacter cloacae. The patient is currently receiving vancomycin and Zosyn per Infectious Disease. His blood cultures are negative x 4 days. Glucose 91. OBJECTIVE: The patient's examination today shows he has an incision site that is well-coapted to the plantar aspect of his left great toe. He has palpable pedal pulses, absent protective sensation. He has a surgical drain in place to the surgical site. REVIEW OF SYSTEMS: CONSTITUTIONAL: No chills, no fevers, no night sweats, no nausea or vomiting, no diarrhea. HEENT: No problems with his eyes, ears, nose, or throat. CARDIOVASCULAR: Having no current chest pain. RESPIRATORY: No shortness of breath. GENITOURINARY: No dysuria. GASTROINTESTINAL: No dysphagia. ENDOCRINE: Diabetes. PSYCHIATRIC: Denied any depression. MUSCULOSKELETAL: He has bilateral amputations of digits 2 through 5 and portions of the metatarsals. INTEGUMENT: He has an incision site well coapted to the plantar aspect of the left great toe. GENITOURINARY: End-stage renal disease, currently receiving hemodialysis. GASTROINTESTINAL: No dysphagia. ASSESSMENT: Status post incision and drainage and debridement of infected diabetic ulcer with abscess and cellulitis to plantar aspect of the left great toe. No osteomyelitis per the MRI. Cultures are growing Streptococcus group B and Enterobacter cloacae. The patient is receiving vancomycin and Zosyn. Please note, his cultures are growing back Streptococcus pyogenes group A and Enterobacter cloacae. PLAN: Betadine dressings to the left foot, offloading measures with use of a walker. Antibiotics per Infectious Disease, currently vancomycin and Zosyn. Discharge planning for the patient, will follow him up as an outpatient. TID: [id number] RECEIPT: [id number]
--- NOTE | 2024-05-26 10:20 | PN ---
NEPHROLOGY PROGRESS NOTE Date/Time Patient Seen: May 26, 2024 Reason for Consultation: 10:20 SUBJECTIVE: This is a 44-year-old male with a past medical history of end-stage renal disease on hemodialysis Monday, diabetes mellitus two, hypertension. He presented to the emergency room with complaints of left foot cellulitis. Has been tolerating dialysis without difficulty Dialysis planned for Monday. S/p debridement of skin, subcutaneous tissues, and tendon, left foot plantar great toe on 05/23/24 CTA was normal. He continues to be followed by Cardiology Wound cultures were positive He continues on antibiotics as per ID Blood cultures has been negative He was seen in the medical floor, in no acute distress No family at the bedside Prognosis remains guarded REVIEW OF SYSTEMS: GENERAL: Negative for any nausea, vomiting, fevers, chills, or weight loss. NEUROLOGIC: Negative for any blurry vision, blind spots, double vision, facial asymmetry, dysphagia, dysarthria, hemiparesis, hemisensory deficits, vertigo, ataxia. HEENT: Negative for any head trauma, neck trauma, neck stiffness, photophobia, phonophobia, sinusitis, rhinitis. CARDIAC: Negative for any chest pain, dyspnea on exertion, paroxysmal nocturnal dyspnea, peripheral edema. PULMONARY: Negative for any shortness of breath, wheezing, COPD, or TB exposure. GASTROINTESTINAL: Negative for any abdominal pain, nausea, vomiting, bright red blood per rectum, melena. GENITOURINARY: Negative for any dysuria, hematuria, incontinence. INTEGUMENTARY: Negative for any rashes, cuts, insect bites. RHEUMATOLOGIC: Negative for any joint pains, photosensitive rashes, history of vasculitis or kidney problems. HEMATOLOGIC: Negative for any abnormal bruising, frequent infections or bleeding. Vital Signs (last 8hr) Date Time Temp Pulse Resp B/P (MAP) Pulse Ox O2 Delivery O2 Flow Rate FiO2 05/25/24 11:59 97.9 92 20 179/74 100 Room Air 05/25/24 08:00 98.1 92 20 181/76 98 Room Air PHYSICAL EXAM: GENERAL: Alert and oriented x 3. No acute distress. Well-nourished. EYES: EOMI. Anicteric. HENT: Moist mucous membranes. No scleral icterus. No cervical lymphadenopathy. LUNGS: Clear to auscultation bilaterally. No accessory muscle use. CARDIOVASCULAR: Regular rate and rhythm. No murmur. No JVD. ABDOMEN: Soft, non-tender and non-distended. No palpable masses. EXTREMITIES: No edema. Non-tender. SKIN: No rashes or lesions. Warm. NEUROLOGIC: No focal neurological deficits. CN II-XII grossly intact, but not individually tested. PSYCHIATRIC: Cooperative. Appropriate mood and affect. Current Medications Medications (Trade) Dose Ordered Sig/Leonel Route PRN Reason Start Time Stop Time Status Last Admin Dose Admin Acetaminophen (TYLenol 325MG TAB) 650 mg Q6H PRN PO TEMPERATURE GREATER THAN 101.5 05/21/24 19:30 06/20/24 19:29 Heparin Sodium (Porcine) (HEParin 5,000 UNIT VIAL) 5,000 unit BID SQ 05/21/24 21:00 06/20/24 20:59 05/25/24 08:27 5,000 UNIT Home Med (Home Medication) Sucroferric Oxyhydroxide (Velpho... TIDMEALS PO 05/23/24 17:00 06/22/24 16:59 05/25/24 13:08 2 EACH Hydralazine HCl (APRESOLine 20MG INJ) 10 mg Q6H PRN IV For:SBP above 160;DBP above 90 05/21/24 19:30 06/20/24 19:29 05/25/24 08:26 10 MG Insulin Human Regular (humuLIN R 100 UNIT/ML 3ML) INSULIN SLIDING SCAL... ACHS SQ 05/21/24 21:00 06/20/24 20:59 05/24/24 20:42 4 UNIT Morphine Sulfate (morPHINE 2MG SYG) 2 mg Q4H PRN IVP SEVERE PAIN (7-10) 05/22/24 12:00 05/28/24 19:29 Morphine Sulfate (morPHINE 4MG SYG) 2 mg Q4H PRN IVP SEVERE PAIN (7-10) 05/21/24 19:30 05/22/24 11:55 DC Ondansetron HCl (zoFRAN 4MG INJ) 4 mg Q6H PRN IV NAUSEA/VOMITING 05/21/24 19:30 06/20/24 19:29 Piperacillin Sod/ Tazobactam Sod (Zosyn 3.375gm+NS 50ml) 3.375 gm Q12H IV 05/22/24 05:00 06/01/24 04:59 05/25/24 04:29 3.375 GM Sodium Chloride 1,000 ml @ 0 mls/hr ONCE IV 05/22/24 12:00 06/21/24 11:59 05/24/24 16:50 100 MLS/HR Vancomycin HCl (Vancomycin 750mg) 750 mg QMOWEFR[DIALYSIS] IVPB 05/22/24 16:00 06/01/24 15:59 05/24/24 17:36 750 MG Vancomycin HCl (Vancomycin Protocol) 1 each AD IV 05/21/24 19:30 06/04/24 19:29 LABORATORY: [ ] Hematology Labs: Test 05/26/24 05:15 Range/Units White Blood Count 5.9 4.8-10.8 K/uL Red Blood Count 3.57 L 4.50-6.20 MIL/uL Hemoglobin 10.6 L 14.0-18.0 g/dL Hematocrit 31.8 L 42-54 % Mean Corpuscular Volume 89.1 79-99 fL Mean Corpuscular Hemoglobin 29.7 27.0-33.0 pg Mean Corpuscular Hemoglobin Concent 33.3 32.0-36.0 g/dL Red Cell Distribution Width 13.8 11.0-15.5 % Platelet Count 251 130-400 K/uL Mean Platelet Volume 8.7 7.5-10.5 fL Immature Granulocyte % (Auto) 0.3 0-1 % Neutrophils (%) (Auto) 53.8 40.0-77.0 % Lymphocytes (%) (Auto) 34.3 21.0-51.0 % Monocytes (%) (Auto) 7.5 3.0-13.0 % Eosinophils (%) (Auto) 2.7 0.0-8.0 % Basophils (%) (Auto) 1.4 0.0-5.0 % Neutrophils # (Auto) 3.2 1.8-7.7 K/uL Lymphocytes # (Auto) 2.0 1.0-4.8 K/uL Monocytes # (Auto) 0.4 0.1-1.0 K/uL Eosinophils # (Auto) 0.16 0.00-0.70 K/uL Basophils # (Auto) 0.08 0.00-0.20 K/uL Absolute Immature Granulocyte (auto 0.02 0-1 K/uL Nucleated Red Blood Cells 0.0 0.0-0.19 % Chemistry Labs: Test 05/26/24 05:16 05/26/24 05:15 Range/Units Whole Blood Glucose 91 # 70-110 MG/DL Sodium Level 138 136-145 mmol/L Potassium Level 4.4 3.5-5.1 mmol/L Chloride Level 99 L 101-111 mmol/L Carbon Dioxide Level 30 21-32 mmol/L Blood Urea Nitrogen 76 *H 7-18 mg/dL Creatinine 7.9 H 0.5-1.3 mg/dL Glomerular Filtration Rate Calc 8 >90 mL/min Random Glucose 96 70-105 mg/dL Total Calcium 8.9 8.5-10.1 mg/dL Magnesium Level 2.50 H 1.80-2.40 mg/dL Total Bilirubin 0.5 0.2-1.0 mg/dL Aspartate Amino Transf (AST/SGOT) 22 10-37 U/L Alanine Aminotransferase (ALT/SGPT) 33 12-78 U/L Alkaline Phosphatase 91 50-136 U/L Total Protein 7.7 6.0-8.3 g/dL Albumin 2.9 L 3.5-5.0 g/dL Coagulation Labs: Test 05/24/24 15:19 Range/Units Prothrombin Time 10.4 9.6-11.6 SEC Prothromb Time International Ratio 0.98 0.85-1.15 DIAGNOSTICS / RADIOLOGY: REASON: verify picc placement, post adjustment ORDERING PHYSICIAN: VAISHALI WHELAN APRN PROCEDURE: CXR1VW - CHEST 1VW CHEST 1VW HISTORY: PICC line placement COMPARISON: 05/24/2024 FINDINGS: A frontal projection of the chest was obtained. No acute pulmonary infiltrates is seen. The heart is borderline enlarged. Prominent interstitial markings are seen. PICC line is seen entering the right with distal tip in the plane of the atriocaval junction. No evidence of aortic calcification is seen. IMPRESSION: 1. Prominent interstitial markings. DICTATED BY: KOBE SMITH MD DATE: 05/25/24 1423 REASON: verify PICC placement ORDERING PHYSICIAN: BUDDY AUGUSTE MD PROCEDURE: CXR1VW - CHEST 1VW CHEST 1VW CLINICAL HISTORY: verify PICC placement COMPARISON: 05/21/2024 TECHNIQUE: Single view of the chest was obtained. FINDINGS: Lungs are clear. The cardiac size and mediastinum are unremarkable. The bony structures are within normal limits. The PICC line tip extends into the proximal superior vena cava where it is minimally coiled back on itself. IMPRESSION: PICC tip coiled back on itself in the proximal superior vena cava. DICTATED BY: SARITA SOLIZ DO DATE: 05/24/242108 REASON: PREVIOULSY SCHEDULED OUTPATIENT ORDERING PHYSICIAN: OSWALD LIM MD PROCEDURE: CTA ABDAOR - CT ANGIO ABD AORTA W RUNOFF CT ANGIO ABD AORTA W RUNOFF REASON: PREVIOULSY SCHEDULED OUTPATIENT COMPARISON: None TECHNIQUE: Axial images are obtained from lung bases through the feet before and during bolus IV contrast infusion. Contrast volume was 100 cc Omnipaque 350. 2-D and 3-D multiplanar obstruction images were performed. FINDINGS: Vascular images show normal appearance of the abdominal aorta. Renal and mesenteric artery origins are widely patent. There are a few minimal aortic plaque present distally. Common and external iliac arteries appear normal. Runoff arteriogram shows normal-appearing superficial femoral and popliteal arteries on both sides. There is three-vessel runoff to the ankles on both sides. There is posterior tibial and dorsalis pedis runoff to the feet on both sides. There is no evidence of significant arterial inflow occlusion. Nonvascular images show normal-appearing liver. Spleen, kidneys, pancreas and gallbladder appear normal. Bowel loops are unremarkable. There is no free air or fluid. There are no focal fluid collections. Aorta and retroperitoneum appear normal as do pelvic soft tissue structures. The anterior abdominal wall is intact. IMPRESSION: 1. Normal CT angiogram of the aorta and lower extremities. DICTATED BY: VIRGINIA HARTMAN MD DATE: 05/24/24 1205 REASON: left great toe osteomyelitis ORDERING PHYSICIAN: YASHIRA WADDELL DPM PROCEDURE: FT LT WO - MR FOOT LEFT WO MR FOOT LEFT WO REASON: left great toe osteomyelitis COMPARISON: X-ray of 05/21/2024 TECHNIQUE: Routine imaging protocol was performed in the sagittal, axial and coronal plane with T1, proton density, T2 and gradient recalled sequences. FINDINGS: There is been amputation of the distal phalanx of first toe. There is a large fluid collection in the deep soft tissues of the first toe, distal to and inferior to the remaining proximal phalanx, findings are compatible with abscess. This collection measures 4 cm proximal to distal inferior to the proximal phalanx. The collection extends to 3 cm superior to inferior. There is normal osseous marrow signal in the remaining proximal phalanx, there is no evidence of osteomyelitis. There is been transmetatarsal amputation of the remaining toes, the metatarsal remnants appear unremarkable. There are no other focal fluid collections. IMPRESSION: 1. Large fluid collection in the deep soft tissues of the first toe consistent with abscess as described above. 2. No evidence of osteomyelitis in the proximal phalanx of the left first toe, the distal phalanx is surgically absent. DICTATED BY: VIRGINIA HARTMAN MD DATE: 05/22/24 1018 REASON: fever ORDERING PHYSICIAN: MARIVEL BARBA MD PROCEDURE: FT 3VW LT - FOOT COMP 3+VWS LT FOOT COMP 3+VWS LT REASON: fever TECHNIQUE: 3 views were obtained. FINDINGS: There is been previous septation of the first toe at the level of the distal aspect of the proximal metatarsal. There is been transmetatarsal amputation of the second through fifth toes. There is marked soft tissue swelling of the first toe. There is no x-ray evidence of osteomyelitis in the remaining proximal phalanx. IMPRESSION: 1. Previous septations. 2. Soft tissue swelling first toe, no x-ray evidence of osteomyelitis. DICTATED BY: VIRGINIA HARTMAN MD DATE: 05/21/24 1607 REASON: fever ORDERING PHYSICIAN: MARIVEL BARBA MD PROCEDURE: CXR1VW - CHEST 1VW CHEST 1VW REASON: fever COMPARISON: 03/18/2024 FINDINGS: Single view of the chest was obtained. Lungs are clear. Heart size is normal. There is no pulmonary vascular congestion. Mediastinum and bony thorax appear unremarkable. IMPRESSION: 1. Normal single view chest x-ray. DICTATED BY: VIRGINIA HARTMAN MD DATE: 05/21/24 1607 ASSESSMENT: End-stage renal disease Acute Sepsis Cellulitis left foot Left foot open wound Wound culture is growing Enterococcus cloacae , Streptococcus Pyogenes group A Leukocytosis Uncontrolled diabetes mellitus type 2 Uncontrolled hypertension Multifactorial anemia PLAN: Labs and Diagnostics/ Radiology personally reviewed and interpreted by myself and supervising physician We have reviewed dialysis and external records in detail Continue dialysis schedule Monday Case management and coordinating outpatient antibiotics. Continue with the Epogen as needed on dialysis days 1.5 L fluid restriction Continue to monitor H&H Epogen on dialysis days, as needed Continue with frequent monitoring of renal function, anemia, and electrolytes Order CBC, BMP, and electrolytes in the morning May use Dilaudid 0.5 mg IV every 6 hours as needed for severe pain Monitor blood pressure adjust medication doses as needed Maintain normotensive state Strict intake, output, and daily weight should be monitored Please renally adjust medications. Avoid nephrotoxics and nonsteroidal drugs. We will continue to monitor the patient closely We have discussed with the other team physicians in detail about the care plan ATTESTATION BY PHYSICIAN I have seen and examined the patient. I reviewed the documentation, medical decision making, and treatment plan as noted by the mid-level provider above. I agree with the findings and plan of care. SHERRI CARRERA MD, ELIZABETH FNP May 26, 2024 10:20
--- NOTE | 2024-05-26 11:52 | PN ---
A 4-year-old male with a history of hypertension, end-stage renal disease on hemodialysis, history of subacute endocarditis treated with IV antibiotics, diabetic foot ulcer status post bilateral TMA. He was admitted 05/21/2024 secondary to ulceration to the left great toe. He underwent MRI of the foot 05/22/2024 and was found to have a large fluid collection in the deep tissues consistent with abscess without evidence of osteomyelitis. He underwent debridement of the left great toe ulcer. Cardiology was consulted due to concerns for possible peripheral arterial disease. He underwent CTA of the abdominal aorta with runoffs which was deemed normal. He has a patent abdominal aorta, widely patent renal, mesenteric, common and external iliac arteries. The runoff arteriogram shows normal-appearing superficial femoral and popliteal arteries on both sides with three-vessel runoff to the ankles, posterior tibial and dorsalis pedis runoff to the feet. Assessment: 1. Ulceration of the left great toe with abscess. 2. Type 2 diabetes mellitus. 3. Hypertension. Plan: 1. There is no evidence of peripheral arterial disease by CTA of the abdominal aorta with runoffs. 2. Continue IV antibiotics and wound care. 3. Cardiology will sign off at this time. Vitals/Labs Vital Signs Date Time Temp Pulse Resp B/P (MAP) Pulse Ox O2 Delivery O2 Flow Rate FiO2 05/26/24 08:00 97 Room Air* 0 21 05/26/24 08:00 98.1 87 16 132/76 Laboratory Tests 05/26/24 05:15 ELIZABETH PINO May 26, 2024 11:52
--- NOTE | 2024-05-26 13:06 | PN ---
[facility] PROGRESS NOTE Date of Service: May 26, 2024 Time of Service: 13:[address] Rodas SUBJECTIVE: [ 05/21 Mr. Dorsey is a 44-year-old male that was seen and examined today on 05/21/2024. Patient is a good historian of personal health Today in the emergency department WBCs 12.5, left shift neutrophils 81.7%, BUN 39, creatinine 6.0, GFR 11, lactic acid 2.0, urinalysis unremarkable, chest x- ray unremarkable, left foot x-ray shows previous septations, soft tissue swelling. Emergency room physician recommended that patient be admitted with a diagnosis of left foot cellulitis. Additionally patient arrived with a tempera ture of 101.5, heart rate 133, an identified source of infection being left foot meeting clinical sepsis criteria. 05/22 patient was seen by nurse practitioner and physician during rounding in room 317. Patient was evaluated by Dr. Hanson and was culture the wound today and applied Betadine ointment dressing to the left great toe. Patient we will continue to be on vancomycin and Zosyn. Patient also underwent MRI of the left foot as requested by Dr. Hanson for possible osteomyelitis and results showed large fluid collection abscess 1st toe but no osteomyelitis. Patient was also evaluated by roll reclaimer for ESRD on dialysis. We are pending further recommendations regarding antibiotics from ID. 05/23 patient was seen by nurse practitioner physician during rounding in room 317. Patient is pending debridement of infected ulcer, removal of the abscess and possible scraping of the bone by Dr. Bello today 05/23/2024. Patient was also evaluated by the museum educator and is pending CT abdomen runoff. Final urine culture negative. Wound culture is growing Streptococcus Pyogenes group A. I aerobic and anaerobic culture still is preliminary. We are still pending final blood culture. Patient continues to be on vancomycin and Zosyn at this moment. We will continue to monitor patient. A.m. labs. 05/24 patient was seen by nurse practitioner and physician during rounding in ro om 317. CTA abdominal aorta with a run of it is negative. As per Dr. Hanson Betadine dressing to the left foot wound to be applied ambulate with the use of Cam walking boot. Urine culture final is negative. Wound culture is growing Enterococcus cloacae , Streptococcus Pyogenes group A. As per Infectious Disease doctor continue vancomycin and Zosyn at this moment. We are pending final culture of the left foot aerobic and final culture of anaerobic wound. Pending further recommendations of p.o. antibiotics outpatient. Dialysis as scheduled. In the meantime we will continue to monitor patient. A.m. labs 05/25 patient was seen by nurse practitioner physician during rounding in room 321. Patient's PICC line was placed but unfortunately not in the correct position. The end of the PICC is quiet. RN was instructed to contact the PICC line nurse who inserted to remove with an insert again. We are still pending final foot culture. Per ID continue vancomycin Zosyn at this moment. Patient required IV antibiotics outpatient. Case management was consulted for [facility] versus sniff. We will continue to monitor patient in the meantime. A.m. labs. 05/26 patient was seen by CONTACT AND SERVICE CLERKS SUPERVISOR and physician during rounding in room 321 lying in the bed. No family members at the bedside this moment. Final culture of the left foot are back and that is growing Enterobacter cloaca and , Streptococcus P yogenes group A. As per Infectious Disease doctor continue vancomycin and Zosyn. Patient already has a PICC line that was inserted yesterday 05/25/2024 and that is ready to be used. Patient is pending [facility] for IV antibiotics outpatient. Anticipated discharge within 24 hours. Continue dialysis as scheduled. A.m. labs REVIEW OF SYSTEMS CONSTITUTIONAL: Denies fevers, chills, or night sweats. No unintentional weight loss reported. NEUROLOGICAL: Denies headache, amaurosis fugax, motor weakness, sensory deficit, vertigo/spinning sensation, gait abnormalities, or tremors. ENT: No hearing loss, otalgia, otorrhea, rhinitis, rhinorrhea, hoarseness, or sore throat. CARDIOVASCULAR: Denies any exertional angina, dyspnea on exertion, orthopnea, paroxysmal nocturnal dyspnea, palpitations, life-threatening arrhythmias, claudication. PULMONARY: Denies any shortness of breath, cough, phlegm/sputum, hemoptysis, pleuritic chest pain. SLEEP: Denies morning headaches, daytime somnolence or napping. Denies difficulty falling asleep, staying asleep, waking from sleep. Denies knowledge of snoring. GASTROINTESTINAL: Denies any type of dysphagia to either liquids or solids. Denies nausea, vomiting, pyrosis, early satiety, abdominal pain, diarrhea, constipation, or changes in stool consistency or caliber. Denies coffee-ground emesis, hematemesis, hematochezia, or melanotic stools. GENITOURINARY: Denies frequency, urgency, nocturia, hematuria or incontinence (Storage/Irritative symptoms.) Low urinary stream, straining to void, urinary intermittency or hesitancy, splitting of the voiding stream, terminal dribbling. ENDOCRINOLOGIC: Denies polyuria, polydipsia, polyphagia or heat/cold intolerances. HEMATOLOGIC: Denies thrombophilia/previous clots, or coagulopathy/bleeding disorders. ONCOLOGIC: Denies personal history of malignancy. DERMATOLOGIC: Denies rashes or pruritus. Left great toe wound PSYCHIATRIC: Denies any suicidal or homicidal ideation. Denies hallucinations. PHYSICAL EXAM GENERAL APPEARANCE: The patient is awake, alert, and oriented, in no acute cardiopulmonary distress. NEUROLOGICAL: Cranial nerves II-XII grossly intact. Motor is 5/5 in bilateral upper and lower extremities proximal to distal. No sensory deficits. HEENT: Face is symmetric. Pupils are equal and reactive. Extraocular movements are intact. NECK: Supple. No JVD. No thyromegaly. No submental, submandibular, pre- /postauricular, occipital or supraclavicular lymphadenopathy. CHEST: Normal chest expansion. No Telemetry. LUNGS: Absence of any rales, rhonchi or any wheezing. CARDIOVASCULAR: Regular. S1 and S2 normal. No appreciable rubs, murmurs or gallops. ABDOMEN: Soft, nontender, and nondistended. There is no rebound, voluntary guarding, or rigidity. : Deferred. No Herrera. EXTREMITIES: Non-edematous and not cyanotic. No clubbing. Good capillary refill. Left great toe wound SKIN: No skin breakdown. Vital Signs (last 8hr) Date Time Temp Pulse Resp B/P (MAP) Pulse Ox O2 Delivery O2 Flow Rate FiO2 05/26/24 12:00 98.1 83 16 168/91 98 Room Air 0.0 05/26/24 08:00 97 Room Air* 0 21 05/26/24 08:00 98.1 87 16 132/76 97 Room Air 0.0 LABS: Laboratory: Test 05/26/24 11:36 05/26/24 05:05/24/24 15:19 Range/Units Whole Blood Glucose 96 70-110 MG/DL White Blood Count 5.9 4.8-10.8 K/uL Red Blood Count 3.57 L 4.50-6.20 MIL/uL Hemoglobin 10.6 L 14.0-18.0 g/dL Hematocrit 31.8 L 42-54 % Mean Corpuscular Volume 89.1 79-99 fL Mean Corpuscular Hemoglobin 29.7 27.0-33.0 pg Mean Corpuscular Hemoglobin Concent 33.3 32.0-36.0 g/dL Red Cell Distribution Width 13.8 11.0-15.5 % Platelet Count 251 130-400 K/uL Mean Platelet Volume 8.7 7.5-10.5 fL Immature Granulocyte % (Auto) 0.3 0-1 % Neutrophils (%) (Auto) 53.8 40.0-77.0 % Lymphocytes (%) (Auto) 34.3 21.0-51.0 % Monocytes (%) (Auto) 7.5 3.0-13.0 % Eosinophils (%) (Auto) 2.7 0.0-8.0 % Basophils (%) (Auto) 1.4 0.0-5.0 % Neutrophils # (Auto) 3.2 1.8-7.7 K/uL Lymphocytes # (Auto) 2.0 1.0-4.8 K/uL Monocytes # (Auto) 0.4 0.1-1.0 K/uL Eosinophils # (Auto) 0.16 0.00-0.70 K/uL Basophils # (Auto) 0.08 0.00-0.20 K/uL Absolute Immature Granulocyte (auto 0.02 0-1 K/uL Nucleated Red Blood Cells 0.0 0.0-0.19 % Sodium Level 138 136-145 mmol/L Potassium Level 4.4 3.5-5.1 mmol/L Chloride Level 99 L 101-111 mmol/L Carbon Dioxide Level 30 21-32 mmol/L Blood Urea Nitrogen 76 *H 7-18 mg/dL Creatinine 7.9 H 0.5-1.3 mg/dL Glomerular Filtration Rate Calc 8 >90 mL/min Random Glucose 96 70-105 mg/dL Total Calcium 8.9 8.5-10.1 mg/dL Magnesium Level 2.50 H 1.80-2.40 mg/dL Total Bilirubin 0.5 0.2-1.0 mg/dL Aspartate Amino Transf (AST/SGOT) 22 10-37 U/L Alanine Aminotransferase (ALT/SGPT) 33 12-78 U/L Alkaline Phosphatase 91 50-136 U/L Total Protein 7.7 6.0-8.3 g/dL Albumin 2.9 L 3.5-5.0 g/dL Prothrombin Time 10.4 9.6-11.6 SEC Prothromb Time International Ratio 0.98 0.85-1.15 Current Medications Medications (Trade) Dose Ordered Sig/Leonel Route PRN Reason Start Time Stop Time Status Last Admin Dose Admin Acetaminophen (TYLenol 325MG TAB) 650 mg Q6H PRN PO TEMPERATURE GREATER THAN 101.5 05/21/24 19:30 06/20/24 19:29 Heparin Sodium (Porcine) (HEParin 5,000 UNIT VIAL) 5,000 unit BID SQ 05/21/24 21:00 06/20/24 20:59 05/26/24 07:55 5,000 UNIT Home Med (Home Medication) Sucroferric Oxyhydroxide (Velpho... TIDMEALS PO 05/23/24 17:00 06/22/24 16:59 05/26/24 07:55 2 EACH Hydralazine HCl (APRESOLine 20MG INJ) 10 mg Q6H PRN IV For:SBP above 160;DBP above 90 05/21/24 19:30 06/20/24 19:29 05/25/24 08:26 10 MG Insulin Human Regular (humuLIN R 100 UNIT/ML 3ML) INSULIN SLIDING SCAL... ACHS SQ 05/21/24 21:00 06/20/24 20:59 05/25/24 20:07 6 UNIT Morphine Sulfate (morPHINE 2MG SYG) 2 mg Q4H PRN IVP SEVERE PAIN (7-10) 05/22/24 12:00 05/28/24 19:29 Morphine Sulfate (morPHINE 4MG SYG) 2 mg Q4H PRN IVP SEVERE PAIN (7-10) 05/21/24 19:30 05/22/24 11:55 DC Ondansetron HCl (zoFRAN 4MG INJ) 4 mg Q6H PRN IV NAUSEA/VOMITING 05/21/24 19:30 06/20/24 19:29 Piperacillin Sod/ Tazobactam Sod (Zosyn 3.375gm+NS 50ml) 3.375 gm Q12H IV 05/22/24 05:00 06/01/24 04:59 05/26/24 04:43 3.375 GM Sodium Chloride 1,000 ml @ 0 mls/hr ONCE IV 05/22/24 12:00 06/21/24 11:59 05/24/24 16:50 100 MLS/HR Vancomycin HCl (Vancomycin 750mg) 750 mg QMOWEFR[DIALYSIS] IVPB 05/22/24 16:00 06/01/24 15:59 05/24/24 17:36 750 MG Vancomycin HCl (Vancomycin Protocol) 1 each AD IV 05/21/24 19:30 06/04/24 19:29 DIAGNOSTICS / RADIOLOGY: [ ] ASSESSMENT: [ Acute Sepsis, POA Cellulitis left foot, POA Left foot open wound, POA Wound culture is growing Enterococcus cloacae , Streptococcus Pyogenes group A Leukocytosis POA Uncontrolled diabetes mellitus type 2 with hyperglycemia A1c 6.3 POA Uncontrolled hypertension POA CKD, ESRD on HD Multifactorial anemia POA] PLAN: [Pending [facility] for IV antibiotics PICC line inserted 05/25/2024 and that is good to be use s/p debridement of infected ulcer, removal of abscess, scribing bone by Dr. Hanson 05/23/2024 CT abdomen/aorta runoff negative ESRD dialysis continues per roll reclaimer IV antibiotics per ID. Continue vancomycin and Zosyn at this moment. Heparin prophylaxis MRI left foot large fluid collection abscess 1st toe no osteomyelitis Foot x-ray soft tissue swelling possible osteomyelitis Urine culture final negative Wound culture is growing Enterococcus cloacae , Streptococcus Pyogenes group A, aerobic culture still pending anaerobic culture still pending as well Blood culture , negative x4 days] ATTESTATION BY PHYSICIAN I have seen and examined the patient. I reviewed the documentation, medical decision making, and treatment plan as noted by the mid-level provider above. I agree with the findings and plan of care. Geovanny Rodas IV, MD, KATARZYNA B APRN May 26, 2024 13:06
--- NOTE | 2024-05-26 14:40 | NUR ---
cm note met with pt and discussed md orders for [facility]. , pt states has been there in the past. and in agreement.choice letter obtained. also states goes to [facility] at 4am dialysis, would like to go to [facility] at around 9am if possible choice letter obtained and referral sent to [facility]. pending approval.
--- NOTE | 2024-05-26 15:21 | PN ---
INFECTIOUS DISEASE PROGRESS NOTE Date of Service: May 26, 2024 SUBJECTIVE: 44-year-old male patient is being seen today at bedside. He has no fever or chills. Patient denies any pain at this time. Patient does continue with wound care to left lower extremity. No abdominal pain, no diarrhea or constipation. Patient to continue Zosyn as outpatient for a total of 2 weeks. Went over plan of care with patient at bedside, concerns or questions at this time. PHYSICAL EXAM EYES: Anicteric. Pupils equal and reactive. HENT: No oral thrush seen, moist Oral mucosa NECK: Supple, no JVD or thyromegaly. LUNGS: Good air entry. No rales, no rhonchi. CARDIOVASCULAR: S1, S2 regular. No murmur heard. ABDOMEN: Soft, non tender, bowel sounds present, no organomegaly CENTRAL NERVOUS SYSTEM: Awake, alert, oriented x 3. No focal deficits. SKIN: No rashes, no swelling. LYMPHATICS: No peripheral lymphadenopathy MUSCULOSKELETAL: No joint swelling, erythema or tenderness. EXTREMITIES: Great toe abscess status post I and D BACK: No deformity, no pressure ulcer. GENITOURINARY: Hemodialysis dependent Vital Sign (Last 12 Hours) 05/26/24 05/26/24 05/26/24 05/26/24 04:00 08:00 08:00 12:00 Temp 97.5 98.1 98.1 Pulse 81 87 83 Resp 20 16 16 B/P (MAP) 127/69 132/76 168/91 Pulse Ox 98 97 97 98 O2 Delivery Room Air Room Air Room Air* Room Air O2 Flow Rate 0.0 0 0.0 FiO2 21 Intake & Output (last 24hrs) 05/25/24 05/25/24 05/26/24 15:00 23:00 07:00 Intake Total 900 ml 200.0 ml Balance 900 ml 200.0 ml LABS: Laboratory: Test 05/26/24 11:36 05/26/24 05:15 05/24/24 15:19 Range/Units Whole Blood Glucose 96 70-110 MG/DL White Blood Count 5.9 4.8-10.8 K/uL Red Blood Count 3.57 L 4.50-6.20 MIL/uL Hemoglobin 10.6 L 14.0-18.0 g/dL Hematocrit 31.8 L 42-54 % Mean Corpuscular Volume 89.1 79-99 fL Mean Corpuscular Hemoglobin 29.7 27.0-33.0 pg Mean Corpuscular Hemoglobin Concent 33.3 32.0-36.0 g/dL Red Cell Distribution Width 13.8 11.0-15.5 % Platelet Count 251 130-400 K/uL Mean Platelet Volume 8.7 7.5-10.5 fL Immature Granulocyte % (Auto) 0.3 0-1 % Neutrophils (%) (Auto) 53.8 40.0-77.0 % Lymphocytes (%) (Auto) 34.3 21.0-51.0 % Monocytes (%) (Auto) 7.5 3.0-13.0 % Eosinophils (%) (Auto) 2.7 0.0-8.0 % Basophils (%) (Auto) 1.4 0.0-5.0 % Neutrophils # (Auto) 3.2 1.8-7.7 K/uL Lymphocytes # (Auto) 2.0 1.0-4.8 K/uL Monocytes # (Auto) 0.4 0.1-1.0 K/uL Eosinophils # (Auto) 0.16 0.00-0.70 K/uL Basophils # (Auto) 0.08 0.00-0.20 K/uL Absolute Immature Granulocyte (auto 0.02 0-1 K/uL Nucleated Red Blood Cells 0.0 0.0-0.19 % Sodium Level 138 136-145 mmol/L Potassium Level 4.4 3.5-5.1 mmol/L Chloride Level 99 L 101-111 mmol/L Carbon Dioxide Level 30 21-32 mmol/L Blood Urea Nitrogen 76 *H 7-18 mg/dL Creatinine 7.9 H 0.5-1.3 mg/dL Glomerular Filtration Rate Calc 8 >90 mL/min Random Glucose 96 70-105 mg/dL Total Calcium 8.9 8.5-10.1 mg/dL Magnesium Level 2.50 H 1.80-2.40 mg/dL Total Bilirubin 0.5 0.2-1.0 mg/dL Aspartate Amino Transf (AST/SGOT) 22 10-37 U/L Alanine Aminotransferase (ALT/SGPT) 33 12-78 U/L Alkaline Phosphatase 91 50-136 U/L Total Protein 7.7 6.0-8.3 g/dL Albumin 2.9 L 3.5-5.0 g/dL Prothrombin Time 10.4 9.6-11.6 SEC Prothromb Time International Ratio 0.98 0.85-1.15 ASSESSMENT: Left great toe ulcer with abscess, status post I&D. Sepsis. End-stage renal disease, on dialysis. Diabetes mellitus. Polymicrobic infection PLAN: Continue vancomycin per pharmacy protocol. Continue Zosyn IV. We will follow up on the intraoperative culture results. Wound care as recommended by care nurse rn. Continue pain management. Continue monitoring glucose levels. Place PICC line. We recommend 2 weeks of Zosyn as outpatient This case was reviewed and discussed with my supervising physician and the above assessment and plan was formulated and agreed upon. OCTAVIA MURDOCK May 26, 2024 15:21
--- NOTE | 2024-05-26 20:15 | NUR ---
MEDS SHIFT ASSESSMENT DONE, PLEASE REFER TO CHART. DUE MEDS ADMINISTERED, TOLERATED WELL. KEPT RESTED AND COMFORTABLE IN BED. CALL LIGHT WITHIN REACH.
[2024-05-27] VITALS (19 sets, daily range): BP systolic 104–161; BP diastolic 63–98; PULSE 82–96; RESP 12–20; TEMP 97.6–98.1; O2SAT 99
--- NOTE | 2024-05-27 05:10 | NUR ---
DRAW BLOOD DRAWN FROM PICC PORT. BOTH PORTS FLUSHES GOOD WITH GOOD BLOOD RETURN. SPECIMEN SENT TO LAB FOR ANALYSIS. CONTINUED IV ZOSYN INFUSION. KEPT RESTED IN BED. FOR MORE CARE.
[2024-05-27 05:23] LABS: BASOPHILS # (AUTO) 0.08 K/uL (0.00-0.20); BASOPHILS % (AUTO) 1.2 % (0.0-5.0); EOSINOPHILS # (AUTO) 0.19 K/uL (0.00-0.70); EOSINOPHILS % (AUTO) 2.8 % (0.0-8.0); HEMATOCRIT 30.4 % (42-54); IMMATURE GRANULOCYTE ABSOLUTE 0.04 K/uL (0-1); LYMPHOCYTES # (AUTO) 1.9 K/uL (1.0-4.8); MEAN CORPUSCULAR HEMOGLOBIN 29.6 pg (27.0-33.0); MEAN CORPUSCULAR HGB CONC 33.2 g/dL (32.0-36.0); MEAN CORPUSCULAR VOLUME 89.1 fL (79-99); MONOCYTES # (AUTO) 0.4 K/uL (0.1-1.0); MONOCYTES % (AUTO) 6.1 % (3.0-13.0); NEUTROPHILS # (AUTO) 4.1 K/uL (1.8-7.7); NEUTROPHILS % (AUTO) 61.3 % (40.0-77.0); PLATELET COUNT (AUTO) 277 K/uL (130-400); RED BLOOD CELL COUNT(AUTO) 3.41 MIL/uL (4.50-6.20); RED CELL DISTRIBUTION WIDTH 13.9 % (11.0-15.5); WHITE BLOOD COUNT (AUTO) 6.7 K/uL (4.8-10.8)
[2024-05-27 05:44] LABS: ALBUMIN 2.9 g/dL (3.5-5.0); BILIRUBIN,TOTAL 0.4 mg/dL (0.2-1.0); MAGNESIUM 2.5 mg/dL (1.80-2.40); PHOSPHORUS 5.9 mg/dL (2.5-4.9); POTASSIUM 4.8 mmol/L (3.5-5.1); TOTAL PROTEIN, SERUM 7.5 g/dL (6.0-8.3)
--- NOTE | 2024-05-27 06:25 | NUR ---
MD DR WADDELL IN TO SEE PT. DRESSING CHANGE ALREADY DONE BY HIM. NO NEW ORDERS GIVEN. STATED PT ALREADY HAVE AN APPOINTMENT WITH HIM ON MONDAY. PT'S WILL DO DRESSING CHANGE AT HOME.
--- NOTE | 2024-05-27 09:16 | PN ---
SUBJECTIVE: The patient is a very pleasant 44-year-old diabetic, Latin-Dominican male who is afebrile. His white count is within normal limits. His wound cultures from his left great toe surgical site have grown back Streptococcus pyogenes group A and Enterobacter cloacae. The patient is currently afebrile. His white count is within normal limits. He is currently receiving IV vancomycin and IV Zosyn per his cultures and sensitivities. He is without any complaints of pain. He is ambulating with a walker and a CAM walking boot on that left side. The patient is without any complaints of pain. He has end-stage renal disease, currently receives hemodialysis today. He is pending PICC line placement and his plan is for 2 weeks of IV Zosyn as an outpatient per Dr. Multani, Infectious Disease. From my standpoint, he can be discharged. He has a current diagnoses of left great toe ulcer with abscess status post incision and drainage and debridement. MRI negative for osteomyelitis; sepsis; end-stage renal disease, on hemodialysis; diabetes and polymicrobial wound infection. REVIEW OF SYSTEMS: CONSTITUTIONAL: No chills, no fevers, no night sweats, no nausea, vomiting, no diarrhea. HEENT: No problems with eyes, ears, nose or throat. CARDIOVASCULAR: Having no current chest pain. Being evaluated by the Cardiology Service. Found to have no peripheral vascular disease. PSYCHIATRIC: Denies depression. 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 INTEGUMENT: His incision site well coapted to the left first ray surgical site. Sutures in place. Drain has been removed. OBJECTIVE: On examination today, palpable pedal pulses, absent protective sensation. Incision site 6 cm in length. Plantar aspect of the left great toe is well coapted with sutures. There is no necrosis and no dehiscence. ASSESSMENT: Status post incision and drainage and debridement of infected diabetic ulcer of the plantar aspect of left great toe. Cultures Streptococcus and Enterobacter. The patient's plan is for 2 weeks of IV Zosyn per Infectious Disease, Betadine dressings and offloading measures. PLAN: From my standpoint, he will be discharged. Follow up as an outpatient. The patient may ambulate with a CAM walking boot on that left side. The patient can be discharged today from my standpoint. TID: [id number] RECEIPT: [id number]
--- NOTE | 2024-05-27 14:39 | NUR ---
Discharge Planning: As per Dr. Whitman at [facility], did not receive the referral for pt. Referral sent. Pending insurance authorization.
--- NOTE | 2024-05-27 16:00 | PN ---
[facility] PROGRESS NOTE Date of Service: May 27, 2024 Time of Service: 15:59 SUBJECTIVE: [ 05/21 Mr. Dorsey is a 44-year-old male that was seen and examined today on 05/21/2024. Patient is a good historian of personal health Today in the emergency department WBCs 12.5, left shift neutrophils 81.7%, BUN 39, creatinine 6.0, GFR 11, lactic acid 2.0, urinalysis unremarkable, chest x- ray unremarkable, left foot x-ray shows previous septations, soft tissue swelling. Emergency room physician recommended that patient be admitted with a diagnosis of left foot cellulitis. Additionally patient arrived with a temperature of 101.5, heart rate 133, an identified source of infection being left foot meeting clinical sepsis criteria. 05/22 patient was seen by nurse practitioner and physician during rounding in room 317. Patient was evaluated by Dr. Hanson and was culture the wound today and applied Betadine ointment dressing to the left great toe. Patient we will continue to be on vancomycin and Zosyn. Patient also underwent MRI of the left foot as requested by Dr. Hanson for possible osteomyelitis and results showed large fluid collection abscess 1st toe but no osteomyelitis. Patient was also evaluated by technology adoption manager for ESRD on dialysis. We are pending further recommendations regarding antibiotics from ID. 05/23 patient was seen by nurse practitioner physician during rounding in room 317. Patient is pending debridement of infected ulcer, removal of the abscess and possible scraping of the bone by Dr. Bello today 05/23/2024. Patient was also evaluated by the suture polisher and is pending CT abdomen runoff. Final urine culture negative. Wound culture is growing Streptococcus Pyogenes group A. I aerobic and anaerobic culture still is preliminary. We are still pending final blood culture. Patient continues to be on vancomycin and Zosyn at this moment. We will continue to monitor patient. A.m. labs. 05/24 patient was seen by nurse practitioner and physician during rounding in room 317. CTA abdominal aorta with a run of it is negative. As per Dr. Hanson Betadine dressing to the left foot wound to be applied ambulate with the use of Cam walking boot. Urine culture final is negative. Wound culture is growing Enterococcus cloacae , Streptococcus Pyogenes group A. As per Infectious Disease doctor continue vancomycin and Zosyn at this moment. We are pending final culture of the left foot aerobic and final culture of anaerobic wound. Pending further recommendations of p.o. antibiotics outpatient. Dialysis as scheduled. In the meantime we will continue to monitor patient. A.m. labs 05/25 patient was seen by nurse practitioner physician during rounding in room 321. Patient's PICC line was placed but unfortunately not in the correct position. The end of the PICC is quiet. RN was instructed to contact the PICC line nurse who inserted to remove with an insert again. We are still pending final foot culture. Per ID continue vancomycin Zosyn at this moment. Patient required IV antibiotics outpatient. Case management was consulted for good emma versus sniff. We will continue to monitor patient in the meantime. A.m. labs. 05/26 patient was seen by CORRECTIONAL NURSE and physician during rounding in room 321 lying in the bed. No family members at the bedside this moment. Final culture of the left foot are back and that is growing Enterobacter cloaca and , Streptococcus Pyogenes group A. As per Infectious Disease doctor continue vancomycin and Zosyn. Patient already has a PICC line that was inserted yesterday 05/25/2024 and that is ready to be used. Patient is pending good emma for IV antibiotics outpatient. Anticipated discharge within 24 hours. Continue dialysis as scheduled. A.m. labs 05/27/24 patient was seen and examined. Case discussed with the RN. Cultures of the left foot showing Enterobacter cloacae continue with vancomycin and Zosyn per ID. Pending good emma for IV antibiotics outpatient REVIEW OF SYSTEMS CONSTITUTIONAL: Denies fevers, chills, or night sweats. No unintentional weight loss reported. NEUROLOGICAL: Denies headache, amaurosis fugax, motor weakness, sensory deficit, vertigo/spinning sensation, gait abnormalities, or tremors. ENT: No hearing loss, otalgia, otorrhea, rhinitis, rhinorrhea, hoarseness, or sore throat. CARDIOVASCULAR: Denies any exertional angina, dyspnea on exertion, orthopnea, paroxysmal nocturnal dyspnea, palpitations, life-threatening arrhythmias, isak ication. PULMONARY: Denies any shortness of breath, cough, phlegm/sputum, hemoptysis, pleuritic chest pain. SLEEP: Denies morning headaches, daytime somnolence or napping. Denies difficulty falling asleep, staying asleep, waking from sleep. Denies knowledge of snoring. GASTROINTESTINAL: Denies any type of dysphagia to either liquids or solids. Denies nausea, vomiting, pyrosis, early satiety, abdominal pain, diarrhea, constipation, or changes in stool consistency or caliber. Denies coffee-ground emesis, hematemesis, hematochezia, or melanotic stools. GENITOURINARY: Denies frequency, urgency, nocturia, hematuria or incontinence (Storage/Irritative symptoms.) Low urinary stream, straining to void, urinary intermittency or hesitancy, splitting of the voiding stream, terminal dribbling. ENDOCRINOLOGIC: Denies polyuria, polydipsia, polyphagia or heat/cold intolerances. HEMATOLOGIC: Denies thrombophilia/previous clots, or coagulopathy/bleeding disorders. ONCOLOGIC: Denies personal history of malignancy. DERMATOLOGIC: Denies rashes or pruritus. Left great toe wound PSYCHIATRIC: Denies any suicidal or homicidal ideation. Denies hallucinations. PHYSICAL EXAM GENERAL APPEARANCE: The patient is awake, alert, and oriented, in no acute cardiopulmonary distress. NEUROLOGICAL: Cranial nerves II-XII grossly intact. Motor is 5/5 in bilateral upper and lower extremities proximal to distal. No sensory deficits. HEENT: Face is symmetric. Pupils are equal and reactive. Extraocular movements are intact. NECK: Supple. No JVD. No thyromegaly. No submental, submandibular, pre- /postauricular, occipital or supraclavicular lymphadenopathy. CHEST: Normal chest expansion. No Telemetry. LUNGS: Absence of any rales, rhonchi or any wheezing. CARDIOVASCULAR: Regular. S1 and S2 normal. No appreciable rubs, murmurs or gallops. ABDOMEN: Soft, nontender, and nondistended. There is no rebound, voluntary guarding, or rigidity. : Deferred. No Herrera. EXTREMITIES: Non-edematous and not cyanotic. No clubbing. Good capillary refill. Left great toe wound SKIN: No skin breakdown. Vital Signs (last 8hr) Date Time Temp Pulse Resp B/P (MAP) Pulse Ox O2 Delivery O2 Flow Rate FiO2 05/27/24 13:20 97.9 92 12 141/82 Room Air 05/27/24 13:15 94 12 132/88 Room Air 05/27/24 13:00 94 12 114/85 Room Air 05/27/24 12:45 94 12 144/81 Room Air 05/27/24 12:30 92 12 149/93 Room Air 05/27/24 12:15 92 12 151/98 Room Air 05/27/24 12:00 93 12 151/98 Room Air 05/27/24 12:00 97.7 92 20 138/85 99 Room Air 05/27/24 11:45 87 12 126/88 Room Air 05/27/24 11:30 87 12 126/88 Room Air 05/27/24 11:15 87 12 144/81 Room Air 05/27/24 11:00 92 12 138/85 Room Air 05/27/24 10:45 82 12 149/97 Room Air 05/27/24 10:30 84 12 161/92 Room Air 05/27/24 10:15 97.7 88 12 145/88 Room Air 05/27/24 09:30 97.7 89 12 147/90 Room Air 05/27/24 08:00 98.1 86 18 132/73 99 Room Air LABS: Laboratory: Test 05/27/24 11:02 05/27/24 05:10 Range/Units Whole Blood Glucose 109 70-110 MG/DL White Blood Count 6.7 4.8-10.8 K/uL Red Blood Count 3.41 L 4.50-6.20 MIL/uL Hemoglobin 10.1 L 14.0-18.0 g/dL Hematocrit 30.4 L 42-54 % Mean Corpuscular Volume 89.1 79-99 fL Mean Corpuscular Hemoglobin 29.6 27.0-33.0 pg Mean Corpuscular Hemoglobin Concent 33.2 32.0-36.0 g/dL Red Cell Distribution Width 13.9 11.0-15.5 % Platelet Count 277 130-400 K/uL Mean Platelet Volume 8.8 7.5-10.5 fL Immature Granulocyte % (Auto) 0.6 0-1 % Neutrophils (%) (Auto) 61.3 40.0-77.0 % Lymphocytes (%) (Auto) 28.0 21.0-51.0 % Monocytes (%) (Auto) 6.1 3.0-13.0 % Eosinophils (%) (Auto) 2.8 0.0-8.0 % Basophils (%) (Auto) 1.2 0.0-5.0 % Neutrophils # (Auto) 4.1 1.8-7.7 K/uL Lymphocytes # (Auto) 1.9 1.0-4.8 K/uL Monocytes # (Auto) 0.4 0.1-1.0 K/uL Eosinophils # (Auto) 0.19 0.00-0.70 K/uL Basophils # (Auto) 0.08 0.00-0.20 K/uL Absolute Immature Granulocyte (auto 0.04 0-1 K/uL Nucleated Red Blood Cells 0.0 0.0-0.19 % Sodium Level 141 136-145 mmol/L Potassium Level 4.8 3.5-5.1 mmol/L Chloride Level 101 101-111 mmol/L Carbon Dioxide Level 27 21-32 mmol/L Blood Urea Nitrogen 91 *H 7-18 mg/dL Creatinine 9.0 *H 0.5-1.3 mg/dL Glomerular Filtration Rate Calc 7 >90 mL/min Random Glucose 98 70-105 mg/dL Total Calcium 8.4 L 8.5-10.1 mg/dL Phosphorus Level 5.9 H 2.5-4.9 mg/dL Magnesium Level 2.50 H 1.80-2.40 mg/dL Total Bilirubin 0.4 0.2-1.0 mg/dL Aspartate Amino Transf (AST/SGOT) 21 10-37 U/L Alanine Aminotransferase (ALT/SGPT) 33 12-78 U/L Alkaline Phosphatase 88 50-136 U/L Total Protein 7.5 6.0-8.3 g/dL Albumin 2.9 L 3.5-5.0 g/dL Current Medications Medications (Trade) Dose Ordered Sig/Leonel Route PRN Reason Start Time Stop Time Status Last Admin Dose Admin Acetaminophen (TYLenol 325MG TAB) 650 mg Q6H PRN PO TEMPERATURE GREATER THAN 101.5 05/21/24 19:30 06/20/24 19:29 Heparin Sodium (Porcine) (HEParin 5,000 UNIT VIAL) 5,000 unit BID SQ 05/21/24 21:00 06/20/24 20:59 05/27/24 08:15 5,000 UNIT Home Med (Home Medication) Sucroferric Oxyhydroxide (Velpho... TIDMEALS PO 05/23/24 17:00 06/22/24 16:59 05/26/24 16:57 2 EACH Hydralazine HCl (APRESOLine 20MG INJ) 10 mg Q6H PRN IV For:SBP above 160;DBP above 90 05/21/24 19:30 06/20/24 19:29 05/25/24 08:26 10 MG Insulin Human Regular (humuLIN R 100 UNIT/ML 3ML) INSULIN SLIDING SCAL... ACHS SQ 05/21/24 21:00 06/20/24 20:59 05/25/24 20:07 6 UNIT Morphine Sulfate (morPHINE 2MG SYG) 2 mg Q4H PRN IVP SEVERE PAIN (7-10) 05/22/24 12:00 05/27/24 14:59 DC Morphine Sulfate (morPHINE 4MG SYG) 2 mg Q4H PRN IVP SEVERE PAIN (7-10) 05/21/24 19:30 05/22/24 11:55 DC Ondansetron HCl (zoFRAN 4MG INJ) 4 mg Q6H PRN IV NAUSEA/VOMITING 05/21/24 19:30 06/20/24 19:29 Piperacillin Sod/ Tazobactam Sod (Zosyn 3.375gm+NS 50ml) 3.375 gm Q12H IV 05/22/24 05:00 06/01/24 04:59 05/27/24 04:06 3.375 GM Sodium Chloride 1,000 ml @ 0 mls/hr ONCE IV 05/22/24 12:00 06/21/24 11:59 05/27/24 10:34 100 MLS/HR Vancomycin HCl (Vancomycin 750mg) 750 mg QMOWEFR[DIALYSIS] IVPB 05/22/24 16:00 06/01/24 15:59 05/24/24 17:36 750 MG Vancomycin HCl (Vancomycin Protocol) 1 each AD IV 05/21/24 19:30 06/04/24 19:29 DIAGNOSTICS / RADIOLOGY: [ ] ASSESSMENT: [ Acute Sepsis, POA Cellulitis left foot, POA Left foot open wound, POA Wound culture is growing Enterococcus cloacae , Streptococcus Pyogenes group A Leukocytosis POA Uncontrolled diabetes mellitus type 2 with hyperglycemia A1c 6.3 POA Uncontrolled hypertension POA CKD, ESRD on HD Multifactorial anemia POA] PLAN: [Pending good emma for IV antibiotics PICC line inserted 05/25/2024 and that is good to be use s/p debridement of infected ulcer, removal of abscess, scribing bone by Dr. Hanson 05/23/2024 CT abdomen/aorta runoff negative ESRD dialysis continues per technology adoption manager IV antibiotics per ID. Continue vancomycin and Zosyn at this moment. Heparin prophylaxis MRI left foot large fluid collection abscess 1st toe no osteomyelitis Foot x-ray soft tissue swelling possible osteomyelitis Urine culture final negative Wound culture is growing Enterococcus cloacae , Streptococcus Pyogenes group A, aerobic culture still pending anaerobic culture still pending as well Blood culture , negative x4 days] BERNARDO BEGUM MD May 27, 2024 16:00
--- NOTE | 2024-05-27 17:13 | NUR ---
Discharge Update: Patient accepted at [facility] for O/P IV ABX. Appt. is for tomorrow at 8 am. Plan is for discharge home today.
--- NOTE | 2024-05-27 17:22 | PN ---
INFECTIOUS DISEASE PROGRESS NOTE Date of Service: May 27, 2024 SUBJECTIVE: This is a 44-year-old male patient who was seen and examined at bedside in room 321. Patient is awake, alert and oriented x3. Patient was dialyzed today and 2 L were removed. Patient has been referred to [facility] for outpatient IV antibiotics with Zosyn x 2 weeks and pending insurance authorization PHYSICAL EXAM EYES: Anicteric. Pupils equal and reactive. HENT: No oral thrush seen, moist Oral mucosa NECK: Supple, no JVD or thyromegaly. LUNGS: Good air entry. No rales, no rhonchi. CARDIOVASCULAR: S1, S2 regular. No murmur heard. ABDOMEN: Soft, non tender, bowel sounds present, no organomegaly CENTRAL NERVOUS SYSTEM: Awake, alert, oriented x 3. No focal deficits. SKIN: No rashes, no swelling. LYMPHATICS: No peripheral lymphadenopathy MUSCULOSKELETAL: No joint swelling, erythema or tenderness. EXTREMITIES: Great toe abscess status post I and D BACK: No deformity, no pressure ulcer. GENITOURINARY: Hemodialysis dependent Vital Sign (Last 12 Hours) 05/27/24 05/27/24 05/27/24 05/27/24 08:00 08:00 09:30 10:15 Temp 98.1 97.7 97.7 Pulse 86 89 88 Resp 18 12 12 B/P (MAP) 132/73 147/90 145/88 Pulse Ox 99 99 O2 Delivery Room Air Room Air* Room Air Room Air O2 Flow Rate 0 FiO2 21 05/27/24 05/27/24 05/27/24 05/27/24 10:30 10:45 11:00 11:15 Pulse 84 82 92 87 Resp 12 12 12 12 B/P (MAP) 161/92 149/97 138/85 144/81 O2 Delivery Room Air Room Air Room Air Room Air 05/27/24 05/27/24 05/27/24 05/27/24 11:30 11:45 12:00 12:00 Temp 97.7 Pulse 87 87 92 93 Resp 12 12 20 12 B/P (MAP) 126/88 126/88 138/85 151/98 Pulse Ox 99 O2 Delivery Room Air Room Air Room Air Room Air 05/27/24 05/27/24 05/27/24 05/27/24 12:15 12:30 12:45 13:00 Pulse 92 92 94 94 Resp 12 12 12 12 B/P (MAP) 151/98 149/93 144/81 114/85 O2 Delivery Room Air Room Air Room Air Room Air 05/27/24 05/27/24 05/27/24 13:15 13:20 16:00 Temp 97.9 97.5 Pulse 94 92 96 Resp 12 12 20 B/P (MAP) 132/88 141/82 104/63 Pulse Ox 100 O2 Delivery Room Air Room Air Room Air Intake & Output (last 24hrs) 05/26/24 05/26/24 05/27/24 15:00 23:00 07:00 Intake Total 150 ml Balance 150 ml LABS: Laboratory: Test 05/27/24 16:06 05/27/24 05:10 Range/Units Whole Blood Glucose 105 70-110 MG/DL White Blood Count 6.7 4.8-10.8 K/uL Red Blood Count 3.41 L 4.50-6.20 MIL/uL Hemoglobin 10.1 L 14.0-18.0 g/dL Hematocrit 30.4 L 42-54 % Mean Corpuscular Volume 89.1 79-99 fL Mean Corpuscular Hemoglobin 29.6 27.0-33.0 pg Mean Corpuscular Hemoglobin Concent 33.2 32.0-36.0 g/dL Red Cell Distribution Width 13.9 11.0-15.5 % Platelet Count 277 130-400 K/uL Mean Platelet Volume 8.8 7.5-10.5 fL Immature Granulocyte % (Auto) 0.6 0-1 % Neutrophils (%) (Auto) 61.3 40.0-77.0 % Lymphocytes (%) (Auto) 28.0 21.0-51.0 % Monocytes (%) (Auto) 6.1 3.0-13.0 % Eosinophils (%) (Auto) 2.8 0.0-8.0 % Basophils (%) (Auto) 1.2 0.0-5.0 % Neutrophils # (Auto) 4.1 1.8-7.7 K/uL Lymphocytes # (Auto) 1.9 1.0-4.8 K/uL Monocytes # (Auto) 0.4 0.1-1.0 K/uL Eosinophils # (Auto) 0.19 0.00-0.70 K/uL Basophils # (Auto) 0.08 0.00-0.20 K/uL Absolute Immature Granulocyte (auto 0.04 0-1 K/uL Nucleated Red Blood Cells 0.0 0.0-0.19 % Sodium Level 141 136-145 mmol/L Potassium Level 4.8 3.5-5.1 mmol/L Chloride Level 101 101-111 mmol/L Carbon Dioxide Level 27 21-32 mmol/L Blood Urea Nitrogen 91 *H 7-18 mg/dL Creatinine 9.0 *H 0.5-1.3 mg/dL Glomerular Filtration Rate Calc 7 >90 mL/min Random Glucose 98 70-105 mg/dL Total Calcium 8.4 L 8.5-10.1 mg/dL Phosphorus Level 5.9 H 2.5-4.9 mg/dL Magnesium Level 2.50 H 1.80-2.40 mg/dL Total Bilirubin 0.4 0.2-1.0 mg/dL Aspartate Amino Transf (AST/SGOT) 21 10-37 U/L Alanine Aminotransferase (ALT/SGPT) 33 12-78 U/L Alkaline Phosphatase 88 50-136 U/L Total Protein 7.5 6.0-8.3 g/dL Albumin 2.9 L 3.5-5.0 g/dL ASSESSMENT: Left great toe ulcer with abscess, status post I&D on 05/23/2024. Left foot with Polymicrobic infection. Sepsis, resolving. End-stage renal disease, on dialysis. Diabetes mellitus. PLAN: Continue vancomycin per pharmacy protocol. Continue Zosyn IV. Wound care as recommended by diversity manager. Continue pain management. Continue monitoring glucose levels. Patient has been referred to [facility] for outpatient IV antibiotics with Zosyn x 2 weeks and pending insurance authorization This case was reviewed and discussed with my supervising physician and the above assessment and plan was formulated and agreed upon. ATTESTATION BY PHYSICIAN I have seen and examined the patient. I reviewed the documentation, medical decision making, and treatment plan as noted by the mid-level provider above. I agree with the findings and plan of care. BUDDY AUGUSTE MD, MIRTA L TIN DIPPER May 27, 2024 17:22
--- NOTE | 2024-05-27 20:10 | PN ---
DIALYSIS NOTE SUBJECTIVE: The patient was seen and evaluated on hemodialysis, prescription noted. OBJECTIVE: VITAL SIGNS: Blood pressure 147/90. CARDIOVASCULAR: Regular. LUNGS: Coarse. IMPRESSION: End-stage renal disease. PLAN: The patient will continue with maximal ultrafiltration as blood pressure allows. Once the patient is discharged, the patient will follow up at the dialysis unit. TID: [id number] RECEIPT: [id number]
== END 2024-05-27 18:30 | disposition home or self-care (01) | DRG 853 ==
LOC: EDH 13:56 → EDHIP 18:28 → 3CH 05-22 00:07 → 3DH 05-24 22:23
PROVIDERS: ADMIT Internal Medicine; ATTEND Internal Medicine
PROC: 5A1D70Z Performance of Urinary Filtration, Intermittent, Less than 6 Hours Per Day (ICD-10-PCS; 2024-05-22)
PROC: 0LBW0ZZ Excision of Left Foot Tendon, Open Approach (ICD-10-PCS; principal; 2024-05-23 14:34)
PROC: 5A1D70Z Performance of Urinary Filtration, Intermittent, Less than 6 Hours Per Day (ICD-10-PCS; 2024-05-24)
PROC: 5A1D70Z Performance of Urinary Filtration, Intermittent, Less than 6 Hours Per Day (ICD-10-PCS; 2024-05-27)
PROC: 02HV33Z Insertion of Infusion Device into Superior Vena Cava, Percutaneous Approach (ICD-10-PCS; 2024-05-27)
DX: A41.9 Sepsis, unspecified organism (principal); N18.6 End stage renal disease; L03.116 Cellulitis of left lower limb; I12.0 Hypertensive chronic kidney disease with stage 5 chronic kidney disease or end stage renal disease; L02.612 Cutaneous abscess of left foot; B95.2 Enterococcus as the cause of diseases classified elsewhere; D64.9 Anemia, unspecified; E11.22 Type 2 diabetes mellitus with diabetic chronic kidney disease; B95.0 Streptococcus, group A, as the cause of diseases classified elsewhere; E11.51 Type 2 diabetes mellitus with diabetic peripheral angiopathy without gangrene; E11.621 Type 2 diabetes mellitus with foot ulcer; E11.65 Type 2 diabetes mellitus with hyperglycemia; E11.69 Type 2 diabetes mellitus with other specified complication; E66.01 Morbid (severe) obesity due to excess calories; E78.5 Hyperlipidemia, unspecified; L97.529 Non-pressure chronic ulcer of other part of left foot with unspecified severity; Z79.51 Long term (current) use of inhaled steroids; Z79.82 Long term (current) use of aspirin; Z79.899 Other long term (current) drug therapy; Z82.3 Family history of stroke; Z82.49 Family history of ischemic heart disease and other diseases of the circulatory system; Z83.3 Family history of diabetes mellitus; Z99.2 Dependence on renal dialysis; Z86.73 Personal history of transient ischemic attack (TIA), and cerebral infarction without residual deficits; Z68.27 Body mass index [BMI] 27.0-27.9, adult
CPT/HCPCS: 36415; 71045; 73630; 73718; 75635; 80048; 80053; 80076; 80202; 81001; 82550; 82948; 83036; 83605; 83735; 83880; 84100; 84132; 84145; 84484; 85025; 85610; 86704; 86706; 86803; 87040; 87070; 87076; 87086; 87186; 87205; 87340; 90935; 93005; 96365; 99285; G0378; J0360; J1644; J1815; J2250; J2543; J2704; J3010; J3490; Q9967; A4216; A4222; A4223; A4649; A4930; J0665; J3370; Q5106

== ENCOUNTER 2024-06-09 10:16 | Emergency (ER) | payer OTHER ==
[~2024-06-09] VITALS: Ht 188 cm; Wt 100.2 kg
[~2024-06-09 10:16] MED LIST changes: -AEC81 PO; -BUDE10.2 IH; -FLUT16H NASAL; +FOLI0.8C PO; +GABA-529 PO; -[UNRECOGNIZED DRUG - OTHER] PO
--- NOTE | 2024-06-09 11:36 | ERN ---
ED Note History of Present Illness Stated Complaint: ANKLE PAIN, LEG FEELS WARM, POST OP Chief Complaint: FOOT INJURY/PAIN Time Seen by MD: 10:24 Dictation: 44-year-old male with a history of DM and ESRD presents to the ED for evaluation of left foot pain onset one day ago. Patient reports warmth radiating up his left leg, but denies any other associated symptoms at this time. Patient states he was placed on Zosyn by PCP, but was told to come in for further evaluation. Allergies: Coded Allergies: No Known Allergies (Verified Allergy, Unknown, 06/12/18) Home Meds Reported Medications Folic Acid (Folic Acid) 0.8 Mg Capsule, 1 CAP PO DAILY for 30 Days, #30 CAP 0 Refills 05/24/24 Gabapentin (Gabapentin) 100 Mg Capsule, 3 CAP PO DAILY PRN for OTHER [SEE ORDER COMMENTS] for 30 Days, #90 CAP 0 Refills 300mg once a day if cramping 05/24/24 Semaglutide (Ozempic) 0.25 Mg/0.368 Ml Pen.injctr, 2 MG SQ QWEEK 12/20/22 Sucroferric Oxyhydroxide (Velphoro) 500 Mg Tab.chew, 1000 MG PO TIDMEALS, TAB.CHEW 07/14/22 Atorvastatin Calcium (LIPITOR) 20 Mg Tab, 20 MG PO HS, TAB 08/08/18 Past Medical History Past Medical History: Diabetes-Type II, Renal Failure Additional Past Medical Hx: OSTEOMYLITIS Surgical History: Appendectomy, None Surgical History Other: MULTIPLE TOE AMPUTATION, RIGHT EYE, Review of System Dictation Constitutional: Negative for fever,chills, and weight loss Eyes: Negative for injury, pain,redness, and discharge ENT: Negative for injury,pain or swelling Cardiovascular: Negative for chest pain, palpitations, and edema Respiratory: Negative for shortness of breath, cough, and wheezing, Abdomen/GI: Negative for abdominal pain, nausea, vomiting, diarrhea, and constipation Back: Negative for injury and pain : Negative for injury, bleeding and discharge MS/Extremity: Positive for left ankle pain, warmth, Negative for injury and deformity Skin: Negative for rash, and discoloration Neuro: Negative for headache, weakness, numbness, tingling, and seizure Psych: Negative for suicide ideation, homicidal ideation, and hallucinations Initial Vital Sign VS Vital Signs Date Time Temp Pulse Resp B/P (MAP) Pulse Ox O2 Delivery O2 Flow Rate FiO2 06/09/24 10:24 97.5 86 18 155/94 98 Room Air Physical Exam Dictation General: awake, alert, NAD Head/Face: Normocephalic, atraumatic Eyes: PERRL, EOMI, vision at baseline ENT: oral cavity clear, TMs clear, no signs of infection Neck: Trachea midline, supple, no nuchal rigidity Cardiovascular: RRR, normal S1/S2, No MRGs, no JVD Respiratory: CTAB, no respiratory distress, No rales or wheezes Abdomen: Soft, non-tender, non-distended, normal bowel sounds, no guarding or rebound. Skin: Warm, dry, normal turgor, no rash MS/Extremity: Pulses equal, no cyanosis, neurovascular intact, left ankle tenderness, left foot tenderness Neuro: COAx4, GCS 15, strength 5/5, CN 2-12 intact, normal cerebellar exam, nor mal gait, Psych: Normal behavior, mood, and affect normal Results (Laboratory/Radiology) Laboratory/Radiology Laboratory Tests Test 06/09/24 11:43 White Blood Count 5.2 K/uL (4.8-10.8) Red Blood Count 4.12 MIL/uL (4.50-6.20) L Hemoglobin 12.2 g/dL (14.0-18.0) L Hematocrit 37.7 % (42-54) L Mean Corpuscular Volume 91.5 fL (79-99) Mean Corpuscular Hemoglobin 29.6 pg (27.0-33.0) Mean Corpuscular Hemoglobin Concent 32.4 g/dL (32.0-36.0) Red Cell Distribution Width 14.3 % (11.0-15.5) Platelet Count 304 K/uL (130-400) Mean Platelet Volume 9.3 fL (7.5-10.5) Immature Granulocyte % (Auto) 0.4 % (0-1) Neutrophils (%) (Auto) 55.6 % (40.0-77.0) Lymphocytes (%) (Auto) 33.5 % (21.0-51.0) Monocytes (%) (Auto) 6.1 % (3.0-13.0) Eosinophils (%) (Auto) 3.1 % (0.0-8.0) Basophils (%) (Auto) 1.3 % (0.0-5.0) Neutrophils # (Auto) 2.9 K/uL (1.8-7.7) Lymphocytes # (Auto) 1.8 K/uL (1.0-4.8) Monocytes # (Auto) 0.3 K/uL (0.1-1.0) Eosinophils # (Auto) 0.16 K/uL (0.00-0.70) Basophils # (Auto) 0.07 K/uL (0.00-0.20) Absolute Immature Granulocyte (auto 0.02 K/uL (0-1) Nucleated Red Blood Cells 0.0 % (0.0-0.19) Erythrocyte Sedimentation Rate 70 MM/HR (0-15) H Sodium Level 139 mmol/L (136-145) Potassium Level 4.5 mmol/L (3.5-5.1) Chloride Level 102 mmol/L (101-111) Carbon Dioxide Level 31 mmol/L (21-32) Blood Urea Nitrogen 49 mg/dL (7-18) H Creatinine 7.0 mg/dL (0.5-1.3) H Glomerular Filtration Rate Calc 9 mL/min (>90) Random Glucose 94 mg/dL (70-105) Total Calcium 8.6 mg/dL (8.5-10.1) C-Reactive Protein, Quantitative 8.80 mg/L (0.5-3.0) H Labs Reviewed?: Yes X-RAY Comment: REASON: infection ORDERING PHYSICIAN: MARIVEL BARBA MD PROCEDURE: FT 3VW LT - FOOT COMP 3+VWS LT FOOT COMP 3+VWS LT INDICATION: infection TECHNIQUE: FOOT COMP 3+VWS LT. FINDINGS AND IMPRESSION: There is transmetatarsal amputation of the second, third and fourth and fifth rays. There is amputation of the distal first toe. There is diffuse soft tissue swelling with soft tissue gas in the distal first toe which may represent open ulcer versus gas-forming infection. Correlate clinically. Degenerative changes are noted. DICTATED BY: MANPREET MUNSON MD DATE: 06/09/24 1201 Ultrasound Comment: REASON: LLE pain ORDERING PHYSICIAN: MARIVEL BARBA MD PROCEDURE: ART B LE - US ARTERIAL BILAT LOW EXT DUPL US ARTERIAL BILAT LOW EXT DUPL HISTORY: LLE pain TECHNIQUE: Real-time arterial doppler ultrasound of the lower extremity was performed using B mode, color flow and spectral analysis. FINDINGS: RIGHT: Normal triphasic and biphasic waveforms seen in the evaluated arteries. The visualized common femoral, superficial femoral, popliteal, posterior tibial, anterior tibial and dorsalis pedis arteries demonstrate velocities within normal limits. s. LEFT: Normal triphasic and biphasic waveforms seen in the evaluated arteries. The visualized common femoral, superficial femoral, popliteal, posterior tibial, anterior tibial and dorsalis pedis arteries demonstrate velocities within normal limits. IMPRESSION: No evidence of major vessel occlusion or high-grade stenosis. DICTATED BY: MANPREET MUNSON MD DATE: 06/09/24 1245 ED Course ED Course Orders Procedure Category Date Status Time Erythrocyte LAB 06/09/24 Complete Sedimentation Rate 11:08 Crp Quantitative LAB 06/09/24 Complete 11:08 Foot Comp 3+Vws Lt RAD 06/09/24 Resulted 11:08 Cbc With Differential LAB 06/09/24 Complete 11:08 Basic Metabolic Panel LAB 06/09/24 Complete 11:08 Us Arterial Bilat Low US 06/09/24 Resulted Ext Dupl 11:08 Vital Signs Date Time Temp Pulse Resp B/P (MAP) Pulse Ox O2 Delivery O2 Flow Rate FiO2 06/09/24 10:24 97.5 86 18 155/94 98 Room Air Medical Decision Making MDM MDM: Differential diagnosis: Cellulitis, ankle pain, left foot cellulitis Rationale: Tests considered and ordered secondary to shared decision making include: labs and radiology Risk of complication and/or morbidity or mortality of patient management: None Medications-Per medication reconciliation Need for hospitalization: Patient does not meet criteria for hospitalization. Need for emergency major/minor surgery: No There are no social concerns with this patient. Patient's prior external medical records from other ER visits were reviewed by me as indicated. Prior testing and results from previous visits were reviewed. Prior tests were taken into account with medical decision making and resource utilization, independent historian/historians were used to obtain complete medical history. I independently interpreted the test that were performed, results were reviewed by me and considered findings on radiology if ordered. DX & DISP Disposition: Discharge Departure Impression: Primary Impression: Cellulitis of left foot Additional Impression: ESRD (end stage renal disease) Condition: Stable Referrals: KATHERYN LOVELACE MD (PCP) MARIVEL BARBA MD Jun 09, 2024 11:36
[2024-06-09 12:03] LABS: POTASSIUM 4.5 mmol/L (3.5-5.1)
--- NOTE | 2024-06-09 12:04 | HMCIMG ---
FOOT COMP 3+VWS LT INDICATION: infection TECHNIQUE: FOOT COMP 3+VWS LT. FINDINGS AND IMPRESSION: There is transmetatarsal amputation of the second, third and fourth and fifth rays. There is amputation of the distal first toe. There is diffuse soft tissue swelling with soft tissue gas in the distal first toe which may represent open ulcer versus gas-forming infection. Correlate clinically. Degenerative changes are noted.
[2024-06-09 12:06] LABS: BASOPHILS # (AUTO) 0.07 K/uL (0.00-0.20); BASOPHILS % (AUTO) 1.3 % (0.0-5.0); EOSINOPHILS # (AUTO) 0.16 K/uL (0.00-0.70); EOSINOPHILS % (AUTO) 3.1 % (0.0-8.0); HEMATOCRIT 37.7 % (42-54); IMMATURE GRANULOCYTE ABSOLUTE 0.02 K/uL (0-1); LYMPHOCYTES # (AUTO) 1.8 K/uL (1.0-4.8); LYMPHOCYTES % (AUTO) 33.5 % (21.0-51.0); MEAN CORPUSCULAR HEMOGLOBIN 29.6 pg (27.0-33.0); MEAN CORPUSCULAR HGB CONC 32.4 g/dL (32.0-36.0); MEAN CORPUSCULAR VOLUME 91.5 fL (79-99); MONOCYTES # (AUTO) 0.3 K/uL (0.1-1.0); MONOCYTES % (AUTO) 6.1 % (3.0-13.0); NEUTROPHILS # (AUTO) 2.9 K/uL (1.8-7.7); NEUTROPHILS % (AUTO) 55.6 % (40.0-77.0); PLATELET COUNT (AUTO) 304 K/uL (130-400); RED BLOOD CELL COUNT(AUTO) 4.12 MIL/uL (4.50-6.20); RED CELL DISTRIBUTION WIDTH 14.3 % (11.0-15.5); WHITE BLOOD COUNT (AUTO) 5.2 K/uL (4.8-10.8)
--- NOTE | 2024-06-09 12:48 | HMCIMG ---
US ARTERIAL BILAT LOW EXT DUPL HISTORY: LLE pain TECHNIQUE: Real-time arterial doppler ultrasound of the lower extremity was performed using B mode, color flow and spectral analysis. FINDINGS: RIGHT: Normal triphasic and biphasic waveforms seen in the evaluated arteries. The visualized common femoral, superficial femoral, popliteal, posterior tibial, anterior tibial and dorsalis pedis arteries demonstrate velocities within normal limits. s. LEFT: Normal triphasic and biphasic waveforms seen in the evaluated arteries. The visualized common femoral, superficial femoral, popliteal, posterior tibial, anterior tibial and dorsalis pedis arteries demonstrate velocities within normal limits. IMPRESSION: No evidence of major vessel occlusion or high-grade stenosis.
[2024-06-09 13:08] LABS: ERYTHROCYTE SEDIMENTATION RATE 70 MM/HR (0-15)
[2024-06-09 15:07] VITALS: BP 142/76; PULSE 80; RESP 16; TEMP 98.1; O2SAT 98
== END 2024-06-09 15:11 | disposition home or self-care (01) ==
LOC: EDH 10:16
DX: L03.116 Cellulitis of left lower limb (principal); E11.22 Type 2 diabetes mellitus with diabetic chronic kidney disease; N18.6 End stage renal disease; Z79.899 Other long term (current) drug therapy; Z79.85 Long-term (current) use of injectable non-insulin antidiabetic drugs; Z90.49 Acquired absence of other specified parts of digestive tract
CPT/HCPCS: 36415; 73630; 80048; 85025; 85651; 86140; 93925; 99284